=== PATIENT | female | born 1965 | race Caucasian/White ===

== ENCOUNTER → 2017-09-29 07:02 | Outpatient (CLI) | payer OTHER, SELFPAY ==
[2017-09-29 07:37] LABS: Hematocrit 42.3 % (37-47); Hemoglobin 14.5 g/dl (12.0-15.0); Mean Corp Hgb Conc 34.3 g/gl (32-36); Mean Corpuscular Hgb 31.9 pg (27.0-32.0); Mean Corpuscular Volume 93.2 fL (81-99); Mean Platelet Vol. 11.6 fl (6.2-12.0); Platelet Count 189 K/mm3 (150-450); RBC Distribution Width CV 12.5 % (11.6-14.6); RBC Distribution Width SD 42.4 fl (35.1-43.9); Red Blood Count 4.54 M/mm3 (4.2-5.4); White Blood Count 8.4 K/mm3 (4.4-11.0)
[2017-09-29 07:40] LABS: Scan Indicated on CBC? Y/N NO
[2017-09-29 08:14] LABS: ALB/GLOB Ratio 1.1 RATIO (0.9-2.4); AST(SGOT) 27 U/L (15-37); Alanine Aminotransfer ALT/SGPT 37 U/L (13-56); Albumin, Serum 3.8 g/dL (3.2-5.0); Alkaline Phosphatase 64 U/L (45-117); Anion Gap 6 (5-15); BUN 14 mg/dL (7-18); Calcium,Total 8.5 mg/dL (8.5-10.1); Chloride 109 mmol/L (98-107); Cholesterol 193 mg/dL (200); Creatinine, Serum 0.93 mg/dL (0.55-1.02); EST Glomerular Filtration Rate 67 mL/min (>60); Est Glom Filt Rate - Afr Amer 81 mL/min (>60); Globulin 3.5 g/dL (2.2-4.2); Glucose 106 mg/dL (74-106); High Density Lipoprotein 31 mg/dL; Potassium 3.8 mmol/L (3.5-5.1); Protein, Total 7.3 g/dL (6.4-8.2); Sodium Level 139 mmol/L (136-145); Thyroid Stim Hormone (TSH) 1.95 uIU/mL (0.358-3.74); Triglycerides 180 mg/dL; Very Low Density Lipoprotein 36 mg/dL (5-40)
== END ==
PROVIDERS: Family Provider Family Medicine; PCP Family Medicine
DX: E66.9 Obesity, unspecified (principal); R68.89 Other general symptoms and signs; F32.0 Major depressive disorder, single episode, mild
CPT/HCPCS: 36415; 80053; 80061; 84443; 85027

== ENCOUNTER → 2017-10-09 08:11 | Outpatient (CLI) | payer OTHER, SELFPAY ==
--- NOTE | 2017-10-09 08:17 | BI_ITS ---
MAMMOGRAPHY - BILATERAL SCREENING 3-D KEATON SYNTHESIS REASON FOR EXAM: Female, 52 years old. Bilateral Screening 3-D tomosynthesis PERTINENT HISTORY: No significant family history. TECHNIQUE: 2-D mammograms and 3-D Keaton synthesis of the breast (s) were performed. CAD was performed. COMPARISON: July 08, 2016, March 21, 2015 FINDINGS: The breast composition is almost entirely fat. Scattered benign calcifications are seen. No dense spiculated masses or suspicious microcalcifications are identified. No architectural distortion is identified. There is no skin thickening or retraction. There has been no significant change since the prior study. BI/SCREENING MAMM (CAD), BILAT IMPRESSION: No mammographic signs of malignancy. Routine yearly mammograms recommended. ASSESSMENT CATEGORY: BIRADS Category 2: Benign. A letter regarding these results will be sent to the patient by the facility within 30 days. FOLLOW UP RECOMMENDATION: Yearly follow up mammogram recommended. (A) Approximately 10% of breast cancers are not detected by mammography. A normal mammogram should not delay biopsy of a clinically suspicious abnormality. Electronically Signed: Clay Jaramillo MD at 17:35 EDT , Service support ,
== END ==
PROVIDERS: Family Provider Family Medicine; PCP Family Medicine; Visit Provider Family Medicine
DX: Z12.31 Encounter for screening mammogram for malignant neoplasm of breast (principal)
CPT/HCPCS: 77063; 77067

== ENCOUNTER 2018-04-22 18:25 | Emergency (ER) | payer OTHER, SELFPAY ==
[2018-04-22 18:26] VITALS: BP 149/95; PULSE 99; RESP 17; TEMP 36.4; O2SAT 97; BMI 40.9
--- NOTE | 2018-04-22 19:24 | ED.DCSUM_ITS ---
- ER Visit Summary Date of Service: 04/22/18 Chief Complaint: Hypertension History of Present Illness: The patient is a 53 F who states that earlier today at work her blood pressure was elevated 160/110. She had a migraine she took her migraine medication and it resolved. She cannot remember if she developed a sharp shooting pain in her right eye before or after the migraine. But it continues. It is intermittent but consistently intermittent. She has been having some nasal congestion. She denies any red eye. She denies any vision changes. There are no visual field cuts. Patient does not have any arm leg face or speech symptoms. His appointment with her doctor on Wednesday. She states that when she sees her regular doctor her blood pressure is fine when she sees her neurologist is usually elevated Physical Examination: Afebrile blood pressure 149/95 Gen: Well-nourished well-developed Head: Normocephalic atraumatic Eyes: Perrl EOMI patient's natural eyes provide an extremely good funduscopic exam for which I can see the optic disc artery vein and they appeared normal. No photophobia. There is no conjunctival injection. There is no rash. ENT: TMs clear no rhinorrhea moist mucous membranes Neck: Supple no lymphadenopathy no JVD nontender CVS: Regular rate rhythm no murmurs normal S1-S2 Respiratory: No distress clear to auscultation bilaterally chest nontender Abdomen: Soft nontender nondistended normal bowel sounds no masses Back: Nontender Extremity: Nontender no edema Skin: Normal color no rash Neuro: alert orientated ?3 CN II-XII intact normal strength sensation reflexes gait cerebellar Psych: Normal affect normal mood Emergency Department Course and Treatment: Patient's eye pressures are equal bilaterally. Please see T-sheet. I do not see evidence of acute angle-closure glaucoma. There is no visual changes. I do not see evidence of acute retinal artery or vein thrombosis. No evidence of intracranial pressure. Patient received a shot of Toradol and she will be discharged home. She has appointment on Wednesday. Patient does note that she has been under a lot of stress and has not been sleeping well. I advised her to try to get some sleep tonight as she has the weekend off to try to do non-stressful things. Impression: 1. Right eye pain This note was generated with Comeetation software. It may contain incorrect words, spelling, and punctuation that were not noted in review of the chart prior to signing ED Disposition - Plan for ED Patient: Disposition: Home or Assisted Living Chief Complaint: Hypertension Instructions: ED Headache Migraine Referrals: Julien Skinner DO [Primary Care Provider] - Keep Kathia appointment
[2018-04-22] MEDS: Ketorolac 60 MG/2 ML Vial IM (20:19)
[2018-04-22 20:22] VITALS: BP 133/88; PULSE 73; RESP 18; O2SAT 98
--- OUTSIDE RECORDS SUMMARY | 2018-07-27 07:46 | XMS RPT_ITS ---
:1965 Author Organization [facility] Care Team Providers Name Role Phone MONI EUGENE Attending Unavailable MONI EUGENE Referring Unavailable GERTRUDIS LEOS Attending Unavailable JULIEN SKINNER DO Primary Care Unavailable Julien Skinner Primary Care Unavailable Adi Resendez Attending Unavailable MONI EUGENE Attending Unavailable MONI EUGENE Referring Unavailable Julien Skinner Primary Care Unavailable Julien Skinner Attending Unavailable Julien Skinner Referring Unavailable Julien Skinner Primary Care Unavailable PROBLEMS PROBLEMS DATE TYPE CONDITION / CODE ATTENDING STATUS SOURCE 10/09/2017 Unknown Z12.31 - Dean Skinner Encounter for [facility] mammogram for Repository malignant neoplasm of breast / Z12.31(ICD-10) 09/29/2017 Unknown E66.9 - Obesity, MONI EUGENE Active Daniela unspecified / [facility] E66.9(ICD-10) Hospital Repository PROCEDURES PROCEDURES No Procedure Records FoundRESULTS RESULTS EMERGENCY DEPARTMENT Observed: 04/22/2018 Status: F Source: [place] SUMMARY 10:39 PM [facility] [place] [facility] Medical Records Department [address] [place] [address] Emergency Department Summary 04/22/181923 MR#: [id number] Acct: [id number] Name: LEOBARDO SUTTON Rep #: [id number] : 1965 53 From: Adi Resendez DO PCP: Julien Skinner DO Status: DEP ER - ER Visit Summary Date of Service: 04/22/18 Chief Complaint: Hypertension History of Present Illness: The patient is a 53 F who states that earlier today at work her blood pressure was elevated 160/110. She had a migraine she took her migraine medication and it resolved. She cannot remember if she developed a sharp shooting pain in her right eye before or after the migraine. But it continues. It is intermittent but consistently intermittent. She has been having some nasal congestion. She denies any red eye. She denies any vision changes. There are no visual field cuts. Patient does not have any arm leg face or speech symptoms. His appointment with her doctor on Wednesday. She states that when she sees her regular doctor her blood pressure is fine when she sees her neurologist is usually elevated Physical Examination: Afebrile blood pressure 149/95 Gen: Well-nourished well-developed Head: Normocephalic atraumatic Eyes: Perrl EOMI patient's natural eyes provide an extremely good funduscopic exam for which I can see the optic disc artery vein and they appeared normal. No photophobia. There is no conjunctival injection. There is no rash. ENT: TMs clear no rhinorrhea moist mucous membranes Neck: Supple no lymphadenopathy no JVD nontender CVS: Regular rate rhythm no murmurs normal S1-S2 Respiratory: No distress clear to auscultation bilaterally chest nontender Abdomen: Soft nontender nondistended normal bowel sounds no masses Back: Nontender Extremity: Nontender no edema Skin: Normal color no rash Neuro: alert orientated 3 CN II-XII intact normal strength sensation reflexes gait cerebellar Psych: Normal affect normal mood Emergency Department Course and Treatment: Patient's eye pressures are equal bilaterally. Please see T-sheet. I do not see evidence of acute angle- closure glaucoma. There is no visual changes. I do not see evidence of acute retinal artery or vein thrombosis. No evidence of intracranial pressure. Patient received a shot of Toradol and she will be discharged home. She has appointment on Wednesday. Patient does note that she has been under a lot of stress and has not been sleeping well. I advised her to try to get some sleep tonight as she has the weekend off to try to do non-stressful things. Impression: 1. Right eye pain This note was generated with [employer] dictation software. It may contain incorrect words, spelling, and punctuation that were not noted in review of the chart prior to signing ED Disposition - Plan for ED Patient: Disposition: Home or Assisted Living Chief Complaint: Hypertension Instructions: ED Headache Migraine Referrals: Julien Skinner DO [Primary Care Provider] - Keep Kathia appointment What to do if you have Problems For any increased pain, shortness of breath, bleeding, nausea or vomiting, chest pain, or any unexpected problems, contact your Primary Care Provider. Call [facility] ([phone]) or report to the closest Emergency Room. Call 911 if necessary. 04/22/18 2239 <Electronically signed by Adi Resendez DO> Date Adi Resendez DO Cosigner Signature (If Indicated): Date CC: Julien Skinner DO VL VENOUS UNILATERAL Observed: 03/15/2018 Status: F Source: [facility] EXT FOR DVT 3:18 PM FOUNDATION REPOSITORY ORIGINAL DUPLEX LOWER EXTREMITY VENOUS DOPPLER: RIGHT lower extremity Clinical Statement: RIGHT lower extremity pain Comparison: None FINDINGS: The RIGHT femoral and popliteal veins and the proximal visualized portions of the posterior tibial, peroneal, soleal and gastrocnemius veins show no direct or indirect evidence of thrombosis. There is n ormal phasic spontaneous flow in these veins which are also compressible. Spectral analysis shows normal flow augmentation in the superficial femoral and popliteal veins with physiologic maneuvers. The greater and lesser saphenous veins are also patent and compressible without evidence of superficial thrombophlebitis. IMPRESSION: No evidence of deep vein thrombosis in RIGHT lower extremity. I have personally reviewed the images of this examination and agree with the resident's findings and interpretation. Interpreted By: Dalia Tirado DO Preliminary Report By: Renetta Hernandez MD Electronically Signed By: Dalia Tirado DO Dictated Date: 03/15/2018 3:37:07 PM Prelim Date: 03/15/2018 3:38:24 PM Sign Date: 03/15/2018 4:59:34 PM SCREENING MAMM (CAD), Observed: 10/09/2017 Status: F Source: [place] BILAT 8:17 AM [facility] [place] [facility] Imaging Services [address] [place] [address] SCREENING MAMM (CAD), BILAT MR#: [id number] Acct: [id number] Name: LEOBARDO SUTTON Rep #: [id number] : 1965 F 52 From: Clay Jaramilol MD PCP: Julien Skinner DO Status: REG CLI Study: SCREENING MAMM (CAD), BILAT Date of Exam: 10/09/17 Exam# [id number] Ordering Dr: Julien Skinner DO MAMMOGRAPHY - BILATERAL SCREENING 3-D REGAN SYNTHESIS REASON FOR EXAM: Female, 52 years old. Bilateral Screening 3-D tomosynthesis PERTINENT HISTORY: No significant family history. TECHNIQUE: 2-D mammograms and 3-D Regan synthesis of the breast (s) were performed. CAD was performed. COMPARISON: July 08, 2016, March 21, 2015 FINDINGS: The breast composition is almost entirely fat. Scattered benign calcifications are seen. No dense spiculated masses or suspicious microcalcifications are identified. No architectural distortion is identified. There is no skin thickening or retraction. There has been no significant change since the prior study. BI/SCREENING MAMM (CAD), BILAT IMPRESSION: No mammographic signs of malignancy. Routine yearly mammograms recommended. ASSESSMENT CATEGORY: BIRADS Category 2: Benign. A letter regarding these results will be sent to the patient by the facility within 30 days. FOLLOW UP RECOMMENDATION: Yearly follow up mammogram recommended. (A) Approximately 10% of breast cancers are not detected by mammography. A normal mammogram should not delay biopsy of a clinically suspicious abnormality. 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 CBC-COMPLETE BLOOD CNT Collected: 09/29/2017 Status: F Source: [place] NO DIFF 7:15 AM [facility] [place] TYPE CODE TESTS RESULT OUT OF RANGE REFERENCE UNITS LAB L100.1000 4.4-11.0 K/mm3 Normal WBC 8.4 LAB L100.1200 4.2-5.4 M/mm3 Normal RBC 4.54 LAB L100.1300 12.0-15.0 g/dl Normal HGB 14.5 LAB L100.1400 37-47 % Normal HCT 42.3 LAB L100.1500 81-99 fL Normal MCV 93.2 LAB L100.1600 27.0-32.0 pg Normal MCH 31.9 LAB L100.1700 32-36 g/gl Normal MCHC 34.3 LAB L100.1810 11.6-14.6 % Normal RDW CV 12.5 LAB L100.1820 35.1-43.9 fl Normal RDW SD 42.4 LAB L100.1900 150-450 K/mm3 Normal PLT 189 LAB L100.2000 6.2-12.0 fl Normal MPV 11.6 Performed By: #### L100.0500 #### [facility] [address] [place], [address] COMPREHENSIVE METABOLIC Collected: 09/29/2017 Status: F Source: D[place] PROFIL 7:15 AM [facility] [place] TYPE CODE TESTS RESULT OUT OF RANGE REFERENCE UNITS LAB L501.0100 74-106 mg/dL Normal GLU 106 Result Comment: Fasting Glucose result from 100 to 125 mg/dL suggests IMPAIRED HOMEOSTASIS per A.D.A. criteria. Please note revised GLUCOSE reference range effective 2017. LAB L501.1000 7-18 mg/dL Normal BUN 14 LAB L501.1100 0.55-1.02 mg/dL Normal CREAT,SERUM 0.93 Result Comment: The validity of the calculated GFR AND GFRAA in patients over 70 years has not been determined. Clinical correlation is essential. LAB L501.1110 >60 mL/min Normal EST GFR 67 Result Comment: Non- GFR Calc LAB L501.1115 >60 mL/min Normal EST GFR - AA 81 Result Comment: GFR Calc LAB L501.1300 10-20 RATIO Normal BUN/CRE 15.0 LAB L501.1500 6.4-8.2 g/dL T Normal PROT 7.3 LAB L501.1800 3.2-5.0 g/dL Normal ALB 3.8 LAB L501.1950 2.2-4.2 g/dL Normal GLOB 3.5 LAB L501.2000 0.9-2.4 RATIO Normal A/G 1.1 LAB L501.2200 8.5-10.1 mg/dL CA Normal 8.5 LAB L501.4100 15-37 U/L Normal AST 27 LAB L501.4305 45-117 U/L Normal ALK P 64 LAB L501.4405 13-56 U/L Normal ALT 37 LAB L501.4600 0.20-1.00 mg/dL T Normal BILI 0.30 LAB L501.5300 136-145 mmol/L NA Normal 139 LAB L501.5600 3.5-5.1 mmol/L K Normal 3.8 LAB L501.5900 98-107 mmol/L High CL 109 LAB L501.6100 21.0-32.0 mmol/L Normal CO2 24.0 LAB L501.6200 5-15 Normal GAP 6 Performed By: #### L500.4050, L500.4100, L501.9520 #### [facility] [address] [place], [address] LIPID PROFILE Collected: 09/29/2017 Status: F Source: [place] 7:15 AM [facility] [place] TYPE CODE TESTS RESULT OUT OF RANGE REFERENCE UNITS LAB L501.4900 200 mg/dL Normal CHOL 193 Result Comment: <200 mg/dL Desirable 200-240 mg/dL Borderline >240 mg/dL High Risk LAB L501.5000 mg/dL Normal TRIG 180 Result Comment: The drugs N-Acetylcysteine and Metamizole may falsely depress this assay. Serum Triglycerides Reference Interval Normal <150 mg/dL Borderline high 150 - 199 mg/dL High 200 - 499 mg/dL Very High > or = 500 mg/dL LAB L501.6400 mg/dL Low HDL 31 Result Comment: The drugs N-Acetylcysteine and Metamizole may falsely depress this assay. Reference Range HDL <40 mg/dL Low HDL Cholesterol HDL >or= 60 mg/dL High HDL Cholesterol LAB L501.6500 0-130 mg/dL Normal LDL 126 LAB L501.6600 5-40 mg/dL Normal VLDL 36 Performed By: #### L500.4050, L500.4100, L501.9520 #### [facility] [address] [place], [address] THYROID STIM HORMONE Collected: 09/29/2017 Status: F Source: [place] (TSH) 7:15 AM [facility] [place] TYPE CODE TESTS RESULT OUT OF RANGE REFERENCE UNITS LAB L501.9520 0.358-3.74 uIU/mL Normal TSH 1.95 Performed By: #### L500.4050, L500.4100, L501.9520 #### [facility] [address] [facility] [place], [address] PROGRESS Observed: 09/27/2017 Status: COMPLETED Source: [place] 2:38 PM [facility] REPOSITORY HNO ID: [id number] Author: Moni Eugene Service: (none) Author Type: Physician Type: Progress Notes Filed: 09/27/2017 3:03 PM Note Text: Headache Center - Follow up Visit Accompanied by: Self Primary Problem List: ACTIVE PROBLEM LIST Migraine Without Aura and Without Status Migrainosus, Not Intractable Restless Legs Syndrome (Rls) Essential Tremor Obesity, Class III, BMI >= 40 (morbid obesity) E66.01 Obesity, Class II, Bmi 35-39.9 Chief Complaint: New symptoms Interval Headache Hx: She went for 3 months without a menses and did not have a headache In May she had a menses- headaches returned- only a couple of week A month ago she had irregular bleeding- now 5 weeks since she had any bleeding May- very depressed- koki she was . [place] suicidal- she is better since recognizing. She was put on Vibryd- she took one pill and she had the worst headache so she was afraid to take it. She took Prozac during post - has taken buspar Kids think she is depressed- she is crying all the time- sometimes no reason. She thinks it is hormonal Boyfriend's daughter has been in inpatient psychiatric institution for depression-lots of behavioral problems. This is a lot of stress. Headaches are doing ok as is tremor. Sometimes had morning headache- prior PSG + for restless legs only. + stiff neck- uses e-stim to get it to loosen up. Preventative: Verapamil and Topamax and magnesium Abortive: Treximet Issues and questions to be addressed: Medications reviewed ALLERGIES Allergen Reactions - Duricef [Cefadroxil] Rash - Penicillins Rash - Zomig [Zolmitriptan] Intolerance I have reviewed the [facility]ima Status Assessment responses and discussed these with the patient: yes Moni Eugene MD HEADACHE SCORES: Depression Screening 01/23/2015 06/08/2016 09/27/2017 PHQ-2 Score 1 1 1 PHQ-9 Score 3 6 3 MENDEL - 2/7 SCORES 09/27/2017 MENDEL-2 Total Score 2 HIT - 6 SCORES 09/27/2017 HIT - 6 Score 58 HEADACHE RELATED ED VISITS 09/27/2017 Since your last visit, how many times have you been admitted to the hospital or visited an Emergency Department or Urgent Care Facility for treatment of your headaches? 0 No flowsheet data found. Studies to Review: No New Health Issues: No New Social History: Yes, lives with boyfriend. Still works crazy hours New Family History: No REVIEW OF SYSTEMS: Review of system: unchanged from the previous visit (sleep patterns,energy, appetite, stress, exercising). Mood is down PHYSICAL EXAMINATION: VS: BP 139/66 Pulse 75 Ht 176.5 cm (5' 9.5) Wt 117.9 kg (260 lb) BMI 37.84 kg/m? General: Alert and oriented. Answered questions in an appropriate manner. Made eye contact without apparent pain behavior. HEENT: Head is normocephalic and features were symmetric. Cranial Nerves: II: Pupils: symmetric Ill,lV,Vl: nl eye movements VII: Face symmetric. Motor: Bulk: Normal for age and gender. No abnormal movements were appreciated. Fine postural tremor Gait: Unassisted, normal Normal stride length, base, and normal arm swing. Impression: Migraine without aura and without status migrainosus, not intractable (primary encounter diagnosis) Essential tremor Obesity, class ii, bmi 35-39.9 Cold intolerance Current mild episode of major depressive disorder without prior episode (hcc) Headaches are ok- more problems with depression. Menopause is helping headaches Situational stressors are high. Plan: All options for treatment discussed. Ok to try Viibryd again- if headache consider Pristiq instead Ok to taper off the Verapamil Continue Topamax, Magnesium and Treximet. Follow-up: 1 year Total time in minutes spent with patient: 30 with more than 50% of the time spent in patient education/counselling/coordinating care with the patient and /or family. Moni Eugene MD CNOV Observed: 09/27/2017 Status: COMPLETED Source: [place] 2:10 PM [facility] REPOSITORY Office Visit (MARI) LEOBARDO SUTTON ([id number]) 1965 F Date Time Provider Department 09/27/17 2:10 PM MONI EUGENE During your visit today, we recorded the following information about you: Pulse Blood pressure Weight Height 75/minute 139/66 117.9 kg 1.765 m Moni Eugene MD 09/27/2017 3:03 PM Signed Headache Center - Follow up Visit Accompanied by: Self Primary Problem List: ACTIVE PROBLEM LIST Migraine Without Aura and Without Status Migrainosus, Not Intractable Restless Legs Syndrome (Rls) Essential Tremor Obesity, Class III, BMI >= 40 (morbid obesity) E66.01 Obesity, Class II, Bmi 35-39.9 Chief Complaint: New symptoms Interval Headache Hx: She went for 3 months without a menses and did not have a headache In May she had a menses- headaches returned- only a couple of week A month ago she had irregular bleeding- now 5 weeks since she had any bleeding May- very depressed- koki she was . [place] suicidal- she is better since recognizing. She was put on Vibryd- she took one pill and she had the worst headache so she was afraid to take it. She took Prozac during post - has taken buspar Kids think she is depressed- she is crying all the time- sometimes no reason. She thinks it is hormonal Boyfriend's daughter has been in inpatient psychiatric institution for depression-lots of behavioral problems. This is a lot of stress. Headaches are doing ok as is tremor. Sometimes had morning headache- prior PSG + for restless legs only. + stiff neck- uses e-stim to get it to loosen up. Preventative: Verapamil and Topamax and magnesium Abortive: Treximet Issues and questions to be addressed: Medications reviewed ALLERGIES Allergen Reactions - Duricef [Cefadroxil] Rash - Penicillins Rash - Zomig [Zolmitriptan] Intolerance I have reviewed the Hima Status Assessment responses and discussed these with the patient: yes Moni Eugene MD HEADACHE SCORES: Depression Screening 01/23/2015 06/08/2016 09/27/2017 PHQ-2 Score 1 1 1 PHQ-9 Score 3 6 3 MENDEL - 2/7 SCORES 09/27/2017 MENDEL-2 Total Score 2 HIT - 6 SCORES 09/27/2017 HIT - 6 Score 58 HEADACHE RELATED ED VISITS 09/27/2017 Since your last visit, how many times have you been admitted to the hospital or visited an Emergency Department or Urgent Care Facility for treatment of your headaches? 0 No flowsheet data found. Studies to Review: No New Health Issues: No New Social History: Yes, lives with boyfriend. Still works crazy hours New Family History: No REVIEW OF SYSTEMS: Review of system: unchanged from the previous visit (sleep patterns,energy, appetite, stress, exercising). Mood is down PHYSICAL EXAMINATION: VS: BP 139/66 Pulse 75 Ht 176.5 cm (5' 9.5) Wt 117.9 kg (260 lb) BMI 37.84 kg/m? General: Alert and oriented. Answered questions in an appropriate manner. Made eye contact without apparent pain behavior. HEENT: Head is normocephalic and features were symmetric. Cranial Nerves: II: Pupils: symmetric Ill,lV,Vl: nl eye movements VII: Face symmetric. Motor: Bulk: Normal for age and gender. No abnormal movements were appreciated. Fine postural tremor Gait: Unassisted, normal Normal stride length, base, and normal arm swing. Impression: Migraine without aura and without status migrainosus, not intractable (primary encounter diagnosis) Essential tremor Obesity, class ii, bmi 35-39.9 Cold intolerance Current mild episode of major depressive disorder without prior episode (hcc) Headaches are ok- more problems with depression. Menopause is helping headaches Situational stressors are high. Plan: All options for treatment discussed. Ok to try Viibryd again- if headache consider Pristiq instead Ok to taper off the Verapamil Continue Topamax, Magnesium and Treximet. Follow-up: 1 year Total time in minutes spent with patient: 30 with more than 50% of the time spent in patient education/counselling/coordinating care with the patient and /or family. Moni Eugene MD Referring Provider: MONI EUGENE [[id number]] Allergies As of Date: 09/27/2017 Noted Allergy Reaction DURICEF (CEFADROXIL) 06/15/2011 2 - Rash PENICILLINS 06/15/2011 2 - Rash ZOMIG (ZOLMITRIPTAN) 06/15/2011 5 - Intolerance Date Reviewed: 09/27/2017 Reviewed by: Izabella Pfeiffer Ma - Fully Assessed Reason for Visit: Headache [52] Primary Visit Diagnosis:Migraine without aura and without status migrainosus, not intractable [G43.009] Other Visit Diagnoses:Essential tremor [G25.0] Obesity, Class II, BMI 35-39.9 [E66.9] Cold intolerance [R68.89] Current mild episode of major depressive disorder without prior episode (HCC) [F32.0] Order(s):TSH BLD [SQTSH] Order #: [id number] FUTURE CBC [SQCBC] Order #: [id number] FUTURE LIPID PANEL BASIC [SQLIPB] Order #: [id number] FUTURE COMP METABOLIC PANEL [SQCMP] Order #: [id number] FUTURE topiramate (TOPAMAX) 100 mg tabletTake 1 tablet by mouth daily at bedtime.Disp: 90 tabletRfl: 3 SUMAtriptan-Naproxen (TREXIMET) 85-500 mg per tabletTake 1 tablet by mouth as needed.Disp: 27 tabletRfl: 3 Prescriptions as of 09/27/2017 Sig: TOPIRAMATE 100 MG TABLET Take 1 tablet by mouth daily * SUMATRIPTAN 85 MG-NAPROXEN 50* Take 1 tablet by mouth as nee* ALBUTEROL SULFATE HFA 90 MCG/* Inhale 2 Puffs as instructed * OMEGA-3 FATTY ACIDS 500 MG CA* Take 500 mg by mouth once celeste* HYDROCODONE 5 MG-ACETAMINOPHE* Take 1 tablet by mouth every * COENZYME Q10 100 MG CAPSULE Take 1 capsule by mouth twice* MAGNESIUM OXIDE 500 MG TABLET Take 1 tablet by mouth once d* * FAMOTIDINE 40 MG TABLET Take 40 mg by mouth twice celeste* * CHOLECALCIFEROL (VITAMIN D3) * Take by mouth once daily. * MULTIVITAMIN TABLET Take 1 tablet by mouth once d* Medication notes this encounter VERAPAMIL ER (SR) 240 MG TABLET,EXTENDED RELEASE >> Moni Eugene MD 09/27/2017 3:02 PM feels she may not need Problem List As Of Date 09/27/2017 Noted Resolved Migraine without aura [G43.009] INVALID FOR*06/08/2016 Migraine without aura and without status migrai*INVALID FOR* Restless legs syndrome (RLS) [G25.81] INVALID FOR* Essential tremor [G25.0] INVALID FOR* Obesity, Class III, BMI >= 40 (morbid obesity) *INVALID FOR* Obesity, Class II, BMI 35-39.9 [E66.9] INVALID FOR* Prescriptions ordered this encounter Disp Refills Start End TOPIRAMATE 100 MG TABLET 90 t* 3 09/27/2017 Route: ORAL Sig: Take 1 tablet by mouth daily at bedtime. SUMATRIPTAN 85 MG-NAPROXEN 500 MG TA* 27 t* 3 09/27/2017 Route: ORAL Sig: Take 1 tablet by mouth as needed. Medications Discontinued During This Encounter gabapentin (NEURONTIN) 300 mg capsule 07/22/2016 09/27/2017 Class: Med Update Route: ORAL Sig: Take 2 capsules by mouth twice daily. Take one capsule in the am and 2 in the pm. Disc: Side Effects methylPREDNISolone (MEDROL, TAMMIE,) 4 * 1 Pa* 0 07/06/2016 09/27/2017 Sig: Take as directed Disc: Course of therapy completed Dexlansoprazole (DEXILANT) 30 mg ORA* 09/27/2017 Class: Med Update Route: ORAL Sig: Take by mouth once daily. Disc: Cost of medication verapamil SR (CALAN SR, ISOPTIN SR) * 90 t* 3 12/21/2016 09/27/2017 Route: ORAL Sig: Take 1 tablet by mouth daily at bedtime. Disc: Clinical Decision topiramate (TOPAMAX) 100 mg tablet 90 t* 3 12/21/2016 09/27/2017 Route: ORAL Sig: Take 1 tablet by mouth daily at bedtime. Disc: Reason for discontinue is not on file. SUMAtriptan-Naproxen (TREXIMET) 85-5* 27 t* 3 11/25/2016 09/27/2017 Route: ORAL Sig: Take 1 tablet by mouth as needed. Disc: Reason for discontinue is not on file. Disposition: Return in about 1 year (around 09/27/2018). Follow-up and Disposition History Recorded Encounter Status:Closed by MONI EUGENE MD on 09/27/17 ALLERGIES ALLERGIES DATE TYPE / NAME / CODE REACTION SEVERITY SOURCE CODE 04/22/2018 Drug cefadroxil Unknown Unknown [place] All[facility]/41 hydrate/[id number] [facility] [id number]( (RXNORM) Hospital OMED CT) Repository 04/22/2018 Drug Penicillins/[id number] Hives Unknown [place] Allergy/41 0476(RXNORM) [facility] [id number]([facility] OMED CT) Repository 04/22/2018 Drug zolmitriptan/F0060 Nausea Unknown [place] Allergy/41 94939(RXNORM) [facility] [id number]([facility] OMED CT) Repository 06/15/2011 DRUG CEFADROXIL RASH [facility] INGREDI/[address] [place] [id number]( Repository OMED CT) 06/15/2011 Drug PENICILLINS RASH [facility] Class/[address] [place] [address]([place] [place] [facility] Repository ED CT) 06/15/2011 DRUG ZOLMITRIPTAN INTOLERANCE [facility]/[address] [place] [address] [id number]( Repository O[address]) ENCOUNTERS ENCOUNTERS ADMIT/DISCHARGE ACCOUNT NUMBER ADMITTING ENCOUNTER LOCATION SOURCE CLASS 04/22/2018/04/22/20 [id number] Emergency [address] ding:ED Repository 03/15/2018/03/15/20 [id number] Ambulatory [address] ding:[facility] Repository 10/09/2017 [id number] Ambulatory [facility] ding:OPBI Repository 09/29/2017 [id number] Ambulatory [facility] ding:LAB Repository 09/27/2017/09/29/19 [id number] Ambulatory [address] Repository PAYERS PAYERS ENCOUNTER GUARANTOR PAYER SUBSCRIBER SOURCE 04/22/2018 LEOBARDO Ethel Primary Insurance:MED ADI [id number] MUTUAL TPAPolicy SRDOB: [facility] TACHO Number: [id number], [place] [id number] Repository [address]Xbo: ([phone]) Date:[id number] [phone] (HP) [address]41VZBDODOLZ, [place] [address]SN: CHECK WEBSITE 04/22/2018 Secondary NOT GIVENUNK Daniela Insurance:SELF PAY [facility] Number: Effective Repository Date:2018-04-22 03/15/2018 LEOBARDO Davenport Primary LORELEI YARNELLDOB: [place] [employer] YARNELLDOB: Insurance:MEDICAL [id number] [facility] [place] [id number] [facility] [address] [facility] Number: [place], [place] [id number] [place], [place] [address]Ggd: (330) Date:2018-03-15 [id number]: [id number] [id number] (HP)Tel: [phone] Name:CERTIFIED CODER Box (HP) (WP) [address]Clbuxufsn, [place] [phone] (WP) [id number]: 10/09/2017 LEOBARDO Ethel Primary Insurance:CATHY [id number] MUTUAL TPAPolicy SRDOB: [facility] Tacho Number: [id number], [place] [id number] Repository [address]Wju: (330) Date:[id number] [phone] (HP) [address]CIYJOZCZS, [place] [address]BA: CHECK WEBSITE 10/09/2017 Secondary NOT GIVENUNK Daniela Insurance:SELF PAY [facility] Number: Effective Repository Date:2017-09-20 09/29/2017 LEOBARDO Davenport Primary Insurance:CATHY ADI [id number] MUTUAL TPAPolicy SRDOB: [facility] Number: [id number], [place] [id number] Repository [address]Zks: ([phone]) Date:[id number] [phone] () [address]NSNVGOTEL, [place] [address]DT: CHECK WEBSITE 09/29/2017 Secondary NOT GIVENUNK Daniela Insurance:SELF PAY [facility] Number: Effective Repository Date:2017-09-29
== END 2018-04-22 20:45 | disposition home or self-care (01) ==
PROVIDERS: Emergency Provider Emergency Medicine; Family Provider Family Medicine; PCP Family Medicine
DX: H57.11 Ocular pain, right eye (principal); R09.81 Nasal congestion; G43.909 Migraine, unspecified, not intractable, without status migrainosus; K21.9 Gastro-esophageal reflux disease without esophagitis; Z79.899 Other long term (current) drug therapy; Z87.891 Personal history of nicotine dependence
CPT/HCPCS: 96372; 99283

== ENCOUNTER → 2018-10-01 | Outpatient (CLI) | payer OTHER, SELFPAY ==
[2018-10-01 10:37] LABS: AST(SGOT) 67 U/L (15-37); Alanine Aminotransfer ALT/SGPT 85 U/L (13-56); Albumin, Serum 3.7 g/dL (3.2-5.0); Alkaline Phosphatase 66 U/L (45-117); Anion Gap 6 (5-15); BUN 14 mg/dL (7-18); BUN/Creat Ratio 14.8 RATIO (10-20); Calcium,Total 8.7 mg/dL (8.5-10.1); Chloride 110 mmol/L (98-107); Creatinine, Serum 0.94 mg/dL (0.55-1.02); EST Glomerular Filtration Rate 66 mL/min (>60); Est Glom Filt Rate - Afr Amer 80 mL/min (>60); Globulin 3.7 g/dL (2.2-4.2); Glucose 135 mg/dL (74-106); Potassium 3.8 mmol/L (3.5-5.1); Protein, Total 7.4 g/dL (6.4-8.2); Sodium Level 142 mmol/L (136-145)
== END | disposition home or self-care (01) ==
LOC: LAB.FUTURE 07:56
PROVIDERS: Family Provider Family Medicine; PCP Family Medicine; Referring Provider Family Medicine; Visit Provider Family Medicine
DX: R73.9 Hyperglycemia, unspecified (principal)
CPT/HCPCS: 36415; 80053

== ENCOUNTER → 2018-12-03 | Outpatient (CLI) | payer OTHER, SELFPAY ==
--- NOTE | 2018-12-03 10:23 | BI_ITS ---
MAMMOGRAPHY - BILATERAL SCREENING REASON FOR EXAM: Female, 53 years old. Routine annual screening examination. PERTINENT HISTORY: Non-contributory. TECHNIQUE: Digital bilateral breast keaton (3D mammographic acquisition) in the CC and MLO projections. 2-D mediolateral oblique (MLO) and craniocaudad (CC) views of both breasts were obtained. CAD: Full Field Digital Mammography with Computer Added Detection was performed. COMPARISON: Comparison is made with prior study dated October 09, 2017 and July 08, 2016. FINDINGS: Breast Composition: The breasts are almost entirely fatty. There are no dominant masses or suspicious calcifications. No other significant abnormalities are identified. There has been no significant change since the prior study. BI/SCREEN MAMM (CAD) W/KEATON BILAT IMPRESSION: Stable bilateral screening mammogram. Yearly follow-up mammogram recommended. (A) ASSESSMENT CATEGORY: BIRADS Category 1: Negative. A letter regarding these results will be sent to the patient by the facility within 30 days. Approximately 10% of breast cancers are not detected by mammography. A normal mammogram should not delay biopsy of a clinically suspicious abnormality. [id number] Electronically Signed: Adonay Suresh, at 8:57 EDT , Service support ,
== END | disposition home or self-care (01) ==
PROVIDERS: Family Provider Family Medicine; PCP Family Medicine; Referring Provider Family Medicine; Visit Provider Family Medicine
DX: Z12.31 Encounter for screening mammogram for malignant neoplasm of breast (principal)
CPT/HCPCS: 77063; 77067

== ENCOUNTER 2019-11-23 04:00 | Emergency (ER) | payer OTHER, SELFPAY ==
[2019-11-23 04:01] VITALS: BP 175/94; PULSE 99; RESP 17; TEMP 36.7; O2SAT 95; BMI 39.5
--- NOTE | 2019-11-23 04:25 | ED.VIS.GEN ---
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 Yesterday, she had a repeat urinalysis as an outpatient at a different hospital, [facility], and was switched to Cipro. She states a culture was ordered. She is only had 1 dose of Cipro. She states she has had leg cramps off and on for a long time, and states tonight they were severe. She suspect she is dehydrated. She states she suspects this because she is really been urinating a lot. She is drinking, however. She does not feel lightheaded or near syncopal. She does not have any thoracic or abdominal symptoms, no back pain that is new with this. She is a diabetic. She denies any fevers or chills or other systemic symptoms. - Past Medical History (1) Migraines Status: Chronic (2) Type 2 diabetes mellitus Status: Chronic (3) HTN (hypertension) Status: Chronic (4) GERD (gastroesophageal reflux disease) Status: Chronic Past Medical History - Allergies and Home Meds Allergies/Adverse Reactions: Allergies cefadroxil hydrate [From Duricef] Allergy (Verified 11/23/19 04:06) Unknown Penicillins [PCN] Allergy (Verified 11/23/19 04:06) Hives zolmitriptan [From Zomig] Adverse Reaction (Verified 11/23/19 04:06) Nausea Primary Care Physician: Julien Skinner DO [COURTESY STAFF PHYSICIAN] - Smoking Status: Current every day smoker Review of Systems General: Denies: Chills, Fever, Sweats Eyes: Denies: Visual changes - bilaterally, Diplopia ENT: Denies: Rhinorrhea, Sore throat Cardiovascular: Denies: Chest pain, Palpitations Respiratory: Denies: Dyspnea, Cough, Dyspnea on exertion Gastrointestinal: Denies: Abdominal pain, Nausea, Vomiting, Diarrhea, Melena, Hematochezia Genitourinary: Reports: Frequency, - - ur urgency. Denies: Dysuria, Hematuria Musculoskeletal: Reports: Extremity Pain. Denies: Back pain, Swelling Skin: Denies: Rash, Wounds Neurological: Denies: Headache, Weakness, Numbness Physical Exam Vital Signs/Narrative: Vital Signs Temp Pulse Resp BP Pulse Ox 11/23/19 04:01 98.0 F 99 17 175/94 H 95 Inital Vital Signs reviewed: Yes General: Well nourished, Well developed, Obese, No Acute Distress Head: Normocephalic, Atraumatic Eyes: Perrl, EOMI ENT: Moist mucous membranes, No rhinorrhea Neck: Supple, - - FROM Respiratory: No distress Abdomen: Soft, Nontender, Nondistended, Normal bowel sounds Extremities: Nontender, No edema, - - FROM throughout Skin: Normal color, No rash, No Trauma Neurological: Alert, Oriented x3, Cranial nerves II-XII grossly intact, Normal Strength, Normal Sensation, Normal Gait Psychological: Normal affect, Normal Mood Diagnostic/Tx/Re-eval Laboratory Tests 11/23/19 Range/Units 04:20 Sodium 138 (136-145) mmol/L Potassium 3.8 (3.5-5.1) mmol/L Chloride 106 (98-107) mmol/L Carbon Dioxide 24.0 (21.0-32.0) mmol/L Anion Gap 8 (5-15) BUN 15 (7-18) mg/dL Creatinine 1.05 H (0.55-1.02) mg/dL Estim Creat Clear Calc 61.79 ml/min Est GFR (MDRD) Af Amer 70 (>60) mL/min Est GFR (MDRD) Non-Af 58 L (>60) mL/min BUN/Creatinine Ratio 14.3 (10-20) RATIO Glucose 144 H (74-106) mg/dL Calcium 8.8 (8.5-10.1) mg/dL - Medical Decision Making Nurses had placed an IV, so a liter of IV fluid was given empirically. She is not dehydrated according to my exam or her electrolyte panel, and her electrolytes are all within normal limits. She states after the fluids, she still has developed no further cramping. She is amenable to a single dose of Toradol prior to discharge. ED Disposition - Plan for ED Patient: Disposition: Home or Assisted Living Diagnosis: Bilateral leg cramps Instructions: ED SPASM Muscle Referrals: Julien Skinner DO [COURTESY STAFF PHYSICIAN] - As Needed
[2019-11-23] MEDS: 0.9% Normal Saline 1,000 ML 999 ML IV (04:28)
[2019-11-23 04:55] LABS: Anion Gap 8 (5-15); BUN 15 mg/dL (7-18); BUN/Creat Ratio 14.3 RATIO (10-20); Calcium,Total 8.8 mg/dL (8.5-10.1); Chloride 106 mmol/L (98-107); Creatinine, Serum 1.05 mg/dL (0.55-1.02); EST Glomerular Filtration Rate 58 mL/min (>60); Est Glom Filt Rate - Afr Amer 70 mL/min (>60); Estimated Creatinine Clearance 61.79 ml/min; Glucose 144 mg/dL (74-106); Potassium 3.8 mmol/L (3.5-5.1); Sodium Level 138 mmol/L (136-145)
[2019-11-23] MEDS: Ketorolac 15 MG/ML Vial IV (05:20)
[2019-11-23 05:24] VITALS: BP 165/88; PULSE 90; RESP 17; O2SAT 97
== END 2019-11-23 05:36 | disposition home or self-care (01) ==
PROVIDERS: Emergency Provider Emergency Medicine; PCP Student in an Organized Health Care Education/Training Program
DX: R25.2 Cramp and spasm (principal); N39.0 Urinary tract infection, site not specified; E66.9 Obesity, unspecified; I10 Essential (primary) hypertension; K21.9 Gastro-esophageal reflux disease without esophagitis; E11.9 Type 2 diabetes mellitus without complications; G43.909 Migraine, unspecified, not intractable, without status migrainosus; Z79.84 Long term (current) use of oral hypoglycemic drugs; Z79.899 Other long term (current) drug therapy; F17.200 Nicotine dependence, unspecified, uncomplicated
CPT/HCPCS: 80048; 96361; 96374; 99284; J7030; A4216

== ENCOUNTER 2019-11-24 12:19 | Observation (INO) | payer OTHER, SELFPAY ==
[2019-11-23 04:01] VITALS: BMI 39.5
[2019-11-24 12:20] VITALS: BP 154/109; PULSE 109; RESP 18; TEMP 36.9; O2SAT 97; BMI 38.0
[2019-11-24 12:21] VITALS: BP 155/109; PULSE 109; RESP 18; TEMP 37.1; O2SAT 97
[2019-11-24] MEDS: 0.9% Normal Saline 1,000 ML 1000 ML IV (12:50)
[2019-11-24 13:02] LABS: Absolute Lymphocyte Count 2.43 X10^3/uL (0.83-4.51); Absolute Neutrophil Count 4.1 X10^3/uL (2.0-7.7); Basophil# 0.03 X10^3/uL; Basophil% 0.4 % (0-1); Eosinophil# 0.16 X10^3/uL; Eosinophils% 2.2 % (0-5); Hematocrit 43.1 % (37-47); Hemoglobin 14.9 g/dL (12.0-15.0); Lymphocyte # 2.43 X10^3/ul (4.0); Lymphocyte % 33.1 % (19-41); Mean Corp Hgb Conc 34.6 g/dL (32-36); Mean Corpuscular Hgb 32.3 pg (27.0-32.0); Mean Corpuscular Volume 93.5 fL (81-99); Mean Platelet Vol. 11.5 fl (6.2-12.0); Monocyte% 8.2 % (0-10); NRBC Flagged by Analyzer 0 % (0-5); Neutrophil % 55.7 % (47-70); Platelet Count 213 K/mm3 (150-450); RBC Distribution Width CV 11.9 % (11.6-14.6); RBC Distribution Width SD 41.1 fl (35.1-43.9); Red Blood Count 4.61 M/mm3 (4.2-5.4); White Blood Count 7.4 K/mm3 (4.4-11.0)
[2019-11-24 13:16] LABS: Anion Gap 7 (5-15); BUN 10 mg/dL (7-18); BUN/Creat Ratio 9.7 RATIO (10-20); Calcium,Total 9.2 mg/dL (8.5-10.1); Chloride 104 mmol/L (98-107); Creatinine, Serum 1.03 mg/dL (0.55-1.02); EST Glomerular Filtration Rate 59 mL/min (>60); Est Glom Filt Rate - Afr Amer 72 mL/min (>60); Estimated Creatinine Clearance 62.99 ml/min; Glucose 148 mg/dL (74-106); Potassium 3.7 mmol/L (3.5-5.1); Sodium Level 137 mmol/L (136-145)
--- NOTE | 2019-11-24 13:21 | ED.RN ---
DR GENTILE PAGED FOR DR PEREZ
--- NOTE | 2019-11-24 13:25 | ED.VISSUMM ---
- ER Visit Summary Date of Service: 11/24/19 Chief Complaint: [UTI] History of Present Illness: The patient is a 54 F [ presents to the emergency department with complaint of urinary tract infection that she has had for 6 days. Patient's been on 2 different antibiotics and not get much relief of her symptoms. She had a urine culture that showed ESBL which is resistant to most p.o. antibiotics. She was advised that she needed IV antibiotics. Patient denies fever. She does continue to complain of frequency and some nausea. She is had no vomiting. She has had some lower back pain intermittently. Patient is a diabetic and has history of hypertension as well as migraines. Patient's had prior cholecystectomy and hysterectomy.] Physical Examination: [HEENT-PERRLA, EOMI. Cranial nerves II through XII grossly intact. TMs clear. Mucous membranes moist. No adenopathy. Cardiovascular-regular rate and rhythm without murmur or ectopy Lungs-clear to auscultation, chest wall stable without crepitus or subcu emphysema Abdomen-normoactive bowel sounds, soft, nontender, no rebound or rigidity, no peritoneal signs. Extremities-intact ?4, normal range of motion, normal pulses, atraumatic] Test Results: [CBC with differential obtained showed a white blood cell count 7.4, hemoglobin 15, hematocrit 43, placed 213. Chemistries unremarkable. Lactate was elevated 2.1. Blood cultures ordered.] Emergency Department Course and Treatment: [Patient was started on meropenem IV.] Treatment Plan: [Case discussed with urologist who will see patient in the emergency department for admission.] Disposition: [Admit] Impression: [Urinary tract infection-failed outpatient therapy] This note was generated with [employer] dictation software. It may contain incorrect words, spelling, and punctuation that were not noted in review of the chart prior to signing ED Disposition - Plan for ED Patient: Referrals: Galen Colin DO [Primary Care Provider] -
--- NOTE | 2019-11-24 13:29 | CT_ITS ---
STUDY: CT ABDOMEN AND PELVIS WITHOUT CONTRAST REASON FOR EXAM: Female, 54 years old. FLANK PAIN/CURRENTLY BEING TREATED FOR UTI RADIATION DOSAGE (If Supplied By Facility): CTDIvol = ( 21.03 ) mGy, DLP = ( 1229.35 ) mGycm TECHNIQUE: Transaxial images were obtained from the dome of the diaphragm to the symphysis pubis without oral contrast, and without intravenous contrast. Sagittal and coronal images were reconstructed. Individualized dose optimization techniques were used for this CT. COMPARISON: Comparison is made with prior study July 27, 2012. FINDINGS: The visualized lung bases are unremarkable. The visualized portions of the heart are within normal limits. There is decreased attenuation of the liver consistent with steatosis. There are surgical clips in the gallbladder fossa consistent with a prior cholecystectomy. Normal spleen. Normal pancreas. Normal bilateral adrenal glands. Normal right kidney. There is a 3.7 cm x 3.2 cm hypodense nodule in the posterior aspect of the upper pole of the left kidney suggestive of a cyst. This has increased in size as compared to prior study. Normal visualized stomach. Normal small intestine. Normal colon. The appendix is visualized and appears normal. There is scattered atherosclerotic calcification of the abdominal aorta, without a demonstrated aneurysm. Normal inferior vena cava. There is borderline retroperitoneal lymphadenopathy with enlarged nodes no greater than 10mm in the short axis diameter. Normal urinary bladder. Normal abdominal wall. Disc space narrowing and disc degeneration with spondylosis at the L5-S1 level. CT/Abdomen/Pelvis without Cont IMPRESSION: Cyst is seen in the upper pole of the left kidney. Diffuse fatty infiltration of the liver. The patient is status post cholecystectomy. Electronically Signed: Adonay Suresh, at 14:10 EDT , Service support ,
--- NOTE | 2019-11-24 13:35 | HP.PCM_ITS ---
History of Present Illness Date of Admission: 11/24/19 Chief Complaint: Resistant urinary tract infection nausea back pain vomiting The patient is a 54 year old female presents emergency room with nausea back pain vomiting recent resistant urinary tract infection we can proceed with a further work-up with a CAT scan and continue with IV antibiotics she was seen as an outpatient yesterday started on Cipro but Cipro would not be effective. She will be admitted for IV antibiotics. Past Medical History Past Medical History (Chronic Problems): Chronic Problems Migraines (Chronic) Type 2 diabetes mellitus (Chronic) HTN (hypertension) (Chronic) GERD (gastroesophageal reflux disease) (Chronic) Allergies cefadroxil hydrate [From Duricef] Allergy (Verified 11/24/19 12:22) Unknown Penicillins [PCN] Allergy (Verified 11/24/19 12:22) Hives zolmitriptan [From Zomig] Adverse Reaction (Verified 11/24/19 12:22) Nausea Home Medications: Ambulatory Orders Medication Instructions Recorded Cholecalciferol (Vitamin D3) 2,000 unit PO DAILY 05/16/13 [Vitamin D] Famotidine [Pepcid] 40 mg PO BID 05/16/13 Magnesium Oxide 500 mg PO DAILY 05/16/13 Multivitamins,Ther W-Minerals 1 tablet PO DAILY 05/16/13 [Multivitamin With Minerals (BKC)] Donna-3 Fatty Acids/Fish Oil 1 tab PO DAILY 05/16/13 [Donna 3 1,000 mg Softgel] Pantoprazole Sodium [Protonix] 40 mg PO DAILY 04/22/18 Topiramate [Topamax] 100 mg PO QHS 04/22/18 Lisinopril [Zestril] 2.5 mg PO DAILY 11/23/19 Metformin HCl [Metformin HCl ER] 500 mg PO BID 11/23/19 Sumatriptan Succ/Naproxen Sod 1 ea PO PRN PRN 11/23/19 [Sumatriptan-Naproxen 85-500 mg] Vilazodone Hydrochloride [Viibryd] 20 mg PO DAILY 11/23/19 Surgical History: no surgical history Psychiatric History: No pertinent psych hx UTILITY PERSON History: No pertinent UTILITY PERSON history Lives: Spouse/ Significant Other Smoking Status: Current every day smoker Tobacco Use: Non-smoker Alcohol: None Drugs: None Review of Systems Constitutional: Denies: Chills, Fever, Weight Change HEENT: Denies: Head Aches, Sinus Congestion, Sinus Drainage Cardiovascular: Denies: Chest Pain, Palpitations Respiratory: Denies: Cough, Shortness of breath at rest, Sputum production Gastrointestinal: Denies: Abdominal Pain, Nausea, Vomiting Genitourinary: Denies: Dysuria Musculoskeletal: Denies: Joint Pain, Joint Tenderness Skin: Denies: Rash, Wounds Neurological: Denies: Numbness, Tingling, Focal weakness Psychiatric: Denies: Anxiety, Depression, Homicidal Ideations, Suicidal Ideations Hematologic/ Lymphatic: Denies: Easy Bruising, Easy Bleeding VTE Information - Inpt Only VTE Present on Admission: No VTE Mechan Device Prophylaxis: SCD's - Physical Exam Vitals/I&O's: Vital Signs Temp Pulse Resp BP Pulse Ox 98.7 F 109 H 18 155/109 H 97 11/24/19 12:21 11/24/19 12:21 11/24/19 12:21 11/24/19 12:21 11/24/19 12:21 Oxygen Delivery Method Room Air Weight: 115.212 kg Body Mass Index (BMI) 38.0 General: Alert, Oriented x3, Cooperative HEENT: Atraumatic, PERRLA, EOMI, Normocephalic Neck: Supple, No JVD, Negative Carotid Bruits Lungs: Clear to auscultation, Normal air movement Cardiovascular: Regular rate, No murmurs Abdomen: Bowel Sounds Present, Soft, Non Tender Extremities: No edema, Capillary Refill Less than 3 Seconds Skin: No rashes, No breakdown Musculoskeletal: No Tenderness to Palpation of Joints or Extremities Neurological: Cranial nerves II-XII grossly intact Psych/Mental Status: Normal Affect, Appropriate Laboratory Results 11/24/19 12:45: WBC 7.4, RBC 4.61, Hgb 14.9, Hct 43.1, MCV 93.5, MCH 32.3 H, MCHC 34.6, RDW Std Deviation 41.1, RDW Coeff of Sandra 11.9, Plt Count 213, MPV 11.5, Immature Gran % (Auto) 0.400, Neut % (Auto) 55.7, Lymph % (Auto) 33.1, [place] % (Auto) 8.2, Eos % (Auto) 2.2, Baso % (Auto) 0.4, Absolute Neuts (auto) 4.1, Absolute Lymphs (auto) 2.43, Nucleated RBC % 0 11/24/19 12:45: Sodium 137, Potassium 3.7, Chloride 104, Carbon Dioxide 26.0, Anion Gap 7, BUN 10, Creatinine 1.03 H, Estim Creat Clear Calc 62.99, Est GFR (MDRD) Af Amer 72, Est GFR (MDRD) Non-Af 59 L, BUN/Creatinine Ratio 9.7 L, Glucose 148 H, Calcium 9.2 11/24/19 12:45: Lactic Acid 2.1 H* Current Medications Sodium Chloride () 1,000 mls @ 150 mls/hr IV .[id number] YAMILET Meropenem 1 gm/ Sodium (Chloride) 120 mls @ 33 mls/hr IV X1 ONE Stop: 11/24/19 16:09 Lisinopril (Zestril) 2.5 mg PO DAILY [facility] Metformin HCl (Glucophage Xr) 500 mg PO BID [facility] Multivitamins/Minerals (Multivitamin With Minerals (Bkc)) 1 tablet PO DAILY YAMILET Non-Formulary Medication (Famotidine [Pepcid]) 40 mg PO BID YAMILET Non-Formulary Medication (Magnesium Oxide) 500 mg PO DAILY YAMILET Non-Formulary Medication (Sumatriptan Succ/Naproxen Sod [Sumatriptan-Naproxen 85-500 Mg]) 1 ea PO PRN PRN PRN Reason: MIGRAINE SYMPTOMS Pantoprazole Sodium (Protonix) 40 mg PO DAILY YAMILET Topiramate (Topamax) 100 mg PO QHS YAMILET Vilazodone HCl (Viibryd) 20 mg PO DAILY [facility] Assessment/Plan 54-year-old female with nausea vomiting back pain resistant UTI infection will admit to the hospital for IV antibiotics and also do a CT scan evaluate for kidney stone.
[2019-11-24 13:36] LABS: Lactic Acid 2.1 mmol/L (0.4-1.9)
[2019-11-24 14:03] VITALS: BP 138/79; PULSE 84; RESP 16; TEMP 36.4; O2SAT 99
[2019-11-24 14:48] VITALS: BMI 38.0; BMI 38.1
[2019-11-24] MEDS: 0.9% Normal Saline 1,000 ML 75 ML IV (15:12)
[2019-11-24 15:24] VITALS: BP 127/86; PULSE 81; RESP 18; TEMP 36.9; O2SAT 99
--- NOTE | 2019-11-24 16:36 | CON.PCM_ITS ---
Problem List (1) UTI (urinary tract infection) Status: Acute Reason for Consult: uti Consulted by: Dr. Felder History of Present Illness: The patient is a 54 year old F with DM, developed urinary frequency and hematuria 11/17. Reports this is her 5th uti in past few months. 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 No fever, no abd pain, no n/v/d. Started on bactrim, changed to cipro, ucx sent 11/21 in [employer] system, showed ESBL. No improvement in sx, so came to ED. CT done, admitted on meropenem. No h/o kidney stones. Interested in going home. Full ROS performed and neg except as noted above. - Medical History Past Medical History (Chronic Problems): Chronic Problems Migraines (Chronic) Type 2 diabetes mellitus (Chronic) HTN (hypertension) (Chronic) GERD (gastroesophageal reflux disease) (Chronic) Allergies/Adverse Reactions: Allergies cefadroxil hydrate [From Duricef] Allergy (Verified 11/24/19 12:22) Unknown Penicillins [PCN] Allergy (Verified 11/24/19 12:22) Hives zolmitriptan [From Zomig] Adverse Reaction (Verified 11/24/19 12:22) Nausea Home Medications: Ambulatory Orders Medication Instructions Recorded Famotidine [Pepcid] 40 mg PO QHS 05/16/13 Multivitamins,Ther W-Minerals 1 tablet PO DAILY 05/16/13 [Multivitamin With Minerals (BKC)] Harrington-3 Fatty Acids/Fish Oil 1 cap PO DAILY 05/16/13 [Harrington 3 1,000 mg Softgel] Pantoprazole Sodium [Protonix] 40 mg PO DAILY 04/22/18 Topiramate [Topamax] 100 mg PO QHS 04/22/18 Lisinopril [Zestril] 2.5 mg PO DAILY 11/23/19 Metformin HCl [Metformin HCl ER] 500 mg PO BID 11/23/19 Sumatriptan Succ/Naproxen Sod 1 ea PO DAILY PRN PRN 11/23/19 [Sumatriptan-Naproxen 85-500 mg] Vilazodone Hydrochloride [Viibryd] 20 mg PO DAILY 11/23/19 Cholecalciferol (Vitamin D3) 2,000 unit PO DAILY 11/24/19 [Vitamin D3] Fosfomycin Tromethamine [Monurol] 3 gm PO UD #2 packet 11/24/19 Magnesium Oxide [Mag-Ox 400] 400 mg PO QHS 11/24/19 - Social History Tobacco Use: cigarettes Vital Signs Temp Pulse Resp BP Pulse Ox 98.4 F 81 18 127/86 H 99 11/24/19 15:24 11/24/19 15:24 11/24/19 15:24 11/24/19 15:24 11/24/19 15:24 Oxygen Delivery Method Room Air Weight: 115.212 kg Body Mass Index (BMI) 38.0 Laboratory Tests Past 24 Hrs 11/24/19 11/24/19 11/24/19 12:45 12:45 12:45 WBC 7.4 RBC 4.61 Hgb 14.9 Hct 43.1 MCV 93.5 MCH 32.3 H MCHC 34.6 RDW Std Deviation 41.1 RDW Coeff of Sandra 11.9 Plt Count 213 MPV 11.5 Immature Gran % (Auto) 0.400 Neut % (Auto) 55.7 Lymph % (Auto) 33.1 [place] % (Auto) 8.2 Eos % (Auto) 2.2 Baso % (Auto) 0.4 Absolute Neuts (auto) 4.1 Absolute Lymphs (auto) 2.43 Nucleated RBC % 0 Sodium 137 Potassium 3.7 Chloride 104 Carbon Dioxide 26.0 Anion Gap 7 BUN 10 Creatinine 1.03 H Estim Creat Clear Calc 62.99 Est GFR (MDRD) Af Amer 72 Est GFR (MDRD) Non-Af 59 L BUN/Creatinine Ratio 9.7 L Glucose 148 H Lactic Acid 2.1 H* Calcium 9.2 - Other Studies Radiology: [] reviewed Other Studies: [] Route of nutrition/ use of supplements: [] Nutritional Intake: [] IV Site: [] Marie Catheter: [] - Physical Exam General: Alert, Oriented x3, Cooperative, No apparent distress HEENT: Atraumatic, PERRLA, EOMI Neck: Supple, No Nodes Lungs: Clear to auscultation, Normal air movement Cardiovascular: Regular rate, Regular Rhythm, No murmurs Abdomen: Soft, Non Tender, Non-Distended, - - no flank pain Extremities: No edema Skin: No rashes IV Site: Peripheral, without redness Musculoskeletal: No Tenderness to Palpation of Joints or Extremities Neurological: Cranial nerves II-XII grossly intact - Assessment/Plan Antibiotics: [] Assessment/Plan: [] Recurrent uti, now with esbl ecoli uti - reviewed [facility] records. CT done here with no stone or abscess seen. Small cyst present. Feeling fine, interested in going home. Will do 3 dose course of fosfomycin. If sx do not improve in next few days, will arrange for outpt IV or IM ertapenem. I gave her my card. Agree with plan for cystoscopy and methenamine once she is past this acute infection. Will follow, thank you, d/w rehabilitation case coordinator. Ok for d/c home today from my perspective.
[2019-11-24 16:55] LABS: Reflex Lactate? Y
[2019-11-24 17:00] LABS: Bedside Glucose 193 mg/dL (70-110)
[2019-11-24] MEDS: FOSFOMYCIN TROMETHAMINE 3 GM PACKET PO (18:00)
--- NOTE | 2019-11-24 18:09 | NURSING ---
spoke with dr blake who is agreeable to pt d/c this pm after 1st dose of monurel (given) and pt will follow up in office with dr blake Rx dispensed 2 more doses, pt aware of dosing schedule-pt aware to drink plenty of fluids, return for care for worsening symptoms, pain, fever or other concerns
== END 2019-11-24 18:09 | disposition home or self-care (01) ==
LOC: ED 13:08 → MS3 11-27 12:02
PROVIDERS: Admitting Provider Urology; Emergency Provider Emergency Medicine; PCP Student in an Organized Health Care Education/Training Program; Visit Provider Urology
DX: N39.0 Urinary tract infection, site not specified (principal); E11.9 Type 2 diabetes mellitus without complications; I10 Essential (primary) hypertension; K21.9 Gastro-esophageal reflux disease without esophagitis; Z79.899 Other long term (current) drug therapy; Z79.84 Long term (current) use of oral hypoglycemic drugs; G43.909 Migraine, unspecified, not intractable, without status migrainosus; F17.210 Nicotine dependence, cigarettes, uncomplicated; B96.20 Unspecified Escherichia coli [E. coli] as the cause of diseases classified elsewhere; Z87.440 Personal history of urinary (tract) infections
CPT/HCPCS: 74176; 80048; 82962; 83605; 85025; 87040; 96361; 96365; 96366; 99218; 99284; J2185; J7030; G0378

== ENCOUNTER → 2020-07-18 16:31 | Outpatient (CLI) | payer OTHER, SELFPAY ==
[2020-07-18 16:28] VITALS: BMI 40.6
--- NOTE | 2020-07-18 16:34 | RAD_ITS ---
STUDY: X-RAY - RIGHT WRIST REASON FOR EXAM: Female, 55 years old. right wrist injury TECHNIQUE: 3 view(s) of the wrist were obtained. COMPARISON: 12/21/2015. FINDINGS: Normal visualized distal radius and ulna. Normal radiocarpal articulation. Normal distal radioulnar articulation. Normal carpal bones. Normal carpal articulations. Normal carpometacarpal articulation of the thumb. Normal second through fifth carpometacarpal articulations. Normal visualized metacarpal bones. The soft tissue structures are unremarkable. There is no demonstrated acute fracture. RAD/Wrist min 3 Views IMPRESSION: No definite acute or significant abnormality seen. Electronically Signed: Alonso Byers MD at 17:15 EST , Service support ,
== END ==
PROVIDERS: PCP Student in an Organized Health Care Education/Training Program; Referring Provider Physician Assistant; Visit Provider Physician Assistant
DX: M25.531 Pain in right wrist (principal)
CPT/HCPCS: 73110

== ENCOUNTER → 2020-08-20 16:00 | Outpatient (CLI) | payer OTHER, SELFPAY ==
[2020-07-18 16:28] VITALS: BMI 40.6
--- NOTE | 2020-08-20 16:05 | BI_ITS ---
MAMMOGRAPHY - BILATERAL SCREENING REASON FOR EXAM: Female, 55 years old. Routine annual screening examination. PERTINENT HISTORY: Non-contributory. TECHNIQUE: Digital bilateral breast keaton (3D mammographic acquisition) in the CC and MLO projections. 2-D mediolateral oblique (MLO) and craniocaudad (CC) views of both breasts were obtained. CAD: Full Field Digital Mammography with Computer Added Detection was performed. COMPARISON: Comparison is made with prior examination dated 12/03/2018 and 10/09/2017. FINDINGS: Breast Composition: The breasts are almost entirely fatty. There are no dominant masses or suspicious calcifications. No other significant abnormalities are identified. There has been no significant change since the prior study. BI/SCRN MAMM (CAD)W/KEATON BILAT IMPRESSION: Stable bilateral screening mammogram. Yearly follow-up mammogram recommended. (A) ASSESSMENT CATEGORY: BIRADS Category 1: Negative. A letter regarding these results will be sent to the patient by the facility within 30 days. Approximately 10% of breast cancers are not detected by mammography. A normal mammogram should not delay biopsy of a clinically suspicious abnormality. [id number] Electronically Signed: Adonay Suresh MD at 8:33 EDT , Service support ,
== END ==
PROVIDERS: PCP Student in an Organized Health Care Education/Training Program; Referring Provider Student in an Organized Health Care Education/Training Program; Visit Provider Student in an Organized Health Care Education/Training Program
DX: Z12.31 Encounter for screening mammogram for malignant neoplasm of breast (principal)
CPT/HCPCS: 77063; 77067

== ENCOUNTER 2020-09-30 13:00 | Outpatient (RCR) | payer OTHER, SELFPAY ==
[2020-07-18 16:28] VITALS: BMI 40.6
--- NOTE | 2020-08-01 12:07 | HP.OTEVAL_ITS ---
Patient's Visit Information LEOBARDO SUTTON is a 55 year old F, referred to Occupational Therapy by NILSA Muhammad, with a diagnosis of right wrist sprain. Date of Evaluation: 08/01/20 Occupational Therapist: Jade Aguirre, OTR/Cat, CHT - Subjective This 55 year old female was seen for OT eval with dx of right wrist sprain. Pt s bardales she had difficulty with a pt suffering a right wrist sprian. 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 pt states this is not the first time this has happened. pt is right handed- pt states she was placed in a soft thumb spica brace. pt staes pain is better but she continues to be limited with ADLs and IADls. Pt would also like to know when she can get out of her wrist brace. - Pain right wrist 6 Pain Intensity Range: 3, 8 - ROM Forearm: right/left WNL Wrist: right 55/35 left 70/60 ROM Comments: right RD 25 UD [address] 20 UD 30 - Strength Senior Clinical Research Scientist: right 60 pain with release of resisitance left 65# Lateral Pinch: right 14# left 16# Tripod Pinch: right 10# left 18# - Edema Wrist: right 18cm left 17 - Quick DASH-Disab of Arm,Shoulder& Hand Quick DASH Score: 66.6650 - Hand/Wrist Evaluation Total Score of Pain & Functional Sections: 66 - Goals Goal:: pt will demo a increase in right director of clinical applications strength by 10# and report no pain with release of director of clinical applications- to increase pts ind. with ADLs and IADls by d.c. Goal:: pt will demo a increase in right wrist ROM equal to left by d/c to increase pts ind. with ADLs and IADLs. Goal:: pt will report pain no greater than 1/10 with use of right hand with ADls and IADls by d/c - Rehabilitation General Assessment: pt demo with touch tenderness in 1st dorsal region along with pain after release of resisitance- pt is limited with ADLs and IADLs. Pt would benefit from skilled OT services 2-3x week for 4 weeks 10 visits to decrease pain and increase strength for pt to PLOF. Today thearpist ed. pt on ROM wist flex/ext to light stretch, followed with ice and heat 2-3 x a day- advised pt to cont with use of brace but to wean out when sitting for about 20- 30 min at a time. pt demo understanding and agree to POC. Rehabilitation Potential: Good - Anticipated Interventions A/AAROM/PROM, Strengthening, Modalities, Orthoses, Ergonomic Education - Visit Plan Frequency: 2-3x /Week Duration: 4 Weeks TEXT: Thank you for the opportunity to evaluate your patient. For Medicare and Medicare HMO plans, please review the plan of care and approve it. It will need to be FAXED BACK to us at [phone] for Medicare purposes. Please let me know if there are questions or concerns regarding this plan of care. Physician Signature: Date:
--- NOTE | 2020-08-14 10:43 | OTREVAL_ITS ---
NILSA Muhammad, It has been my pleasure to treat LEOBARDO SUTTON over the last 6 visits for right wrist sprain. Please see the progress note below for an update on the occupational therapy plan of care! Subjective: pt arrives states she has started to wean out of her brace when at home- states she attempted to sleep without it but her wrist did wake her up in the middle of the night and she put her brace back on-pt pain is throught 1st dorsal region and most painful with dawson care (wrist flex) positions. Objective/Function: right wrist 70/55. right chief projectionist strenght 55# this is down from initial eval but pt does not have pain. right lateral pinch 16# a increase from 14#. right tripod pinch 12#a increase from 10#. right wrist circ. for edema inital was 18cm pt at 17.6cm. pt has made gains with her ROM and a decrease in pain- but still limited with functional use of right UE pain with wrist flex- pt would benefit from skilled OT services to cont with strengthening- and work ergo. Plan Frequency: 2-3x /Week Duration: 4 Weeks Visits in this POC: 10 Plan: Cont POC. decrease pain. isometrics Goals - Goals Patient Goals: Decrease Pain Goal:: pt will demo a increase in right chief projectionist strength by 10# and report no pain with release of chief projectionist- to increase pts ind. with ADLs and IADls by d.c. Goal:: pt will demo a increase in right wrist ROM equal to left by d/c to increase pts ind. with ADLs and IADLs. Goal:: pt will report pain no greater than 1/10 with use of right hand with ADls and IADls by d/c Anticipated Interventions Anticipated Interventions: A/AAROM/PROM, Strengthening, Modalities, Orthoses, Ergonomic Education Please do not hesitate to contact me at [phone] by phone or if you have questions or concerns regarding this new plan of care! Sincerely, Jade Aguirre, OTR/L, CHT
== END 2020-09-30 19:00 | disposition home or self-care (01) ==
LOC: OT 13:00
PROVIDERS: PCP Student in an Organized Health Care Education/Training Program; Referring Provider Physician Assistant; Visit Provider Physician Assistant
DX: S63.501D Unspecified sprain of right wrist, subsequent encounter (principal)
CPT/HCPCS: 97035; 97110; 97140; 97166; 97530

== ENCOUNTER 2021-01-22 10:00 | Outpatient (RCR) | payer OTHER, SELFPAY ==
--- NOTE | 2021-01-07 13:59 | HP.OTEVAL ---
Patient's Visit Information LEOBARDO SUTTON is a 55 year old F, referred to Occupational Therapy by NILSA Muhammad, with a diagnosis of De Quervains syndrome R. Date of Evaluation: 01/03/21 Occupational Therapist: Jade Aguirre, OTR/Cat, CHT - Subjective This 55 year old female was seen for OT eval with dx of right wrist sprain. Pt state she had difficulty with a pt suffering a right wrist sprain. 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 pt states this is not the first time this has happened. pt is right handed. Pt reported that she has attempted to use it a little, but there is a lot of pain when she does certain movements and picks up certain things. pt did see Dr. Gabriel Gomes at [facility] and he did give her a cortisone shot- this helped for the first 2 weeks but has not been successful at this time. pt states she does have a wrist brace. pt would like to get back to her PLOF from this injury. - Pain R wrist 6 - ROM Wrist: R: 40*/45*, L: 60*/50* Opposition: 10, 10 ROM Comments: Pt indicated pain with R Thumb MP movement. - Strength [employer] Principal: R: 15#, l: 75# Lateral Pinch: R: 5#, L: 18# Tripod Pinch: R: 4#, L: 18# Strength Comments: pt indicated pain upon release with exercise scientist, lat pinch, and 3-jaw pinch tests. - Edema Wrist: R: 7 inches L: 6.5 inches Other: R CMC: 7.5 inches L: 7 inches. - Sensation Sensation Comments: denies - Quick DASH-Disab of Arm,Shoulder& Hand Quick DASH Score: 63.6350 - Goals Goal:: pt will demo a increase in right exercise scientist strength by 50# and report no pain with release of exercise scientist- to increase pts ind. with ADLs and IADls by d.c. pt will demonstrate an increase in R lateral and 3-jaw sarai pinches by 10# or greater to return to work tasks by d/c. Goal:: pt will demo a increase in right wrist ROM equal to left by d/c to increase pts ind. with ADLs and IADLs. Goal:: pt will report pain no greater than 1/10 with use of right hand with ADls and IADls by d/c - Rehabilitation General Assessment: pt demonstrated a decrease in R wrist ROM decrease in R strength, an increase in pain, and an increase in edema. Pt would benefit from skilled OT services 2-3 x a week for 4 weeks to decrease pain and edema and increase ROM and strength to return pt to her PLOF. pt agrees to POC. therapy session was directly supervised and doc. approved by Jade Aguirre OTR/L,CHT Rehabilitation Potential: Good - Anticipated Interventions A/AAROM/PROM, Strengthening, Edema Control, Triggerpoint Release, Joint Protection/Energy Conservation, Home Program - Visit Plan Frequency: 2-3x /Week Duration: 4 Weeks TEXT: Thank you for the opportunity to evaluate your patient. For Medicare and Medicare HMO plans, please review the plan of care and approve it. It will need to be FAXED BACK to us at [phone] for Medicare purposes. Please let me know if there are questions or concerns regarding this plan of care. Physician Signature: Date:
--- NOTE | 2021-01-22 10:30 | HP.OTDCSUM ---
It has been my pleasure to treat LEOBARDO SUTTON under orders from NILSA Muhammad, for the diagnosis of De Quervains syndrome R for a total of 9 visit(s). Please see the following information for a summary of their discharge status. % Improvement: 100 Objective/Function: right wrist 75/60. right test center manager strength 70# increase from 15#. right tripod pinch 10# increase from 4#. right lateral pinch 10# increase from 5#. pt has met OT goals. pt does distribute pill out of individual blister packs- this repetition may increase pain and cause weakness. therapy discussed alternative but no device is available pt will try to use both hands interchangeable as able. Patient Goals: Regain Strength, Decrease Pain, Return to Work, Decrease Swelling/Stiffness, Improve Fine Motor Skills, Use Hand/Wrist/Arm Normally Again, Increase ROM, Be More Independent in ADLS Goal:: pt will demo a increase in right test center manager strength by 50# and report no pain with release of test center manager- to increase pts ind. with ADLs and IADls by d.c. pt will demonstrate an increase in R lateral and 3-jaw sarai pinches by 10# or greater to return to work tasks by d/c. Goal:: pt will demo a increase in right wrist ROM equal to left by d/c to increase pts ind. with ADLs and IADLs. Goal:: pt will report pain no greater than 1/10 with use of right hand with ADls and IADls by d/c Plan: d/d Discharge Comments: pt was seen for 9 OT visits- she made great gains once therapy initiate UB PRE on gym eq. Pt has had no c/o pain and reports she has been IND. with ADLs and IADLs. Pt has met OT goals and is D/c at this time. If there are questions or concerns regarding this patient's occupational therapy, please fell free to call me at [phone]. Thank you for the referral of this patient. Sincerely, Jade Aguirre, OTR/L, CHT
== END 2021-01-22 19:00 | disposition home or self-care (01) ==
LOC: OT 10:00
PROVIDERS: PCP Student in an Organized Health Care Education/Training Program; Referring Provider Physician Assistant; Visit Provider Physician Assistant
DX: S63.501D Unspecified sprain of right wrist, subsequent encounter (principal)
CPT/HCPCS: 97035; 97110; 97165; 97530

== ENCOUNTER → 2022-02-25 | Outpatient (CLI) | payer OTHER, SELFPAY ==
[2022-02-25 18:02] LABS: Alanine Aminotransfer ALT/SGPT 65 U/L (13-56)
[2022-02-25 20:09] LABS: HIV - WCH Non-Reactive (Nonreactive); Hepatitis B Surface Antibody Non-Reactive; Hepatitis C Antibody Non-Reactive (Nonreactive)
== END | disposition home or self-care (01) ==
LOC: MTLAB 15:33
PROVIDERS: PCP Student in an Organized Health Care Education/Training Program; Referring Provider Physician Assistant; Visit Provider Physician Assistant
DX: S61.239A Puncture wound without foreign body of unspecified finger without damage to nail, initial encounter (principal); W46.0XXA Contact with hypodermic needle, initial encounter
CPT/HCPCS: 36415; 84460; 86703; 86706; 86803

== ENCOUNTER → 2022-08-22 | Outpatient (CLI) | payer OTHER, SELFPAY ==
--- NOTE | 2022-08-22 10:13 | RAD_ITS ---
EXAM: XR LEFT RIBS AND AP CHEST, 3 OR MORE VIEWS CLINICAL INDICATION: injury to left ribs TECHNIQUE: Frontal and oblique views of the left ribs and frontal view of the chest. This report was created using [employer] report [employer] technology. COMPARISON: None. FINDINGS: LUNGS AND PLEURAL SPACES: Unremarkable. No consolidation or edema. No pneumothorax. No effusion. HEART: Unremarkable. Cardiac silhouette not enlarged. MEDIASTINUM: Central airways and mediastinal contour are unremarkable. BONES/JOINTS: Unremarkable. No evidence of displaced rib fractures. RAD/Ribs Uni Min 3V w/PA Chest IMPRESSION: Negative chest and left ribs series. Electronically Signed: Chidi Foster MD at 15:15 EDT ,
== END | disposition home or self-care (01) ==
PROVIDERS: PCP Student in an Organized Health Care Education/Training Program; Referring Provider Physician Assistant Medical; Visit Provider Physician Assistant Medical
DX: S20.212A Contusion of left front wall of thorax, initial encounter (principal)
CPT/HCPCS: 71101

== ENCOUNTER → 2024-03-06 | Outpatient (CLI) | payer OTHER, SELFPAY ==
--- NOTE | 2024-03-06 16:09 | MRI_ITS ---
STUDY: MRI BRAIN WITH AND WITHOUT CONTRAST (ATTENTION INTERNAL AUDITORY CANALS - I.A.C.''s) REASON FOR EXAM: Female, 59 years old. Ataxia, left HEARING LOSS TECHNIQUE: Standardized multiplanar fat and water weighted pulse sequences were obtained. 22 mL of IV Clariscan was administered for the contrast portion of the examination. COMPARISON: MRI brain with and without contrast 09/04/2005. FINDINGS: Normal bilateral temporal bones. Normal bilateral internal auditory canals. There is no demonstrated intracanalicular or cisternal vestibular schwannoma ( acoustic neuroma ). There is no enhancement of the bilateral VIIth or VIIIth cranial nerves. Normal bilateral cochlea, vestibules and semicircular canals. Normal size of the ventricles and extra-axial spaces for the patient''s age. Diffuse subcortical white matter T2 FLAIR hyperintensity foci in the frontal lobes, right more than left are nonspecific. They are most likely chronic white matter ischemic changes. No mass effects and no midline shift. Normal bilateral basal ganglia. Normal thalami. Normal flow voids within the major intracranial circulation suggesting patency by spin echo criteria. Normal venous enhancement. There is no enhancing intra-axial or extra-axial abnormality. There is no extra-axial fluid accumulation. Normal sella turcica, pituitary gland, infundibular stalk, optic chiasm and hypothalamus. Normal tectal plate and pineal gland. Normal midbrain, anil and medulla. Normal cerebellum. Normal basal cisterns. No demonstrated orbital abnormality, within the constraints of a routine brain study. Normal visualized paranasal sinuses. Normal calvarium and skull base. Normal visualized soft tissue structures. Normal visualized upper cervical spine. MRI/Brain W/WO Contrast IMPRESSION: 1. Few small nonenhancing chronic subcortical white ischemic changes in the frontal lobes, right more than left otherwise negative unenhanced and enhanced MRI of the brain and bilateral internal auditory canals (I.A.C''s). 2. Mild increased chronic subcortical white matter ischemic changes in the frontal lobes when compared to 09/04/2005. Electronically Signed: Darron Mcmullen MD at 13:31 EDT ,
[2024-03-06 16:59] LABS: CREATININE FINGERSTICK < 1.0 mg/dL (0.55-1.02); EGFR FINGERSTICK > 60.0000 mL/min (>60)
--- OUTSIDE RECORDS SUMMARY | 2024-03-06 19:57 | XMS RPT_ITS | CCD ---
Author Organization [facility] Care Team Providers Care [employer] [place] Name Role Phone RADHA ACUNA DO Primary Care Physician [phone] Julien Skinner DO Primary Care Provider Gayle vailaJulien Peralta DO Primary Care Provider Gayle vailable Julien Skinner DO Primary Care Provider RADHA ACUNA DO Attending Unavailable RADHA ACUNA DO Primary Care Unavailable RADHA ACUNA DO Attending Unavailable RADHA ACUNA DO Primary Care Unavailable Halnilo POLANCO, DORadha Primary Care Provider HALNILO IV, JONO Primary Care Unavailable TROY FLOREZ Referring Unavailable HALKO IV, JONO Primary Care Unavailable HALKO IV, JONO Primary Care Unavailable JULIEN SKINNER Primary Care Unavailable HALKO IV, JONO Primary Care Unavailable TROY FLOREZ Attending Unavailable HALKO IV, JONO Primary Care Unavailable ROSETTE LEUNGIANNA Referring Unavailable HALKO IV, JONO Primary Care Unavailable HALKO IV, JONO Primary Care Unavailable HALKO IV, JONO Primary Care Unavailable LEUNG, JACKIE Referring Unavailable HALKO IV, JONO Primary Care Unavailable STIVEN, JACKIE Attending Unavailable KALPANA DORADHA Attending Unavailable KALPANA REYES, RADHA Primary Care Unavailable CHARLIE SMITH Attending Unavailable SELF, SELF Referring Unavailable Allergies Allergy Classification Reported Allergen(s) Allergy Type Date of Onset Reaction(s) Facility (20 sources) alosetron; Translations: [alosetron] Drug Allergy 08-22-2019 [facility] (20 sources) Cefadroxil; Translations: [cefadroxil] Drug Allergy 06-15-2011 [facility] (20 sources) metFORMIN; Translations: [metformin] Drug Allergy 10-28-2020 Diarrhea (finding), Intolerance, Other: See Comments [facility] (14 sources) Penicillin; Translations: [penicillin] Drug Allergy Hives [facility] (20 sources) ZOLMitriptan; Translations: [zolmitriptan] Drug Allergy 06-15-2011 Intolerance [facility] (20 sources) Lisinopril; Translations: [lisinopril] Drug Allergy 10-28-2020 Cough, Cough (finding) [facility] Work Phone: (4 sources) Penicillins; Translations: [PENICILLINS] Drug Allergy 06-15-2011 [facility] (17 sources) Penicillins Drug Allergy 06-15-2011 [facility] Medications Current Medications Medication Drug Class(es) Dates Sig (Normalized) Sig (Original) 3 ML semaglutide 1.34 MG/ML Pen Injector [Ozempic] (1 source) Start: 01-27-2024 End: 07-25-2024 inject 1 dose by subcutaneous injection every week Ozempic 4 mg/3 mL (1 mg dose) subcutaneous solution Dose : 1 mg =, Subcutaneous, qWeek, Ozempic, # 10 mL, 1 Refill(s), Pharmacy: [facility], 174, cm, 01/24/24 13:33:00 EDT, Height, kg, 01/24/24 13:33:00 EDT, Dosing Weight Start Date: 01/27/24 Stop Date: 07/25/24 Status: Ordered [id number] 200 actuat albuterol 0.09 mg/actuat metered dose inhaler (20 sources) beta2-Adrenergic Agonist Start: 01-20-2016 take 2 puff(s) by inhalation every four hours as needed albuterol HFA (PROAIR HFA) 90 mcg/actuation inhaler Indications: Sinobronchitis Inhale 2 Puffs as instructed every 4 hours as needed. 1 Inhaler 0 01/20/2016 Active Comment on above: Inhale 2 Puffs as in structed every 4 hours as needed. Ascorbic Acid (20 sources) Vitamin C Start: 01-01-2020 Vitamin C qDay, 0 Refill(s) Start Date: 01/01/20 Status: Ordered take 1 tablet by mouth once jabari y Ascorbic Acid (VITAMIN C) 1,000 mg tablet Take 1,000 mg by mouth once daily. Active bisoprolol fumarate 10 mg oral tablet (20 sources) beta-Adrenergic Abiodun Start: 10-18-2020 End: 07-22-2024 bisoprolol 10 mg oral tablet Dose : 10 mg = 1 tab(s), Oral, qDay, # 90 tab(s), 1 Refill(s), Pharmacy: [facility], HTN (hypertension), benign, 174, cm, 01/24/24 13:33:00 EDT, Height, kg, 01/24/24 13:33:00 EDT, Dosing Weight Start Date: 01/24/24 Stop Date: 07/22/24 Status: Ordered Comment on above: Take 10 mg by mouth once daily. cefdinir 300 mg oral capsule (1 source) Cephalosporin Antibacterial Start: 01-13-2024 End: 01-20-2024 take 1 capsule by mouth twice daily cefdinir (OMNICEF) 300 mg capsule Indications: Acute otitis media, left Take 1 capsule by mouth two times a day for 7 days. 14 capsule 01/13/2024 01/20/2024 Active cetirizine hydrochloride 10 mg oral tablet (8 sources) Histamine-1 Receptor Antagonist Start: 09-01-2023 cetirizine 10 mg oral tablet Dose : 10 mg = 1 tab(s), Oral, qDay, # 30 tab(s), 2 Refill(s), Pharmacy: [facility], 174.5, cm, 09/01/23 14:56:00 EDT, Height, kg, 09/01/23 14:56:00 EDT, Dosing Weight Start Date: 09/01/23 Status: Ordered take 1 capsule by mouth once celeste ly Cetirizine (ZYRTEC) 10 mg cap Take 1 capsule by mouth once daily. Active cholecalciferol 0.05 mg oral capsule (20 sources) Vitamin D take 1 capsule by mouth once daily Cholecalciferol, Vitamin D3, 50 mcg (2,000 unit) cap Take 1 capsule by mouth once daily. Active Comment on above: Take by mouth once d aily. cranberry fruit (CRANBERRY) 450 mg tab (20 sources) take 1 tablet by mouth once daily cranberry fruit (CRANBERRY) 450 mg tab Take 1 tablet by mouth once daily. Active take 1 tablet by mouth once jabari y cranberry fruit (CRANBERRY) 450 mg tab Take 1 tablet by mouth once daily. 0 Active cranberry fruit (CRANBERRY) 450 mg tab Take by mouth. 0 Active Comment on above: Take by mouth. Cranberry preparation (11 sources) Non-Standardized Food Allergenic Extract, Non-Standardized Plant Allergenic Extract Start: 08-14-2021 cranberry oral capsule See Instructions, 0 Refill(s) Start Date: 08/14/21 Status: Ordered famotidine 40 mg oral tablet (20 sources) Histamine-2 Receptor Antagonist Start: 09-01-2023 End: 07-22-2024 famotidine 40 mg oral tablet Dose : 40 mg = 1 tab(s), Oral, BID, # 180 tab(s), 1 Refill(s), Pharmacy: [facility], 174, cm, 01/24/24 13:33:00 EDT, Height, kg, 01/24/24 13:33:00 EDT, Dosing Weight Start Date: 01/24/24 Stop Date: 07/22/24 Status: Ordered Start: 01-15-2023 End: 07-14-2023 famotidine 40 mg oral tablet Dose : 40 mg = 1 tab(s), Oral, BID, # 180 tab(s), 1 Refill(s), Pharmacy: [facility], 175, cm, 01/15/23 10:28:00 EDT, Height, kg, 01/15/23 10:28:00 EDT, Dosing Weight Start Date: 01/15/23 Stop Date: 07/14/23 Status: Ordered Start: 07-10-2022 End: 01-06-2023 famotidine 40 mg oral tablet Dose : 40 mg = 1 tab(s), Oral, BID, # 180 tab(s), 1 Refill(s), Pharmacy: [facility], 175, cm, 07/10/22 10:20:00 EST, Height, kg, 07/10/22 10:20:00 EST, Dosing Weight Start Date: 07/10/22 Stop Date: 01/06/23 Status: Ordered Start: 01-01-2022 End: 06-30-2022 famotidine 40 mg oral tablet Dose : 40 mg = 1 tab(s), Oral, BID, # 180 tab(s), 1 Refill(s), Pharmacy: [facility], 175, cm, 10/28/21 10:05:00 EDT, Height, kg, 01/01/22 16:12:00 EDT, Dosing Weight Start Date: 01/01/22 Stop Date: 06/30/22 Status: Ordered Start: 07-02-2021 End: 12-29-2021 famotidine 40 mg oral tablet Dose : 40 mg = 1 tab(s), Oral, BID, # 180 tab(s), 1 Refill(s), Pharmacy: [facility], 175, cm, 02/18/21 15:47:00 EDT, Height, kg, 07/02/21 15:34:00 EST, Dosing Weight Start Date: 07/02/21 Stop Date: 12/29/21 Status: Ordered Start: 12-30-2020 End: 06-28-2021 famotidine 40 mg oral tablet Dose : 40 mg = 1 tab(s), Oral, BID, # 180 tab(s), 1 Refill(s), Pharmacy: [facility], 174, cm, 12/30/20 15:26:00 EDT, Height, kg, 12/30/20 15:26:00 EDT, Dosing Weight Start Date: 12/30/20 Stop Date: 06/28/21 Status: Ordered Comment on above: Take 40 mg by mouth twice daily. Flonase 50 mcg/inh nasal spray (3 sources) Start: 11-29-2018 take 1 dose nasal route once daily in the morning Flonase 50 mcg/inh nasal spray Dose = 1 spray(s), Nostril, each, qAM, 0 Refill(s) Start Date: 11/29/18 Status: Ordered FLUoxetine 10 mg oral capsule (20 sources) Serotonin Reuptake Inhibitor Start: 01-24-2024 PROzac 10 mg oral capsule Dose : 10 mg = 1 cap(s), Oral, qDay, # 90 cap(s), 1 Refill(s), Pharmacy: [facility], 174, cm, 01/24/24 13:33:00 EDT, Height, kg, 01/24/24 13:33:00 EDT, Dosing Weight Start Date: 01/24/24 Status: Ordered Start: 09-01-2023 PROzac 10 mg o ral capsule Dose : 10 mg = 1 cap(s), Oral, qDay, # 90 cap(s), 1 Refill(s), Pharmacy: [facility], 174.5, cm, 09/01/23 14:56:00 EDT, Height, kg, 09/01/23 14:56:00 EDT, Dosing Weight Start Date: 09/01/23 Status: Ordered Start: 10-16-2022 take 1 capsule by [facility] once daily FLUoxetine (PROZAC) 20 mg capsule Take 1 capsule by mouth once daily. 11/26/2022 Active Start: 05-18-2022 PROzac 20 mg o ral capsule Dose : 20 mg = 1 cap(s), Oral, qDay, # 90 cap(s), 1 Refill(s), Pharmacy: [facility], 175, cm, 05/18/22 8:53:00 EST, Height Start Date: 05/18/22 Status: Ordered Start: 09-25-2021 End: 11-26-2022 take 1 capsule by mouth once daily FLUoxetine (PROZAC) 10 mg capsule Take 10 mg by mouth once daily. 0 10/23/2021 11/26/2022 Discontinued Comment on above: Take 10 mg by mouth once daily. Take 1 capsule by [facility] once daily. fluticasone propionate 0.05 mg/actuat metered dose nasal spray (12 sources) Corticosteroid Start: take 50 ug nasal route once daily Flonase 50 mcg/inh nasal spray 50 mcg Dose = 1 spray(s), Nostril, each, qDay, # 1 EA, 2 Refill(s), Pharmacy: [facility], 174.5, cm, 09/01/23 14:56:00 EDT, Height, kg, 09/01/23 14:56:00 EDT, Dosing Weight Start Date: 09/01/23 Status: Ordered Start: 11-29-2018 take 1 dose nasal ro eric once daily in the morning Flonase 50 mcg/inh nasal spray Dose = 1 spray(s), Nostril, each, qAM, 0 Refill(s) Start Date: 11/29/18 Status: Ordered glimepiride 1 mg oral tablet (20 sources) Sulfonylurea Start: 01-19-2023 End: 10-24-2023 glimepiride 1 mg oral tablet Dose : 1 mg = 1 tab(s), Oral, qDay, # 90 tab(s), 1 Refill(s), Pharmacy: [facility], 175, cm, 04/27/23 8:30:00 EST, Height, kg, 04/27/23 8:30:00 EST, Dosing Weight Start Date: 04/27/23 Stop Date: 10/24/23 Status: Ordered Start: 01-29-2020 End: 11-26-2022 take 1 tablet by mouth once daily glimepiride (AMARYL) 1 mg tablet Take 1 mg by mouth once daily. 0 01/29/2020 11/26/2022 Discontinued Comment on above: Take 1 mg by mouth o nce daily. lovastatin 20 mg oral tablet (20 sources) HMG-CoA Reductase Inhibitor Start: 1 lovastatin 20 mg oral tablet Dose : 20 mg = 1 tab(s), Oral, qHS, # 90 tab(s), 1 Refill(s), Pharmacy: [facility], 174, cm, 01/24/24 13:33:00 EDT, Height, kg, 01/24/24 13:33:00 EDT, Dosing Weight Start Date: 01/24/24 Status: Ordered Comment on above: TAKE 1 TABLET BY VELMA TH EVERY DAY AT BEDTIME (stop rosuvastatin) Magnesium Aspartate (14 sources) Start: 9 take 1 mg by mouth once daily at bedtime magnesium aspartate mg =, Oral, qHS, 0 Refill(s) Start Date: 11/29/18 Status: Ordered magnesium oxide 500 mg oral tablet (20 sources) Start: 2 take 1 tablet by mouth once daily Magnesium Oxide 500 mg Tab Take 1 tablet by mouth once daily. 0 12/28/2011 Active Comment on above: Take 1 tablet by velma th once daily. MegaRed Ultra Krill Oil 1000 mg oral capsule (14 sources) Start: 9 MegaRed Ultra Krill Oil 1000 mg oral capsule Dose : 1,000 mg = 1 cap(s), Oral, BID, 0 Refill(s) Start Date: 11/29/18 Status: Ordered methocarbamol 750 mg oral tablet (17 sources) Muscle Relaxant Start: 1 Robaxin-750 oral tablet Dose : 1,500 mg = 2 tab(s), Oral, TID, 0 Refill(s) Start Date: 11/18/20 Status: Ordered Start: 10-28-2020 End: 11-26-2022 take 1 tablet by mouth three times daily as needed for pain methocarbamol (ROBAXIN-750) 750 mg tablet Indications: Migraine without aura and without status migrainosus, not intractable , Chronic bilateral low back pain, unspecified whether sciatica present , Cervicogenic headache Take 1 tablet by mouth as needed (for back pain and migraine). Up to 3 times a day. 30 tablet 2 10/28/2020 11/26/2022 Discontinued Comment on above: Take 1 tablet by velma th as needed (for back pain and migraine). Up to 3 times a day. Multivitamin preparation (4 sources) Start: 9 take 1 tablet by mouth once daily Multivitamin Dose = 1 tab(s), Oral, Daily, 0 Refill(s) Start Date: 11/29/18 Status: Ordered naproxen sodium 550 mg oral tablet (14 sources) Nonsteroidal Anti-inflammatory Drug Start: 3 take 1 tablet by mouth every twelve hours as needed Naproxen Sodium 550 mg tablet Take 1 tablet by mouth two times a day as needed (headache). FOR PAIN. TAKE WITH FOOD. 90 tablet 3 02/12/2023 Active Start: 11-18-2020 take 1 tablet by velma th twice daily naproxen 250 mg oral tablet See Instructions, tab(s) mg Oral BID, 0 Refill(s) Start Date: 11/18/20 Status: Ordered Start: 06-03-2020 End: 11-04-2021 take 1 tablet by mouth every twelve hours as needed Naproxen Sodium (ANAPROX DS) 550 mg tablet Take 1 tablet by mouth twice daily as needed (headache). 90 tablet 3 06/03/2020 11/04/2021 Discontinued Comment on above: Take 1 tablet by velma th twice daily as needed (headache). Take 1 tablet by velma th two times a day as needed (headache). FOR PAIN. TAKE WITH FOOD. naproxen sodium 500 mg / SUMAtriptan 85 mg oral tablet (20 sources) Nonsteroidal Anti-inflammatory Drug, Serotonin-1b and Serotonin-1d Receptor Agonist Start: End: take 1 tablet by mouth once as needed for headache Treximet 85 mg-500 mg oral tablet Dose = 1 tab(s), Oral, Once, PRN as needed for migraine headache, 0 Refill(s) Start Date: 04/01/21 Status: Ordered Comment on above: Take 1 tablet by velma th as needed for Migraine Headache (see administration instructions). nitrofurantoin, macrocrystals 25 mg / nitrofurantoin, monohydrate 75 mg oral capsule (2 sources) Nitrofuran Antibacterial Start: End: take 1 capsule by mouth twice daily nitrofurantoin monohydrate and macrocrystal (MACROBID) 100 mg capsule Indications: Hematuria, unspecified type Take 1 capsule by mouth twice daily for 7 days. 14 capsule 0 01/24/2023 01/31/2023 Active Start: 10-24-2022 End: 10-31-2022 take 1 capsule by mouth twice daily at mealtime nitrofurantoin monohydrate and macrocrystal (MACROBID) 100 mg capsule Indications: Urinary frequency Take 1 capsule by mouth twice daily with meals for 7 days. 14 capsule 0 10/24/2022 10/31/2022 Active Comment on above: Take 1 capsule by mo ut twice daily with meals for 7 days. Take 1 capsule by mo ut twice daily for 7 days. nystatin 100 unt/mg topical powder (5 sources) Polyene Antifungal Start: 09-01-2023 nystatin 100,000 units/g topical powder Apply 1 pasquale, Topical, BID, # 60 gram(s), 2 Refill(s), Pharmacy: [facility], Powder, 174.5, cm, 09/01/23 14:56:00 EDT, Height, 118.5, kg, 09/01/23 14:56:00 EDT, Dosing Weight Start Date: 09/01/23 Status: Ordered Start: 07-10-2022 nystatin 100,0 00 units/g topical powder Apply 1 pasquale, Topical, BID, # 60 gram(s), 2 Refill(s), Pharmacy: [facility], Powder, 175, cm, 07/10/22 10:20:00 EST, Height, 113.5 Start Date: 07/10/22 Status: Ordered [place]-3 Fatty Acids 500 mg cap (14 sources) take 1 capsule by [facility] once daily [place]-3 Fatty Acids 500 mg cap Take 500 mg by mouth once daily. Active take 1 capsule by mouth once celeste ly [place]-3 Fatty Acids 500 mg cap Take 500 mg by mouth once daily. 0 Active Comment on above: Take 500 mg by mouth once daily. OZEMPIC 0.25 mg or 0.5 mg (2 mg/3 mL) pen (3 sources) inject 0.5 mg by subcutaneous injection every week OZEMPIC 0.25 mg or 0.5 mg (2 mg/3 mL) pen INJECT 0.5 mg under the skin once weekly. rotate injection sites Active pantoprazole 40 mg delayed release oral tablet (20 sources) Proton Pump Inhibitor Start: 07-28-19 End: 07-23-19 pantoprazole 40 mg oral enteric coated tablet Dose : 40 mg = 1 tab(s), Oral, qDay, # 90 tab(s), 1 Refill(s), Pharmacy: [facility], 174, cm, 01/24/24 13:33:00 EDT, Height, kg, 01/24/24 13:33:00 EDT, Dosing Weight Start Date: 01/24/24 Stop Date: 07/22/24 Status: Ordered Comment on above: Take 40 mg by mouth once daily. predniSONE 5 mg oral tablet (1 source) Start: 01-08-20 predniSONE 5 mg oral tablet See Instructions, Taper dose, 10 pills today decrease by 1 over the next 9 days. Taper 10-1, # 55 tab(s), 0 Refill(s), Pharmacy: [facility], 175, cm, 01/07/23 13:23:00 EDT, Height, kg, 01/07/23 13:23:00 EDT, Dosing Weight Start Date: 01/07/23 Status: Ordered SUMAtriptan 100 mg oral tablet (14 sources) Serotonin-1b and Serotonin-1d Receptor Agonist Start: 02-13-20 take 1 tablet by mouth every two hours as needed for headache SUMAtriptan (IMITREX) 100 mg tablet Take 1 tablet (100 mg) by mouth as needed for migraine headache (see administration instructions). START AT ONSET OF HEADACHE. MAY REPEAT DOSE AFTER 2 HOURS. 27 tablet 3 02/12/2023 Active Start: 12-25-2020 End: 11-04-2021 SUMAtriptan (IMITREX) 100 mg tablet TAKE ONE (1) TABLET EVERY 2 HOURS WITH A MAXIMUM DOSE OF 200 MG PER DAY NEEDED FOR HEADACHE 27 tablet 3 12/25/2020 11/04/2021 Discontinued Start: 11-18-2020 take 1 tablet by velma th every twenty-four hours SUMAtriptan 100 mg oral tablet Dose : 100 mg = 1 tab(s), Oral, qDay, PRN as needed for migraine headache, may repeat dose after 2 hours up to a maximum of 200 mg in 24 hours, # 18 tab(s), 0 Refill(s) Start Date: 11/18/20 Status: Ordered Comment on above: TAKE ONE (1) TABLET EVERY 2 HOURS WITH A MAXIMUM DOSE OF 200 MG PER DAY NEEDED FOR HEADACHE Take 1 tablet (100 m g) by mouth as needed for migraine headache (see administration instructions). START AT ONSET OF HEADACHE. MAY REPEAT DOSE AFTER 2 HOURS. topiramate 25 mg oral tablet (20 sources) Start: 11-04-2021 End: 11-28-2023 topiramate 25 mg oral tablet Dose : 25 mg = 1 tab(s), qDay, 0 Refill(s) Start Date: 11/17/21 Status: Ordered Start: 11-29-2018 End: 11-28-2023 Topamax 100 mg oral tablet D ose : 100 mg = 1 tab(s), Oral, qDay, 0 Refill(s) Start Date: 11/29/18 Status: Ordered Comment on above: Take 1 tablet by velma th daily at bedtime. Take 1 tablet by velma th once daily. In addition to 100 mg tablet to equal 125 mg total per day Vitamin D3 (14 sources) Start: 11-29-2018 Vitamin D3 0 R efill(s) Start Date: 11/29/18 Status: Ordered Completed/Discontinued Medications Medication Drug Class(es) Dates Sig (Normalized) Sig (Original) 0.25 MG, 0.5 MG Dose 3 ML semaglutide 0.68 MG/ML Pen Injector [Ozempic] (1 source) Start: 09-30-2023 End: 03-28-2024 inject 0.5 mg by subcutaneous injection every week Ozempic 2 mg/3 mL (0.25 mg or 0.5 mg dose) subcutaneous solution Dose : 0.5 mg =, Subcutaneous, qWeek, rotate injection sites Start 0.25 mg weekly for 4 weeks, then increase to 0.5 mg weekly, # 3 EA, 1 Refill(s), Pharmacy: [facility], 174.5, cm, 09/01/23 14:56:00 EDT, Height, kg, 09/01/23 14:56:00 EDT, Dosing Weight Start Date: 09/30/23 Stop Date: 03/28/24 Status: Ordered albuterol MDI (90 mcg/inh) CFC free inhalation aerosol (12 sources) Start: 06-01-2023 End: 07-01-2023 take 2 puff(s) by inhalation every four hours albuterol MDI (90 mcg/inh) CFC free inhalation aerosol 2 puff(s), Inhalation, q4h, ok to fill generic equivalent rescue inhaler, # 1 EA, 0 Refill(s), Pharmacy: [facility], Wheezing on expiration, 174.5, cm, 06/01/23 10:29:00 EST, Height, kg, 06/01/23 10:29:00 EST, Dosing Weight Start Date: 06/01/23 Stop Date: 07/01/23 Status: Ordered Start: 06-06-2021 End: 09-04-2021 take 2 puff(s) by inhalation every four hours albuterol MDI (90 mcg/inh) CFC free inhalation aerosol 2 puff(s), Inhalation, q4h, ok to fill generic equivalent rescue inhaler, # 1 EA, 2 Refill(s), Pharmacy: [facility], 175, cm, 02/18/21 15:47:00 EDT, Height, kg, 05/13/21 15:45:00 EST, Dosing Weight Start Date: 06/06/21 Stop Date: 09/04/21 Status: Ordered ciprofloxacin 3 mg/ml ophthalmic solution (5 sources) Quinolone Antimicrobial Start: 08-04-2023 End: 12-22-2023 take 1-2 drop(s) into the eye(s) every two hours, then take 1-2 drop(s) into the eye(s) every four hours ciprofloxacin HCl (CILOXAN) 0.3 % ophthalmic solution Use 1-2 drops into the affected eye every 2 hours while awake for 2 days, then 1-2 drops every 4 hours while awake for the next 5 days. 10 mL 0 08/04/2023 12/22/2023 Discontinued (Course of therapy completed) Start: 07-11-2021 End: 07-16-2021 Cipro 500 mg oral tablet Dos e : 500 mg = 1 tab(s), Oral, q12h, X 5 day(s), # 10 tab(s), 0 Refill(s), 07/16/21 8:45:00 EST, Pharmacy: [facility], 175, cm, 02/18/21 15:47:00 EDT, Height, 125.1, kg, 07/02/21 15:34:00 EST, Dosing Weight Start Date: 07/11/21 Stop Date: 07/16/21 Status: Ordered fluconazole 150 mg oral tablet (6 sources) Azole Antifungal Start: 01-24-2024 End: 01-24-2024 Diflucan 150 mg oral tablet Dose : 150 mg = 1 tab(s), Oral, qDay, # 1 tab(s), 0 Refill(s), Pharmacy: [facility], 174, cm, 01/24/24 13:33:00 EDT, Height, 114.2, kg, 01/24/24 13:33:00 EDT, Dosing Weight Start Date: 01/24/24 Stop Date: 01/24/24 Status: Ordered Start: 07-15-2021 End: 07-15-2021 Diflucan 150 mg oral tablet Dose : 150 mg = 1 tab(s), Oral, qDay, # 1 tab(s), 0 Refill(s), Pharmacy: [facility], 174, cm, 07/15/21 16:06:00 EST, Height, 124.9, kg, 07/15/21 16:06:00 EST, Dosing Weight Start Date: 07/15/21 Stop Date: 07/15/21 Status: Ordered methenamine hippurate 1000 m g oral tablet (20 sources) Start: 01-24-2024 End: 07-22-2024 methenamine hippurate 1 g or al tablet Dose : 1 gram(s) = 1 tab(s), Oral, qHS, PRN urinary prophylaxis, # 90 tab(s), 1 Refill(s), Pharmacy: [facility], 174, cm, 01/24/24 13:33:00 EDT, Height, kg, 01/24/24 13:33:00 EDT, Dosing Weight Start Date: 01/24/24 Stop Date: 07/22/24 Status: Ordered Start: 02-12-2023 End: 10-24-2023 methenamine hippurate 1 g or al tablet Dose : 1 gram(s) = 1 tab(s), Oral, qHS, PRN urinary prophylaxis, # 90 tab(s), 1 Refill(s), Pharmacy: [facility], 175, cm, 04/27/23 8:30:00 EST, Height, kg, 04/27/23 8:30:00 EST, Dosing Weight Start Date: 04/27/23 Stop Date: 10/24/23 Status: Ordered Start: 08-11-2022 End: 02-07-2023 methenamine hippurate 1 g or al tablet Dose : 1 gram(s) = 1 tab(s), Oral, qHS, PRN urinary prophylaxis, # 90 tab(s), 1 Refill(s), Pharmacy: [facility], 175, cm, 07/10/22 10:20:00 EST, Height, kg, 07/10/22 10:20:00 EST, Dosing Weight Start Date: 08/11/22 Stop Date: 02/07/23 Status: Ordered Start: 07-11-2021 methenamine hi ppurate 1 g oral tablet Dose : 1 gram(s) = 1 tab(s), Oral, qHS, PRN urinary prophylaxis, # 30 tab(s), 0 Refill(s), Pharmacy: [facility], 175, cm, 02/18/21 15:47:00 EDT, Height, kg, 07/02/21 15:34:00 EST, Dosing Weight Start Date: 07/11/21 Status: Ordered Start: 01-29-2020 End: 06-28-2021 take 1 tablet by mouth once daily Methenamine Hippurate (HIPREX) 1 gram tablet TAKE 1 TABLET BY MOUTH EVERY DAY WITH VITAMIN C 1000 MG FOR UTI PREVENTION 01/29/2020 Active Comment on above: TAKE 1 TABLET BY VELMA TH EVERY DAY WITH VITAMIN C 1000 MG FOR UTI PREVENTION multivitamin ORAL tablet (4 sources) End: 2 take 1 tablet by mouth once daily multivitamin ORAL tablet Take 1 tablet by mouth once daily. 0 11/04/2021 Discontinued take 1 tablet by mouth once jabari y multivitamin ORAL tablet Take 1 tablet by mouth once daily. 0 Active Comment on above: Take 1 tablet by velma th once daily. [place]-3 Fatty Acids (FISH OIL) 500 mg cap (6 sources) take 1 capsule by mouth once daily [place]-3 Fatty Acids (FISH OIL) 500 mg cap Take 500 mg by mouth once daily. 0 Active Comment on above: Take 500 mg by mouth once daily. Problems Problem Classification Problem Date Documented Da te Episodic/Chronic Anxiety disorders (14 sources) Anxiety 12-04-2019 Chronic Cardiac dysrhythmias (14 sources) Palpitations 07-08-2020 Episodic Coagulation and hemorrhagic disorders (5 sources) Thrombocytopenic disorder; Translations: [Thrombocytopenia, unspecified] Onset: 4 12-08-2023 Chronic Diabetes mellitus with complications (4 sources) Peripheral vascular disorder due to diabetes mellitus 10-16-2022 Chronic Diabetes mellitus without complication (20 sources) Type 2 diabetes mellitus; Translations: [Diabetes mellitus] Onset: 4 12-04-2019 Chronic Esophageal disorders (14 sources) Gastroesophageal reflux disease 12-04-2019 Chronic Essential hypertension (16 sources) Benign hypertension; Translations: [Hypertensive disorder] 06-24-2020 Chronic Genitourinary symptoms and ill-defined conditions (16 sources) History of recurrent urinary tract infection; Translations: [Increased frequency of urination] 10-08-2020 Episodic Headache; including migraine (20 sources) Menstrual migraine; Translations: [Migraine] Onset: 2 Resolved: 7 06-02-2019 Chronic Headache; including migraine (1 source) Cervicogenic headache; Translations: [Cervicogenic headache] Episodic Malaise and fatigue (11 sources) Fatigue 08-14-2021 Episodic Mood disorders (14 sources) Depressive disorder; Translations: [Major depression in remission] 12-04-2019 Chronic Nausea and vomiting (14 sources) Nausea 01-01-2020 Episodic Nutritional deficiencies (14 sources) Vitamin D deficiency 12-04-2019 Chronic Nutritional deficiencies (14 sources) Vitamin B deficiency 11-28-2018 Episodic Open wounds of extremities (1 source) Laceration of left middle finger; Translations: [Laceration without foreign body of left middle finger without damage to nail, initial encounter] 12-06-2023 Episodic Osteoarthritis (14 sources) Degenerative joint disease involving multiple joints 07-08-2020 Chronic Other bone disease and musculoskeletal deformities (14 sources) Cervical somatic dysfunction 06-02-2019 Episodic Other bone disease and musculoskeletal deformities (14 sources) Somatic dysfunction of lower limb 06-02-2019 Episodic Other bone disease and musculoskeletal deformities (14 sources) Somatic dysfunction of lumbar region 06-02-2019 Episodic Other bone disease and musculoskeletal deformities (14 sources) Somatic dysfunction of pelvic region 02-18-2021 Episodic Other bone disease and musculoskeletal deformities (14 sources) Somatic dysfunction of rib 06-02-2019 Episodic Other bone disease and musculoskeletal deformities (14 sources) Somatic dysfunction of sacral region 06-02-2019 Episodic Other bone disease and musculoskeletal deformities (14 sources) Somatic dysfunction of thoracic region 06-02-2019 Episodic Other bone disease and musculoskeletal deformities (12 sources) Somatic dysfunction of upper limb 05-13-2021 Episodic Other connective tissue disease (14 sources) Cramp in lower leg 11-29-2018 Episodic Other connective tissue disease (14 sources) Cramp in lower limb 12-04-2019 Episodic Other connective tissue disease (14 sources) Spasm 02-02-2020 Episodic Other connective tissue disease (14 sources) Tenosynovitis of right radial styloid 10-08-2020 Episodic Other connective tissue disease (12 sources) Plantar fasciitis 07-02-2021 Episodic Other connective tissue disease (3 sources) Tendinitis of long head of biceps brachii of right shoulder 01-15-2023 Episodic Other ear and sense organ disorders (1 source) Bilateral earache; Translations: [Otalgia, bilateral] 01-10-2024 Episodic Other gastrointestinal disorders (14 sources) Diarrhea 01-01-2020 Episodic Other hereditary and degenerative nervous system conditions (20 sources) Restless legs; Translations: [Restless legs syndrome] Onset: 7 06-08-2016 Chronic Other hereditary and degenerative nervous system conditions (20 sources) Essential tremor; Translations: [Essential tremor] Onset: 7 06-08-2016 Chronic Other injuries and conditions due to external causes (1 source) Splinter in skin; Translations: [Other injury of unspecified body region, initial encounter] Episodic Other liver diseases (14 sources) Steatosis of liver 08-14-2019 Chronic Other nervous system disorders (14 sources) Tremor 06-02-2019 Episodic Other non-traumatic joint disorders (14 sources) Hip pain 06-02-2019 Episodic Other non-traumatic joint disorders (3 sources) Shoulder pain 01-07-2023 Episodic Other nutritional; endocrine; and metabolic disorders (20 sources) Body mass index 40+ - severely obese; Translations: [Morbid (severe) obesity due to excess calories] Onset: 7 10-08-2020 Chronic Other nutritional; endocrine; and metabolic disorders (14 sources) Morbid obesity 12-04-2019 Chronic Other nutritional; endocrine; and metabolic disorders (20 sources) Obese class II; Translations: [Obesity, unspecified] Onset: 8 09-27-2017 Chronic Other nutritional; endocrine; and metabolic disorders (5 sources) Body mass index 30+ - obesity 05-18-2022 Chronic Other screening for suspected conditions (not mental disorders or infectious disease) (13 sources) Liver function tests abnormal; Translations: [Protein level - finding] Onset: 4 08-16-2019 Episodic Other upper respiratory disease (14 sources) Seasonal allergy 08-16-2019 Chronic Other upper respiratory disease (14 sources) Lesion of nose 05-17-2020 Episodic Other upper respiratory infections (1 source) Upper respiratory infection; Translations: [Acute upper respiratory infection, unspecified] Episodic Otitis media and related conditions (2 sources) Acute left otitis media; Translations: [Otitis media, unspecified, left ear] 01-13-2024 Episodic Peripheral and visceral atherosclerosis (8 sources) Atherosclerosis of aorta; Translations: [Peripheral vascular disease] 10-16-2022 Chronic Prolapse of female genital organs (4 sources) Cystocele 09-07-2022 Chronic Residual codes; unclassified (14 sources) Edema of lower extremity 12-04-2019 Episodic Residual codes; unclassified (14 sources) Immunization due 11-18-2020 Episodic Residual codes; unclassified (14 sources) Insomnia 11-28-2018 Episodic Residual codes; unclassified (12 sources) Tobacco user 11-18-2020 Episodic Screening and history of mental health and substance abuse codes (2 sources) Ex-smoker 09-01-2023 Episodic Spondylosis; intervertebral disc disorders; other back problems (13 sources) Degeneration of lumbar intervertebral disc 04-01-2021 Chronic Spondylosis; intervertebral disc disorders; other back problems (20 sources) Backache; Translations: [Neck pain] 06-02-2019 Episodic Unclassified (14 sources) Cancer cervix screening status 10-08-2020 Unclassified (14 sources) Hip joint finding 05-17-2020 Unclassified (20 sources) Patient encounter status 11-29-2018 Unclassified (10 sources) Protein level - finding 09-25-2021 Unclassified (1 source) Accident caused by needle (finding) 05-18-2022 Urinary tract infections (14 sources) Recurrent urinary tract infection 12-04-2019 Episodic Results Test Name Value Interpretation Reference Range Facility [facility] 01-24-2024 EVERARDO Telephone (LICO) KAUR SUTTON ([id number]) 1965 F Date Time Provider Department 01/24/24 JACKIE LEUNG During your visit today, we recorded the following information about you: LeungJackie 01/24/2024 3:35 PM Signed Called patient to review recent labs / US. Pt neg for hemachromatosis gene mutation. Labs stable. Ferritin remains elevated at [address] Glaser. He is recommending hepatology consult. PSR: Referral placed for hepatology, elevated ferritin. Neg hemochromatosis gene mutation. OK to cancel OV with me on Wednesday. All questions answered at this time. Follow up as needed. Jackie Leung APRN.Harry Alejandro 01/24/2024 3:47 PM Signed Patient has been scheduled with Hepatology at [facility] [place] for 03/20/24, she confirmed this date, time and location Harry Layton Pss Allergies As of Date: 01/24/2024 Noted Allergy Reaction DURICEF (CEFADROXIL) 06/15/2011 2 - Rash LISINOPRIL 10/28/2020 3 - Cough LOTRONEX (ALOSETRON) 08/22/2019 2 - Rash METFORMIN 10/28/2020 5 - Intolerance 14 - Other: See Comments PENICILLINS 06/15/2011 2 - Rash ZOMIG (ZOLMITRIPTAN) 06/15/2011 5 - Intolerance Date Reviewed: 01/13/2024 Reviewed by: Rabia Sanders LPN - Fully Assessed Primary Visit Diagnosis:Elevated ferritin [R79.89] 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 rotate injection sites - Ascorbic Acid (VITAMIN C) 1,000 mg tablet Take 1,000 mg by mouth once daily. - Cetirizine (ZYRTEC) 10 mg cap Take 1 capsule by mouth once daily. - topiramate (TOPAMAX) 100 mg tablet Take 1 tablet by mouth daily at bedtime. - topiramate (TOPAMAX) 25 mg tablet Take 1 tablet by mouth once daily. In addition to 100 mg tablet to equal 125 mg total per day - Naproxen Sodium 550 mg tablet Take 1 tablet by mouth two times a day as needed (headache). FOR PAIN. TAKE WITH FOOD. - SUMAtriptan (IMITREX) 100 mg tablet Take 1 tablet (100 mg) by mouth as needed for migraine headache (see administration instructions). START AT ONSET OF HEADACHE. MAY REPEAT DOSE AFTER 2 HOURS. - FLUoxetine (PROZAC) 20 mg capsule Take 1 capsule by mouth once daily. - cranberry fruit (CRANBERRY) 450 mg tab Take 1 tablet by mouth once daily. - bisoprolol (ZEBETA) 10 mg tablet Take 10 mg by mouth once daily. - lovastatin (MEVACOR) 20 mg tablet TAKE 1 TABLET BY MOUTH EVERY DAY AT BEDTIME (stop rosuvastatin) - Methenamine Hippurate (HIPREX) 1 gram tablet TAKE 1 TABLET BY MOUTH EVERY DAY WITH VITAMIN C 1000 MG FOR UTI PREVENTION - pantoprazole DR (PROTONIX) 40 mg tablet Take 40 mg by mouth once daily. - albuterol HFA (PROAIR HFA) 90 mcg/actuation inhaler Inhale 2 Puffs as instructed every 4 hours as needed. - [place]-3 Fatty Acids 500 mg cap Take 500 mg by mouth once daily. - Magnesium Oxide 500 mg Tab Take 1 tablet by mouth once daily. - famotidine (PEPCID) 40 mg tablet Take 40 mg by mouth twice daily. - Cholecalciferol, Vitamin D3, 50 mcg (2,000 unit) cap Take 1 capsule by mouth once daily. Problem List As Of Date 01/24/2024 Noted Resolved Migraine without aura [G43.009] 12/28/2011 06/08/2016 Migraine without aura and without status migrai*06/08/2016 Restless legs syndrome (RLS) [G25.81] 06/08/2016 Essential tremor [G25.0] 06/08/2016 Obesity, Class III, BMI >= 40 (morbid obesity) *09/14/2016 Obesity, Class II, BMI 35-39.9 [E66.9] 09/27/2017 Encounter Status:Closed by HARRY ZENG on 01/24/24 Normal [facility] LABORATORYOrdered By: Yolanda Salinas on 01-24-2024 Albumin DL <= 20 mg/L (U) [Mass/Vol] 406 mcg/dL Invalid Interpretation Code AO ADM SS Albumin/Creatinine DL <= 20 mg/L (U) [Mass ratio] 5 mcg/mg Normal 0 - 30 mcg/mg AO ADM SS Creatinine (U) [Mass/Vol] 88.8 mg/dL Normal 28.0 - 117.0 mg/dL AO ADM SS MALBRon 01-24-2024 U Creatinine 88.8 mg/dL Normal 28.0-117.0 [facility] Comment on above: Performed By: #### M ALBR #### [address] [address] U Microalb 406 mcg/dL Normal [facility] Comment on above: Performed By: #### M ALBR #### [address] [address] U Ratio Alb/Cre 5 mcg/mg Normal 0-30 [facility] Comment on above: Performed By: #### M ALBR #### [address] [address] CBC W Auto Differential pane l (Bld)on 01-17-2024 Basophils (Bld) [#/Vol] 10*3/uL Normal <0.11 [facility] Comment on above: Order Comment: Speci men Type: BLOOD SPECIMENOrdering Facility: [facility] Address: [address] [place] [address] Performed By: #### 5 7021-8 ####[facility]ITALLEO [id number] [place] [address] [place] Basophils/100 WBC (Bld) 0.3 % Normal [facility] Comment on above: Order Comment: Speci men Type: BLOOD SPECIMENOrdering Facility: [facility] Address: [address] [place] [address] Performed By: #### 5 7021-8 ####[facility] [id number] [place] [address] [place] Differential cell count method Nom (Bld) Auto Normal [facility] Comment on above: Order Comment: Speci men Type: BLOOD SPECIMENOrdering Facility: [facility] Address: [address] [place] [address] Performed By: #### 5 7021-8 ####[facility] KARENABRODERICK [id number] [place] [address] [place] Eosinophils (Bld) [#/Vol] 0.07 10*3/uL Normal <0.46 [facility] Comment on above: Order Comment: Speci men Type: BLOOD SPECIMENOrdering Facility: [facility] Address: [address] [place] [address] Performed By: #### 5 7021-8 ####[facility]OSPITALWESTLEYA [id number] [place] [address] [place] Eosinophils/100 WBC (Bld) 1.1 % Normal [facility] Comment on above: Order Comment: Speci men Type: BLOOD SPECIMENOrdering Facility: [facility] Address: [address] [place] [address] Performed By: #### 5 7021-8 ####[facility]OSPITALNCLEO [id number] [place] [address] [place] Erythrocyte distribution width (RBC) [Ratio] 12.1 % Normal 11.5-15.0 [facility] Comment on above: Order Comment: Speci men Type: BLOOD SPECIMENOrdering Facility: [facility] Address: [address] [place] [address] Performed By: #### 5 7021-8 ####[facility]ITALNCLIA [id number] [place] [address] [place] Hematocrit (Bld) [Volume fraction] 39.3 % Normal 36.0-46.0 [facility] Comment on above: Order Comment: Speci men Type: BLOOD SPECIMENOrdering Facility: [facility] Address: [address] [place] [address] Performed By: #### 5 7021-8 ####[facility] CENTERWNCLIA [id number] [place] [address] [place] Hemoglobin (Bld) [Mass/Vol] 13.7 g/dL Normal 11.5-15.5 [facility] Comment on above: Order Comment: Speci men Type: BLOOD SPECIMENOrdering Facility: [facility] Address: [address] [place] [address] Performed By: #### 5 7021-8 ####[facility]ITALLIA [id number] [place] [address] [place] Immature granulocytes (Bld) [#/Vol] 10*3/uL Normal <0.10 [facility] Comment on above: Order Comment: Speci men Type: BLOOD SPECIMENOrdering Facility: [facility] Address: [address] [place] [address] Performed By: #### 5 7021-8 ####[facility] H[facility]PITALA [id number] [place] [address] [place] Immature granulocytes/100 WBC (Bld) 0.2 % Normal [facility] Comment on above: Order Comment: Speci men Type: BLOOD SPECIMENOrdering Facility: [facility] Address: [address] [place] [address] Performed By: #### 5 7021-8 ####[facility]ITALLIA [id number] [place] [address] [place] Lymphocytes (Bld) [#/Vol] 1.81 10*3/uL Normal 1.00-4.00 [facility] Comment on above: Order Comment: Speci men Type: BLOOD SPECIMENOrdering Facility: [facility] Address: [address] [place] [address] Performed By: #### 5 7021-8 ####[facility] HOSPITALNCLI [id number] [place] [address] [place] Lymphocytes/100 WBC (Bld) 29.3 % Normal [facility] Comment on above: Order Comment: Speci men Type: BLOOD SPECIMENOrdering Facility: [facility] Address: [address] [place] [address] Performed By: #### 5 7021-8 ####[facility]PITALNCTOOELE [facility] [id number] [place] [address] [place] MCH (RBC) [Entitic mass] 32.9 pg Normal 26.0-34.0 [facility] Comment on above: Order Comment: Speci men Type: BLOOD SPECIMENOrdering Facility: [facility] Address: [address] [place] [address] Performed By: #### 5 7021-8 ####[facility]PITALNCTOOELE VALLEY [facility] [id number] [place] [address] [place] MCHC (RBC) [Mass/Vol] 34.9 g/dL Normal 30.5-36.0 [facility] Comment on above: Order Comment: Speci men Type: BLOOD SPECIMENOrdering Facility: [facility] Address: [address] [place] [address] Performed By: #### 5 7021-8 ####[facility] HOSPITALNCLIA [id number] [place] [address] [place] MCV (RBC) [Entitic vol] 94.5 fL Normal 80.0-100.0 [facility] Comment on above: Order Comment: Speci men Type: BLOOD SPECIMENOrdering Facility: [facility] Address: [address] [place] [address] Performed By: #### 5 7021-8 ####[facility] HOSPITALNCLI [id number] [place] [address] [place] Monocytes (Bld) [#/Vol] 0.37 10*3/uL Normal <0.87 [facility] Comment on above: Order Comment: Speci men Type: BLOOD SPECIMENOrdering Facility: [facility] Address: [address] [place] [address] Performed By: #### 5 7021-8 ####[facility] KARENABRODERICK [id number] [place] [address] [place] Monocytes/100 WBC (Bld) 6.0 % Normal [facility] Comment on above: Order Comment: Speci men Type: BLOOD SPECIMENOrdering Facility: [facility] Address: [address] [place] [address] Performed By: #### 5 7021-8 ####[facility] HOSPITALNCLI [id number] [place] [address] [place] Neutrophils (Bld) [#/Vol] 3.89 10*3/uL Normal 1.45-7.50 [facility] Comment on above: Order Comment: Speci men Type: BLOOD SPECIMENOrdering Facility: [facility] Address: [address] [place] [address] Performed By: #### 5 7021-8 ####[facility] HOSPITALNCA [id number] [place] [address] [place] Neutrophils/100 WBC (Bld) 63.1 % Normal [facility] Comment on above: Order Comment: Speci men Type: BLOOD SPECIMENOrdering Facility: [facility] Address: [address] [place] [address] Performed By: #### 5 7021-8 ####[facility]OSPITALNCLIA [id number] [place] [address] [place] Nucleated RBC (Bld) [#/Vol] 10*3/uL Normal <0.01 [facility] Comment on above: Order Comment: Speci men Type: BLOOD SPECIMENOrdering Facility: [facility] Address: [address] [place] [address] Performed By: #### 5 7021-8 ####[facility] KARENARACHIDLIA [id number] [place] [address] [place] Nucleated RBC/100 WBC (Bld) [Ratio] 0.0 /100 WBC Normal [facility] Comment on above: Order Comment: Speci men Type: BLOOD SPECIMENOrdering Facility: [facility] Address: [address] [place] [address] Performed By: #### 5 7021-8 ####[facility] HOSPITALMARSHALL [id number] [place] [address] [place] Platelet mean volume (Bld) [Entitic vol] 12.1 fL Normal 9.0-12.7 [facility] Comment on above: Order Comment: Speci men Type: BLOOD SPECIMENOrdering Facility: [facility] Address: [address] [place] [address] Performed By: #### 5 7021-8 ####[facility] HOSPITALKIMMYA [id number] [place] [address] [place] Platelets (Bld) [#/Vol] 153 10*3/uL Normal 150-400 [facility] Comment on above: Order Comment: Speci men Type: BLOOD SPECIMENOrdering Facility: [facility] Address: [address] [place] [address] Performed By: #### 5 7021-8 ####[facility]OSPITALMADELEINEA [id number] [place] [address] [place] RBC (Bld) [#/Vol] 4.16 10*6/uL Normal 3.90-5.20 [facility] Comment on above: Order Comment: Speci men Type: BLOOD SPECIMENOrdering Facility: [facility] Address: [address] [place] [address] Performed By: #### 5 7021-8 ####[facility]PITALNCTOOELE [facility]LEY [facility] [id number] [place] [id number] [place] WBC (Bld) [#/Vol] 6.17 10*3/uL Normal 3.70-11.00 [facility] Comment on above: Order Comment: Speci men Type: BLOOD SPECIMENOrdering Facility: [facility] Address: [address] [place] [address] Performed By: #### 5 7021-8 ####[facility] CENTERWNCLIA [id number] [place] [address] [place] Comprehensive metabolic 2000 panelon 01-17-2024 Albumin [Mass/Vol] 4.3 g/dL Normal 3.9-4.9 [facility] Comment on above: Order Comment: Speci men Type: BLOOD SPECIMENOrdering Facility: [facility] Address: [address] [place] [address] Performed By: #### 2 4323-8 ####[facility] HOSPITALA [id number] [place] [address] [place]#### 2276-4 ####[facility] LABCLIA [id number] [place] [address] [place] ALP [Catalytic activity/Vol] 81 U/L Normal 34-123 [facility] Comment on above: Order Comment: Speci men Type: BLOOD SPECIMENOrdering Facility: [facility] Address: [address] [place] [address] Performed By: #### 2 4323-8 ####[facility] CENTERWNCLIA [id number] [place] [address] [place]#### 2276-4 ####[facility] LABCLIA [id number] [place] [address] [place] ALT [Catalytic activity/Vol] 43 U/L High 7-38 [facility] Comment on above: Order Comment: Speci men Type: BLOOD SPECIMENOrdering Facility: [facility] Address: [address] [place] [address] Performed By: #### 2 4323-8 ####[facility] MILLWNCLIA [id number] [place] [address] [place]#### 2276-4 ####[facility] LABCLIA [id number] [place] [address] [place] Anion gap [Moles/Vol] 10 mmol/L Normal 8-15 [facility] Comment on above: Order Comment: Speci men Type: BLOOD SPECIMENOrdering Facility: [facility] Address: [address] [place] [address] Performed By: #### 2 4323-8 ####[facility]OSPITALLIA [id number] [place] [address] [place]#### 2276-4 ####[facility] LABCLIA [id number] [place] [address] [place] AST [Catalytic activity/Vol] 59 U/L High 13-35 [facility] Comment on above: Order Comment: Speci men Type: BLOOD SPECIMENOrdering Facility: [facility] Address: [address] [place] [address] Performed By: #### 2 4323-8 ####[facility] CENTERWNCLIA [id number] [place] [address] [place]#### 2276-4 ####[facility] LABCLIA [id number] [place] [address] [place] Bilirubin [Mass/Vol] 0.5 mg/dL Normal 0.2-1.3 [facility] Comment on above: Order Comment: Speci men Type: BLOOD SPECIMENOrdering Facility: [facility] Address: [address] [place] [address] Performed By: #### 2 4323-8 ####[facility]OST[facility] MILLTOWNCLIA [id number] [place] [address] [place]#### 2276-4 ####[facility] LABCLIA [id number] [place] [address] [place] Calcium [Mass/Vol] 9.4 mg/dL Normal 8.5-10.2 [facility] Comment on above: Order Comment: Speci men Type: BLOOD SPECIMENOrdering Facility: [facility] Address: [address] [place] [address] Performed By: #### 2 4323-8 ####[facility] MILLTOWNCLIA [id number] [place] [address] [place]#### 2276-4 ####[facility] LABCLIA [id number] [place] [address] [place] Chloride [Moles/Vol] 106 mmol/L Normal 98-107 [facility] Comment on above: Order Comment: Speci men Type: BLOOD SPECIMENOrdering Facility: [facility] Address: [address] [place] [address] Performed By: #### 2 4323-8 ####[facility] MILLTOWNCLIA [id number] [place] [address] [place]#### 2276-4 ####[facility] LABCLIA [id number] [place] [address] [place] CO2 [Moles/Vol] 22 mmol/L Normal 22-30 [facility] Comment on above: Order Comment: Speci men Type: BLOOD SPECIMENOrdering Facility: [facility] Address: [address] [place] [address] Performed By: #### 2 4323-8 ####[facility] MILLTOWNCLIA [id number] [place] [address] [place]#### 2276-4 ####[facility] LABCLIA [id number] [place] [address] [place] Creatinine [Mass/Vol] 0.85 mg/dL Normal 0.58-0.96 [facility] Comment on above: Order Comment: Speci men Type: BLOOD SPECIMENOrdering Facility: [facility] Address: [address] [place] [address] Performed By: #### 2 4323-8 ####[facility] [id number] [address]#### 2276-4 ####[facility] LABCLIA [id number] [address] [facility] Creatinine and Glomerular filtration rate.predicted panel (S/P/Bld) 80 mL/min/1.73m??? Normal >=60 [facility] Comment on above: Order Comment: Speci men Type: BLOOD SPECIMENOrdering Facility: [facility] Address: [address] [place] [address] Result Comment: Sara mated Glomerular Filtration Rate (eGFR) is calculated using the 2020 CKD-EPI creatinine equation. This equation utilizes serum creatinine, sex, and age as parameters. The creatinine assay has traceable calibration to isotope dilution-mass spectrometry. Refer to KDIGO guidelines for clinical interpretation. In patients with unstable renal function, e.g. those with acute kidney injury, the eGFR may not accurately reflect actual GFR. Performed By: #### 2 4323-8 ####[facility] [id number] [place] [address] [place]#### 2276-4 ####[facility] LABCLIA [id number] [place] [address] [place] Glucose [Mass/Vol] 157 mg/dL High 74-99 [facility] Comment on above: Order Comment: Joselo elmore Type: BLOOD SPECIMENOrdering Facility: [facility] Address: [address] [place] [address] Result Comment: The [place] [employer] (ADA) provides guidance for cutoff values for fasting glucose and random glucose. The ADA defines fasting as no caloric intake for at least 8 hours. Fasting plasma glucose results between 100 to 125 mg/dL indicate increased risk for diabetes (prediabetes). Fasting plasma glucose results greater than or equal to 126 mg/dL meet the criteria for diagnosis of diabetes. In the absence of unequivocal hyperglycemia, results should be confirmed by repeat testing. In a patient with classic symptoms of hyperglycemia or hyperglycemic crisis, random plasma glucose results greater than or equal to 200 mg/dL meet the criteria for diagnosis of diabetes. Reference: Standards of Medical Care in Diabetes 2016, [place] [employer]. Diabetes Care. 2016.39(Suppl 1). Performed By: #### 2 4323-8 ####[facility] [id number] [place] [address] [place]#### 2276-4 ####[facility] LABCLIA [id number] [place] [address] [place] Potassium [Moles/Vol] 4.2 mmol/L Normal 3.7-5.1 [facility] Comment on above: Order Comment: Joselo elmore Type: BLOOD SPECIMENOrdering Facility: [facility] Address: [address] [place] [address] Performed By: #### 2 4323-8 ####[facility] [id number] [place] [address] [place]#### 2276-4 ####[facility] LABCLIA [id number] [place] [address] [place] Protein [Mass/Vol] 7.5 g/dL Normal 6.3-8.0 [facility] Comment on above: Order Comment: Joselo elmore Type: BLOOD SPECIMENOrdering Facility: [facility] Address: [address] [place] [address] Performed By: #### 2 4323-8 ####[facility] [id number] [place] [address] [place]#### 2276-4 ####[facility] LABCLIA [id number] [place] [address] [place] Sodium [Moles/Vol] 138 mmol/L Normal 136-144 [facility] Comment on above: Order Comment: Speci men Type: BLOOD SPECIMENOrdering Facility: [facility] Address: [address] [place] [address] Performed By: #### 2 4323-8 ####[facility] [id number] [place] [address] [place]#### 2276-4 ####[facility] LABCLIA [id number] [place] [address] [place] Urea nitrogen [Mass/Vol] 13 mg/dL Normal 7-21 [facility] Comment on above: Order Comment: Speci men Type: BLOOD SPECIMENOrdering Facility: [facility] Address: [address] [place] [address] Performed By: #### 2 4323-8 ####[facility] [id number] [place] [address] [place]#### 2276-4 ####[facility] LABCLIA [id number] [place] [address] [place]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 topiramate (TOPAMAX) 100 mg tablet Take 1 tablet by mouth daily at bedtime. - topiramate (TOPAMAX) 25 mg tablet Take 1 tablet by mouth once daily. In addition to 100 mg tablet to equal 125 mg total per day - cranberry fruit (CRANBERRY) 450 mg tab Take by mouth. - bisoprolol (ZEBETA) 10 mg tablet Take 10 mg by mouth once daily. - lovastatin (MEVACOR) 20 mg tablet TAKE 1 TABLET BY MOUTH EVERY DAY AT BEDTIME (stop rosuvastatin) - Methenamine Hippurate (HIPREX) 1 gram tablet TAKE 1 TABLET BY MOUTH EVERY DAY WITH VITAMIN C 1000 MG FOR UTI PREVENTION - pantoprazole DR (PROTONIX) 40 mg tablet Take 40 mg by mouth once daily. - albuterol HFA (PROAIR HFA) 90 mcg/actuation inhaler Inhale 2 Puffs as instructed every 4 hours as needed. - [place]-3 Fatty Acids 500 mg cap Take 500 mg by mouth once daily. - Magnesium Oxide 500 mg Tab Take 1 tablet by mouth once daily. - famotidine (PEPCID) 40 mg tablet Take 40 mg by mouth twice daily. - Cholecalciferol, Vitamin D3, 50 mcg (2,000 unit) cap Take by mouth once daily. Problem List As Of Date 08/04/2023 Noted Resolved Migraine without aura [G43.009] 12/28/2011 06/08/2016 Migraine without aura and without status migrai*06/08/2016 Restless legs syndrome (RLS) [G25.81] 06/08/2016 Essential tremor [G25.0] 06/08/2016 Obesity, Class III, BMI >= 40 (morbid obesity) *09/14/2016 Obesity, Class II, BMI 35-39.9 [E66.9] 09/27/2017 Prescriptions ordered this encounter Disp Refills Start End CIPROFLO (more content not included)... Normal [facility] MAMMOGRAM SCREENING BILAT ERAL W/TOMOon 03-08-2023 [place] MAMMOGRAM SCREENING BILATERAL W/REGAN ORIGINAL FROM: [facility] [address] [place] [id number] PROCEDURE FOR: KAUR SUTTON [address] [place] [address] Home: PID#: [id number] Exam#: [id number] : 1965 Age: 58 TO: RADHA ACUNA DO [address] [place], [place] [address] Fax: NO FAX EXAMINATION: SCREENING DIGITAL BILATERAL MAMMOGRAM WITH TOMOSYNTHESIS, 03/06/2023 9:08 am TECHNIQUE: Screening mammography of the bilateral breasts was performed with tomosynthesis. 2D standard and 3D tomosynthesis combination imaging performed through both breasts in the MLO and CC projection. Computer aided detection was utilized in the interpretation of this exam. COMPARISON: 11/14/2021, 08/20/2020 HISTORY: Breast cancer screening. FINDINGS: BREAST DENSITY: Scattered fibroglandular tissue There are no significant masses or calcifications. IMPRESSION: No mammographic evidence of malignancy. Continued screening with annual mammograms is recommended. [facility] risk calculations, generated with the history provided, report this patient's 10 year risk and lifetime risk for developing breast cancer at 5.1% and 13.6%, respectively. Based on this assessment tool, if the patient's calculated lifetime risk is below 20%, then the patient is considered at average risk for developing breast cancer. If the patient's calculated lifetime risk is at or above 20%, then the patient is considered high risk for developing breast cancer and may be a candidate for supplemental breast MRI screening in addition to annual mammographic screening per the [place] [employer]. 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 CLARITY UA (POCT) Cloudy [facility] COLOR UA (POCT) Red [facility] GLUCOSE UA (POCT) Negative Negative mg/dL [facility] Hemoglobin Ql (U) Large Abnormal Negative [facility] KETONE UA (POCT) Trace Negative mg/dL [facility] LEUKOCYTES UA (POCT) Large Abnormal Negative [facility] NITRITE UA (POCT) Positive Abnormal Negative [facility] PH UA (POCT) 6.5 4.5 - 8.0 [facility] Protein Ql (U) >=300 Abnormal Negative mg/dL [facility] SPECIFIC GRAVITY UA (POCT) 1.025 1.005 - 1.030 [facility] UROBILINOGEN UA (POCT) 1.0 E.U./dL Jennifer l E.U./dL [facility] UA DIP, URINE (POC)on 2022 BILIRUBIN UA (POCT) Negative Negative [facility] CLARITY UA (POCT) Cloudy [facility] COLOR UA (POCT) Dark yellow [facility] GLUCOSE UA (POCT) Negative Negative mg/dL [facility] HEMOGLOBIN/BLOOD UA (POCT) Large Abnormal Negative [facility] KETONE UA (POCT) Negative Negative mg/dL [facility] LEUKOCYTES UA (POCT) Moderate Abnormal Negative [facility] NITRITE UA (POCT) Negative Negative [facility] PH UA (POCT) 7.0 4.5 - 8.0 [facility] Protein Ql (U) 30 mg/dL Abnormal Negative mg/dL [facility] SPECIFIC GRAVITY UA (POCT) 1.020 1.005 - 1.030 [facility] UROBILINOGEN UA (POCT) 0.2 E.U./dL Jennifer l E.U./dL [facility] LABORATORYOrdered By: SYSTEM SYSTEM on 10-17-2022 25-hydroxyvitamin D3 [Mass/Vol] 72.1 ng/mL Invalid Interpretation Code AO ADM SS Albumin BCP dye [Mass/Vol] 4.1 G/dL Invalid Interpretation Code 3.5 - 5.0 G/dL AO ADM SS Albumin/Globulin [Mass ratio] 1.4 {ratio} Invalid Interpretation Code 1.1 - 2.5 ratio AO ADM SS ALP [Catalytic activity/Vol] 73 U/L Invalid Interpretation Code 40 - 135 U/L AO ADM SS ALT With P-5'-P [Catalytic activity/Vol] 44 U/L Invalid Interpretation Code 14 - 59 U/L AO ADM SS AST With P-5'-P [Catalytic activity/Vol] 38 U/L Invalid Interpretation Code 10 - 40 U/L AO ADM SS Bilirubin [Mass/Vol] 0.7 mg/dL Invalid Interpretation Code 0.2 - 1.0 mg/dL AO ADM SS Calcium [Mass/Vol] 9.1 mg/dL Invalid Interpretation Code 8.4 - 10.2 mg/dL AO ADM SS Chloride [Moles/Vol] 105 mmol/L Invalid Interpretation Code 98 - 107 mmol/L AO ADM SS CO2 [Moles/Vol] 28 mmol/L Invalid Interpretation Code 22 - 29 mmol/L AO ADM SS Creatinine [Mass/Vol] 0.89 mg/dL Invalid Interpretation Code 0.55 - 1.02 mg/dL AO ADM SS Electrolyte Balance 8.0 mEq/L Invalid Interpretation Code 4.0 - 15.0 mEq/L AO ADM SS Ferritin [Mass/Vol] 515.0 ng/mL Invalid Interpretation Code 8.0 - 252.0 ng/mL AO ADM SS Free T4 [Mass/Vol] 0.95 ng/dL Invalid Interpretation Code 0.76 - 1.46 ng/dL AO ADM SS GFR/1.73 sq M.predicted among blacks MDRD (S/P/Bld) [Vol rate/Area] 79 ml/min/1.73sqm Invalid Interpretation Code AO Chemistry S GFR/1.73 sq M.predicted among non-blacks MDRD (S/P/Bld) [Vol rate/Area] 65 ml/min/1.73sqm Invalid Interpretation Code AO Chemistry S Globulin 3.0 G/dL Invalid Interpretation Code AO ADM SS Glucose [Mass/Vol] 134 mg/dL Invalid Interpretation Code 70 - 105 mg/dL AO ADM SS Potassium [Moles/Vol] 4.3 mmol/L Invalid Interpretation Code 3.5 - 5.1 mmol/L AO ADM SS Protein [Mass/Vol] 7.1 G/dL Invalid Interpretation Code 6.4 - 8.2 G/dL AO ADM SS Sodium [Moles/Vol] 141 mmol/L Invalid Interpretation Code 136 - 145 mmol/L AO ADM SS TSH Qn 2.35 m[IU]/L Invalid Interpretation Code 0.36 - 3.74 mcIU/mL AO ADM SS Urea nitrogen [Mass/Vol] 13 mg/dL Invalid Interpretation Code 7 - 18 mg/dL AO ADM SS Urea nitrogen/Creatinine [Mass ratio] 15 ratio Invalid Interpretation Code 7 - 27 ratio AO ADM SS LABORATORYOrdered By: Fernanda Guerrero on 10-17-2022 Basophil, Absolute 0.0 103/mcL Invalid Interpretation Code 0.0 - 0.2 10^3/mcL AO Workflow SS Basophils/100 WBC (Bld) 0.4 % Invalid Interpretation Code 0.0 - 2.5 % AO Workflow SS Cholesterol [Mass/Vol] 175 mg/dL Invalid Interpretation Code 0 - 200 mg/dL AO ADM SS Cholesterol in HDL [Mass/Vol] 36 mg/dL Invalid Interpretation Code 40 - 60 mg/dL AO ADM SS Cholesterol in LDL [Mass/Vol] 107 mg/dL Invalid Interpretation Code 0 - 130 mg/dL AO ADM SS Eosinophil, Absolute 0.2 103/mcL Invalid Interpretation Code 0.0 - 0.4 10^3/mcL AO Workflow SS Eosinophils/100 WBC (Bld) 2.2 % Invalid Interpretation Code 0.0 - 7.0 % AO Workflow SS Erythrocyte distribution width (RBC) [Ratio] 12.4 % Invalid Interpretation Code 11.5 - 14.5 % AO Workflow SS Hematocrit (Bld) [Volume fraction] 42.5 % Invalid Interpretation Code 37.0 - 47.0 % AO Workflow SS Hemoglobin (Bld) [Mass/Vol] 14.6 G/dL Invalid Interpretation Code 12.0 - 16.0 G/dL AO Workflow SS Lymphocyte, Absolute 2.4 103/mcL Invalid Interpretation Code 0.8 - 3.9 10^3/mcL AO Workflow SS Lymphocytes/100 WBC (Bld) 30.6 % Invalid Interpretation Code 10.0 - 50.0 % AO Workflow SS MCH (RBC) [Entitic mass] 32.8 pg Invalid Interpretation Code 27.0 - 31.2 pg AO Workflow SS MCHC 34.4 G/dL Invalid Interpretation Code 33.0 - 37.0 G/dL AO Workflow SS MCV (RBC) [Entitic vol] 95.3 fL Invalid Interpretation Code 80.0 - 94.0 fL AO Workflow SS Monocyte, Absolute 0.5 103/mcL Invalid Interpretation Code 0.2 - 1.0 10^3/mcL AO Workflow SS Monocytes/100 WBC (Bld) 5.9 % Invalid Interpretation Code 1.7 - 13.0 % AO Workflow SS Neutrophil, Absolute 4.7 103/mcL Invalid Interpretation Code 2.9 - 6.2 10^3/mcL AO Workflow SS Neutrophils/100 WBC (Bld) 60.9 % Invalid Interpretation Code 37.0 - 80.0 % AO Workflow SS Platelet mean volume (Bld) [Entitic vol] 10.5 fL Invalid Interpretation Code 7.4 - 10.4 fL AO Workflow SS Platelets (Bld) [#/Vol] 148 103/mcL Invalid Interpretation Code 130 - 400 10^3/mcL AO Workflow SS RBC (Bld) [#/Vol] 4.46 106/mcL Invalid Interpretation Code 4.20 - 5.40 10^6/mcL AO Workflow SS Triglyceride [Mass/Vol] 159 mg/dL Invalid Interpretation Code 0 - 150 mg/dL AO ADM SS WBC (Bld) [#/Vol] 7.7 103/mcL Invalid Interpretation Code 4.6 - 10.8 10^3/mcL AO Workflow SS LABORATORYOrdered By: Fernanda Guerrero on 08-26-2022 HIV 1 p24 Ab Ql (S) Non-Reactive (08/26/22 11:59 AM) Invalid Interpretation Code Non-Reactive AO Rapid Testing SS HIV 1 p24 Ab Ql (S) Non-Reactive Invalid Interpretation Code AO Rapid Testing SS HIV 1+2 Ab IA Ql Non-Reactive Invalid Interpretation Code AO Rapid Testing SS HIV 1+2 Ab IA.rapid Ql (Unsp spec) Non-Reactive (08/26/22 11:59 AM) Invalid Interpretation Code Non-Reactive AO Rapid Testing SS LABORATORYOrdered By: Peggy Jameson on 08-26-2022 HAV IgM IA Ql Non-Reactive (08/26/22 11:58 AM) Invalid Interpretation Code Non-Reactive ADM SS HAV IgM IA Ql No serological evidence of a current Hepatitis A infection. Invalid Interpretation Code Chemistry S HBV core IgM IA Ql Non-Reactive (08/26/22 11:58 AM) Invalid Interpretation Code Non-Reactive ADM SS HBV core IgM IA Ql Samples with a value < 0.80 Index are considered nonreactive (negative) for IgM antibodies to hepatitis B core antigen. Invalid Interpretation Code Chemistry S HBV surface Ag IA Ql Non-Reactive (08/26/22 11:58 AM) Invalid Interpretation Code Non-Reactive AH ADM SS HCV Ab IA Ql Non-Reactive (08/26/22 11:58 AM) Invalid Interpretation Code Non-Reactive ADM SS HCV Ab IA Ql Nonreactive: Samples with a value < 0.80 are considered nonreactive (negative) for antibodies to HCV.A negative test result does not exclude the possibility of exposure to or infection with HCV. HCV antibodies may be undetectable in some stages of the infection and in some clinical conditions. Invalid Interpretation Code Chemistry S LABORATORYOrdered By: Kym Banks on 01-30-2022 Albumin BCP dye [Mass/Vol] 3.9 G/dL Invalid Interpretation Code 3.5 - 5.0 G/dL AO ADM SS Albumin/Globulin [Mass ratio] 1.3 {ratio} Invalid Interpretation Code 1.1 - 2.5 ratio AO ADM SS ALP [Catalytic activity/Vol] 81 U/L Invalid Interpretation Code 40 - 135 U/L AO ADM SS ALT With P-5'-P [Catalytic activity/Vol] 61 U/L Invalid Interpretation Code 14 - 59 U/L AO ADM SS AST With P-5'-P [Catalytic activity/Vol] 49 U/L Invalid Interpretation Code 10 - 40 U/L AO ADM SS Bilirubin [Mass/Vol] 0.6 mg/dL Invalid Interpretation Code 0.2 - 1.0 mg/dL AO ADM SS Calcium [Mass/Vol] 8.8 mg/dL Invalid Interpretation Code 8.4 - 10.2 mg/dL AO ADM SS Chloride [Moles/Vol] 104 mmol/L Invalid Interpretation Code 98 - 107 mmol/L AO ADM SS Cholesterol [Mass/Vol] 165 mg/dL Invalid Interpretation Code 0 - 200 mg/dL AO ADM SS Cholesterol in HDL [Mass/Vol] 33 mg/dL Invalid Interpretation Code 40 - 60 mg/dL AO ADM SS Cholesterol in LDL [Mass/Vol] 102 mg/dL Invalid Interpretation Code 0 - 130 mg/dL AO ADM SS CO2 [Moles/Vol] 28 mmol/L Invalid Interpretation Code 22 - 29 mmol/L AO ADM SS Creatinine [Mass/Vol] 0.94 mg/dL Invalid Interpretation Code 0.55 - 1.02 mg/dL AO ADM SS Electrolyte Balance 8.0 mEq/L Invalid Interpretation Code 4.0 - 15.0 mEq/L AO ADM SS Ferritin [Mass/Vol] 546.0 ng/mL Invalid Interpretation Code 8.0 - 252.0 ng/mL AO ADM SS Globulin 3.1 G/dL Invalid Interpretation Code AO ADM SS Glucose [Mass/Vol] 131 mg/dL Invalid Interpretation Code 70 - 105 mg/dL AO ADM SS HbA1c (Bld) [Mass fraction] 6.1 % Invalid Interpretation Code 4.3 - 6.4 % AO ADM SS Potassium [Moles/Vol] 4.3 mmol/L Invalid Interpretation Code 3.5 - 5.1 mmol/L AO ADM SS Protein [Mass/Vol] 7.0 G/dL Invalid Interpretation Code 6.4 - 8.2 G/dL AO ADM SS Sodium [Moles/Vol] 140 mmol/L Invalid Interpretation Code 136 - 145 mmol/L AO ADM SS Triglyceride [Mass/Vol] 150 mg/dL Invalid Interpretation Code 0 - 150 mg/dL AO ADM SS Urea nitrogen [Mass/Vol] 14 mg/dL Invalid Interpretation Code 7 - 18 mg/dL AO ADM SS Urea nitrogen/Creatinine [Mass ratio] 15 ratio Invalid Interpretation Code 7 - 27 ratio AO ADM SS LABORATORYOrdered By: Karen Coronado on 01-30-2022 Basophil, Absolute 0.0 103/mcL Invalid Interpretation Code 0.0 - 0.2 10^3/mcL AO Workflow SS Basophils/100 WBC (Bld) 0.3 % Invalid Interpretation Code 0.0 - 2.5 % AO Workflow SS Eosinophil, Absolute 0.2 103/mcL Invalid Interpretation Code 0.0 - 0.4 10^3/mcL AO Workflow SS Eosinophils/100 WBC (Bld) 2.2 % Invalid Interpretation Code 0.0 - 7.0 % AO Workflow SS Erythrocyte distribution width (RBC) [Ratio] 12.5 % Invalid Interpretation Code 11.5 - 14.5 % AO Workflow SS Hematocrit (Bld) [Volume fraction] 42.1 % Invalid Interpretation Code 37.0 - 47.0 % AO Workflow SS Hemoglobin (Bld) [Mass/Vol] 14.6 G/dL Invalid Interpretation Code 12.0 - 16.0 G/dL AO Workflow SS Lymphocyte, Absolute 2.5 103/mcL Invalid Interpretation Code 0.8 - 3.9 10^3/mcL AO Workflow SS Lymphocytes/100 WBC (Bld) 35.0 % Invalid Interpretation Code 10.0 - 50.0 % AO Workflow SS MCH (RBC) [Entitic mass] 32.9 pg Invalid Interpretation Code 27.0 - 31.2 pg AO Workflow SS MCHC 34.7 G/dL Invalid Interpretation Code 33.0 - 37.0 G/dL AO Workflow SS MCV (RBC) [Entitic vol] 95.0 fL Invalid Interpretation Code 80.0 - 94.0 fL AO Workflow SS Monocyte, Absolute 0.5 103/mcL Invalid Interpretation Code 0.2 - 1.0 10^3/mcL AO Workflow SS Monocytes/100 WBC (Bld) 6.4 % Invalid Interpretation Code 1.7 - 13.0 % AO Workflow SS Neutrophil, Absolute 4.0 103/mcL Invalid Interpretation Code 2.9 - 6.2 10^3/mcL AO Workflow SS Neutrophils/100 WBC (Bld) 56.1 % Invalid Interpretation Code 37.0 - 80.0 % AO Workflow SS Platelet mean volume (Bld) [Entitic vol] 11.3 fL Invalid Interpretation Code 7.4 - 10.4 fL AO Workflow SS Platelets (Bld) [#/Vol] 143 103/mcL Invalid Interpretation Code 130 - 400 10^3/mcL AO Workflow SS RBC (Bld) [#/Vol] 4.43 106/mcL Invalid Interpretation Code 4.20 - 5.40 10^6/mcL AO Workflow SS WBC (Bld) [#/Vol] 7.1 103/mcL Invalid Interpretation Code 4.6 - 10.8 10^3/mcL AO Workflow SS LABORATORYOrdered By: SYSTEM SYSTEM on 01-30-2022 GFR 75 ml/min/1.73sqm Invalid Interpretation Code AO Chemistry S GFR Non- 62 ml/min/1.73sqm Invalid Interpretation Code AO Chemistry S LABORATORYOrdered By: Karen Coronado on 10-18-2021 Albumin BCP dye [Mass/Vol] 4.3 G/dL Invalid Interpretation Code 3.5 - 5.0 G/dL AO ADM SS Albumin/Globulin [Mass ratio] 1.4 {ratio} Invalid Interpretation Code 1.1 - 2.5 ratio AO ADM SS ALP [Catalytic activity/Vol] 83 U/L Invalid Interpretation Code 40 - 135 U/L AO ADM SS ALT With P-5'-P [Catalytic activity/Vol] 75 U/L Invalid Interpretation Code 14 - 59 U/L AO ADM SS AST With P-5'-P [Catalytic activity/Vol] 62 U/L Invalid Interpretation Code 10 - 40 U/L AO ADM SS Bilirubin [Mass/Vol] 0.7 mg/dL Invalid Interpretation Code 0.2 - 1.0 mg/dL AO ADM SS Calcium [Mass/Vol] 9.6 mg/dL Invalid Interpretation Code 8.4 - 10.2 mg/dL AO ADM SS Chloride [Moles/Vol] 103 mmol/L Invalid Interpretation Code 98 - 107 mmol/L AO ADM SS CO2 [Moles/Vol] 28 mmol/L Invalid Interpretation Code 22 - 29 mmol/L AO ADM SS Creatinine [Mass/Vol] 0.96 mg/dL Invalid Interpretation Code 0.55 - 1.02 mg/dL AO ADM SS Electrolyte Balance 8.0 mEq/L Invalid Interpretation Code 4.0 - 15.0 mEq/L AO ADM SS Ferritin [Mass/Vol] 605.0 ng/mL Invalid Interpretation Code 8.0 - 252.0 ng/mL AO ADM SS Globulin 3.0 G/dL Invalid Interpretation Code AO ADM SS Glucose [Mass/Vol] 142 mg/dL Invalid Interpretation Code 70 - 105 mg/dL AO ADM SS Potassium [Moles/Vol] 4.5 mmol/L Invalid Interpretation Code 3.5 - 5.1 mmol/L AO ADM SS Protein [Mass/Vol] 7.3 G/dL Invalid Interpretation Code 6.4 - 8.2 G/dL AO ADM SS Sodium [Moles/Vol] 139 mmol/L Invalid Interpretation Code 136 - 145 mmol/L AO ADM SS Urea nitrogen [Mass/Vol] 10 mg/dL Invalid Interpretation Code 7 - 18 mg/dL AO ADM SS Urea nitrogen/Creatinine [Mass ratio] 10 ratio Invalid Interpretation Code 7 - 27 ratio AO ADM SS LABORATORYOrdered By: SYSTEM SYSTEM on 10-18-2021 GFR 73 ml/min/1.73sqm Invalid Interpretation Code AO Chemistry S GFR Non- 60 ml/min/1.73sqm Invalid Interpretation Code AO Chemistry S LABORATORYOrdered By: Karen Coronado on 08-16-2021 Albumin BCP dye [Mass/Vol] 4.2 G/dL Invalid Interpretation Code 3.5 - 5.0 G/dL AO ADM SS Albumin/Globulin [Mass ratio] 1.3 {ratio} Invalid Interpretation Code 1.1 - 2.5 ratio AO ADM SS ALP [Catalytic activity/Vol] 69 U/L Invalid Interpretation Code 40 - 135 U/L AO ADM SS ALT With P-5'-P [Catalytic activity/Vol] 84 U/L Invalid Interpretation Code 14 - 59 U/L AO ADM SS Appearance (U) Clear (08/16/21 8:37 AM) Invalid Interpretation Code Clear AO Auto Urine SS AST With P-5'-P [Catalytic activity/Vol] 73 U/L Invalid Interpretation Code 10 - 40 U/L AO ADM SS Basophil, Absolute 0.00 103/mcL Invalid Interpretation Code 0.00 - 0.19 10^3/mcL AO Auto Heme SS Basophils/100 WBC (Bld) 0.5 % Invalid Interpretation Code 0.0 - 2.5 % AO Auto Heme SS Bilirubin [Mass/Vol] 0.7 mg/dL Invalid Interpretation Code 0.2 - 1.0 mg/dL AO ADM SS Bilirubin Ql (U) Negative (08/16/21 8:37 AM) Invalid Interpretation Code Negative AO Auto Urine SS Calcium [Mass/Vol] 9.3 mg/dL Invalid Interpretation Code 8.4 - 10.2 mg/dL AO ADM SS Chloride [Moles/Vol] 103 mmol/L Invalid Interpretation Code 98 - 107 mmol/L AO ADM SS Cholesterol [Mass/Vol] 173 mg/dL Invalid Interpretation Code 0 - 200 mg/dL AO ADM SS Cholesterol in HDL [Mass/Vol] 35 mg/dL Invalid Interpretation Code 40 - 60 mg/dL AO ADM SS Cholesterol in LDL [Mass/Vol] 103 mg/dL Invalid Interpretation Code 0 - 130 mg/dL AO ADM SS CO2 [Moles/Vol] 27 mmol/L Invalid Interpretation Code 22 - 29 mmol/L AO ADM SS Color (U) Yellow (08/16/21 8:37 AM) Invalid Interpretation Code AO Auto Urine SS Creatinine [Mass/Vol] 0.81 mg/dL Invalid Interpretation Code 0.55 - 1.02 mg/dL AO ADM SS Electrolyte Balance 11.0 mEq/L Invalid Interpretation Code 4.0 - 15.0 mEq/L AO ADM SS Eosinophil, Absolute 0.10 103/mcL Invalid Interpretation Code 0.00 - 0.40 10^3/mcL AO Auto Heme SS Eosinophils/100 WBC (Bld) 2.2 % Invalid Interpretation Code 0.0 - 7.0 % AO Auto Heme SS Erythrocyte distribution width (RBC) [Ratio] 12.2 % Invalid Interpretation Code 11.5 - 14.5 % AO Auto Heme SS Globulin 3.2 G/dL Invalid Interpretation Code AO ADM SS Glucose [Mass/Vol] 131 mg/dL Invalid Interpretation Code 70 - 105 mg/dL AO ADM SS Glucose Test strip (U) [Mass/Vol] Negative Invalid Interpretation Code Negativemg/d L AO Auto Urine SS Hematocrit (Bld) [Volume fraction] 42.9 % Invalid Interpretation Code 37.0 - 47.0 % AO Auto Heme SS Hemoglobin (Bld) [Mass/Vol] 14.8 G/dL Invalid Interpretation Code 12.0 - 16.0 G/dL AO Auto Heme SS Hemoglobin Auto test strip (U) [Mass/Vol] Negative (08/16/21 8:37 AM) Invalid Interpretation Code Negative AO Auto Urine SS Ketones Ql (U) Negative Invalid Interpretation Code Negativemg/d L AO Auto Urine SS Lymphocyte, Absolute 2.10 103/mcL Invalid Interpretation Code 0.77 - 3.85 10^3/mcL AO Auto Heme SS Lymphocytes/100 WBC (Bld) 33.4 % Invalid Interpretation Code 10.0 - 50.0 % AO Auto Heme SS MCH (RBC) [Entitic mass] 32.5 pg Invalid Interpretation Code 27.0 - 31.2 pg AO Auto Heme SS MCHC (RBC) [Mass/Vol] 34.5 G/dL Invalid Interpretation Code 33.0 - 37.0 G/dL AO Auto Heme SS MCV (RBC) [Entitic vol] 94.3 fL Invalid Interpretation Code 80.0 - 94.0 fL AO Auto Heme SS Monocyte, Absolute 0.40 103/mcL Invalid Interpretation Code 0.15 - 1.00 10^3/mcL AO Auto Heme SS Monocytes/100 WBC (Bld) 7.1 % Invalid Interpretation Code 1.7 - 13.0 % AO Auto Heme SS Neutrophil, Absolute 3.60 103/mcL Invalid Interpretation Code 2.85 - 6.16 10^3/mcL AO Auto Heme SS Neutrophils/100 WBC (Bld) 56.8 % Invalid Interpretation Code 37.0 - 80.0 % AO Auto Heme SS Platelet mean volume (Bld) [Entitic vol] 10.5 fL Invalid Interpretation Code 7.4 - 10.4 fL AO Auto Heme SS Platelets (Bld) [#/Vol] 156 103/mcL Invalid Interpretation Code 130 - 400 10^3/mcL AO Auto Heme SS Potassium [Moles/Vol] 4.3 mmol/L Invalid Interpretation Code 3.5 - 5.1 mmol/L AO ADM SS Protein [Mass/Vol] 7.4 G/dL Invalid Interpretation Code 6.4 - 8.2 G/dL AO ADM SS RBC (Bld) [#/Vol] 4.54 106/mcL Invalid Interpretation Code 4.20 - 5.40 10^6/mcL AO Auto Heme SS Sodium [Moles/Vol] 141 mmol/L Invalid Interpretation Code 136 - 145 mmol/L AO ADM SS Triglyceride [Mass/Vol] 176 mg/dL Invalid Interpretation Code 0 - 150 mg/dL AO ADM SS TSH Qn 2.14 m[IU]/L Invalid Interpretation Code 0.36 - 3.74 mcIU/mL AO ADM SS UA Leuk Est Negative (08/16/21 8:37 AM) Invalid Interpretation Code Negative AO Auto Urine SS UA Nitrite Negative (08/16/21 8:37 AM) Invalid Interpretation Code Negative AO Auto Urine SS UA pH 7.0 (08/16/21 8:37 AM) Invalid Interpretation Code 5.0 - 8.0 AO Auto Urine SS UA Protein Negative Invalid Interpretation Code Negativemg/d L AO Auto Urine SS UA Spec Grav 1.020 (08/16/21 8:37 AM) Invalid Interpretation Code 1.015-1.025 AO Auto Urine SS UA Specimen Type Clean Catch (08/16/21 8:37 AM) Invalid Interpretation Code AO Auto Urine SS UA Urobilinogen 0.2 E.U./dL Invalid Interpretation Code 0.2-1.0E.U./ dL AO Auto Urine SS Urea nitrogen [Mass/Vol] 10 mg/dL Invalid Interpretation Code 7 - 18 mg/dL AO ADM SS Urea nitrogen/Creatinine [Mass ratio] 12 ratio Invalid Interpretation Code 7 - 27 ratio AO ADM SS Vit. D 25-Hydroxy 69.4 ng/mL Invalid Interpretation Code AO ADM SS WBC (Bld) [#/Vol] 6.40 103/mcL Invalid Interpretation Code 4.60 - 10.80 10^3/mcL AO Auto Heme SS LABORATORYOrdered By: Donald Dan[facility] [employer] SYSTEM on 08-16-2021 GFR 89 ml/min/1.73sqm Invalid Interpretation Code AO Chemistry S GFR Non- 73 ml/min/1.73sqm Invalid Interpretation Code AO Chemistry S LABORATORYOrdered By: Katlyn Carlos on 07-07-2021 Albumin DL <= 20 mg/L (U) [Mass/Vol] 56189 mcg/dL Invalid Interpretation Code AO ADM SS Albumin/Creatinine DL <= 20 mg/L (U) [Mass ratio] 78 mcg/mg Invalid Interpretation Code 0 - 30 mcg/mg AO ADM SS Creatinine (U) [Mass/Vol] 174.0 mg/dL Invalid Interpretation Code 28.0 - 117.0 mg/dL AO ADM SS LABORATORYOrdered By: Fernanda Guerrero on 02-28-2022 Appearance (U) Slightly Cloudy *ABN* (07/07/21 9:13 AM) Invalid Interpretation Code Clear AO Auto Urine SS Bacteria LM.HPF (Urine sed) [#/Area] 4 /[HPF] Invalid Interpretation Code AO Auto Urine SS Bilirubin Ql (U) Negative (07/07/21 9:13 AM) Invalid Interpretation Code Negative AO Auto Urine SS Color (U) Yellow (07/07/21 9:13 AM) Invalid Interpretation Code AO Auto Urine SS Glucose Test strip (U) [Mass/Vol] Negative Invalid Interpretation Code Negativemg/d L AO Auto Urine SS Hemoglobin Auto test strip (U) [Mass/Vol] Moderate *ABN* (07/07/21 9:13 AM) Invalid Interpretation Code Negative AO Auto Urine SS Ketones Ql (U) Negative Invalid Interpretation Code Negativemg/d L AO Auto Urine SS UA Leuk Est Small *ABN* (07/07/21 9:13 AM) Invalid Interpretation Code Negative AO Auto Urine SS UA Nitrite Positive *ABN* (07/07/21 9:13 AM) Invalid Interpretation Code Negative AO Auto Urine SS UA pH 6.0 (07/07/21 9:13 AM) Invalid Interpretation Code 5.0 - 8.0 AO Auto Urine SS UA Protein 30 mg/dL Invalid Interpretation Code Negativemg/d L AO Auto Urine SS UA RBC LOADED /HPF Invalid Interpretation Code None Seen/HPF AO Auto Urine SS UA Spec Grav 1.025 (07/07/21 9:13 AM) Invalid Interpretation Code 1.015-1.025 AO Auto Urine SS UA Specimen Type Clean Catch (07/07/21 9:13 AM) Invalid Interpretation Code AO Auto Urine SS UA Squam Epithelial 10-15 /HPF Invalid Interpretation Code None Seen/HPF AO Auto Urine SS UA Urobilinogen 0.2 E.U./dL Invalid Interpretation Code 0.2-1.0E.U./ dL AO Auto Urine SS WBC LM.HPF (Urine sed) [#/Area] LOADED /HPF Invalid Interpretation Code None Seen/HPF AO Auto Urine SS No Panel Informationon 07-07 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 Infection control has been notified. 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 No tcdB gene DNA detected. Negative test results may occur from improper collection, handling or storage of specimen, technical error, or number of organisms below the analytical sensitivity of the test. [facility] Comment on above: As with all in vitro diagnostic tests, positive and negative predictive values are highly dependent on prevalence. [facility] [employer] [facility] [employer] C. difficile PCR Assay performance may vary depending on the prevalence and population tested. COVID PCR, SCREENING CONGREG ATEon 11-02-2019 CORONAVIRUS 2019,PCR NOT DETECTED Normal Not Detected [facility] Comment on above: Result Comment: This assay is designed to detect the N, ORF1ab and/or S genes of SARS-CoV-2 via nucleic acid amplification. A Negative (NOT DETECTED) result does not preclude 2019-nCoV infection since the adequacy of sample collection and/or low viral burden may result in presence of viral nucleic acids below the clinical sensitivity of this test method. Negative (NOT DETECTED) result should not be used as the sole basis for treatment or other patient management decisions. Rather negative results should be combined with clinical observations, patient history, and epidemiological information to make patient management decisions. Fact sheet for providers: https://www.fda.gov/media/249083/download Fact sheet for patients: https://www.fda.gov/media/015440/download This test has received FDA Emergency Use Authorization (EUA) and has been verified by [facility] ([facility]). This test is only authorized for the duration of time that circumstances exist to justify the authorization of the emergency use of in vitro diagnostic tests for the detection of SARS-CoV-2 virus and/or diagnosis of COVID-19 infection under section 564(b)(1) of the Act, 21 U.S.C. 360bbb-3(b)(1), unless the authorization is terminated or revoked sooner. [facility] ([facility]) is certified under CLIA-88 as qualified to perform high complexity testing. This tests analytical performance characteristics have been determined by [facility]. Testing is performed at [facility] is located at [address] [place] [address] (CLIA License #[id number], CAP #[id number]). Performed By: #### C VCLA #### [facility] [address] [place] [address] COVID PCR, SCREENING CONGREG ATEon 11-01-2019 Lab Specimen Source Nasal, Nasopharyngeal Normal [facility] Comment on above: Performed By: #### C VCLA #### [facility] [address] [place] [address] Vital Signs Date Time Vital Sign Value Performing Clinician Dagoi lity 01-13-2024 19:16-0400 Body mass index (BMI) [Ratio] 38.2 kg/m2 Talya Cuevas [employer] Work Phone: [facility] 01-13-2024 19:16-0400 Body temperature 98.6 [degF] Tlaya Cuevas [employer] Work Phone: [facility] 01-13-2024 19:16-0400 Body weight 115 kg Talya Cuevas [employer] Work Phone: [facility] 01-13-2024 19:16-0400 Diastolic blood pressure 79 mm[Hg] Talya Cuevas [employer] Work Phone: [facility] 01-13-2024 19:16-0400 Heart rate 64 /min Talya Cuevas [employer] Work Phone: [facility] 01-13-2024 19:16-0400 Respiratory rate 20 /min Talya Cuevas [employer] Work Phone: [facility] 01-13-2024 19:16-0400 SaO2% (BldA) [Mass fraction] 98 % Talya Cuevas [employer] Work Phone: [facility] 01-13-2024 19:16-0400 Systolic blood pressure 114 mm[Hg] Talya Cuevas [employer] Work Phone: [facility] 01-10-2024 12:00-0400 Body mass index (BMI) [Ratio] 37.84 kg/m2 [facility] [employer] Work Phone: [facility] 01-10-2024 12:00-0400 Body temperature 96.91 [degF] [facility] [employer] Work Phone: [facility] 01-10-2024 12:00-0400 Body weight 113.9 kg [facility] [employer] Work Phone: [facility] 01-10-2024 12:00-0400 Diastolic blood pressure 82 mm[Hg] [facility] [employer] Work Phone: [facility] 01-10-2024 12:00-0400 Heart rate 70 /min [facility] [employer] Work Phone: [facility] 01-10-2024 12:00-0400 Respiratory rate 16 /min [facility] [employer] Work Phone: [facility] 01-10-2024 12:00-0400 SaO2% (BldA) [Mass fraction] 96 % [facility] [employer] Work Phone: [facility] 01-10-2024 12:00-0400 Systolic blood pressure 130 mm[Hg] [facility] [employer] Work Phone: [facility] 12-22-2023 13:38-0400 Body mass index (BMI) [Ratio] 38.58 kg/m2 Jackie Leung Work Phone: [facility] 12-22-2023 13:38-0400 Body temperature 97.7 [degF] Jackie Leung Work Phone: [facility] 12-22-2023 13:38-0400 Body weight 116.12 kg Jackie Leung Work Phone: [facility] 12-22-2023 13:38-0400 Diastolic blood pressure 80 mm[Hg] Jackie Leung Work Phone: [facility] 12-22-2023 13:38-0400 Heart rate 65 /min Jackie Leung Work Phone: [facility] 12-22-2023 13:38-0400 SaO2% (BldA) [Mass fraction] 97 % Jackie Leung Work Phone: [facility] 12-22-2023 13:38-0400 Systolic blood pressure 117 mm[Hg] Jackie Leung Work Phone: [facility] 12-08-2023 08:56-0400 Body height 173.5 cm Troy Florez MD Work Phone: [facility] 12-08-2023 08:56-0400 Body mass index (BMI) [Ratio] 38.42 kg/m2 Troy Florez MD Work Phone: [facility] 12-08-2023 08:56-0400 Body temperature 97.2 [degF] Troy Florez MD Work Phone: [facility] 12-08-2023 08:56-0400 Body weight 115.67 kg Troy Florez MD Work Phone: [facility] 12-08-2023 08:56-0400 Diastolic blood pressure 97 mm[Hg] Troy Florez MD Work Phone: [facility] 12-08-2023 08:56-0400 Heart rate 60 /min Troy Florez MD Work Phone: [facility] 12-08-2023 08:56-0400 SaO2% (BldA) [Mass fraction] 97 % Troy Florez MD Work Phone: [facility] 12-08-2023 08:56-0400 Systolic blood pressure 155 mm[Hg] Troy Florez MD Work Phone: [facility] 12-06-2023 09:02-0400 Body mass index (BMI) [Ratio] 37.82 kg/m2 Govind Adame APRN.CNP Work Phone: [facility] 12-06-2023 09:02-0400 Body temperature 97.81 [degF] Govind Pendlebury [employer] Work Phone: [facility] 12-06-2023 09:02-0400 Body weight 114.5 kg Govind Pendlejalen [employer] Work Phone: [facility] 12-06-2023 09:02-0400 Diastolic blood pressure 100 mm[Hg] Govind Pendlebury [employer] Work Phone: [facility] 12-06-2023 09:02-0400 Heart rate 78 /min Govind Pendlebury [employer] Work Phone: [facility] 12-06-2023 09:02-0400 Respiratory rate 20 /min Govind Pendlebury [employer] Work Phone: [facility] 12-06-2023 09:02-0400 SaO2% (BldA) [Mass fraction] 98 % Govind Emlejalen [employer] Work Phone: [facility] 12-06-2023 09:02-0400 Systolic blood pressure 144 mm[Hg] Govind Pendlebury [employer] Work Phone: [facility] 01-24-2023 11:32-0400 Body temperature 98.49 [degF] Allyssa Praisler-Wood [employer] Work Phone: [facility] 01-24-2023 11:32-0400 Body weight 112.4 kg Allyssa Praisler-Wood [employer] Work Phone: [facility] 01-24-2023 11:32-0400 Diastolic blood pressure 74 mm[Hg] Allyssa Praisler-Wood [employer] Work Phone: [facility] 01-24-2023 11:32-0400 Heart rate 60 /min Allyssa Praisler-Wood [employer] Work Phone: [facility] 01-24-2023 11:32-0400 Respiratory rate 21 /min Allyssa Praisler-Wood [employer] Work Phone: [facility] 01-24-2023 11:32-0400 SaO2% (BldA) [Mass fraction] 98 % Allyssa Rico-Wood [employer] Work Phone: [facility] 01-24-2023 11:32-0400 Systolic blood pressure 120 mm[Hg] Allyssa Rico-Wood [employer] Work Phone: [facility] 10-24-2022 11:06-0400 Body temperature 97.3 [degF] Oma Sosahof [employer] Work Phone: [facility] 10-24-2022 11:06-0400 Body weight 110.95 kg Oma Sosahof [employer] Work Phone: [facility] 10-24-2022 11:06-0400 Diastolic blood pressure 72 mm[Hg] Oma Sosahof [employer] Work Phone: [facility] 10-24-2022 11:06-0400 Heart rate 56 /min Oma Sosahof [employer] Work Phone: [facility] 10-24-2022 11:06-0400 Respiratory rate 18 /min Oma Sosahof [employer] Work Phone: [facility] 10-24-2022 11:06-0400 SaO2% (BldA) [Mass fraction] 97 % Oma Sosahof [employer] Work Phone: [facility] 10-24-2022 11:06-0400 Systolic blood pressure 122 mm[Hg] Oma Tannhof [employer] Work Phone: [facility] 10-04-2022 11:19-0400 Body temperature 98.49 [degF] Govind Adame [employer] Work Phone: [facility] 10-04-2022 11:19-0400 Body weight 108.32 kg Govind Adame [employer] Work Phone: [facility] 10-04-2022 11:19-0400 Diastolic blood pressure 72 mm[Hg] Govind Pendlebury [employer] Work Phone: [facility] 10-04-2022 11:19-0400 Heart rate 56 /min [facility] [employer] Work Phone: [facility] 10-04-2022 11:19-0400 Respiratory rate 16 /min [facility] [employer] Work Phone: [facility] 10-04-2022 11:19-0400 SaO2% (BldA) [Mass fraction] 97 % [facility] [employer] Work Phone: [facility] 10-04-2022 11:19-0400 Systolic blood pressure 128 mm[Hg] [facility] [employer] Work Phone: [facility] 08-31-2021 10:02-0400 Body temperature 97.5 [degF] Elo Athy PA-C Work Phone: [facility] 08-31-2021 10:02-0400 Body weight 125.65 kg Elo Athy PA-C Work Phone: [facility] 08-31-2021 10:02-0400 Diastolic blood pressure 78 mm[Hg] Elo Athy PA-C Work Phone: [facility] 08-31-2021 10:02-0400 Heart rate 58 /min Elo Athy PA-C Work Phone: [facility] 08-31-2021 10:02-0400 Respiratory rate 18 /min Elo Athy PA-C Work Phone: [facility] 08-31-2021 10:02-0400 SaO2% (BldA) [Mass fraction] 98 % Elo Athy PA-C Work Phone: [facility] 08-31-2021 10:02-0400 Systolic blood pressure 122 mm[Hg] Elo Athy PA-C Work Phone: [facility] Encounters Encounter Date Encounter Type Care Provider Facility Start: 03-02-2024 ambulatory CHARLIE Parnell LUIS Facility: [facility] Start: 01-24-2024 End: 01-28-2024 ambulatory RADHA ACUNA DO Facility:[facility] Start: 01-24-2024 End: 01-28-2024 Outreach Lab RADHA ACUNA DO [facility] Start: 01-24-2024 End: 01-24-2024 Telephone encounter Jackie Leung Work Phone: Hematology/Oncology Start: 01-17-2024 End: 01-17-2024 ambulatory JACKIE LEUNG Facility:[facility] Start: 01-13-2024 End: 01-13-2024 ambulatory JONO ALESSANDROKO IV Facility:[facility] Start: 01-13-2024 End: 01-13-2024 Patient encounter procedure Talya Cuevas APRN.[employer] D[employer] Work Phone: [facility] Comment on above: Acute otitis media, left (Primary Dx) Start: 01-10-2024 End: 01-10-2024 Office outpatient visit 15 minutes Govind Adame APRN.[employer] Work Phone: [facility] Comment on above: Otalgia, bilateral ( Primary Dx) Start: 01-10-2024 End: 01-10-2024 ambulatory JONO HALKO IV Facility:[facility] Start: 12-29-2023 End: 12-29-2023 ambulatory JONO HALKO IV Facility:[facility] Start: 12-29-2023 End: 12-29-2023 Subsequent hospital visit by [place] [facility] [place] [facility] Work Phone: Radiology Comment on above: Elevated ferritin [R 79.89] Start: 12-22-2023 End: 12-22-2023 ambulatory Jackie Leung Work Phone: Hematology/Oncology Comment on above: Elevated ferritin (P rimary Dx); Thrombocytopenia (HCC) Start: 12-22-2023 End: 12-22-2023 Patient encounter procedure Jackie Leung Work Phone: Hematology/Oncology Start: 12-08-2023 End: 12-08-2023 ambulatory Troy Florez MD Work Phone: Hematology/Oncology Comment on above: Thrombocytopenia (HC C) (Primary Dx); Elevated ferritin Start: 12-08-2023 End: 12-08-2023 Patient encounter procedure Troy Florez MD Work Phone: Hematology/Oncology Start: 12-06-2023 End: 12-06-2023 ambulatory JONO KALPANA IV Facility:[facility] Start: 12-06-2023 End: 12-06-2023 Office outpatient visit 15 minutes Govind Adame APRN.DATABASE DBA Work Phone: [facility] Comment on above: Laceration of left m iddle finger without foreign body without damage to nail, initial encounter (Primary Dx) Start: 11-28-2023 Refill Sunitha Valladares Work Phone: Neurology Comment on above: Refill Request Start: 10-23-2023 End: 10-23-2023 ambulatory RADHA ACUNA DO Facility:B Start: 10-23-2023 End: 10-23-2023 Patient encounter procedure RADHA ACUNA DO [facility] Start: 08-07-2023 End: 08-07-2023 ambulatory JONO HALKO IV Facility:[facility] Start: 08-04-2023 End: 08-04-2023 ambulatory JULIEN SKINNER Facility:[facility] Start: 03-06-2023 End: 03-06-2023 ambulatory RADHA ACUNA DO Facility:[facility] Start: 03-06-2023 End: 03-06-2023 Patient encounter procedure RADHA ACUNA DO [facility] Start: 02-11-2023 ambulatory Sunitha Valladares Work Phone: Neurology Comment on above: Migraine medicine Start: 01-24-2023 End: 01-24-2023 Patient encounter procedure Allyssa Asencio APRN.DATABASE DBA Work Phone: [facility] Comment on above: Hematuria, unspecifi ed type (Primary Dx) Start: 01-03-2023 ambulatory Sunitha Valladares Work Phone: Neurology Comment on above: Prior authorization Start: 11-26-2022 End: 11-26-2022 ambulatory Sunitha Redmond MD Work Phone: Neurology Comment on above: Migraine without aur a and without status migrainosus, not intractable (Primary Dx); Essential tremor Start: 11-26-2022 End: 11-26-2022 Telemedicine consultation with patient Sunitha Redmond MD Work Phone: [facility] Start: 11-12-2022 Refill Mirna Farooq on PASTE MIXER.DATABASE DBA Work Phone: Neurology Comment on above: Refill Request Start: 10-24-2022 End: 10-24-2022 Patient encounter procedure Oma Sanchez PASTE MIXER.DATABASE DBA Work Phone: [facility] Comment on above: Urinary frequency (P rimary Dx) Start: 10-17-2022 End: 10-17-2022 Patient encounter procedure RADHA ACUNA DO [facility] Start: 10-04-2022 End: 10-04-2022 Office outpatient visit 15 minutes Govind Adame PASTE MIXER.DATABASE DBA Work Phone: [facility] Comment on above: URI with cough and c ongestion (Primary Dx) Start: 08-26-2022 End: 08-26-2022 Patient encounter procedure RADHA ACUNA DO [facility] Start: 05-06-2022 Telephone encounter Mirna latham PASTE MIXER.DATABASE DBA Work Phone: Neurology Comment on above: Insurance Authorizat ion (SUMAtriptan-Naproxen (TREXIMET) Start: 01-30-2022 End: 01-30-2022 Patient encounter procedure RADHA ACUNA DO [facility] Start: 11-14-2021 End: 11-14-2021 Patient encounter procedure RADHA ACUNA DO [facility] Start: 11-04-2021 End: 11-04-2021 ambulatory Mirna Jack APRN.DATABASE DBA Work Phone: Neurology Comment on above: Essential tremor (Pr imary Dx); Migraine without aura and without status migrainosus, not intractable Start: 11-04-2021 End: 11-04-2021 Telemedicine consultation with patient Mirna Jack APRN.DATABASE DBA Work Phone: [facility] Start: 10-23-2021 End: 10-23-[address] TRENT HARGROVE MD [facility] Start: 10-21-2021 End: 10-21-[address] TRENT HARGROVE MD [facility] Start: 10-18-2021 End: 10-18-[address] TRENT HARGROVE MD [facility] Start: 09-20-2021 Refill Comfort agarwal PASTE MIXER.DATABASE DBA Work Phone: Neurology Comment on above: Refill Request Start: 08-31-2021 End: 08-31-2021 Patient encounter procedure Elo Velarde PA-C Work Phone: [facility] Comment on above: Splinter (Primary Dx ) Start: 08-16-2021 End: 08-16-2021 Patient encounter procedure RADHA ACUNA DO [facility] Start: 07-07-2021 End: 07-11-2021 Outreach Lab RADHA FRANCOISNILO DO [facility] Start: 04-10-2021 End: 04-14-2021 Outreach Lab ZUNILDA ANGEL MD [facility] Start: 02-18-2021 End: 02-18-2021 Patient encounter procedure RADHA ALESSANDRONILO DO [facility] Procedures Date Procedure Procedure Detail Performing Clinician Start: 12-29-2023 Us abdominal real ti me w/image limited Jackie Leung Work Phone: Start: 01-24-2023 Urnls dip stick/tabl et rgnt auto w/o microscopy Allyssa Asencio PASTE MIXER.DATABASE DBA Work Phone: Start: 10-24-2022 Urnls dip stick/tabl et rgnt auto w/o microscopy Radha Ocasio PASTE MIXER.DATABASE DBA Work Phone: Start: 11-02-2021 Adult depression scr eening assessment Mirna Jack PASTE MIXER.DATABASE DBA Work Phone: Start: 10-27-2020 Adult depression scr eening assessment Elo Velarde PA-C Work Phone: Start: 10-08-2013 Vocal cord structure (body structure) RADHA ACUNA DO Start: 03-10-2013 Mammography Elo Velarde PA-C Work Phone: Start: 01-11-2013 Ovarian structure (b ganga structure) RADHA ACUNA DO Comment on above: right Ankle region structu re (body structure) RADHA ACUNA DO Comment on above: right x 2 Cholecystectomy RADHA Montague DO Deviated nasal septu m (disorder) RADHA ACUNA DO Dilation and curetta ge of uterus RADHA ACUNA DO Endometrial ablation RADHA ACUNA DO Hysteroscopy RADHA Valladares O Knee region structur e (body structure) RADHA ACUNA DO Comment on above: right Repair of musculoten dinous cuff of shoulder RADHA ACUNA DO Comment on above: right Plan of Treatment Date Care Activity Detail Author Start: 11-18-2030 Urine microalbumin profile DTaP,Tdap,Td Vaccine (2 - Td or Tdap) [facility] Start: 01-16-2027 Diabetes Screening Diabetes Screening [facility] Start: 11-26-2026 Screening for malignant neoplasm of colon [facility] Start: 03-20-2024 End: 03-20-2024 Patient encounter procedure 03/20/2024 10:30 AM EST Office Visit Gastroenterology [facility] [address] [place] [id number] Carlee Armendariz PA-C [address] [place], [place] [id number] Elevated ferritin [R79.89] [facility] Comment on above: Elevated ferritin [R79.89] Start: 03-08-2024 End: 03-08-2024 ambulatory 03/08/2024 8:00 AM EDT [facility] [address] [address] [facility] [address] [place] [address] Mirna Jack APRN.DATABASE DBA [address] [place] [address] Headaches Neurology Comment on above: Headaches Start: 01-26-2024 End: 01-26-2024 ambulatory 01/26/2024 8:30 AM EDT Visit (SP) Office Hematology/Oncology [address] [place], [place] [id number] Jackie Leung [address] [place], [place] [phone] 2 WK OV/LABS 12/12* Hematology/Oncology Comment on above: 2 WK OV/LABS 12/12* Start: 01-09-2024 Covid-19 Vaccine () Covid-19 Vaccine () [facility] Start: 01-09-2024 Influenza vaccination Influenza Vaccine (#1) [facility] Start: 12-29-2023 End: 12-29-2023 Patient encounter procedure 12/29/2023 8:30 AM EDT Appointment Radiology [address] [place] [place] [id number] Elevated ferritin [R79.89] Radiology Comment on above: Elevated ferritin [R79.89] Start: 12-22-2023 End: 03-22-2024 CBC W Auto Differential panel - Blood COMPLETE BLOOD COUNT AND DIFFERENTIAL Lab STAT Elevated ferritin Thrombocytopenia (HCC) Expected: 12/22/2023, Expires: 03/22/2024 [facility] Comment on above: Expected: 12/22/2023, Expires: Start: 12-22-2023 End: 03-22-2024 Comprehensive metabolic 2000 panel - Serum or Plasma COMPREHENSIVE METABOLIC PANEL Lab Routine Elevated ferritin Thrombocytopenia (HCC) Expected: 12/22/2023, Expires: 03/22/2024 [facility] Comment on above: Expected: 12/22/2023, Expires: Start: 12-22-2023 End: 03-22-2024 Ferritin [Mass/volume] in Serum or Plasma FERRITIN Lab Routine Elevated ferritin Thrombocytopenia (HCC) Expected: 12/22/2023, Expires: 03/22/2024 [facility] Comment on above: Expected: 12/22/2023, Expires: Start: 12-22-2023 End: 12-22-2023 ambulatory 12/22/2023 1:30 PM EDT Visit (SP) Office Hematology/Oncology [address], [place] [phone] Jackie Leung [address] [place] [phone] 2 WK OV/LABS 12/07* Hematology/Oncology Comment on above: 2 WK OV/LABS 12/07* Start: 12-08-2023 End: 03-08-2024 Erythrocyte sedimentation rate [facility] Comment on above: Expected: 12/08/2023, Expires: Start: 12-08-2023 End: 03-08-2024 Ferritin [Mass/volume] in Serum or Plasma [facility] Work Phone: Comment on above: Expected: 12/08/2023, Expires: Start: 12-08-2023 End: 03-08-2024 Iron and Iron binding capacity panel - Serum or Plasma [facility] Comment on above: Expected: 12/08/2023, Expires: Start: 12-08-2023 Screening for malignant neoplasm of colon [facility] Start: 12-08-2023 End: 12-08-2023 ambulatory 12/08/2023 9:00 AM EDT Visit (SP) Office Hematology/Oncology [address] [place] [address] [place] [address] [place] [address] DX Thrombocytopenia low plate;ets bleeding gums. First Available REF Hematology/Oncology Comment on above: DX Thrombocytopenia low plate;ets bleedi ng gums. First Available REF Start: 05-10-2023 Behavioral Health Screening Behavioral Health Screening [facility] Start: 04-08-2023 DIABETES SCREEN DIABETES SCREEN [facility] Start: 04-08-2023 Diabetes Screening Diabetes Screening [facility] Start: 01-08-2023 Covid-19 Vaccine ( season) Covid-19 Vaccine () [facility] Start: 01-08-2023 Influenza vaccination [facility] Start: 11-02-2022 Adult depression screening assessment DEPRESSION SCREENING [facility] Start: 05-10-2022 DEPRESSION ASSESSMENT DEPRESSION ASSESSMENT [facility] Start: 01-08-2022 Influenza vaccination INFLUENZA (#1) [facility] Start: 10-27-2021 Adult depression screening assessment DEPRESSION SCREENING [facility] Start: 06-23-2021 COVID-19 VACCINE (4 - Booster for Pfizer series) COVID-19 VACCINE (4 - Booster for Pfizer series) [facility] Start: 04-17-2021 COVID-19 VACCINE (4 - Booster for Pfizer series) COVID-19 VACCINE (4 - Booster for Pfizer series) [facility] Start: 08-01-2018 PAP TESTING PAP TESTING [facility] Start: 08-01-2016 Screening for malignant neoplasm of cervix Cervical Cancer Screening [facility] Start: 2015 SHINGRIX VACCINE (1 of 2) SHINGRIX VACCINE (1 of 2) [facility] Start: 03-10-2014 Mammography [facility] Start: 03-10-2014 Screening for malignant neoplasm of breast Mammogram Screening [facility] Start: 2010 COLOGUARD (FIT-DNA) COLOGUARD (FIT-DNA) [facility] Start: 2010 Colonoscopy COLONOSCOPY [facility] Start: 2010 COLORECTAL CANCER SCREENING COLORECTAL CANCER SCREENING [facility] Start: [address] COLONOGRAPHY [facility] Start: 2010 FECAL OCCULT BLOOD FECAL OCCULT BLOOD [facility] Start: 2010 Lipid 1996 panel - Serum or Plasma Lipid Screening [facility] Start: 2010 Lipid panel Lipid Screening [facility] Start: 2010 LIPID SCREEN LIPID SCREEN [facility] Start: 2010 Screening for malignant neoplasm of colon [facility] Start: 2010 SIGMOIDOSCOPY SIGMOIDOSCOPY [facility] Start: 1995 HPV TESTING HPV TESTING [facility] Start: 02-10-1984 Urine microalbumin profile [facility] Start: 1983 Anxiety Screening Anxiety Screening [facility] Start: 1983 Depression Screening Depression Screening [facility] Start: 1983 HEPATITIS C SCREENING HEPATITIS C SCREENING [facility] Start: 1983 Hepatitis C screening Hepatitis C Screening [facility] Start: 1983 HIV SCREENING HIV SCREENING [facility] Start: 1983 HIV screening HIV Screening [facility] Start: 1965 HEPATITIS B (1 of 3 - 3-dose series) HEPATITIS B (1 of 3 - 3-dose series) [facility] Start: 1965 Hepatitis B Vaccine (1 of 3 - 3-dose series) Hepatitis B Vaccine (1 of 3 - 3-dose series) [facility] Bacteria identified in Urine by Culture URINE CULTURE Microbiology Routine Urinary frequency Ordered: 10/24/2022 [facility] Work Phone: Comment on above: Ordered: 10/24/2022 Bacteria identified in Urine by Culture URINE CULTURE Microbiology Routine Hematuria, unspecified type Ordered: 01/24/2023 [facility] Work Phone: Comment on above: Ordered: 01/24/2023 End: 01-20-2025 US Abdomen RUQ US ABD RIGHT UPPER QUADRANT Radiology Routine Elevated ferritin 1 Occurrences starting 12/22/2023 until 01/20/2025 [facility] Work Phone: Comment on above: 1 Occurrences starting 12/22/2023 until 01/20/2025 [facility] Immunizations Immunization Date Immunization Notes Care Provider Fa [facility] 04-27-2023 influenza, injectabl e, quadrivalent, contains preservative; Translations: [Fluarix PF Quadrivalent ] RADHA ACUNA DO [facility] Comment on above: Early/Late Reason: E disha/Late Reason: Other: 04-27-2023 influenza virus vacc ine, unspecified formulation Sunitha Redmond MD Work Phone: [facility] 08-25-2022 hepatitis B vaccine, adult dosage; Translations: [Engerix-B] RADHA ACUNA DO [facility] 08-25-2022 measles, mumps and rubella virus vaccine; Translations: [M-M-R II] RADHA ACUNA DO [facility] 04-28-2022 hepatitis B vaccine, adult dosage; Translations: [Engerix-B] RADHA ACUNA DO [facility] 02-26-2022 hepatitis B vaccine, adult dosage; Translations: [Engerix-B] RADHA ACUNA DO [facility] 02-20-2022 COVID-19, mRNA, LNP- S, bivalent booster, PF, 30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 Date:05/13/2021 03:30:00 PM Scheduled Provider:RADHA ACUNA DO Location:[facility] Appointment Type:PC Office Procedure OMT Appointment Date:07/02/2021 03:30:00 PM Scheduled Provider:RADHA ACUNA DO Location:[facility] Appointment Type:PC OV Future Scheduled Tests Radiology* XR Spine Lumbar W/Obliques 4 Views 02/18/21 [facility] Evaluation + Plan note Future Appointments Appointment Date:07/15/2021 04:00:00 PM Scheduled Provider:RADHA ACUNA DO Location:[facility] Appointment Type:PC Office Procedure OMT Appointment Date:01/01/2022 04:00:00 PM Scheduled Provider:RADHA ACUNA DO Location:[facility] Appointment Type:PC OV Future Scheduled Tests Laboratory* Urinalysis 07/11/21 * Thyroid Stimulating Hormone 07/02/21 * Urine Culture 07/11/21 * Complete Blood Count 07/02/21 * Lipid Profile 07/02/21 * Complete Metabolic Panel 07/02/21 Radiology* XR Spine Lumbar W/Obliques 4 Views 02/18/21 [facility] Evaluation + Plan note Future Appointments Appointment Date:09/25/2021 04:00:00 PM Scheduled Provider:RADHA ACUNA DO Location:[facility] Appointment Type:PC Office Procedure OMT Appointment Date:01/01/2022 04:00:00 PM Scheduled Provider:RADHA ACUNA DO Location:[facility] Appointment Type:PC OV Diagnostic Tests Pending * Vitamin B12 Level 08/16/21 * Folate Level 08/16/21 * Ferritin 08/16/21 * Urine Culture 08/16/21 Future Scheduled Tests Radiology* XR Spine Lumbar W/Obliques 4 Views 02/18/21 [facility] Evaluation + Plan note Future Appointments Appointment Date:10/28/2021 10:00:00 AM Scheduled Provider:RADHA ACUNA DO Location:[facility] Appointment Type:PC Office Procedure OMT Appointment Date:01/01/2022 04:00:00 PM Scheduled Provider:ARDHA ACUNA DO Location:[facility] Appointment Type:PC OV Future Scheduled Tests Radiology* XR Spine Lumbar W/Obliques 4 Views 02/18/21 [facility] evaluation + Plan note Future Appointments Appointment Date:11/17/2021 03:30:00 PM Scheduled Provider:RADHA ACUNA DO Location:[facility] Appointment Type:PC Office Procedure OMT Appointment Date:01/01/2022 04:00:00 PM Scheduled Provider:RADHA ACUNA DO Location:[facility] Appointment Type:PC OV Future Scheduled Tests Radiology* XR Spine Lumbar W/Obliques 4 Views 02/18/21 [facility] Evaluation + Plan note Future Appointments Appointment Date:02/11/2022 02:00:00 PM Scheduled Provider:RADHA ACUNA DO Location:[facility] Appointment Type:PC OV Future Scheduled Tests Radiology* XR Spine Lumbar W/Obliques 4 Views 02/18/21 [facility] Evaluation + Plan note Future Appointments Appointment Date:10/16/2022 11:00:00 AM Scheduled Provider:RADHA ACUNA DO Location:[facility] Appointment Type:PC OV Future Scheduled Tests Laboratory* HIV 1/2 Ab 07/10/22 * HIV 1/2 Ab 05/18/22 [facility] Evaluation + Plan note Future Appointments Appointment Date:01/15/2023 10:30:00 AM Scheduled Provider:RADHA ACUNA DO Location:[facility] Appointment Type:PC Wellness Annual Future Scheduled Tests Laboratory* HIV 1/2 Ab 07/10/22 * HIV 1/2 Ab 05/18/22 [facility] Evaluation + Plan note Future Appointments Appointment Date:04/27/2023 08:30:00 AM Scheduled Provider:RADHA ACUNA DO Location:[facility] Appointment Type:PC OV Future Scheduled Tests Laboratory* HIV 1/2 Ab 07/10/22 * HIV 1/2 Ab 05/18/22 [facility] Evaluation + Plan note Future Appointments Appointment Date:10/29/2023 02:00:00 PM Scheduled Provider:RADHA ACUNA DO Location:[facility] Appointment Type:PC OV Appointment Date:01/24/2024 01:30:00 PM Scheduled Provider:RADHA ACUNA DO Location:[facility] Appointment Type:PC Wellness Annual Future Scheduled Tests Laboratory* Albumin/Creatinine Ratio, Random Urine 09/01/23 [facility] Evaluation + Plan note Future Appointments Appointment Date:04/26/2024 03:00:00 PM Scheduled Provider:RADHA ACUNA DO Location:[facility] Appointment Type:PC OV Future Scheduled Tests Laboratory* Thyroid Stimulating Hormone 04/24/24 * A1C Hemoglobin 04/24/24 * Complete Blood Count 04/24/24 * Lipid Profile 04/24/24 * Albumin/Creatinine Ratio, Random Urine 09/01/23 * Vitamin D Level 04/24/24 * Complete Metabolic Panel 04/24/24 Radiology* MA Mammo Screening Bilateral w/ Regan 03/06/24 * BD Bone Density DEXA Axial Skeleton 03/06/24 [facility] evaluation note* Diagnosis Splinter- Primary Other, multiple, and unspecified sites, superficial foreign body (splinter), without major open wound and without mention of infection documented in this encounter [facility] note* Diagnosis Migraine without aura and without status migrainosus, not intractable Migraine without aura, without mention of intractable migraine without mention of status migrainosus Cervicogenic headache Headache [facility] Diagnosis Essential tremor- Primary Essential and other specified forms of tremor Migraine without aura and without status migrainosus, not intractable Migraine without aura, without mention of intractable migraine without mention of status migrainosus [facility] Diagnosis URI with cough and congestion- Primary [facility] Diagnosis Urinary frequency- Primary [facility] Diagnosis Migraine without aura and without status migrainosus, not intractable- Primary Migraine without aura, without mention of intractable migraine without mention of status migrainosus Essential tremor Essential and other specified forms of tremor [facility] Diagnosis Hematuria, unspecified type- Primary [facility] Diagnosis Laceration of left middle finger without foreign body without damage to nail, initial encounter- Primary [facility]* Diagnosis Thrombocytopenia (HCC)- Primary Thrombocytopenia, unspecified Elevated ferritin Other abnormal blood chemistry [facility] Diagnosis Elevated ferritin- Primary Other abnormal blood chemistry Thrombocytopenia (HCC) Thrombocytopenia, unspecified [facility]* Diagnosis Elevated ferritin Other abnormal blood chemistry [facility]* Diagnosis Otalgia, bilateral- Primary [facility] Diagnosis Acute otitis media, left- Primary Unspecified otitis media [facility] Diagnosis Elevated ferritin- Primary Other abnormal blood chemistry Thrombocytopenia (HCC) Thrombocytopenia, unspecified [facility] Narrative No data available for this section [facility] Hospital Discharge instructions No data available for this section [facility] Note* Hailey Franklin: PERFORM Event Display: Lab - General Scan Authored Date: [id number] [facility] Progress note No data available for this section [facility] Reason for referral (narrative)* Diagnostic Procedure Only (Routine) - Authorized Specialty Diagnoses / Procedures Referred By Contac t Referred To Contact US IMAGING Diagnoses Elevated ferritin Procedures US ABD RIGHT UPPER QUADRANT US ABDOMINAL REAL TIME W/IMAGE LIMITED Jackie Leung [address] [place] [address] [place] [address] Referral ID Status Reason Start Date Expiration Date Visits Requested Visits Authorized [id number] Authorized Auto-Generat ed Referral 12/22/2023 01/20/2025 1 1 [facility] for referral (narrative)* Diagnostic Procedure Only (Routine) - Closed Specialty Diagnoses / Procedures Referred By Contac t Referred To Contact US IMAGING Diagnoses Elevated ferritin Procedures US ABD RIGHT UPPER QUADRANT US ABDOMINAL REAL TIME W/IMAGE LIMITED Jackie Leung [address] [place] [address] [place] [address] Referral ID Status Reason Start Date Expiration Date V isits Requested Visits Authorized [id number] Closed Auto-Generate d Referral 12/22/2023 01/20/2025 1 1 [facility] for visit Narrative* Diagnostic Procedure Only (Routine) - Closed Specialty Diagnoses / Procedures Referred By Contac t Referred To Contact US IMAGING Diagnoses Elevated ferritin Procedures US ABD RIGHT UPPER QUADRANT US ABDOMINAL REAL TIME W/IMAGE LIMITED Jackie Leung [address] [place] [address] [place] [address] Referral ID Status Reason Start Date Expiration Date V isits Requested Visits Authorized [id number] Closed Auto-Generate d Referral 12/22/2023 01/20/2025 1 1 [facility] Summary Purpose Family History No Family History Records Found No data available for this section No data available for this section No Family History Records FoundNo Family History Records Found No data available for this section No Family History Records FoundNo Family History Records Found Advance Directives No Advanced Directives Records FoundNo Advanced Directives Records FoundNo Advanced Directives Records FoundNo Advanced Directives Records FoundNo Advanced Directives Records Found Reason for Referral Specialty Diagnoses / Procedures Referred By Contac t Referred To Contact Diagnoses Elevated ferritin Thrombocytopenia (HCC) Procedures CONSULT TO HEPATOLOGY OFFICE/OUTPATIENT NEW HIGH MDM 60 MINUTES Jackie Leung [address] [place] [address] Referral ID Status Reason Start Date Expiration Date Visits Requested Visits Authorized [id number] Authorized PCP Requested Referral 01/24/2024 01/23/2025 1 1 Specialty Diagnoses / Procedures Referred By Contac t Referred To Contact Diagnoses Migraine without aura and without status migrainosus, not intractable Essential tremor Procedures PROVIDER ORDERED FOLLOW UP OFFICE/OUTPATIENT NEW HIGH MDM 60-74 MINUTES Mirna Jack APRN.CNP [address] [place] [address] Referral ID Status Reason Start Date Expiration Date Visits Requested Visits Authorized [id number] Pending Review PCP Requested Referral 08/06/2022 11/04/2022 1 1 Additional Source Comments INFORMATION SOURCE (unrecogn ized section and content) DATE CREATED AUTHOR 11/28/2019 [facility] DATE CREATED AUTHOR AUTHOR'S ORGANIZ ATION 10/24/2023 [facility] ([facility]) DATE CREATED AUTHOR AUTHOR'S ORGANIZ ATION 01/26/2024 [facility] DATE CREATED AUTHOR AUTHOR'S ORGANIZ ATION 01/31/2024 [facility] DATE CREATED AUTHOR AUTHOR'S ORGANIZ ATION 03/04/2024 [facility] Care Team (unrecognized sect ion and content) [employer] Relationship Specialty Start Date End Date Julien Skinner, DO PCP - General Genetics 12/15/10 [employer] Relationship Specialty Start Date End Date Julien Skinner, DO PCP - General Genetics 12/15/10 [employer] Relationship Specialty Start Date End Date Julien Skinner, DO PCP - General Genetics 12/15/10 [employer] Relationship Specialty Start Date End Date Julien Skinner, DO PCP - General Genetics 12/15/10 [employer] Relationship Specialty Start Date End Date Julien Skinner, DO PCP - General Genetics 12/15/10 [employer] Relationship Specialty Start Date End Date Brody Julien Blaine, DO PCP - General Genetics 12/15/10 [employer] Relationship Specialty Start Date End Date Julien Skinner, DO PCP - General Genetics 12/15/10 [employer] Relationship Specialty Start Date End Date Julien Skinner DO PCP - General Genetics 12/15/10 [employer] Relationship Specialty Start Date End Date Julien Skinner DO PCP - General Genetics 12/15/10 [employer] Relationship Specialty Start Date End Date Julien Skinner DO PCP - General Genetics 12/15/10 [employer] Relationship Specialty Start Date End Date Radha Acuna IV, DO [address] [place] [address] PCP - General Family Medicine 08/07/23 [employer] Relationship Specialty Start Date End Date Radha Acuna IV, DO [address] [place] [id number] PCP - General Family Medicine 08/07/23 [employer] Relationship Specialty Start Date End Date Radha Acuna IV, DO [address] [place] [address] PCP - General Family Medicine 08/07/23 [employer] Relationship Specialty Start Date End Date Radha Acuna IV, DO [address] [place] [id number] PCP - General Family Medicine 08/07/23 [employer] Relationship Specialty Start Date End Date Radha Acuna IV, DO [address] [place] [id number] PCP - General Family Medicine 08/07/23 [employer] Relationship Specialty Start Date End Date Radha Acuna IV, DO [address] [place] [address] PCP - General Family Medicine 08/07/23 [employer] Relationship Specialty Start Date End Date Radha Acuna IV, DO [address] [place] [address] PCP - General Family Medicine 08/07/23 Source Comments (unrecognize d section and content) In the event this informatio n is protected by the Federal Confidentiality of Alcohol and Drug Abuse Patient Records regulations: The Federal rules restrict any use of the information to criminally investigate or prosecute any alcohol or drug abuse patient.[facility] the event this information is protected by the Federal Confidentiality of Alcohol and Drug Abuse Patient Records regulations: The Federal rules restrict any use of the information to criminally investigate or prosecute any alcohol or drug abuse patient.[facility] Hospital[facility] the event this information is protected by the Federal Confidentiality of Alcohol and Drug Abuse Patient Records regulations: The Federal rules restrict any use of the information to criminally investigate or prosecute any alcohol or drug abuse patient.[facility] the event this information is protected by the Federal Confidentiality of Alcohol and Drug Abuse Patient Records regulations: The Federal rules restrict any use of the information to criminally investigate or prosecute any alcohol or drug abuse patient.[facility] Hospital[facility] the event this information is protected by the Federal Confidentiality of Alcohol and Drug Abuse Patient Records regulations: The Federal rules restrict any use of the information to criminally investigate or prosecute any alcohol or drug abuse patient.[facility] Hospital[facility] the event this information is protected by the Federal Confidentiality of Alcohol and Drug Abuse Patient Records regulations: The Federal rules restrict any use of the information to criminally investigate or prosecute any alcohol or drug abuse patient.[facility] Hospital[facility] the event this information is protected by the Federal Confidentiality of Alcohol and Drug Abuse Patient Records regulations: The Federal rules restrict any use of the information to criminally investigate or prosecute any alcohol or drug abuse patient.[facility] Hospital[facility] the event this information is protected by the Federal Confidentiality of Alcohol and Drug Abuse Patient Records regulations: The Federal rules restrict any use of the information to criminally investigate or prosecute any alcohol or drug abuse patient.[facility] Hospital[facility] the event this information is protected by the Federal Confidentiality of Alcohol and Drug Abuse Patient Records regulations: The Federal rules restrict any use of the information to criminally investigate or prosecute any alcohol or drug abuse patient.[facility] Hospital[facility] the event this information is protected by the Federal Confidentiality of Alcohol and Drug Abuse Patient Records regulations: The Federal rules restrict any use of the information to criminally investigate or prosecute any alcohol or drug abuse patient.[facility] Hospital[facility] the event this information is protected by the Federal Confidentiality of Alcohol and Drug Abuse Patient Records regulations: The Federal rules restrict any use of the information to criminally investigate or prosecute any alcohol or drug abuse patient.[facility] Hospital[facility] the event this information is protected by the Federal Confidentiality of Alcohol and Drug Abuse Patient Records regulations: The Federal rules restrict any use of the information to criminally investigate or prosecute any alcohol or drug abuse patient.[facility] Hospital[facility] the event this information is protected by the Federal Confidentiality of Alcohol and Drug Abuse Patient Records regulations: The Federal rules restrict any use of the information to criminally investigate or prosecute any alcohol or drug abuse patient.[facility] Hospital[facility] the event this information is protected by the Federal Confidentiality of Alcohol and Drug Abuse Patient Records regulations: The Federal rules restrict any use of the information to criminally investigate or prosecute any alcohol or drug abuse patient.[facility] Hospital[facility] the event this information is protected by the Federal Confidentiality of Alcohol and Drug Abuse Patient Records regulations: The Federal rules restrict any use of the information to criminally investigate or prosecute any alcohol or drug abuse patient.[facility] Hospital[facility] the event this information is protected by the Federal Confidentiality of Alcohol and Drug Abuse Patient Records regulations: The Federal rules restrict any use of the information to criminally investigate or prosecute any alcohol or drug abuse patient.[facility] HospitalIn the event this information is protected by the Federal Confidentiality of Alcohol and Drug Abuse Patient Records regulations: The Federal rules restrict any use of the information to criminally investigate or prosecute any alcohol or drug abuse patient.[facility] HospitalIn the event this information is protected by the Federal Confidentiality of Alcohol and Drug Abuse Patient Records regulations: The Federal rules restrict any use of the information to criminally investigate or prosecute any alcohol or drug abuse patient.[facility] HospitalIn the event this information is protected by the Federal Confidentiality of Alcohol and Drug Abuse Patient Records regulations: The Federal rules restrict any use of the information to criminally investigate or prosecute any alcohol or drug abuse patient.[facility] HospitalIn the event this information is protected by the Federal Confidentiality of Alcohol and Drug Abuse Patient Records regulations: The Federal rules restrict any use of the information to criminally investigate or prosecute any alcohol or drug abuse patient.[facility] Reason for Visit (unrecogniz ed section and content) Reason Comments splinter under fingernail happened last night Reason Onset Date Comments Refill Request 09/20/2021 Reason Comments Follow Up Reason Comments Insurance Authorization SUMAtriptan-Napr oxen (TREXIMET Reason Comments Cough Cough, drainage, rig ht ear pressure and sinus x 4 days Reason Comments Urinary Frequency Frequency x 1 day Reason Onset Date Comments Refill Request 11/12/2022 Reason Comments Migraine Reason Comments Hematuria Possible uti, blood in urine started this morning Reason Onset Date Comments Refill Request 11/28/2023 Reason Comments Laceration Left hand middle fin gloria laceration Reason Comments New Patient Reason Comments Established Patient Reason Comments Ear Pain finished zpak x this am for left ear infection, still painful and right ear starting pain Reason Comments Ear Pain Pain and blockage in left ear muffled hearing, dizziness, x 1.5 weeks Care Team (unrecognized sect ion and content) Care Team Personnel Name: RADHA ACUNA DO Position: P4 Physician - Primary Care Med Service: Active Provider Member Role: Primary Care Physician Address: Address: [address] [place] [id number]- [place] Care Team Related Persons Name: SHAYNE LOYA Care Team Personnel Name: RADHA ACUNA Position: P4 Physician - Primary Care Med Service: Active Provider Member Role: Primary Care Physician Address: Address: [address] [place] [address]- [place] Care Team Related Persons Name: SHAYNE LOYA FOR RECORDS PERTAINING TO PATIENTS WHO ARE OR HAVE BEEN ENROLLED IN A CHEMICAL DEPENDENCY/SUBSTANCEABUSE PROGRAM, SOME INFORMATION MAY BE OMITTED. This clinical summary was aggregated from multiple sources. Caution should be exercised in using it in the provision of clinical care. This summary normalizes information from multiple sources, and as a consequence, information in this document may materially change the coding, format and clinical context of patient data. In addition, data may be omitted in some cases. CLINICAL DECISIONS SHOULD BE BASED ON THE PRIMARY CLINICAL RECORDS. [facility] [employer] provides no warranty or guarantee of the accuracy or completeness of information in this document.
== END | disposition home or self-care (01) ==
LOC: MRI 16:00
PROVIDERS: PCP Student in an Organized Health Care Education/Training Program; Referring Provider Otolaryngology Otolaryngology/Facial Plastic Surgery; Visit Provider Otolaryngology Otolaryngology/Facial Plastic Surgery
DX: R27.0 Ataxia, unspecified (principal)
CPT/HCPCS: 70553; A9575

== ENCOUNTER 2024-06-04 08:54 | Emergency (ER) | payer OTHER, SELFPAY ==
[2024-06-04 08:55] VITALS: BP 139/95; PULSE 89; RESP 16; TEMP 36.7; O2SAT 97; BMI 35.1
[2024-06-04 08:58] VITALS: BP 139/95; PULSE 85; RESP 16; TEMP 36.7; O2SAT 96
[2024-06-04] MEDS: Ondansetron 4 MG/2 ML Vial IV (09:49)
[2024-06-04] MEDS: 0.9% Normal Saline (1000mL) 1,000 ML 1000 ML IV (09:49)
[2024-06-04 10:11] LABS: Anion Gap 6 (5-15); BUN 15 mg/dL (7-18); BUN/Creat Ratio 13.2 RATIO (10-20); Calcium,Total 9.6 mg/dL (8.5-10.1); Chloride 107 mmol/L (98-107); Creatinine, Serum 1.14 mg/dL (0.55-1.02); EST Glomerular Filtration Rate 52 mL/min (>60); Est Glom Filt Rate - Afr Amer 63 mL/min (>60); Estimated Creatinine Clearance 69.54 ml/min; Glucose 155 mg/dL (74-106); Potassium 3.3 mmol/L (3.5-5.1); Sodium Level 137 mmol/L (136-145)
--- NOTE | 2024-06-04 10:28 | ED.RN ---
Patient prompted for urine sample and walked to the bathroom. Patient states she missed the hat.
[2024-06-04 10:54] VITALS: BP 108/75
[2024-06-04 11:10] VITALS: BP 103/69; BP 108/75; BP 113/71; PULSE 70; PULSE 75; PULSE 93
[2024-06-04 11:25] LABS: Color, Urine Yellow (Yellow); Glucose, Dipstick Normal (Normal); Ketone-Dipstick Negative (Negative); Leukocyte Esterase-Dipstick Negative /ul (Negative); Nitrite-Dipstick Negative (Negative); Occult Blood-Urine Negative /ul (Negative); Protein-Dipstick Negative (Negative); Urine Bilirubin Dipstick Negative (Negative); Urine Clarity Clear (Clear); Urine Urobilinogen Normal (Normal)
--- NOTE | 2024-06-04 11:53 | EDS_ITS ---
HPI History of Present Illness Chief Complaint: Nausea/Vomiting Detail of Chief Complaint: Nausea and vomiting that started Wednesday and complaining of cramping pain. Informant: patient Onset/Context/Timing Onset: Days (Onset Wednesday with nausea vomiting and diarrhea) Context: Sudden Onset Timing: Continuous (Nausea is continuous) and Intermittent Quality: Cramping generalized abdominal pain and generalized bodyaches Location: Generalized Current Severity: Mild Maximum Severity: Moderate Worsened by: Increase symptoms with eating or drinking anything Relieved by: Nothing Associated Symptoms Associated Symptoms: Endorses thirst and dry mouth and reports lightheadedness with standing Narrative Narrative: Patient is a 59-year-old woman. She has history of type 2 diabetes, hypertension, GERD, depression and migraine headaches who presents with nausea vomiting predominantly. She has had diarrhea. She has not noted hematemesis or coffee-ground emesis. She has not noted blood or mucus in her stool. 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 Patient denies fever or chills. Patient denies night sweats. Patient denies headache, visual, ocular auditory symptoms. Patient denies cardiac or respiratory symptoms. Prior similar symptoms: Yes Recent Illness/[facility] Medical History Hypodermic needlestick injury of finger of left hand De Quervain's tenosynovitis, right Home Medications ?Medication ?Instructions ?Recorded ?Last Taken ?Type famotidine 40 mg tablet 40 mg PO QHS gerd 05/16/13 11/23/19 History multivitamin,oh-evlm-cwcjpmgr 27 1 tab PO DAILY supplement 05/16/13 11/24/19 History mg-0.4 mg tablet omega-3 fatty acids-fish oil 300 1 cap PO DAILY supplement 05/16/13 11/24/19 History mg-1,000 mg capsule pantoprazole 40 mg tablet,delayed 40 mg PO DAILY gerd 04/22/18 11/24/19 History release topiramate 100 mg tablet 100 mg PO QHS taveras 04/22/18 11/23/19 History lisinopril 2.5 mg tablet 2.5 mg PO DAILY bp 11/23/19 11/24/19 History metformin 500 mg tablet,extended 500 mg PO BID dm 11/23/19 11/24/19 History release 24 hr sumatriptan 85 mg-naproxen 500 mg 1 ea PO DAILY PRN PRN Migraine 11/23/19 11/24/19 History tablet Symptoms vilazodone 20 mg tablet 20 mg PO DAILY depression 11/23/19 11/24/19 History cholecalciferol (vitamin D3) 50 2,000 unit PO DAILY supplement 11/24/19 11/24/19 History mcg (2,000 unit) capsule magnesium oxide 400 mg (241.3 mg 400 mg PO QHS supplement 11/24/19 11/23/19 History magnesium) tablet azithromycin 250 mg tablet See Rx Instructions PO .COMPLEX #6 05/25/22 Unknown Rx tabs diazepam 5 mg tablet (Valium) 5 mg PO QHS 05/25/22 Unknown History fluoxetine 20 mg capsule 20 mg PO DAILY 05/25/22 Unknown History ondansetron 4 mg disintegrating 4 mg PO Q8H PRN PRN Nausea #5 tabs 06/04/24 Unknown Rx tablet Allergy/AdvReac Type Severity Reaction Status Date / Time cefadroxil hydrate (From Allergy Unknown Verified 06/04/24 08:58 Duricef) Penicillins (PCN) Allergy Hives Verified 06/04/24 08:58 zolmitriptan (From Zomig) AdvReac Nausea Verified 06/04/24 08:58 Social History Smoking Status: Current every day smoker tobacco type: cigarettes ROS ROS ED Constitutional Constitutional ED: Reports subjective; Denies chills, fever(s), sweats or weight loss Eyes Eyes: Denies blurry vision or change in vision ENT ENT ED: Denies ear pain or rhinorrhea Cardiovascular Cardiovascular: Reports other Details: Orthostatic lightheadedness ; Denies chest pain, orthopnea, palpitations, paroxysmal nocturnal dyspnea or racing heartbeat Respiratory/Chest Respiratory/Chest: Denies cough, dyspnea, dyspnea on exertion, orthopnea or paroxysmal nocturnal dyspnea Gastrointestinal Gastrointestinal: Reports abdominal pain, diarrhea, nausea and vomiting; Denies constipation or melena Genitourinary Genitourinary ED: Reports other Details: Endorses decreased urine output. Has not noted change in the urine. ; Denies dysuria, hematuria or urinary frequency Musculoskeletal Musculoskeletal: Reports arthralgias and myalgias Integumentary Denies rash Neurologic Neurologic: Reports weakness; Denies headache(s) or paresthesias Hematologic/Lymphatic Hematologic/Lymphatic: Reports systems reviewed and no addt'l complaints, except as documented EXAM Physical Exam Const Vital Signs: 06/04/24 08:55 06/04/24 08:58 06/04/24 10:54 Temperature 98.1 F 98.1 F Temperature Source Temporal Temporal Pulse Rate 89 85 Pulse Rate [Lying] Pulse Rate [Sitting (for 1 minute prior to obtaining)] Pulse Rate [Standing (for 1 minute prior to obtaining)] Respiratory Rate 16 16 Blood Pressure 139/95 H 139/95 H 108/75 Blood Pressure [Lying] Blood Pressure [Sitting (for 1 minute prior to obtaining)] Blood Pressure [Standing (for 1 minute prior to obtaining)] Blood Pressure Mean 109 109 86 Blood Pressure Mean [Lying] Blood Pressure Mean [Sitting (for 1 minute prior to obtaining)] Blood Pressure Mean [Standing (for 1 minute prior to obtaining)] Pulse Ox 97 96 Oxygen Delivery Method Room Air Room Air 06/04/24 11:10 Temperature Temperature Source Pulse Rate Pulse Rate [Lying] 75 Pulse Rate [Sitting (for 1 minute prior to obtaining)] 70 Pulse Rate [Standing (for 1 minute prior to obtaining)] 93 Respiratory Rate Blood Pressure Blood Pressure [Lying] 103/69 Blood Pressure [Sitting (for 1 minute prior to obtaining)] 113/71 Blood Pressure [Standing (for 1 minute prior to obtaining)] 108/75 Blood Pressure Mean Blood Pressure Mean [Lying] 80 Blood Pressure Mean [Sitting (for 1 minute prior to obtaining)] 85 Blood Pressure Mean [Standing (for 1 minute prior to obtaining)] 86 Pulse Ox Oxygen Delivery Method Vital signs noted. Orthostatic vital signs negative. Positive well nourished and well developed Constitutional Narrative: BMI 35.1. General Appearance ED: well developed, NAD and other Patient appears ill but not toxic. ; Negative for cyanotic, diaphoretic or pallor HEENT Reports dry mucous membranes HEENT Narrative: HEENT is otherwise negative. Mouth ED: Yes dry mucous membranes Mouth: dry mucous membranes Eyes PERRL and EOMs intact bilaterally General Eye ED: Negative for pale conjunctiva or scleral icterus Neck no lymphadenopathy and no JVD Resp normal respiratory effort and clear to auscultation bilaterally Cardio regular rate, regular rhythm, S1 normal heart sound, S2 normal heart sound and no murmurs GI normal to inspection, nondistended, normoactive bowel sounds, non-tender, non- distended and no masses; Negative for hepatosplenomegaly Back/Spine no CVA tenderness Extremity normal to inspection General Extremety ED: Negative for edema or tenderness General Extremity: Negative for edema Neuro oriented x3 and CN's II-XII intact bilaterally Neuro Narrative: She moves all extremities. Sensorium / Orientation: alert Skin no rashes or lesions noted and no wounds General Skin Exam: elasticity normal; Negative for jaundice or pallor MDM MDM MDM Narrative Medical decision making narrative: Suspect patient has viral illness. In light of the fact that she is diabetic on blood pressure medicine we will obtain BMP to assess renal function, electrolytes and specifically potassium as well as glucose CO2 anion gap. UA was obtained to assess for ketones and specific gravity. Patient was medicated with IV Zofran. She received p.o. potassium since potassium was 3.3. She has urinated since receiving a liter of normal saline. She states she feels better. Plan is to discharge to home with prescription for Zofran and Bentyl. In my opinion oral potassium is not warranted at this point. Lab Data Attestation: I reviewed the patient's lab results. Lab results narrative: Potassium is 3.3. CO2 anion gap are normal. Blood sugar is elevated 155. Creatinine is slightly elevated from baseline 10 9-1.14 with a GFR dropped from 58-52. Labs: Laboratory Results - last 24 hr 06/04/24 06/04/24 09:52 11:14 Sodium 137 Potassium 3.3 L Chloride 107 Carbon Dioxide 24.0 Anion Gap 6 BUN 15 Creatinine 1.14 H Estim Creat Clear Calc 69.54 Est GFR (MDRD) Af Amer 63 Est GFR (MDRD) Non-Af 52 L BUN/Creatinine Ratio 13.2 Glucose 155 H Calcium 9.6 Urine Color Yellow Urine Clarity Clear Urine pH 6.0 Ur Specific Ethel 1.010 Urine Protein Negative Urine Glucose (UA) Normal Urine Ketones Negative Urine Occult Blood Negative Urine Nitrite Negative Urine Bilirubin Negative Urine Urobilinogen Normal Ur Leukocyte Esterase Negative Treatment and Re-Evaluation :: Patient was reassessed at 1150. Since she is improved will discharge to home. Discharge Plan Triage Chief Complaint: Nausea/Vomiting ED Provider: VazquezNate Dx/Rx/DC Orders Clinical Impression: Nausea & vomiting, Type 2 diabetes mellitus, GERD (gastroesophageal reflux disease), Acute dehydration, Renal insufficiency, mild, Acute hypokalemia Instructions: ED Vomiting (Adult) Prescriptions: New ondansetron 4 mg tablet,disintegrating 4 mg PO Q8H PRN PRN (Reason: Nausea) Qty: 5 0RF No Action diazepam [Valium] 5 mg tablet 5 mg PO QHS fluoxetine 20 mg capsule 20 mg PO DAILY azithromycin 250 mg tablet See Rx Instructions PO .COMPLEX Qty: 6 0RF Rx Instructions: take 500 mg today (day 1), then 250 mg for 4 days (days 2-5) PO famotidine 40 MG tablet 40 mg PO QHS multivitamin,tv-dggq-lvccmyws 1 TABLET tablet 1 tab PO DAILY omega-3 fatty acids-fish oil 1 EACH capsule 1 cap PO DAILY pantoprazole 40 MG tablet 40 mg PO DAILY topiramate 100 MG tablet 100 mg PO QHS metformin 500 MG tablet extended release 24 hr 500 mg PO BID lisinopril 2.5 MG tablet 2.5 mg PO DAILY sumatriptan-naproxen 1 EACH tablet 1 ea PO DAILY PRN PRN (Reason: Migraine Symptoms) vilazodone 20 mg tablet 20 mg PO DAILY magnesium oxide 400 MG tablet 400 mg PO QHS cholecalciferol (vitamin D3) 2,000 UNIT capsule 2,000 unit PO DAILY Primary Care Provider: Galen Colin Referrals: Galen Colin DO [Primary Care Provider] - 3-5 Days if not improving Print Language: Namibian Disposition Disposition: Home, Self Care
[2024-06-04] MEDS: Dicyclomine 10 MG Capsule 20 MG PO (12:02)
[2024-06-04] MEDS: Potassium Chloride Oral Soln 20 MEQ/15 ML UDC 40 MEQ PO (12:40)
[2024-06-04 12:44] VITALS: BP 129/84; PULSE 76; RESP 15; TEMP 36.4; O2SAT 99
== END 2024-06-04 12:45 | disposition home or self-care (01) ==
PROVIDERS: Emergency Provider Emergency Medicine; PCP Student in an Organized Health Care Education/Training Program; Visit Provider Emergency Medicine
DX: R11.2 Nausea with vomiting, unspecified (principal); E11.9 Type 2 diabetes mellitus without complications; I10 Essential (primary) hypertension; N28.9 Disorder of kidney and ureter, unspecified; K21.9 Gastro-esophageal reflux disease without esophagitis; R10.84 Generalized abdominal pain; R19.7 Diarrhea, unspecified; E86.0 Dehydration; E87.6 Hypokalemia; F17.210 Nicotine dependence, cigarettes, uncomplicated
CPT/HCPCS: 80048; 81002; 96361; 96374; 99284; A4216; J2405

== ENCOUNTER 2024-07-17 14:47 | Emergency (ER) | payer OTHER, SELFPAY ==
[2024-07-17 14:51] VITALS: BP 101/73; PULSE 86; RESP 18; TEMP 37.4; O2SAT 96; BMI 36.0
[2024-07-17 16:14] LABS: Mucous, Urine 0 SEEN /hpf (<or=2+)
--- NOTE | 2024-07-17 16:27 | EDS_ITS ---
HPI History of Present Illness Chief Complaint: Complaint Narrative Narrative: Presents increasing fatigue over the last few days. States been sleeping all day. Over a week ago started having urine urgency low back pain. Denies fever or chills. Denies vomiting diarrhea. Decreased p.o. intake with decreased appetite. Decreased urine output. States that some loose stools. She does have history of nonalcoholic cirrhosis is not on lactulose or rifaximin. Denies cough. Denies chest or abdominal pain. 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 [facility] Medical History Hx of migraines History of frequent urinary tract infections Hypodermic needlestick injury of finger of left hand De Quervain's tenosynovitis, right Home Medications ?Medication ?Instructions ?Recorded ?Last Taken ?Type famotidine 40 mg tablet 40 mg PO QHS gerd 05/16/13 0 11/23/19 History multivitamin,[id number] 27 1 tab PO DAILY supple ment 05/16/13 11/24/19 History mg-0.4 mg tablet omega-3 fatty acids-fish oil 300 1 cap PO DAILY supple ment 05/16/13 11/24/19 History mg-1,000 mg capsule pantoprazole 40 mg tablet,delayed 40 mg PO DAILY gerd 04/22/18 11/24/19 History release topiramate 100 mg tablet 100 mg PO QHS taveras 04/22/18 History lisinopril 2.5 mg tablet 2.5 mg PO DAILY bp 11/23/19 11/24/19 History metformin 500 mg tablet,extended 500 mg PO BID dm 11/0711/24/19 History release 24 hr sumatriptan 85 mg-naproxen 500 mg 1 ea PO DAILY PRN VT N Migraine 11/23/19 11/24/19 History tablet Symptoms vilazodone 20 mg tablet 20 mg PO DAILY depression 11/24/19 History cholecalciferol (vitamin D3) 50 2,000 unit PO DAILY cook pplement 11/24/19 11/24/19 History mcg (2,000 unit) capsule magnesium oxide 400 mg (241.3 mg 400 mg PO QHS supplem ent 11/24/19 11/23/19 History magnesium) tablet azithromycin 250 mg tablet See Rx Instructions PO .COM PLEX #6 05/25/22 Unknown Rx tabs diazepam 5 mg tablet (Valium) 5 mg PO QHS 05/25/22 Unk nown History fluoxetine 20 mg capsule 20 mg PO DAILY 05/25/22 Unkn own History ondansetron 4 mg disintegrating 4 mg PO Q8H PRN PRN Na usea #5 tabs 06/04/24 Unknown Rx tablet levofloxacin 750 mg tablet 750 mg PO DAILY #6 tabs 03/03 Unknown Rx Allergy/AdvReac Type Severity Reaction Status Date / Time cefadroxil hydrate (From Allergy Unknown Verified 07/17/24 14:50 Duricef) Penicillins (PCN) Allergy Hives Verified 07/17/24 14:50 zolmitriptan (From Zomig) AdvReac Nausea Verified 07/17/24 14:50 Social History Smoking Status: Current every day smoker tobacco type: cigarettes ROS ROS ED Constitutional Constitutional ED: Reports other Details: Fatigue ; Denies chills, fever(s) or sweats ENT ENT ED: Denies sore throat Cardiovascular Cardiovascular: Denies chest pain, leg edema, palpitations or racing heartbeat Respiratory/Chest Respiratory/Chest: Denies cough, dyspnea or dyspnea on exertion Gastrointestinal Gastrointestinal: Denies abdominal pain, diarrhea, nausea or vomiting Genitourinary Genitourinary ED: Reports other Details: Urine urgency and decreased urine output ; Denies dysuria, hematuria or urinary frequency Musculoskeletal Musculoskeletal: Denies back pain, extremity pain or neck pain Integumentary Denies rash or wounds Neurologic Neurologic: Reports headache(s); Denies paresthesias or weakness EXAM Physical Exam Const Vital Signs: 07/17/24 14:51 07/17/24 16:02 07/17/24 17:00 Temperature 99.3 F H Temperature Source Oral Pulse Rate 86 80 Respiratory Rate 18 19 H Respiratory Effort Normal Respiratory Pattern Normal Blood Pressure 101/73 106/67 Blood Pressure Mean 82 80 Pulse Ox 96 97 Oxygen Delivery Method Room Air Room Air 07/17/24 18:45 Temperature 98.9 F Temperature Source Pulse Rate 85 Respiratory Rate 19 H Respiratory Effort Respiratory Pattern Blood Pressure 115/74 Blood Pressure Mean 87 Pulse Ox 97 Oxygen Delivery Method Positive well nourished and well developed General Appearance ED: well developed and NAD HEENT Reports dry mucous membranes normocephalic and atraumatic Mouth ED: Yes dry mucous membranes Mouth: dry mucous membranes Eyes General Eye ED: Yes normal appearance of both eyes Neck full ROM Neck Narrative: No meningismus Chest Wall Chest: Negative for tenderness Resp normal respiratory effort and normal air movement Effort and Inspection: symmetric chest movement; Negative for respiratory distress Cardio regular rate, regular rhythm and no murmurs Peripheral Pulses: pulses 2+ throughout GI normal to inspection, nondistended, normoactive bowel sounds and non-tender GI Narrative: Negative Jones's or McBurney's tenderness Palpation: Negative for guarding or rebound tenderness present Extremity normal to inspection General Extremety ED: Negative for edema or tenderness General Extremity: Negative for edema Neuro oriented x3, CN's II-XII intact bilaterally and no sensory deficits noted Sensorium / Orientation: awake and alert Skin no rashes or lesions noted and no wounds MDM MDM MDM Narrative Medical decision making narrative: Interventions / MDM: Differential diagnosis: Urinary tract infection, fatigue, clinical dehydration Diagnosis considered but do not suspect: No clinical hepatic encephalopathy. No clinical meningitis. Acute kidney injury however labs are normal. My EKG interpretation: N/A Imaging independently reviewed and interpreted by myself: N/A External documents reviewed: N/A Test considered but not ordered:N/A ED course: Patient urine urgency decreased urine output decreased p.o. intake. She has dry mucosal membranes. Is alert oriented x 3. With dry mucosal membranes IV of established for fluids. Will check labs to rule out kidney injury with her decreased urine output. Will check UA. Will check viral swabs. 1705: White count 7.2. Urine positive nitrites leukocytes. Differential is pending. Urine culture added. Allergy penicillin and cephalosporin noted. She will be given IV Levaquin. Awaiting CMP results and viral swab results. 1720: Electrolytes and liver enzymes normal. Discussed results with the patient. Antibiotics are currently running. Awaiting for viral swab results. 1810: RSV, COVID, influenza negative. Discussed results with the patient. Encourage continue oral fluids at home. Should be continued on antibiotics. Patient reports has home prescription of Zofran and Phenergan to use as needed. Outpatient follow-up. All questions were answered. Re-evaluation: stable Disposition discussed with patient/family/significant other: Patient and significant other Case discussed with consulting clinician: N/A This note was generated with Fresh ! dictation software. It may contain incorrect words, spelling, and punctuation that were not noted in checking the note before signing. Lab Data Attestation: I reviewed the patient's lab results. Labs: Laboratory Results - last 24 hr 07/17/24 07/17/24 16:01 16:34 WBC 7.2 RBC 4.48 Hgb 14.4 Hct 42.0 MCV 93.8 MCH 32.1 H MCHC 34.3 RDW Std Deviation 41.1 RDW Coeff of Sandra 11.9 Plt Count 116 L MPV 12.8 H Immature Gran % (Auto) 0.300 Neut % (Auto) 81.4 H Lymph % (Auto) 12.0 L [place] % (Auto) 6.2 Eos % (Auto) 0.0 Baso % (Auto) 0.1 Absolute Neuts (auto) 5.9 Absolute Lymphs (auto) 0.87 Nucleated RBC % 0 Sodium 134 Potassium 3.8 Chloride 101 Carbon Dioxide 19.4 L Anion Gap 14 BUN 17 Creatinine 1.17 Estim Creat Clear Calc 66.51 Est GFR (MDRD) Non-Af 54 L BUN/Creatinine Ratio 14.4 Glucose 164 H Calcium 9.1 Total Bilirubin 1.00 AST 30 ALT 23 Alkaline Phosphatase 72 Total Protein 7.7 Albumin 3.9 Globulin 3.8 Albumin/Globulin Ratio 1.0 Urine Color Yellow Urine Clarity Cloudy Urine pH 6.0 Ur Specific [place] 1.010 Urine Protein 100 H Urine Glucose (UA) Normal Urine Ketones Negative Urine Occult Blood 25 H Urine Nitrite Positive H Urine Bilirubin 1 H Urine Urobilinogen 1 H Ur Leukocyte Esterase 500 H Urine RBC 5-10 SEEN Urine WBC >100 SEEN Ur Squamous Epith Cells 0-5 SEEN Urine Bacteria 2+ Urine Mucus 0 SEEN Urine Test Negative Discharge Plan Triage Chief Complaint: Complaint Other Complaint: General Illness ED Provider: Ricky Sheridan Dx/Rx/DC Orders Clinical Impression: UTI (urinary tract infection), Dehydration Instructions: Urinary Tract Infections in Women, ED Dehydration (Adult) Prescriptions: New levofloxacin 750 mg tablet 750 mg PO DAILY Qty: 6 0RF No Action diazepam [Valium] 5 mg tablet 5 mg PO QHS fluoxetine 20 mg capsule 20 mg PO DAILY azithromycin 250 mg tablet See Rx Instructions PO .COMPLEX Qty: 6 0RF Rx Instructions: take 500 mg today (day 1), then 250 mg for 4 days (days 2-5) PO famotidine 40 MG tablet 40 mg PO QHS multivitamin,[id number] 1 TABLET tablet 1 tab PO DAILY omega-3 fatty acids-fish oil 1 EACH capsule 1 cap PO DAILY pantoprazole 40 MG tablet 40 mg PO DAILY topiramate 100 MG tablet 100 mg PO QHS metformin 500 MG tablet extended release 24 hr 500 mg PO BID lisinopril 2.5 MG tablet 2.5 mg PO DAILY sumatriptan-naproxen 1 EACH tablet 1 ea PO DAILY PRN PRN (Reason: Migraine Symptoms) vilazodone 20 mg tablet 20 mg PO DAILY magnesium oxide 400 MG tablet 400 mg PO QHS cholecalciferol (vitamin D3) 2,000 UNIT capsule 2,000 unit PO DAILY ondansetron 4 mg tablet,disintegrating 4 mg PO Q8H PRN PRN (Reason: Nausea) Qty: 5 0RF Stand Alone Forms: ED Work / School Excuse Primary Care Provider: Galen Colin Referrals: Galen Colin DO [Primary Care Provider] - Activity Restrictions/Additional Instructions: Urine with infection. White count normal 7.2. Creatinine normal at 1.17. Urine culture sent. Status post Levaquin IV. Finish her Levaquin next dose tomorrow. Continue oral fluids for hydration. Use your home Zofran or Phenergan as needed. Print Language: Azeri Disposition Disposition: Home, Self Care Discharge Date/Time: 07/17/24 19:04
[2024-07-17] MEDS: 0.9% Normal Saline (1000mL) 1,000 ML 1000 ML IV (16:40)
[2024-07-17 16:46] LABS: Absolute Lymphocyte Count 0.87 X10^3/uL (0.83-4.51); Absolute Neutrophil Count 5.9 X10^3/uL (2.0-7.7); Basophil# 0.01 X10^3/uL; Basophil% 0.1 % (0-1); Hemoglobin 14.4 g/dL (12.0-15.0); Lymphocyte # 0.87 X10^3/ul (0.83-4.51); Mean Corp Hgb Conc 34.3 g/dL (32-36); Mean Corpuscular Hgb 32.1 pg (27.0-32.0); Mean Corpuscular Volume 93.8 fL (81-99); Mean Platelet Vol. 12.8 fl (6.2-12.0); Monocyte# 0.45 X10^3/uL; Monocyte% 6.2 % (0-10); NRBC Flagged by Analyzer 0 % (0-5); Neutrophil # 5.87 X10^3/uL (2.7-7.7); Neutrophil % 81.4 % (47-70); Platelet Count 116 K/mm3 (150-450); RBC Distribution Width CV 11.9 % (11.6-14.6); RBC Distribution Width SD 41.1 fl (35.1-43.9); Red Blood Count 4.48 M/mm3 (4.2-5.4); White Blood Count 7.2 K/mm3 (4.4-11.0)
[2024-07-17 16:59] LABS: Color, Urine Yellow (Yellow); Glucose, Dipstick Normal (Normal); Ketone-Dipstick Negative (Negative); Leukocyte Esterase-Dipstick 500 /ul (Negative); Nitrite-Dipstick Positive (Negative); Occult Blood-Urine 25 /ul (Negative); Protein-Dipstick 100 mg/dl (Negative); Urine Bilirubin Dipstick 1 mg/dL (Negative); Urine Clarity Cloudy (Clear); Urine Urobilinogen 1 mg/dl (Normal)
[2024-07-17 17:00] VITALS: BP 106/67; PULSE 80; RESP 19; O2SAT 97
[2024-07-17 17:14] LABS: AST(SGOT) 30 U/L (<=31); Alanine Aminotransfer ALT/SGPT 23 U/L (<=34); Albumin, Serum 3.9 g/dL (3.5-5.0); Alkaline Phosphatase 72 U/L (35-104); Anion Gap 14 (5-15); BUN 17 mg/dL (4-19); BUN/Creat Ratio 14.4 RATIO (10-20); Calcium,Total 9.1 mg/dL (7.6-11.0); Carbon Dioxide 19.4 mmol/L (21.0-32.0); Chloride 101 mmol/L (98-108); Creatinine, Serum 1.17 mg/dL (0.70-1.20); EST Glomerular Filtration Rate 54 (>60); Estimated Creatinine Clearance 66.51 ml/min (50-250); Globulin 3.8 g/dL (2.2-4.2); Glucose 164 mg/dL (70-99); Potassium 3.8 mmol/L (3.3-5.1); Protein, Total 7.7 g/dL (5.9-8.4); Sodium Level 134 mmol/L (133-145)
[2024-07-17] MEDS: levoFLOXacin IV 750 MG/150 ML BAG 100 MG IV (17:23)
[2024-07-17 18:45] VITALS: BP 115/74; PULSE 85; RESP 19; TEMP 37.2; O2SAT 97
[2024-07-17 18:55] LABS: Bacteria 2+ /hpf (None Seen); Red Blood Cells-Urine 5-10 SEEN /hpf (0-5); Squamous Epithelial Cells - UA 0-5 SEEN /hpf (5-10); White Blood Cells >100 SEEN /hpf (0-5)
[2024-07-17 18:56] LABS: Internal QC Validated? YES +Cl - CLEAR BKGD; Pregnancy, Urine Negative Negative
== END 2024-07-17 19:04 | disposition home or self-care (01) ==
PROVIDERS: Emergency Provider Emergency Medicine; PCP Student in an Organized Health Care Education/Training Program; Visit Provider Emergency Medicine
DX: R53.83 Other fatigue (principal); N39.0 Urinary tract infection, site not specified; E86.0 Dehydration; F17.210 Nicotine dependence, cigarettes, uncomplicated
CPT/HCPCS: 80053; 81001; 81025; 85025; 87077; 87086; 87088; 87186; 87631; 96361; 96365; 96366; 99284; A4216

== ENCOUNTER → 2025-04-26 | Outpatient (CLI) | payer OTHER, SELFPAY ==
--- NOTE | 2025-04-26 06:07 | ECHOD_ITS ---
Reason For Study Reason For Study: CAD/ASHD Procedure This was a 2D Doppler, Color Flow transthoracic echocardiogram. The patient is in sinus rhythm. Left Ventricle Normal LV size. Left ventricular systolic function is normal. The left ventricular ejection fraction is 65 %. No regional wall motion abnormalities noted. Right Ventricle Normal RV size. Normal systolic function. Atria Normal left atrium. Normal right atrium. Mitral Valve Normal mitral valve. Trivial eccentric mitral valve insufficiency. Tricuspid Valve Normal tricuspid valve. Mild (1+) tricuspid valve insufficiency. Pulmonary artery systolic pressure is 24 mmHg. Aortic Valve Trisinus/trileaflet aortic valve. Pulmonic Valve Normal pulmonic valve. Great Vessels Normal aortic root. The pulmonary artery is normal size. Inferior vena cava collapse with respiration. Pericardium/Pleural No pericardial effusion. MMode/2D Measurements & Calculations LVIDd: 5.1 cm IVSd: 0.73 cm Ao root diam: 3.2 cm LVIDs: 3.2 cm LVPWd: 0.80 cm RVDd: 2.8 cm FS: 37.5 % LAV(MOD-bp): 29.2 ml LVAd ap4: 30.8 cm2 LVAd ap2: 25.7 cm2 LAV(MOD-bp) Indexed: 14.3 ml/m2 LVLd ap4: 7.1 cm LVLd ap2: 6.7 cm LAV(MOD-sp2): 32.1 ml EDV(MOD-sp4): 109.5 ml EDV(MOD-sp2): 82.5 ml LAV(MOD-sp4): 26.7 ml EDV(sp4-el): 113.3 ml EDV(sp2-el): 84.4 ml LVAs ap4: 17.8 cm2 LVAs ap2: 14.4 cm2 LVLs ap4: 5.9 cm LVLs ap2: 5.4 cm ESV(MOD-sp4): 44.8 ml ESV(MOD-sp2): 32.1 ml ESV(sp4-el): 45.7 ml ESV(sp2-el): 32.2 ml EF(MOD-sp4): 59.1 % EF(MOD-sp2): 61.1 % EF(sp4-el): 59.7 % SV(MOD-sp4): 64.7 ml SV(MOD-sp2): 50.4 ml EDV(MOD-bp): 98.0 ml SI(MOD-sp4): 31.7 ml/m2 SI(MOD-sp2): 24.7 ml/m2 ESV(MOD-bp): 39.0 ml EF(MOD-bp): 60.2 % SV(sp4-el): 67.7 ml LA dimension(2D): 3.1 cm LA A4 area: 11.6 cm2 RA A4 area: 10.8 cm2 Time Measurements MV dec time: 0.19 sec Doppler Measurements & Calculations MV E max axel: 84.0 cm/sec Lat Peak E' Axel: 10.5 cm/sec Med Peak E' Axel: 9.7 cm/sec MV A max axel: 59.0 cm/sec E/E' lat: 8.0 E/E' med: 8.6 MV E/A: 1.4 MV V2 max: 97.5 cm/sec MV P1/2t max axel: 97.5 cm/sec Ao V2 max: 120.8 cm/sec MV max P.8 mmHg MV P1/2t: 69.4 msec Ao max P.8 mmHg MV V2 mean: 50.8 cm/sec Ao V2 mean: 85.4 cm/sec MV mean P.3 mmHg MV dec slope: 411.7 cm/sec2 Ao mean P.3 mmHg MV V2 VTI: 31.3 cm MVA(P1/2t): 3.2 cm2 Ao V2 VTI: 30.6 cm AV (velocity ratio): 0.89 LV V1 max: 114.0 cm/sec PA V2 max: 79.3 cm/sec TR max axel: 227.7 cm/sec LV V1 max P.2 mmHg TR max P.7 mmHg LV V1 mean P.6 mmHg LV V1 mean: 74.6 cm/sec LV V1 VTI: 27.3 cm ECHO/Echo Complete Interpretation Summary Normal LV size. Left ventricular systolic function is normal. The left ventricular ejection fraction is 65 %. Structurally normal valves. Ordering Physician: Hank Benton Referring Physician: Hank Benton Performed By: Mohini Flores, SUJIT, RVT
--- OUTSIDE RECORDS SUMMARY | 2025-04-26 06:09 | XMS RPT_ITS | CCD ---
Author Organization [facility] Care Team Providers Care Communications Administrator Name Role Phone RADHA ACUNA DO Primary Care Physician Julien Skinner DO Primary Care Provider Gayle Dr. Radha Matthews Primary Care Provider [phone] Dr. Radha Acuna Referring Provider [phone] NILSA Cohen Attending Provider [phone] Julien Skinner DO Primary Care Provider Gayle vailaDr. Radha Hilton Primary Care Provider [phone] Dr. Radha Acuna Referring Provider [phone] NILSA Duckworth Attending Provider NILSA Chan Attending Provider Julien Skinner DO Primary Care Provider RADHA ACUNA DO Attending Unavailable RADHA ACUNA DO Primary Care Unavailable RADHA ACUNA DO Attending Unavailable RADHA ACUNA DO Primary Care Unavailable Kalpana POLANCO DO, Michael A Primary Care Provider [phone] CHARLIE SMITH Attending Unavailable SELF, SELF Referring Unavailable Caleb Garrison Referring Unavailable Radha Acuna Primary Care Unavailable Caleb Garrison Attending Unavailable Radha Acuna Primary Care Unavailable Nate Shukla Attending Unavailable Radha Acuna Primary Care Unavailable Ricky Sheridan Attending Unavailable Dr. Radha Acuna DO Primary Care Provider [phone] Dr. Nate Shukla MD Attending Provider Dr. Nate Shukla MD Emergency Provider [phone] Ricky Sheridan DO Emergency Provider PROVIDER, UNKNOWN Admitting Unavailable PROVIDER, UNKNOWN Attending Unavailable PROVIDER, UNKNOWN Referring Unavailable HALKO IV, JONO Primary Care Unavailable SAMM GELLER Attending Unavailable KALKA, CARLEE Referring Unavailable HALKO IV, JONO Primary Care Unavailable HALKO DO, RADHA Attending Unavailable HALKO DO, RADHA Primary Care Unavailable HALKO DO, RADHA Attending Unavailable HALKO DO, RADHA Primary Care Unavailable KALKA CARLEE ASH Attending Unavailable HALKO DO, RADHA Primary Care Unavailable HALKO DO, RADHA Primary Care Unavailable HALKO DO, RADHA Attending Unavailable HALKO DO, RADHA Primary Care Unavailable HALKO DO, RADHA Attending Unavailable HALKO DO, RADHA Primary Care Unavailable HALKO DO, RADHA Attending Unavailable HALKO DO, RADHA Primary Care Unavailable FLOYD ALVAREZ Attending Unavailable HALKO DO, RADHA Primary Care Unavailable HALKO DO, RADHA Attending Unavailable HALKO DO, RADHA Primary Care Unavailable HALKO DO, RADHA Attending Unavailable KALKA, CARLEE Referring Unavailable HALKO IV, JONO Primary Care Unavailable NAJDOVSKI, TEODORA Attending Unavailable FROIMSON, MIRNA Referring Unavailable HALKO IV, JONO Primary Care Unavailable NAJDOVSKI, TEODORA Attending Unavailable FROIMSON, MIRNA Referring Unavailable HALKO IV, JONO Primary Care Unavailable HALKO IV, JONO Primary Care Unavailable KALKA, CARLEE Referring Unavailable HALKO IV, JONO Primary Care Unavailable HALKO IV, JONO Primary Care Unavailable KALKA, CARLEE Referring Unavailable HALKO IV, JONO Primary Care Unavailable NAJDOVSKI, TEODORA Attending Unavailable FROIMSON, MIRNA Referring Unavailable HALKO IV, JONO Primary Care Unavailable KALKA, CARLEE Attending Unavailable HALKO IV, JONO Primary Care Unavailable KALKA, CARLEE Referring Unavailable HALKO IV, JONO Primary Care Unavailable NAJDOVSKI, TEODORA Attending Unavailable FROIMSON, MIRNA Referring Unavailable HALKO IV, JONO Primary Care Unavailable Allergies Allergy Classification Reported Allergen(s) Allergy Type Date of Onset Reaction(s) Facility (20 sources) alosetron; Translations: [alosetron] Drug Allergy 0 [facility] (20 sources) Cefadroxil; Translations: [cefadroxil] Drug Allergy 2 Rash [facility] (20 sources) metFORMIN; Translations: [metformin] Drug Allergy 1 Diarrhea (finding), Intolerance, Other: See Comments [facility] (20 sources) Penicillin; Translations: [penicillin] [facility]ergy [facility] (20 sources) ZOLMitriptan; Translations: [zolmitriptan] Drug Allergy 2 Intolerance [facility] (20 sources) Lisinopril; Translations: [lisinopril] Drug Allergy 1 Cough, Cough (finding) [facility] Work Phone: (7 sources) Penicillins; Translations: [PENICILLINS] Drug Allergy 2 [facility] (20 sources) Penicillins Drug Allergy 2 [facility] (4 sources) Cefadroxil; Translations: [cefadroxil hydrate] Drug Allergy 1 Unknown [facility] (3 sources) Penicillins Allergy to substance 1 [facility] (1 source) Penicillins Drug allergy (disorder) 5 [facility] Repository (1 source) ZOLMitriptan Drug Allergy 5 [facility] (11 sources) Penicillins Drug Allergy 2 [facility] Medications Current Medications Medication Drug Class(es) Dates Sig (Normalized) Sig (Original) 3 ML semaglutide 1.34 MG/ML Pen Injector [Ozempic] (9 sources) Start: 12-25-2024 End: 06-23-2025 inject 1 dose by subcutaneous injection every week Ozempic 4 mg/3 mL (1 mg dose) subcutaneous solution Dose : 1 mg =, Subcutaneous, qWeek, Ozempic, # 10 mL, 1 Refill(s), Pharmacy: [facility], 174, cm, 12/25/24 15:17:00 EDT, Height, kg, 12/25/24 15:17:00 EDT, Dosing Weight Start Date: 12/25/24 Stop Date: 06/23/25 Status: Ordered Medication Dispense Status: Completed Quantity: 10.0 Unit: mL Total Allowed Fills: 2 Fills Dispensed: 0 Start: 09-25-2024 End: 03-24-2025 inject 1 dose by subcutaneous injection every week Ozempic 4 mg/3 mL (1 mg dose) subcutaneous solution Dose : 1 mg =, Subcutaneous, qWeek, Ozempic, # 10 mL, 1 Refill(s), Pharmacy: [facility], 174.2, cm, 07/31/24 13:23:00 EDT, Height, kg, 07/31/24 13:23:00 EDT, Dosing Weight Start Date: 09/25/24 Stop Date: 03/24/25 Status: Ordered Quantity: 10.0 Unit: mL Repeat number: 2 Start: 07-20-2024 End: 01-16-2025 inject 1 dose by subcutaneous injection every week Ozempic 4 mg/3 mL (1 mg dose) subcutaneous solution Dose : 1 mg =, Subcutaneous, qWeek, Ozempic, # 10 mL, 1 Refill(s), Pharmacy: [facility], 174.2, cm, 07/20/24 15:08:00 EDT, Height, kg, 07/20/24 15:08:00 EDT, Dosing Weight Start Date: 07/20/24 Stop Date: 01/16/25 Status: Ordered Quantity: 10.0 Unit: mL Repeat number: 2 Start: 01-27-2024 End: 07-25-2024 inject 1 dose by subcutaneous injection every week Ozempic 4 mg/3 mL (1 mg dose) subcutaneous solution Dose : 1 mg =, Subcutaneous, qWeek, Ozempic, # 10 mL, 1 Refill(s), Pharmacy: [facility], 174, cm, 01/24/24 13:33:00 EDT, Height, kg, 01/24/24 13:33:00 EDT, Dosing Weight Start Date: 01/27/24 Stop Date: 07/25/24 Status: Ordered Quantity: 10.0 Unit: mL Repeat number: 2 Start: 01-27-2024 End: 07-25-2024 inject 1 dose by subcutaneous injection every week Ozempic 4 mg/3 mL (1 mg dose) subcutaneous solution Dose : 1 mg =, Subcutaneous, qWeek, Ozempic, # 10 mL, 1 Refill(s), Pharmacy: [facility], 174, cm, 01/24/24 13:33:00 EDT, Height, kg, 01/24/24 13:33:00 EDT, Dosing Weight Start Date: 01/27/24 Stop Date: 07/25/24 Status: Ordered [id number] 200 actuat albuterol 0.09 mg/actuat metered dose inhaler (20 sources) beta2-Adrenergic Agonist Start: 04-22-2024 take 2 puff(s) by inhalation every six hours as needed for wheezing albuterol HFA (PROVENTIL HFA, VENTOLIN HFA) 90 mcg/actuation inhaler Inhale 2 Puffs as instructed every 6 hours as needed for wheezing/shortness of breath. 8 g 04/22/2024 Active Start: 01-20-2016 take 2 puff(s) by in halation every four hours as needed albuterol HFA (PROAIR HFA) 90 mcg/actuation inhaler Indications: Sinobronchitis Inhale 2 Puffs as instructed every 4 hours as needed. 1 Inhaler 0 01/20/2016 Active Comment on above: Inhale 2 Puffs as in structed every 4 hours as needed. Ascorbic Acid (20 sources) Vitamin C Start: 01-01-2020 Vitamin C qDay, 0 Refill(s) Start Date: 01/01/20 Status: Ordered Medication Dispense Status: Completed Total Allowed Fills: 1 Fills Dispensed: 0 Start: 01-01-2020 Vitamin C qDay , 0 Refill(s) Start Date: 01/01/20 Status: Ordered Repeat number: 1 Start: 01-01-2020 Vitamin C qDay , 0 Refill(s) Start Date: 01/01/20 Status: Ordered take 1 tablet by velma th once daily Ascorbic Acid (VITAMIN C) 1,000 mg tablet Take 1,000 mg by mouth once daily. Active azithromycin 250 mg oral tablet (2 sources) Macrolide Antimicrobial Start: 05-25-2022 take 2-5 tablets by mouth once daily Azithromycin 250 mg tablet Active 0 PO .COMPLEX May 25, 2022 1:00am take 500 mg today (day 1), then 250 mg for 4 days (days 2-5) PO bisoprolol fumarate 10 mg oral tablet (20 sources) beta-Adrenergic Abiodun Start: 10-18-2020 End: 06-23-2025 bisoprolol 10 mg oral tablet Dose : 10 mg = 1 tab(s), Oral, qDay, # 90 tab(s), 1 Refill(s), Pharmacy: [facility], HTN (hypertension), benign, 174, cm, 12/25/24 15:17:00 EDT, Height, kg, 12/25/24 15:17:00 EDT, Dosing Weight Start Date: 12/25/24 Stop Date: 06/23/25 Status: Ordered Medication Dispense Status: Completed Quantity: 90.0 Unit: tab(s) Total Allowed Fills: 2 Fills Dispensed: 0 Indications: Essential (primary) hypertension; Comment on above: Take 10 mg by mouth once daily. cefdinir 300 mg oral capsule (1 source) Cephalosporin Antibacterial Start: 01-13-2024 End: 01-20-2024 take 1 capsule by mouth twice daily cefdinir (OMNICEF) 300 mg capsule Indications: Acute otitis media, left Take 1 capsule by mouth two times a day for 7 days. 14 capsule 01/13/2024 01/20/2024 Active cetirizine hydrochloride 10 mg oral tablet (20 sources) Histamine-1 Receptor Antagonist Start: 12-25-2024 cetirizine 10 mg oral tablet Dose : 10 mg = 1 tab(s), Oral, BID, # 180 tab(s), 1 Refill(s), Pharmacy: [facility], 174, cm, 12/25/24 15:17:00 EDT, Height, kg, 12/25/24 15:17:00 EDT, Dosing Weight Start Date: 12/25/24 Status: Ordered Medication Dispense Status: Completed Quantity: 180.0 Unit: tab(s) Total Allowed Fills: 2 Fills Dispensed: 0 Start: 07-20-2024 cetirizine 10 mg oral tablet Dose : 10 mg = 1 tab(s), Oral, BID, # 180 tab(s), 1 Refill(s), Pharmacy: [facility], 174.2, cm, 07/20/24 15:08:00 EDT, Height, kg, 07/20/24 15:08:00 EDT, Dosing Weight Start Date: 07/20/24 Status: Ordered Quantity: 180.0 Unit: tab(s) Repeat number: 2 Start: 09-01-2023 cetirizine 10 mg oral tablet Dose : 10 mg = 1 tab(s), Oral, qDay, # 30 tab(s), 2 Refill(s), Pharmacy: [facility], 174.5, cm, 09/01/23 14:56:00 EDT, Height, kg, 09/01/23 14:56:00 EDT, Dosing Weight Start Date: 09/01/23 Status: Ordered Quantity: 30.0 Unit: tab(s) Repeat number: 3 Cetirizine (ZYRT EC) 10 mg cap Take 1 capsule by mouth as needed (Seasonal). Active cholecalciferol 0.05 mg oral capsule (20 sources) Vitamin D Start: 11-24-2019 take 2000 [IU] by mouth once daily Cholecalciferol (Vitamin D3) Active 2000 UNIT PO DAILY November 24, 2019 12:00am Comment on above: Take by mouth once d aily. clotrimazole 10 mg/ml topical cream (6 sources) Azole Antifungal Start: 07-20-2024 apply 1 dose topically twice daily clotrimazole 1% topical cream Apply 1 pasquale, Topical, BID, # 60 gram(s), 0 Refill(s), Pharmacy: [facility], Cream, 174.2, cm, 07/20/24 15:08:00 EDT, Height, 105.2, kg, 07/20/24 15:08:00 EDT, Dosing Weight Start Date: 07/20/24 Status: Ordered Medication Dispense Status: Completed Quantity: 60.0 Unit: g Total Allowed Fills: 1 Fills Dispensed: 0 cranberry fruit (CRANBERRY) 450 mg tab (20 [...] on above: Take by mouth. Cranberry preparation (19 sources) Non-Standardized Food Allergenic Extract, Non-Standardized Plant Allergenic Extract Start: 08-14-2021 cranberry oral capsule See Instructions, 0 Refill(s) Start Date: 08/14/21 Status: Ordered Medication Dispense Status: Completed Total Allowed Fills: 1 Fills Dispensed: 0 Start: 08-14-2021 cranberry oral capsule See Instructions, 0 Refill(s) Start Date: 08/14/21 Status: Ordered Repeat number: 1 Start: 08-14-2021 cranberry oral capsule See Instructions, 0 Refill(s) Start Date: 08/14/21 Status: Ordered diazePAM 5 mg oral tablet (2 sources) Benzodiazepine Start: 05-25-2022 take 1 tablet by mouth at bedtime Diazepam (Valium) 5 mg tablet Active 5 mg PO AT BEDTIME May 25, 2022 1:00am doxycycline hyclate 100 mg oral tablet (3 sources) Tetracycline-class Drug Start: 04-22-2024 End: 04-29-2024 take 1 tablet by mouth twice daily doxycycline hyclate 100 mg oral tablet Take 1 tablet by mouth two times a day for 7 days. Start Date: 04/26/24 Status: Ordered Repeat number: 1 etodolac 300 mg oral capsule (3 sources) Nonsteroidal Anti-inflammatory Drug Start: 12-25-2024 etodolac 300 mg oral capsule Dose : 300 mg = 1 cap(s), Oral, BID, # 60 cap(s), 0 Refill(s), Pharmacy: [facility], 174, cm, 12/25/24 15:17:00 EDT, Height, kg, 12/25/24 15:17:00 EDT, Dosing Weight Start Date: 12/25/24 Status: Ordered Medication Dispense Status: Completed Quantity: 60.0 Unit: cap(s) Total Allowed Fills: 1 Fills Dispensed: 0 famotidine 40 mg oral tablet (20 sources) Histamine-2 Receptor Antagonist Start: 09-01-2023 End: 06-23-2025 famotidine 40 mg oral tablet Dose : 40 mg = 1 tab(s), Oral, BID, # 180 tab(s), 1 Refill(s), Pharmacy: [facility], 174, cm, 12/25/24 15:17:00 EDT, Height, kg, 12/25/24 15:17:00 EDT, Dosing Weight Start Date: 12/25/24 Stop Date: 06/23/25 Status: Ordered Medication Dispense Status: Completed Quantity: 180.0 Unit: tab(s) Total Allowed Fills: 2 Fills Dispensed: 0 Start: 01-15-2023 End: 07-14-2023 famotidine 40 mg oral tablet Dose : 40 mg = 1 tab(s), Oral, BID, # 180 tab(s), 1 Refill(s), Pharmacy: [facility], 175, cm, 01/15/23 10:28:00 EDT, Height, kg, 01/15/23 10:28:00 EDT, Dosing Weight Start Date: 01/15/23 Stop Date: 07/14/23 Status: Ordered Start: 07-10-2022 End: 01-06-2023 famotidine 40 mg oral tablet Dose : 40 mg = 1 tab(s), Oral, BID, # 180 tab(s), 1 Refill(s), Pharmacy: [facility], 175, cm, 07/10/22 10:20:00 EST, Height, kg, 07/10/22 10:20:00 EST, Dosing Weight Start Date: 07/10/22 Stop Date: 01/06/23 Status: Ordered Start: 01-01-2022 End: 06-30-2022 famotidine 40 mg oral tablet Dose : 40 mg = 1 tab(s), Oral, BID, # 180 tab(s), 1 Refill(s), Pharmacy: [facility], 175, cm, 10/28/21 10:05:00 EDT, Height, kg, 01/01/22 16:12:00 EDT, Dosing Weight Start Date: 01/01/22 Stop Date: 06/30/22 Status: Ordered Start: 05-16-2013 End: 12-29-2021 famotidine 40 mg oral tablet Dose : 40 mg = 1 tab(s), Oral, BID, # 180 tab(s), 1 Refill(s), Pharmacy: [facility], 175, cm, 02/18/21 15:47:00 EDT, Height, kg, 07/02/21 15:34:00 EST, Dosing Weight Start Date: 07/02/21 Stop Date: 12/29/21 Status: Ordered Comment on above: Take 40 [...] qDay, # 90 cap(s), 1 Refill(s), Pharmacy: [facility], 174, cm, 01/24/24 13:33:00 EDT, Height, kg, 01/24/24 13:33:00 EDT, Dosing Weight Start Date: 01/24/24 Status: Ordered Quantity: 90.0 Unit: cap(s) Repeat number: 2 Start: 09-01-2023 PROzac 10 mg o ral capsule Dose : 10 mg = 1 cap(s), Oral, qDay, # 90 cap(s), 1 Refill(s), Pharmacy: [facility], 174.5, cm, 09/01/23 14:56:00 EDT, Height, kg, 09/01/23 14:56:00 EDT, Dosing Weight Start Date: 09/01/23 Status: Ordered Start: 05-18-2022 take 1 capsule by mo uth once daily FLUoxetine (PROZAC) 20 mg capsule Take 1 capsule by mouth once daily. 11/26/2022 Active Start: 09-25-2021 End: 11-26-2022 take 1 capsule by mouth once daily FLUoxetine (PROZAC) 10 mg capsule Take 10 mg by mouth once daily. 0 10/23/2021 11/26/2022 Discontinued Comment on above: Take 10 mg by mouth once daily. Take 1 capsule by mo uth once daily. fluticasone propionate 0.05 mg/actuat metered dose nasal spray (20 sources) Corticosteroid Start: take 50 ug nasal route once daily Flonase 50 mcg/inh nasal spray 50 mcg Dose = 1 spray(s), Nostril, each, qDay, # 1 EA, 2 Refill(s), Pharmacy: [facility], 174.2, cm, 07/20/24 15:08:00 EDT, Height, kg, 07/20/24 15:08:00 EDT, Dosing Weight Start Date: 07/20/24 Status: Ordered Medication Dispense Status: Completed Quantity: 1.0 Unit: EA Total Allowed Fills: 3 Fills Dispensed: 0 Start: 09-01-2023 take 50 ug nasal rou te once daily Flonase 50 mcg/inh nasal spray 50 mcg Dose = 1 spray(s), Nostril, each, qDay, # 1 EA, 2 Refill(s), Pharmacy: [facility], 174.5, cm, 09/01/23 14:56:00 EDT, Height, kg, 09/01/23 14:56:00 EDT, Dosing Weight Start Date: 09/01/23 Status: Ordered Quantity: 1.0 Unit: EA Repeat number: 3 Start: 11-29-2018 take 1 dose nasal ro [...] qDay, # 90 tab(s), 1 Refill(s), Pharmacy: [facility], 175, cm, 04/27/23 8:30:00 EST, Height, kg, 04/27/23 8:30:00 EST, Dosing Weight Start Date: 04/27/23 Stop Date: 10/24/23 Status: Ordered Start: 01-29-2020 End: 11-26-2022 take 1 tablet by mouth once daily glimepiride (AMARYL) 1 mg tablet Take 1 mg by mouth once daily. 0 01/29/2020 11/26/2022 Discontinued Comment on above: Take 1 mg by mouth o nce daily. Inhalational Spacing Device (1 source) Start: 04-22-20 End: 04-22-20 Inhalational Spacing Device 1 Device one time only for 1 dose. 1 Each 04/22/2024 04/22/2024 Active ketorolac tromethamine 10 mg oral tablet (3 sources) Nonsteroidal Anti-inflammatory Drug, Cyclooxygenase Inhibitor Start: 03-08-20 End: 03-13-20 take 1 tablet by mouth three times daily keTORolac (TORADOL) 10 mg tablet Indications: Intractable chronic migraine without aura and without status migrainosus Take 1 tablet by mouth three times a day for 5 days. 15 tablet 03/08/2024 03/13/2024 Active levoFLOXacin 750 mg oral tablet (1 source) Quinolone Antimicrobial Start: 07-18-19 take 1 tablet by mouth once daily Levofloxacin 750 mg tablet Active 750 mg PO DAILY July 17, 2024 12:00am lisinopril 2.5 mg oral tablet (3 sources) Angiotensin Converting Enzyme Inhibitor Start: 11-23-19 take 1 tablet by mouth once daily Lisinopril 2.5 MG tablet Active 2.5 mg PO DAILY November 23, 2019 12:00am lovastatin 40 mg oral tablet (20 sources) HMG-CoA Reductase Inhibitor Start: 01-18-20 End: 07-17-19 lovastatin 40 mg oral tablet Dose : 40 mg = 1 tab(s), Oral, qHS, new dose, # 90 tab(s), 1 Refill(s), Pharmacy: [facility], 173, cm, 01/17/25 9:32:00 EDT, Height, kg, 01/17/25 9:32:00 EDT, Dosing Weight Start Date: 01/17/25 Stop Date: 07/16/25 Status: Ordered Medication Dispense Status: Completed Quantity: 90.0 Unit: tab(s) Total Allowed Fills: 2 Fills Dispensed: 0 Start: 09-28-2020 lovastatin (ME VACOR) 20 mg tablet 40 mg. 09/28/2020 Active Start: 05-22-2021 lovastatin 20 mg oral tablet Dose : 20 mg = 1 tab(s), Oral, qHS, # 90 tab(s), 1 Refill(s), Pharmacy: [facility], 174, cm, 12/25/24 15:17:00 EDT, Height, kg, 12/25/24 15:17:00 EDT, Dosing Weight Start Date: 12/25/24 Status: Ordered Medication Dispense Status: Completed Quantity: 90.0 Unit: tab(s) Total Allowed Fills: 2 Fills Dispensed: 0 Comment on above: TAKE 1 TABLET BY VELMA TH EVERY DAY AT BEDTIME (stop rosuvastatin) Magnesium Aspartate (20 sources) Start: 9 take 1 mg by mouth once daily at bedtime magnesium aspartate mg =, Oral, qHS, 0 Refill(s) Start Date: 11/29/18 Status: Ordered Medication Dispense Status: Completed Total Allowed Fills: 1 Fills Dispensed: 0 Start: 11-29-2018 take 1 mg by mouth o nce daily at bedtime magnesium aspartate mg =, Oral, qHS, 0 Refill(s) Start Date: 11/29/18 Status: Ordered Repeat number: 1 Start: 11-29-2018 take 1 mg by mouth o nce daily at bedtime magnesium aspartate mg =, Oral, qHS, 0 Refill(s) Start Date: 11/29/18 Status: Ordered magnesium oxide 400 mg oral tablet (20 sources) Start: 11-24-2019 take 1 tablet by mouth at bedtime Magnesium Oxide 400 MG tablet Active 400 mg PO AT BEDTIME November 24, 2019 12:00am Start: 12-28-2011 take 1 tablet by velma th once daily Magnesium Oxide 500 mg Tab Take 1 tablet by mouth once daily. 0 12/28/2011 Active Comment on above: Take 1 tablet by velma th once daily. MegaRed Ultra Krill Oil 1000 mg oral capsule (20 sources) Start: 11-29-2018 MegaRed Ultra Krill Oil 1000 mg oral capsule Dose : 1,000 mg = 1 cap(s), Oral, BID, 0 Refill(s) Start Date: 11/29/18 Status: Ordered Medication Dispense Status: Completed Total Allowed Fills: 1 Fills Dispensed: 0 Start: 11-29-2018 MegaRed Ultra Krill Oil 1000 mg oral capsule Dose : 1,000 mg = 1 cap(s), Oral, BID, 0 Refill(s) Start Date: 11/29/18 Status: Ordered Repeat number: 1 Start: 11-29-2018 Adalgisa Ultra Krill Oil 1000 mg oral capsule Dose : 1,000 mg = 1 cap(s), Oral, BID, 0 Refill(s) Start Date: 11/29/18 Status: Ordered 24 hr metFORMIN hydrochloride 500 mg extended release oral tablet (3 sources) Biguanide Start: 11-23-2019 take 1 tablet by mouth twice daily Metformin 500 MG tablet extended release 24 hr Active 500 mg PO TWICE A DAY November 23, 2019 12:00am methenamine hippurate 1000 mg oral tablet (20 sources) Start: 03-15-2025 End: 09-15-2025 methenamine hippurate 1 g oral tablet Dose : 1 gram(s) = 1 tab(s), Oral, qHS, PRN urinary prophylaxis, pause while on antibitoic, # 90 tab(s), 1 Refill(s), Pharmacy: [facility], 173, cm, 01/17/25 9:32:00 EDT, Height, kg, 01/17/25 9:32:00 EDT, Dosing Weight Start Date: 03/19/25 Stop Date: 09/15/25 Status: Ordered Medication Dispense Status: Completed Quantity: 90.0 Unit: tab(s) Total Allowed Fills: 2 Fills Dispensed: 0 Start: 01-24-2024 End: 01-16-2025 methenamine hippurate 1 g or al tablet Dose : 1 gram(s) = 1 tab(s), Oral, qHS, PRN urinary prophylaxis, pause while on antibitoic, # 90 tab(s), 1 Refill(s), Pharmacy: [facility], 174.2, cm, 07/20/24 15:08:00 EDT, Height, kg, 07/20/24 15:08:00 EDT, Dosing Weight Start Date: 07/20/24 Stop Date: 01/16/25 Status: Ordered Medication Dispense Status: Completed Quantity: 90.0 Unit: tab(s) Total Allowed Fills: 2 Fills Dispensed: 0 Start: 02-12-2023 End: 10-24-2023 methenamine hippurate 1 g or al tablet Dose : 1 gram(s) = 1 tab(s), Oral, qHS, PRN urinary prophylaxis, # 90 tab(s), 1 Refill(s), Pharmacy: [facility], 175, cm, 04/27/23 8:30:00 EST, Height, kg, 04/27/23 8:30:00 EST, Dosing Weight Start Date: 04/27/23 Stop Date: 10/24/23 Status: Ordered Start: 08-11-2022 End: 02-07-2023 methenamine hippurate 1 g or al tablet Dose : 1 gram(s) = 1 tab(s), Oral, qHS, PRN urinary prophylaxis, # 90 tab(s), 1 Refill(s), Pharmacy: [facility], 175, cm, 07/10/22 10:20:00 EST, Height, kg, 07/10/22 10:20:00 EST, Dosing Weight Start Date: 08/11/22 Stop Date: 02/07/23 Status: Ordered Start: 07-11-2021 methenamine hi ppurate 1 g oral tablet Dose : 1 gram(s) = 1 tab(s), Oral, qHS, PRN urinary prophylaxis, # 30 tab(s), 0 Refill(s), Pharmacy: [facility], 175, cm, 02/18/21 15:47:00 EDT, Height, [...] VITAMIN C 1000 MG FOR UTI PREVENTION methocarbamol 750 mg oral tablet (17 sources) Muscle Relaxant Start: 11-18-2020 Robaxin-750 oral tablet Dose : 1,500 mg [...] 0 Refill(s) Start Date: 11/29/18 Status: Ordered Multivitamin,Tx-Iron- Minerals (2 sources) Start: 4 take 1 tablet by mouth once daily Multivitamin,Tx-Iron -Minerals Active 1 TABLET PO DAILY May 16, 2013 1:00am Multivitamin,Tx-Iron- Minerals 1 TABLET tablet (1 source) Start: 4 take 1 tablet by mouth once daily Multivitamin,Tx-Iron -Minerals 1 TABLET tablet Active 1 {tbl} PO DAILY May 16, 2013 1:00am naproxen sodium 550 mg oral tablet (20 sources) Nonsteroidal Anti-inflammatory Drug Start: 3 End: 4 take 1 tablet by mouth twice daily as needed for pain Naproxen Sodium 550 mg tablet Indications: Intractable chronic migraine without aura and without status migrainosus Take 1 tablet by mouth two times a day as needed (headache). FOR PAIN. TAKE WITH FOOD. 90 tablet 3 03/08/2024 Active Start: 11-18-2020 take 1 tablet by [...] Drug, Serotonin-1b and Serotonin-1d Receptor Agonist Start: 1 End: 3 take 1 tablet by mouth once as needed for headache Treximet 85 mg-500 mg oral tablet Dose = 1 tab(s), Oral, Once, PRN as needed for migraine headache, 0 Refill(s) Start Date: 04/01/21 Status: Ordered Medication Dispense Status: Completed Total Allowed Fills: 1 Fills Dispensed: 0 Start: 11-23-2019 Sumatriptan-Na proxen 1 EACH tablet Active 1 NMA PO DAILY NEEDED as needed for Migraine Symptoms November 23, 2019 12:00am Start: 11-23-2019 Sumatriptan-Na proxen Active 1 EACH PO DAILY NEEDED November 23, 2019 12:00am Comment on above: Take 1 tablet by velma th as needed for Migraine Headache (see administration instructions). 24 hr nicotine 0.292 mg/hr transdermal system (6 sources) Cholinergic Nicotinic Agonist Start: 01-31-2025 nicotine 7 mg/24 hr transdermal film, extended release 7 = mg Apply 1 patch(es), Transdermal, qDay, # 21 patch(es), 0 Refill(s), Pharmacy: [facility], 173, cm, 01/17/25 9:32:00 EDT, Height, 96.2, kg, 01/17/25 9:32:00 EDT, Dosing Weight Start Date: 01/31/25 Status: Ordered Medication Dispense Status: Completed Quantity: 21.0 Unit: patch(es) Total Allowed Fills: 1 Fills Dispensed: 0 Start: 01-17-2025 nicotine 14 mg /24 hr transdermal film, extended release 14 = mg Apply 1 patch(es), Transdermal, qDay, # 21 patch(es), 0 Refill(s), Pharmacy: [facility], 173, cm, 01/17/25 9:32:00 EDT, Height, 96.2, kg, 01/17/25 9:32:00 EDT, Dosing Weight Start Date: 01/17/25 Status: Ordered Medication Dispense Status: Completed Quantity: 21.0 Unit: patch(es) Total Allowed Fills: 1 Fills Dispensed: 0 Start: 01-17-2025 nicotine 21 mg /24 hr transdermal film, extended release 21 = mg Apply 1 patch(es), Transdermal, qDay, # 21 patch(es), 0 Refill(s), Pharmacy: [facility], 173, cm, 01/17/25 9:32:00 EDT, Height, 96.2, kg, 01/17/25 9:32:00 EDT, Dosing Weight Start Date: 01/17/25 Status: Ordered Medication Dispense Status: Completed Quantity: 21.0 Unit: patch(es) Total Allowed Fills: 1 Fills Dispensed: 0 nitrofurantoin, macrocrystals 25 mg / nitrofurantoin, monohydrate 75 mg oral capsule (4 sources) Nitrofuran Antibacterial Start: 06-18-2024 End: 06-23-2024 take 1 capsule by mouth twice daily nitrofurantoin monohydrate and macrocrystal (MACROBID) 100 mg capsule Take 1 capsule by mouth two times a day for 5 days. 10 capsule 06/18/2024 06/23/2024 Active Start: 01-24-2023 End: 01-31-2023 take 1 capsule by mouth twice daily [...] on above: Take 1 capsule by mo uth twice daily with meals for 7 days. Take 1 capsule by mo uth twice daily for 7 days. nystatin 100 unt/mg topical powder (13 sources) Polyene Antifungal Start: 09-01-2023 apply 1 dose topically twice daily nystatin 100,000 units/g topical powder Apply 1 pasquale, Topical, BID, # 60 gram(s), 2 Refill(s), Pharmacy: [facility], Powder, 174.5, cm, 09/01/23 14:56:00 EDT, Height, 118.5, kg, 09/01/23 14:56:00 EDT, Dosing Weight Start Date: 09/01/23 Status: Ordered Medication Dispense Status: Completed Quantity: 60.0 Unit: g Total Allowed Fills: 3 Fills Dispensed: 0 Start: 07-10-2022 nystatin 100,0 00 units/g topical powder Apply 1 pasquale, Topical, BID, # 60 gram(s), 2 Refill(s), Pharmacy: [facility], Powder, 175, cm, 07/10/22 10:20:00 EST, Height, 113.5 Start Date: 07/10/22 Status: Ordered [place]-3 Fatty Acids 500 mg cap (20 sources) take 1 capsule by [facility] once daily [place]-3 Fatty Acids 500 mg cap Take 500 mg by mouth once daily. Active take 1 capsule by mouth once celeste ly [place]-3 Fatty Acids 500 mg cap Take 500 mg by mouth once daily. 0 Active Comment on above: Take 500 mg by mouth once daily. [place]-3 Fatty Acids-Fish Oil (2 sources) Start: 2013 take 1 capsule by mouth once daily [place]-3 Fatty Acids-Fish Oil Active 1 CAP PO DAILY May 16, 2013 1:00am [place]-3 Fatty Acids-Fish Oil 1 EACH capsule (1 source) Start: 2013 [place]-3 Fatty Acids-Fish Oil 1 EACH capsule Active 1 NMA PO DAILY May 16, 2013 1:00am ondansetron 4 mg disintegrating oral tablet (1 source) Serotonin-3 Receptor Antagonist Start: 2024 take 1 tablet by mouth every eight hours as needed for nausea Ondansetron 4 mg tablet,disintegratin g Active 4 mg PO EVERY 8 HOURS NEEDED as needed for Nausea June 04, 2024 1:00am OZEMPIC 0.25 mg or 0.5 mg (2 mg/3 mL) pen (20 sources) inject 0.5 mg by subcutaneous injection every week OZEMPIC 0.25 mg or 0.5 mg (2 mg/3 mL) pen INJECT 0.5 mg under the skin once weekly. rotate injection sites Active pantoprazole 40 mg delayed release oral tablet (20 sources) Proton Pump Inhibitor Start: 2017 End: 2025 pantoprazole 40 mg oral enteric coated tablet Dose : 40 mg = 1 tab(s), Oral, qDay, # 90 tab(s), 1 Refill(s), Pharmacy: [facility], 174, cm, 12/25/24 15:17:00 EDT, Height, kg, 12/25/24 15:17:00 EDT, Dosing Weight Start Date: 12/25/24 Stop Date: 06/23/25 Status: Ordered Medication Dispense Status: Completed Quantity: 90.0 Unit: tab(s) Total Allowed Fills: 2 Fills Dispensed: 0 Comment on above: Take 40 mg by mouth once daily. predniSONE 5 mg oral tablet (1 source) Start: 2022 predniSONE 5 mg oral tablet See Instructions, Taper dose, 10 pills today decrease by 1 over the next 9 days. Taper 10-1, # 55 tab(s), 0 Refill(s), Pharmacy: [facility], 175, cm, 01/07/23 13:23:00 EDT, Height, kg, 01/07/23 13:23:00 EDT, Dosing Weight Start Date: 01/07/23 Status: Ordered promethazine hydrochloride 25 mg oral tablet (7 sources) Phenothiazine Start: 2024 promethazine 25 mg oral tablet Dose : 25 mg = 1 tab(s), Oral, q6h, PRN for nausea/vomiting, # 20 tab(s), 0 Refill(s), Pharmacy: [facility], 174, cm, 04/26/24 14:44:00 EST, Height, kg, 04/26/24 14:44:00 EST, Dosing Weight Start Date: 06/05/24 Status: Ordered Medication Dispense Status: Completed Quantity: 20.0 Unit: tab(s) Total Allowed Fills: 1 Fills Dispensed: 0 rofecoxib (12 sources) take 1 tablet by mouth once daily ROFECOXIB ORAL Take 1 tablet by mouth once daily. VIOXX Active SUMAtriptan 100 mg oral tablet (20 sources) Serotonin-1b and Serotonin-1d Receptor Agonist Start: 2022 End: 2024 take 1 tablet by mouth every two hours as needed for headache SUMAtriptan (IMITREX) 100 mg tablet Indications: Intractable chronic migraine without aura and without status migrainosus Take 1 tablet by mouth as needed for migraine headache (see administration instructions). START AT ONSET OF HEADACHE. MAY REPEAT DOSE AFTER 2 HOURS. 27 tablet 3 01/01/2025 Active Start: 12-25-2020 End: 11-04-2021 SUMAtriptan (IMITREX) [...] oral tablet (20 sources) Start: 11-04-2021 End: 11-15-2024 topiramate 25 mg oral tablet Dose : 25 mg = 1 tab(s), qDay, 0 Refill(s) Start Date: 11/17/21 Status: Ordered Medication Dispense Status: Completed Total Allowed Fills: 1 Fills Dispensed: 0 Start: 04-22-2018 End: 11-15-2024 Topamax 100 mg oral tablet D ose : 100 mg = 1 tab(s), Oral, qDay, 0 Refill(s) Start Date: 11/29/18 Status: Ordered Medication Dispense Status: Completed Total Allowed Fills: 1 Fills Dispensed: 0 Comment on above: Take 1 tablet by velma th daily at bedtime. Take 1 tablet by velma th once daily. In addition to 100 mg tablet to equal 125 mg total per day vilazodone hydrochloride 40 mg oral tablet (20 sources) Start: 08-08-2024 Viibryd 40 mg oral tablet Dose : 40 mg = 1 tab(s), Oral, qDay, increased dose, # 90 tab(s), 1 Refill(s), Pharmacy: [facility], 174.2, cm, 07/31/24 13:23:00 EDT, Height, kg, 07/31/24 13:23:00 EDT, Dosing Weight Start Date: 08/08/24 Status: Ordered Quantity: 90.0 Unit: tab(s) Repeat number: 2 Start: 06-10-2024 take 1 tablet by velma once daily vilazodone (VIIBRYD) 10 mg tablet Take 10 mg by mouth once daily. 06/10/2024 Active Start: 11-23-2019 take 1 tablet by velma once daily Vilazodone 20 mg tablet Active 20 mg PO DAILY November 23, 2019 12:00am Vitamin D3 (20 sources) Start: 11-29-2018 Vitamin D3 0 R efill(s) Start Date: 11/29/18 Status: Ordered Medication Dispense Status: Completed Total Allowed Fills: 1 Fills Dispensed: 0 Start: 11-29-2018 Vitamin D3 0 R efill(s) Start Date: 11/29/18 Status: Ordered Repeat number: 1 Start: 11-29-2018 Vitamin D3 0 R efill(s) [...] weekly, # 3 EA, 1 Refill(s), Pharmacy: [facility], 174.5, cm, 09/01/23 14:56:00 EDT, Height, kg, 09/01/23 14:56:00 EDT, Dosing Weight Start Date: 09/30/23 Stop Date: 03/28/24 Status: Ordered albuterol MDI (90 mcg/inh) CFC free inhalation aerosol (20 sources) Start: 06-01-2023 End: 07-01-2023 take 2 puff(s) by inhalation every four hours albuterol MDI (90 mcg/inh) CFC free inhalation aerosol 2 puff(s), Inhalation, q4h, ok to fill generic equivalent rescue inhaler, # 1 EA, 0 Refill(s), Pharmacy: [facility], Wheezing on expiration, 174.5, cm, 06/01/23 10:29:00 EST, Height, kg, 06/01/23 10:29:00 EST, Dosing Weight Start Date: 06/01/23 Stop Date: 07/01/23 Status: Ordered Medication Dispense Status: Completed Quantity: 1.0 Unit: EA Total Allowed Fills: 1 Fills Dispensed: 0 Indications: Wheezing; Start: 06-01-2023 End: 07-01-2023 take 2 puff(s) by inhalation every four hours albuterol MDI (90 mcg/inh) CFC free inhalation aerosol 2 puff(s), Inhalation, q4h, ok to fill generic equivalent rescue inhaler, # 1 EA, 0 Refill(s), Pharmacy: [facility], Wheezing on expiration, 174.5, cm, 06/01/23 10:29:00 EST, Height, kg, 06/01/23 10:29:00 EST, Dosing Weight Start Date: 06/01/23 Stop Date: 07/01/23 Status: Ordered Quantity: 1.0 Unit: EA Repeat number: 1 Indications: Wheezing; Start: 06-01-2023 End: 07-01-2023 take 2 puff(s) by inhalation every four hours albuterol MDI (90 mcg/inh) CFC free inhalation aerosol 2 puff(s), Inhalation, q4h, ok to fill generic equivalent rescue inhaler, # 1 EA, 0 Refill(s), Pharmacy: [facility], Wheezing on expiration, 174.5, cm, 06/01/23 10:29:00 EST, Height, kg, 06/01/23 10:29:00 EST, Dosing Weight Start Date: 06/01/23 Stop Date: 07/01/23 Status: Ordered Quantity: 1.0 Unit: EA Repeat number: 1 Indication: Wheezing Start: 06-01-2023 End: 07-01-2023 take 2 puff(s) by inhalation every four hours albuterol MDI (90 mcg/inh) CFC free inhalation aerosol 2 puff(s), Inhalation, q4h, ok to fill generic equivalent rescue inhaler, # 1 EA, 0 Refill(s), Pharmacy: [facility], Wheezing on expiration, 174.5, cm, 06/01/23 10:29:00 EST, Height, kg, 06/01/23 10:29:00 EST, Dosing Weight Start Date: 06/01/23 Stop Date: 07/01/23 Status: Ordered Start: 06-06-2021 End: 09-04-2021 take 2 puff(s) by inhalation every four hours albuterol MDI (90 mcg/inh) CFC free inhalation aerosol 2 puff(s), Inhalation, q4h, ok to fill generic equivalent rescue inhaler, # 1 EA, 2 Refill(s), Pharmacy: [facility], 175, cm, 02/18/21 15:47:00 EDT, Height, kg, 05/13/21 15:45:00 EST, Dosing Weight Start Date: 06/06/21 Stop Date: 09/04/21 Status: Ordered onabotulinumtoxina 200 unt injection (6 sources) Acetylcholine Release Inhibitor Start: 10-24-2024 End: 10-24-2024 onabotulinum toxin type A 200 Units injection (BOTOX) Start: 10-24-2024 End: 10-24-2024 inject 1 dose by intramuscular injection once 200 Units, INTRAMUSCULAR, ONCE, 1 dose, On Wed10/24/24 at 1600, This record documents the total dose provided to patient. See progress note for specific locations and amounts administered. Start: 07-04-2024 End: 07-04-2024 onabotulinum toxin type A 20 0 Units injection (BOTOX) Start: 07-04-2024 End: 07-04-2024 inject 1 dose by intramuscular injection once 200 Units, INTRAMUSCULAR, ONCE, 1 dose, On Wed07/04/24 at 1530, This record documents the total dose provided to patient. See progress note for specific locations and amounts administered. Start: 04-11-2024 End: 04-11-2024 onabotulinum toxin type A 20 0 Units injection (BOTOX) Start: 04-11-2024 End: 04-11-2024 inject 1 dose by intramuscular injection once 200 Units, INTRAMUSCULAR, ONCE, 1 dose, On Wed04/11/24 at 1330, This record documents the total dose provided to patient. See progress note for specific locations and amounts administered. calcium chloride 0.0014 meq/ml / potassium chloride 0.004 meq/ml / sodium chloride 0.103 meq/ml / sodium lactate 0.028 meq/ml injectable solution (1 source) Start: 01-22-2025 End: 01-22-2025 take 30 mL intravenously every hour 30 mL/hr, INTRAVENOUS, CONTINUOUS, Starting on Wed01/22/25 at 0800, Until Wed01/22/25 at 0837, Preprocedure cholestyramine resin 4000 mg powder for oral suspension (7 sources) Bile Acid Sequestrant Start: 06-05-2024 End: 06-12-2024 take 4 doses by mouth four times daily as needed for diarrhea cholestyramine 4 g/8.780 g oral powder for reconstitution Dose : 4 gram(s) =, Oral, QID, PRN Diarrhea, # 30 packet(s), 0 Refill(s), Pharmacy: [facility], 174, cm, 04/26/24 14:44:00 EST, Height, kg, 04/26/24 14:44:00 EST, Dosing Weight Start Date: 06/05/24 Stop Date: 06/12/24 Status: Ordered Medication Dispense Status: Completed Quantity: 30.0 Unit: packet(s) Total Allowed Fills: 1 Fills Dispensed: 0 ciprofloxacin 3 mg/ml ophthalmic solution (5 sources) [...] tab(s), 0 Refill(s), 07/16/21 8:45:00 EST, Pharmacy: [facility], 175, cm, 02/18/21 15:47:00 EDT, Height, 125.1, kg, 07/02/21 15:34:00 EST, Dosing Weight Start Date: 07/11/21 Stop Date: 07/16/21 Status: Ordered fluconazole 150 mg oral tablet (10 sources) Azole Antifungal Start: 07-20-2024 End: 07-20-2024 Diflucan 150 mg oral tablet Dose : 150 mg = 1 tab(s), Oral, qDay, # 1 tab(s), 0 Refill(s), Pharmacy: [facility], 174.2, cm, 07/20/24 15:08:00 EDT, Height, 105.2, kg, 07/20/24 15:08:00 EDT, Dosing Weight Start Date: 07/20/24 Stop Date: 07/20/24 Status: Ordered Quantity: 1.0 Unit: tab(s) Repeat number: 1 Start: 01-24-2024 End: 01-24-2024 Diflucan 150 mg oral tablet Dose : 150 mg = 1 tab(s), Oral, qDay, # 1 tab(s), 0 Refill(s), Pharmacy: [facility], 174, cm, 01/24/24 13:33:00 EDT, Height, 114.2, kg, 01/24/24 13:33:00 EDT, Dosing Weight Start Date: 01/24/24 Stop Date: 01/24/24 Status: Ordered Quantity: 1.0 Unit: tab(s) Repeat number: 1 Start: 07-15-2021 End: 07-15-2021 Diflucan 150 mg oral tablet Dose : 150 mg = 1 tab(s), Oral, qDay, # 1 tab(s), 0 Refill(s), Pharmacy: [facility], 174, cm, 07/15/21 16:06:00 EST, Height, 124.9, kg, 07/15/21 16:06:00 EST, Dosing Weight Start Date: 07/15/21 Stop Date: 07/15/21 Status: Ordered fosfomycin 3000 mg powder for oral solution (3 sources) Start: 11-24-2019 End: 05-25-2022 Fosfomycin Tromethamine 3 GM packet Discontinued 3 g PO DIRECTED November 24, 2019 12:00am May 25, 2022 1:39pm Mix dose with water. Take on 11/26 and 11/29. multivitamin ORAL tablet (4 sources) End: 11-04-2021 take 1 tablet by mouth once daily multivitamin ORAL tablet Take 1 tablet by mouth once daily. 0 11/04/2021 Discontinued take 1 tablet by mouth once jabari y multivitamin ORAL tablet Take 1 tablet by mouth once daily. 0 Active Comment on above: Take 1 tablet by velma th once daily. [place]-3 Fatty Acids (FISH OIL) 500 mg cap (6 sources) take 1 capsule by mouth once daily [place]-3 Fatty Acids (FISH OIL) 500 mg cap Take 500 mg by mouth once daily. 0 Active Comment on above: Take 500 mg by mouth once daily. Problems Active Problems Problem Classification Problem Date Documented Da te Episodic/Chronic Acute bronchitis (3 sources) Acute bronchitis; Translations: [Acute bronchitis, unspecified] 05-25-2022 Episodic Anxiety disorders (20 sources) Anxiety 12-04-2019 Chronic Cardiac dysrhythmias (20 sources) Palpitations 07-08-2020 Episodic Coagulation and hemorrhagic disorders (16 sources) Thrombocytopenic disorder; Translations: [Thrombocytopenia, unspecified] Onset: 5 12-08-2023 Chronic Diabetes mellitus with complications (12 sources) Peripheral vascular disorder due to diabetes mellitus 10-16-2022 Chronic Diabetes mellitus without complication (20 sources) Type 2 diabetes mellitus; Translations: [Type 2 diabetes mellitus without complications] Onset: 5 12-04-2019 Chronic Esophageal disorders (20 sources) Gastroesophageal reflux disease; Translations: [Gastro-esophageal reflux disease without esophagitis] Onset: 5 12-04-2019 Chronic Essential hypertension (20 sources) Benign hypertension; Translations: [Hypertensive disorder] Onset: 5 06-24-2020 Chronic Fluid and electrolyte disorders (3 sources) Dehydration; Translations: [Dehydration] 06-12-2024 Episodic Genitourinary symptoms and ill-defined conditions (20 sources) History of recurrent urinary tract infection; Translations: [Increased frequency of urination] 10-08-2020 Episodic Headache; including migraine (20 sources) Menstrual migraine; Translations: [Migraine] Onset: 2 Resolved: 7 06-02-2019 Chronic Headache; including migraine (1 source) Cervicogenic headache; Translations: [Cervicogenic headache] Episodic Hepatitis (9 sources) Cirrhosis - non-alcoholic; 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 (FUENTES)] Onset: 5 09-18-2024 Chronic Hypertension with complications and secondary hypertension (2 sources) Hypertensive heart disease without congestive heart failure 01-17-2025 Chronic Immunizations and screening for infectious disease (3 sources) Contact with and (suspected) exposure to other viral communicable diseases; Translations: [Contact with or suspected exposure to other viral communicable disease] 05-25-2022 Episodic Malaise and fatigue (20 sources) Fatigue; Translations: [Other fatigue] Onset: 5 08-14-2021 Episodic Mood disorders (20 sources) Depressive disorder; Translations: [Major depression in remission] 12-04-2019 Chronic Nausea and vomiting (20 sources) Nausea; Translations: [Nausea with vomiting, unspecified] Onset: 5 01-01-2020 Episodic Nutritional deficiencies (20 sources) Vitamin D deficiency 12-04-2019 Chronic Nutritional deficiencies (20 sources) Vitamin B deficiency 11-28-2018 Episodic Open wounds of extremities (5 sources) Needle stick injury of finger; Translations: [Puncture wound without foreign body of unspecified finger without damage to nail, initial encounter] Episodic Osteoarthritis (20 sources) Degenerative joint disease involving multiple joints 07-08-2020 Chronic Other aftercare (1 source) Long-term current use of drug therapy; Translations: [Other continuous churn buttermaker (current) drug therapy] 03-08-2024 Episodic Other bone disease and musculoskeletal deformities (20 sources) Cervical somatic dysfunction 06-02-2019 Episodic Other bone disease and musculoskeletal deformities (20 sources) Somatic dysfunction of lower limb 06-02-2019 Episodic Other bone disease and musculoskeletal deformities (20 sources) Somatic dysfunction of lumbar region 06-02-2019 Episodic Other bone disease and musculoskeletal deformities (20 sources) Somatic dysfunction of pelvic region 02-18-2021 Episodic Other bone disease and musculoskeletal deformities (20 sources) Somatic dysfunction of rib 06-02-2019 Episodic Other bone disease and musculoskeletal deformities (20 sources) Somatic dysfunction of sacral region 06-02-2019 Episodic Other bone disease and musculoskeletal deformities (20 sources) Somatic dysfunction of thoracic region 06-02-2019 Episodic Other bone disease and musculoskeletal deformities (20 sources) Somatic dysfunction of upper limb 05-13-2021 Episodic Other connective tissue disease (20 sources) Cramp in lower leg 11-29-2018 Episodic Other connective tissue disease (20 sources) Cramp in lower limb 12-04-2019 Episodic Other connective tissue disease (20 sources) Spasm 02-02-2020 Episodic Other connective tissue disease (20 sources) Tenosynovitis of right radial styloid; Translations: [Radial styloid tenosynovitis [de Quervain]] 10-08-2020 Episodic Other connective tissue disease (20 sources) Plantar fasciitis 07-02-2021 Episodic Other connective tissue disease (3 sources) Bilateral cramp of muscle of lower limbs; Translations: [Cramp and spasm] 11-24-2019 Episodic Other connective tissue disease (11 sources) Tendinitis of long head of biceps brachii of right shoulder 01-15-2023 Episodic Other diseases of kidney and ureters (1 source) Renal insufficiency; Translations: [Disorder of kidney and ureter, unspecified] 06-12-2024 Episodic Other ear and sense organ disorders (1 source) Bilateral earache; Translations: [Otalgia, bilateral] 01-10-2024 Episodic Other gastrointestinal disorders (20 sources) Diarrhea; Translations: [Diarrhea, unspecified] 01-01-2020 Episodic Other hereditary and degenerative nervous [...] region, initial encounter] Episodic Other liver diseases (20 sources) Steatosis of liver; Translations: [Fatty (change of) liver, not elsewhere classified] 08-14-2019 Chronic Other liver diseases (4 sources) Fatty (change of) liver, not elsewhere classified; Translations: [Fatty (change of) liver, not elsewhere classified] Onset: 4 Chronic Other liver diseases (8 sources) Cirrhosis of liver; Translations: [Other cirrhosis of liver] 05-26-2024 Chronic Other liver diseases (3 sources) Unspecified cirrhosis of liver; Translations: [Liver cirrhosis secondary to FUENTES (HCC)] Onset: 5 Chronic Other liver diseases (1 source) Other cirrhosis of liver; Translations: [Other cirrhosis of liver (HCC)] Onset: 5 Chronic Other nervous system disorders (20 sources) Tremor 06-02-2019 Episodic Other non-traumatic joint disorders (20 sources) Hip pain 06-02-2019 Episodic Other non-traumatic joint disorders (11 sources) Shoulder pain 01-07-2023 Episodic Other nutritional; endocrine; and metabolic disorders (20 sources) Body mass index 40+ - severely obese; Translations: [Morbid (severe) obesity due to excess calories] Onset: 7 10-08-2020 Chronic Other nutritional; endocrine; and metabolic disorders (16 sources) Morbid obesity 12-04-2019 Chronic Other nutritional; endocrine; and metabolic disorders (20 sources) Obese class II; Translations: [Obesity, unspecified] Onset: 8 09-27-2017 Chronic Other nutritional; endocrine; and metabolic disorders (6 sources) Body mass index 30+ - obesity 05-18-2022 Chronic Other upper respiratory disease (20 sources) Seasonal allergy 08-16-2019 Chronic Other upper respiratory disease (20 sources) Lesion of nose 05-17-2020 Episodic Other upper respiratory infections (1 source) Chronic sinusitis; Translations: [Chronic sinusitis, unspecified] 04-22-2024 Chronic Other upper respiratory infections (1 source) Upper respiratory infection; Translations: [Acute upper respiratory infection, unspecified] Episodic Otitis media and related conditions (10 sources) Acute left otitis media; Translations: [Otitis media, unspecified, left ear] 01-13-2024 Episodic Peripheral and visceral atherosclerosis (20 sources) Atherosclerosis of aorta; Translations: [Peripheral vascular disease] Onset: 5 10-16-2022 Chronic Prolapse of female genital organs (12 sources) Cystocele 09-07-2022 Chronic Residual codes; unclassified (20 sources) Edema of lower extremity 12-04-2019 Episodic Residual codes; unclassified (20 sources) Immunization due 11-18-2020 Episodic Residual codes; unclassified (20 sources) Insomnia 11-28-2018 Episodic Residual codes; unclassified (15 sources) Tobacco user; Translations: [Tobacco use] Onset: 5 11-18-2020 Episodic Residual codes; unclassified (1 source) Tobacco use; Translations: [Tobacco user] Onset: 5 Episodic Screening and history of mental health and substance abuse codes (10 sources) Ex-smoker 09-01-2023 Episodic Spondylosis; intervertebral disc disorders; other back problems (20 sources) Degeneration of lumbar intervertebral disc 04-01-2021 Chronic Spondylosis; intervertebral disc disorders; other back problems (20 sources) Backache; Translations: [Neck pain] 06-02-2019 Episodic Sprains and strains (6 sources) Strain of muscle and/or tendon of lower leg; Translations: [Strain of unspecified muscle and tendon at ankle and foot level, right foot, initial encounter] 06-11-2020 Episodic Superficial injury; contusion (3 sources) Contusion of rib; Translations: [Contusion of left front wall of thorax, initial encounter] 08-22-2022 Episodic Unclassified (20 sources) Cancer cervix screening status 10-08-2020 Unclassified (20 sources) Hip joint finding 05-17-2020 Unclassified (20 sources) Patient encounter status 11-29-2018 Unclassified (18 sources) Protein level - finding 09-25-2021 Unclassified (1 source) Accident caused by needle (finding) 05-18-2022 Urinary tract infections (20 sources) Recurrent urinary tract infection; Translations: [Urinary tract infectious disease] 12-04-2019 Episodic Past or Other Problems Problem Classification Problem Date Documented Da te Episodic/Chronic Other nervous system disorders (1 source) Ataxia, unspecified; Translations: [Ataxia, unspecified] Onset: 03-28-2024 Episodic Other screening for suspected conditions (not mental disorders or infectious disease) (15 sources) Liver function tests abnormal; Translations: [Protein level - finding] Onset: 05-15-2024 08-16-2019 Episodic Results Test Name Value Interpretation Reference Range Facility [facility] KAUR STUTON ([id number]) 1965 F Date Time Provider Department 03/20/25 JANNY GRANT During your visit today, we recorded the following information about you: Jeanette Hernandes 03/20/2025 3:58 PM Signed Labs are in epic Carlee Armendariz PA-C 03/21/2025 7:52 AM Signed Reviewed. All labs WNL. Will plan to d/w pt during scheduled appt 03/26. Carlee Armendariz PA-C Allergies As of Date: 03/20/2025 Noted Allergy Reaction DURICEF (CEFADROXIL) 06/15/2011 2 - Rash LISINOPRIL 10/28/2020 3 - Cough LOTRONEX (ALOSETRON) 08/22/2019 2 - Rash METFORMIN 10/28/2020 5 - Intolerance 14 - Other: See Comments PENICILLINS 06/15/2011 2 - Rash ZOMIG (ZOLMITRIPTAN) 06/15/2011 5 - Intolerance Date Reviewed: 01/30/2025 Reviewed by: Teodora Garcia APRN.CUPOLA PATCHER HELPER - Fully Assessed Reason for Visit: Results [95] Prescriptions as of 03/21/2025 - topiramate (TOPAMAX) 100 mg tablet Take 1 tablet by mouth daily at bedtime. - topiramate (TOPAMAX) 25 mg tablet Take 1 tablet by mouth once daily. In addition to 100 mg tablet to equal 125 mg total per day - atorvastatin (LIPITOR) 40 mg tablet Take 40 mg by mouth once daily. - SUMAtriptan (IMITREX) 100 mg tablet Take 1 tablet by mouth as needed for migraine headache (see administration instructions). START AT ONSET OF HEADACHE. MAY REPEAT DOSE AFTER 2 HOURS. - ROFECOXIB ORAL Take 1 tablet by mouth once daily. VIOXX - vilazodone (VIIBRYD) 10 mg tablet Take 10 mg by mouth once daily. - albuterol HFA (PROVENTIL HFA, VENTOLIN HFA) 90 mcg/actuation inhaler Inhale 2 Puffs as instructed every 6 hours as needed for wheezing/shortness of breath. - Naproxen Sodium 550 mg tablet Take 1 tablet by mouth two times a day as needed (headache). FOR PAIN. TAKE WITH FOOD. - OZEMPIC 0.25 mg or 0.5 mg (2 mg/3 mL) pen INJECT 0.5 mg under the skin once weekly. rotate injection sites - Ascorbic Acid (VITAMIN C) 1,000 mg tablet Take 1,000 mg by mouth once daily. - Cetirizine (ZYRTEC) 10 mg cap Take 1 capsule by mouth as needed (Seasonal). - FLUoxetine (PROZAC) 20 mg capsule Take 1 capsule by mouth once daily. - cranberry fruit (CRANBERRY) 450 mg tab Take 1 tablet by mouth once daily. - bisoprolol (ZEBETA) 10 mg tablet Take 10 mg by mouth once daily. - lovastatin (MEVACOR) 20 mg tablet 40 mg. - Methenamine Hippurate (HIPREX) 1 gram tablet TAKE 1 TABLET BY MOUTH EVERY DAY WITH VITAMIN C 1000 MG FOR UTI PREVENTION - pantoprazole DR (PROTONIX) 40 mg tablet Take 40 mg by mouth once daily. - albuterol HFA (PROAIR HFA) 90 mcg/actuation inhaler Inhale 2 Puffs as instructed every 4 hours as needed. - [place]-3 Fatty Acids 500 mg cap Take 500 mg by mouth once daily. - Magnesium Oxide 500 mg Tab Take 1 tablet by mouth once daily. - famotidine (PEPCID) 40 mg tablet Take 40 mg by mouth twice daily. - Cholecalciferol, Vitamin D3, 50 mcg (2,000 unit) cap Take 1 capsule by mouth once daily. Problem List As Of Date 03/20/2025 Noted Resolved Migraine without aura [G43.009] 12/28/2011 06/08/2016 Migraine without aura and without status migrai*06/08/2016 Restless legs syndrome (RLS) [G25.81] 06/08/2016 Essential tremor [G25.0] 06/08/2016 Obesity, Class III, BMI >= 40 (morbid obesity) *09/14/2016 Obesity, Class II, BMI 35-39.9 [E66.812] 09/27/2017 Pre-op examination [Z01.818] 01/22/2025 Diabetes mellitus (HCC) [E11.9] GERD (gastroesophageal reflux disease) [K21.9] Atherosclerosis of aorta [I70.0] 01/22/2025 Hypertension [I10] 01/22/2025 Thrombocytopenia [D69.6] 01/22/2025 Tobacco user [Z72.0] 01/22/2025 Liver cirrhosis secondary to FUENTES (HCC) [K75.81*01/22/2025 Encounter Status:Closed by CARLEE ARMENDARIZ on 03/21/25 Normal [facility] .Auto Diffon 03-19-2025 Basophil, Absolute 0.0 10 3/mcL Normal 0.0-0.3 [facility] Comment on above: Performed By: #### L IPID, ANEU, TSH, GFR, CBC, ADIFF, CMP #### [address] [address] Basophils/100 WBC (Bld) 0.4 % Normal 0.0-2.5 [facility] Comment on above: Performed By: #### L IPID, ANEU, TSH, GFR, CBC, ADIFF, CMP #### [id number] [place], [place] [address] Eosinophil, Absolute 0.1 10 3/mcL Normal 0.0-0.7 [facility] Comment on above: Performed By: #### L IPID, ANEU, TSH, GFR, CBC, ADIFF, CMP #### [id number] [place], [place] [address] Eosinophils/100 WBC (Bld) 1.2 % Normal 0.0-6.[address] [facility] Comment on above: Performed By: #### L IPID, ANEU, TSH, GFR, CBC, ADIFF, CMP #### [address] [address] Lymphocyte, Absolute 2.1 10 3/mcL Normal 0.9-4.3 [facility] Comment on above: Performed By: #### L IPID, ANEU, TSH, GFR, CBC, ADIFF, CMP #### [address] [address] Lymphocytes/100 WBC (Bld) 31.7 % Normal 20.0-40.[address] [facility] Comment on above: Performed By: #### L IPID, ANEU, TSH, GFR, CBC, ADIFF, CMP #### [address] [address] Monocyte, Absolute 0.4 10 3/mcL Normal 0.1-1.4 [facility] Comment on above: Performed By: #### L IPID, ANEU, TSH, GFR, CBC, ADIFF, CMP #### [address] [address] Monocytes/100 WBC (Bld) 6.6 % Normal 2.0-13.0 [facility] Comment on above: Performed By: #### L IPID, ANEU, TSH, GFR, CBC, ADIFF, CMP #### [address] [address] Neutrophils/100 WBC (Bld) 60.1 % Normal 50.0-75.[address] [facility] Comment on above: Performed By: #### L IPID, ANEU, TSH, GFR, CBC, ADIFF, CMP #### [address] [address] .GFRon 03-19-2025 Estimated Glomerular Filtration Rate 62 ml/min/1.73sqm Normal [facility] Comment on above: Result Comment: Stages of Chronic Kidney Disease (CKD) Stage Description eGFR(ml/min/1.73 sq.m.) CKD 1 Normal kidney function or >=90 normal kindney function with possible kidney damage (ex. Proteinuria) CKD 2 Kidney damage with mild loss 60-89 of kidney function CKD 3a Mild to moderate loss of kidney 45-59 function CKD 3b Moderate to severe loss of 30-44 of kindey function CKD 4 Severe loss of kidney function 15-29 CKD 5 Kidney failure <15 Note: (go live 2024) the eGFR calculation was updated to the 2020 CKD-EPI creatinine equation without a race factor to calculate the eGFR results. Performed By: #### L IPID, ANEU, TSH, GFR, CBC, ADIFF, CMP #### [address] [address] .NEUABSon 03-19-2025 Neutrophil, Absolute 3.9 10 3/mcL Normal 2.3-8.1 [facility] Comment on above: Performed By: #### L IPID, ANEU, TSH, GFR, CBC, ADIFF, CMP #### [place] [id number] A1Con 03-19-2025 Glucose [Mass/Vol] 111 mg/dL Normal [facility] Comment on above: Result Comment: Sara mated Average Glucose calculated by equation ((28.7xA1C)-46.7) Estimated average glucose (eAG) is a calculated value from Hemoglobin A1C and is traffic representative of the average blood glucose level in the last 2-3 month period. Normal range: less than 114 mg/dL Performed By: #### L IPID, ANEU, TSH, GFR, CBC, ADIFF, CMP #### [address] [address] HbA1c (Bld) [Mass fraction] 5.5 % Normal 4.3-6.[address] [facility] Comment on above: Performed By: #### L IPID, ANEU, TSH, GFR, CBC, ADIFF, CMP #### [address] [address] B12on 03-19-2025 Cobalamin (Vitamin B12) [Mass/Vol] 284 pg/mL Normal 211-[address] [facility] Comment on above: Performed By: #### L IPID, ANEU, TSH, GFR, CBC, ADIFF, CMP #### [address] [address] BMPon 03-19-2025 BUN/Creatinine Ratio 12 ratio Normal 7-27 [facility] Comment on above: Performed By: #### L IPID, ANEU, TSH, GFR, CBC, ADIFF, CMP #### [address] [address] Calcium [Mass/Vol] 9.6 mg/dL Normal 8.4-10.2 [facility] Comment on above: Performed By: #### L IPID, ANEU, TSH, GFR, CBC, ADIFF, CMP #### [place] [address] Chloride [Moles/Vol] 107 mmol/L Normal 98-107 [facility] Comment on above: Performed By: #### L IPID, ANEU, TSH, GFR, CBC, ADIFF, CMP #### [address] [address] CO2 [Moles/Vol] 27 mmol/L Normal 23-[address] [facility] Comment on above: Performed By: #### L IPID, ANEU, TSH, GFR, CBC, ADIFF, CMP #### [address] [address] Creatinine [Mass/Vol] 1.04 mg/dL High 0.51-0.[address] [facility] Comment on above: Performed By: #### L IPID, ANEU, TSH, GFR, CBC, ADIFF, CMP #### [address] [address] Electrolyte Balance 8.0 mEq/L Normal 4.0-15.0 [facility] Comment on above: Performed By: #### L IPID, ANEU, TSH, GFR, CBC, ADIFF, CMP #### [place] [address] Glucose [Mass/Vol] 96 mg/dL Normal 80-115 [facility] Comment on above: Performed By: #### L IPID, ANEU, TSH, GFR, CBC, ADIFF, CMP #### [address] [address] Potassium [Moles/Vol] 4.2 mmol/L Normal 3.5-5.[address] [facility] Comment on above: Performed By: #### L IPID, ANEU, TSH, GFR, CBC, ADIFF, CMP #### [address] [address] Sodium [Moles/Vol] 142 mmol/L Normal 136-145 [facility] Comment on above: Performed By: #### L IPID, ANEU, TSH, GFR, CBC, ADIFF, CMP #### [address] [address] Urea nitrogen [Mass/Vol] 12 mg/dL Normal 7-[address] [facility] Comment on above: Performed By: #### L IPID, ANEU, TSH, GFR, CBC, ADIFF, CMP #### [address] [address] CBCon 03-19-2025 Erythrocyte distribution width (RBC) [Ratio] 12.8 % Normal 11.5-15.[address] [facility] Comment on above: Performed By: #### L IPID, ANEU, TSH, GFR, CBC, ADIFF, CMP #### [address] [address] Hematocrit (Bld) [Volume fraction] 41.1 % Normal 34.0-46.[address] [facility] Comment on above: Performed By: #### L IPID, ANEU, TSH, GFR, CBC, ADIFF, CMP #### [address] [address] Hgb 14.1 G/dL Normal 12.0-16.[address] [facility] Comment on above: Performed By: #### L IPID, ANEU, TSH, GFR, CBC, ADIFF, CMP #### [address] [address] MCH (RBC) [Entitic mass] 33.3 pg High 27.0-33.[address] [facility] Comment on above: Performed By: #### L IPID, ANEU, TSH, GFR, CBC, ADIFF, CMP #### [address] [address] MCHC 34.3 G/dL Normal 32.0-36.[address] [facility] Comment on above: Performed By: #### L IPID, ANEU, TSH, GFR, CBC, ADIFF, CMP #### [address] [address] MCV (RBC) [Entitic vol] 96.9 fL Normal 80.0-99.0 [facility] Comment on above: Performed By: #### L IPID, ANEU, TSH, GFR, CBC, ADIFF, CMP #### [address] [address] Platelet 132 10 3/mcL Low 150-[address] [facility] Comment on above: Performed By: #### L IPID, ANEU, TSH, GFR, CBC, ADIFF, CMP #### [address] [address] Platelet mean volume (Bld) [Entitic vol] 10.7 fL High 6.6-10.[address] [facility] Comment on above: Performed By: #### L IPID, ANEU, TSH, GFR, CBC, ADIFF, CMP #### [address] [address] RBC 4.25 10 6/mcL Normal 4.10-5.[address] [facility] Comment on above: Performed By: #### L IPID, ANEU, TSH, GFR, CBC, ADIFF, CMP #### [address] [address] WBC 6.6 10 3/mcL Normal 4.5-10.[address] [facility] Comment on above: Performed By: #### L IPID, ANEU, TSH, GFR, CBC, ADIFF, CMP #### [address] [address] Cathy 03-19-2025 CHRISN Telephone (GSTNOR) HERMANKAUR ([id number]) 1965 F Date Time Provider Department 03/19/25 JANNY GRANT During your visit today, we recorded the following information about you: Kimberley Diaz 03/19/2025 9:45 AM Signed Faxed all of labs that Janny Grant ordered for the patient to have done to [facility] in [place] at fax number [phone] and received fax confirmation on 03/19/2025 at 9:32 am per [employer]. Allergies As of Date: 03/19/2025 Noted Allergy Reaction DURICEF (CEFADROXIL) 06/15/2011 2 - Rash LISINOPRIL 10/28/2020 3 - Cough LOTRONEX (ALOSETRON) 08/22/2019 2 - Rash METFORMIN 10/28/2020 5 - Intolerance 14 - Other: See Comments PENICILLINS 06/15/2011 2 - Rash ZOMIG (ZOLMITRIPTAN) 06/15/2011 5 - Intolerance Date Reviewed: 01/30/2025 Reviewed by: Teodora Garcia APRN.CUPOLA PATCHER HELPER - Fully Assessed Reason for Visit: Patient Update [1234] Prescriptions as of 03/19/2025 - topiramate (TOPAMAX) 100 mg tablet Take 1 tablet by mouth daily at bedtime. - topiramate (TOPAMAX) 25 mg tablet Take 1 tablet by mouth once daily. In addition to 100 mg tablet to equal 125 mg total per day - atorvastatin (LIPITOR) 40 mg tablet Take 40 mg by mouth once daily. - SUMAtriptan (IMITREX) 100 mg tablet Take 1 tablet by mouth as needed for migraine headache (see administration instructions). START AT ONSET OF HEADACHE. MAY REPEAT DOSE AFTER 2 HOURS. - ROFECOXIB ORAL Take 1 tablet by mouth once daily. VIOXX - vilazodone (VIIBRYD) 10 mg tablet Take 10 mg by mouth once daily. - albuterol HFA (PROVENTIL HFA, VENTOLIN HFA) 90 mcg/actuation inhaler Inhale 2 Puffs as instructed every 6 hours as needed for wheezing/shortness of breath. - Naproxen Sodium 550 mg tablet Take 1 tablet by mouth two times a day as needed (headache). FOR PAIN. TAKE WITH FOOD. - OZEMPIC 0.25 mg or 0.5 mg (2 mg/3 mL) pen INJECT 0.5 mg under the skin once weekly. rotate injection sites - Ascorbic Acid (VITAMIN C) 1,000 mg tablet Take 1,000 mg by mouth once daily. - Cetirizine (ZYRTEC) 10 mg cap Take 1 capsule by mouth as needed (Seasonal). - FLUoxetine (PROZAC) 20 mg capsule Take 1 capsule by mouth once daily. - cranberry fruit (CRANBERRY) 450 mg tab Take 1 tablet by mouth once daily. - bisoprolol (ZEBETA) 10 mg tablet Take 10 mg by mouth once daily. - lovastatin (MEVACOR) 20 mg tablet 40 mg. - Methenamine Hippurate (HIPREX) 1 gram tablet TAKE 1 TABLET BY MOUTH EVERY DAY WITH VITAMIN C 1000 MG FOR UTI PREVENTION - pantoprazole DR (PROTONIX) 40 mg tablet Take 40 mg by mouth once daily. - albuterol HFA (PROAIR HFA) 90 mcg/actuation inhaler Inhale 2 Puffs as instructed every 4 hours as needed. - [place]-3 Fatty Acids 500 mg cap Take 500 mg by mouth once daily. - Magnesium Oxide 500 mg Tab Take 1 tablet by mouth once daily. - famotidine (PEPCID) 40 mg tablet Take 40 mg by mouth twice daily. - Cholecalciferol, Vitamin D3, 50 mcg (2,000 unit) cap Take 1 capsule by mouth once daily. Problem List As Of Date 03/19/2025 Noted Resolved Migraine without aura [G43.009] 12/28/2011 06/08/2016 Migraine without aura and without status migrai*06/08/2016 Restless legs syndrome (RLS) [G25.81] 06/08/2016 Essential tremor [G25.0] 06/08/2016 Obesity, Class III, BMI >= 40 (morbid obesity) *09/14/2016 Obesity, Class II, BMI 35-39.9 [E66.812] 09/27/2017 Pre-op examination [Z01.818] 01/22/2025 Diabetes mellitus (HCC) [E11.9] GERD (gastroesophageal reflux disease) [K21.9] Atherosclerosis of aorta [I70.0] 01/22/2025 Hypertension [I10] 01/22/2025 Thrombocytopenia [D69.6] 01/22/2025 Tobacco user [Z72.0] 01/22/2025 Liver cirrhosis secondary to FUENTES (HCC) [K75.81*01/22/2025 Encounter Status:Closed by KIMBERLEY DIAZ on 03/19/25 Normal [facility] Abraham 03-19-2025 Ferritin [Mass/Vol] 399.0 ng/mL High 8.0-252.0 [facility] Comment on above: Performed By: #### L IPID, ANEU, TSH, GFR, CBC, ADIFF, CMP #### [address] [address] HFPon 03-19-2025 Bili Indirect 0.7 mg/dL Normal [facility] Comment on above: Performed By: #### L IPID, ANEU, TSH, GFR, CBC, ADIFF, CMP #### [address] [address] Albumin Level 3.9 G/dL Normal 3.4-4.[address] [facility] Comment on above: Performed By: #### L IPID, ANEU, TSH, GFR, CBC, ADIFF, CMP #### [address] [address] Albumin/Globulin [Mass ratio] 1.1 {ratio} Normal 1.1-2.[address] [facility] Comment on above: Performed By: #### L IPID, ANEU, TSH, GFR, CBC, ADIFF, CMP #### [address] [address] ALP [Catalytic activity/Vol] 73 U/L Normal 40-[address] [facility] Comment on above: Performed By: #### L IPID, ANEU, TSH, GFR, CBC, ADIFF, CMP #### [place] [address] ALT [Catalytic activity/Vol] 23 U/L Normal 14-[address] [facility] Comment on above: Performed By: #### L IPID, ANEU, TSH, GFR, CBC, ADIFF, CMP #### [address] [place] [address] AST [Catalytic activity/Vol] 38 U/L Normal 10-[address] [facility] Comment on above: Performed By: #### L IPID, ANEU, TSH, GFR, CBC, ADIFF, CMP #### [address] [address] Bili Direct 0.2 mg/dL Normal 0.0-0.[address] [facility] Comment on above: Result Comment: Use of this assay is not recommended for patients undergoing treatment with eltrombopag due to the potential for falsely elevated results. Performed By: #### L IPID, ANEU, TSH, GFR, CBC, ADIFF, CMP #### [address] [address] Bili Total 0.9 mg/dL Normal 0.2-1.[address] [facility] Comment on above: Result Comment: Use of this assay is not recommended for patients undergoing treatment with eltrombopag due to the potential for falsely elevated results. Performed By: #### L IPID, ANEU, TSH, GFR, CBC, ADIFF, CMP #### [place] [address] Globulin 3.7 G/dL Normal 2.7-4.[address] [facility] Comment on above: Performed By: #### L IPID, ANEU, TSH, GFR, CBC, ADIFF, CMP #### [place] [address] Total Protein 7.6 G/dL Normal 6.4-8.[address] [facility] Comment on above: Performed By: #### L IPID, ANEU, TSH, GFR, CBC, ADIFF, CMP #### [place] [address] LABORATORYOrdered By: Fernanda Guerrero on 03-19-2025 Albumin DL <= 20 mg/L (U) [Mass/Vol] 2.2 mg/L Invalid Interpretation Code AO ADM SS Albumin/Creatinine DL <= 20 mg/L (U) [Mass ratio] 5 mg/G Normal 0 - 30 mg/G AO Chemistry S Creatinine (U) [Mass/Vol] 41.6 mg/dL Invalid Interpretation Code AO ADM SS Cholesterol [Mass/Vol] 132 mg/dL Normal 0 - 200 mg/dL AO ADM SS Comment on above: Interpretive Data: C holesterol Reference Interval: Less than 200 Desirable 200-239 Borderline high risk 240 and above High risk Cholesterol in HDL [Mass/Vol] 35 mg/dL Low 40 - 60 mg/dL AO ADM SS Cholesterol in LDL [Mass/Vol] 78 mg/dL Normal 0 - 130 mg/dL AO ADM SS Triglyceride [Mass/Vol] 94 mg/dL Normal 0 - 150 mg/d L AO ADM SS Comment on above: Interpretive Data: T riglyceride Reference Interval: Less than 150 Normal 150-199 Borderline high risk 200-499 High risk 500 or higher Very high risk LABORATORYOrdered By: SYSTEM SYSTEM on 03-19-2025 25-hydroxyvitamin D3 [Mass/Vol] 82.4 ng/mL Invalid Interpretation Code AO ADM SS Comment on above: Interpretive Data: I nterpretive Values Based on Total 25(OH) Vitamin D: Deficient <20 ng/mL Insufficient 20 - <30 ng/mL Sufficient 30-100 ng/mL Cobalamin (Vitamin B12) [Mass/Vol] 284 pg/mL Normal 211 - 911 pg/mL AH ADM SS Ferritin [Mass/Vol] 399.0 ng/mL High 8.0 - 25 2.0 ng/mL AO ADM SS Glucose [Mass/Vol] 111 mg/dL Invalid Interpretation Code AO Chemistry S Comment on above: Interpretive Data: E stimated average glucose (eAG) is a calculated value from Hemoglobin A1C and is traffic representative of the average blood glucose level in the last 2-3 month period. Normal range: less than 114 mg/dL HbA1c (Bld) [Mass fraction] 5.5 % Normal 4.3 - 6.4 % AO ADM SS TSH Qn 1.66 m[IU]/L Normal 0.36 - 3.74 mcIU/mL AO ADM SS Albumin BCP dye [Mass/Vol] 3.9 G/dL Normal 3.4 - 4.8 G/dL AO ADM SS Albumin/Globulin [Mass ratio] 1.1 {ratio} Normal 1.1 - 2.5 ratio AO ADM SS ALP [Catalytic activity/Vol] 73 U/L Normal 40 - 135 U/L AO ADM SS ALT With P-5'-P [Catalytic activity/Vol] 23 U/L Normal 14 - 59 U/L AO ADM SS AST With P-5'-P [Catalytic activity/Vol] 38 U/L Normal 10 - 40 U/L AO ADM SS Basophils (Bld) [#/Vol] 0.0 103/mcL Normal 0.0 - 0.3 10^3/mcL AO Workflow SS Basophils/100 WBC (Bld) 0.4 % Normal 0.0 - 2.5 % AO Workflow SS Bilirubin [Mass/Vol] 0.9 mg/dL Normal 0.2 - 1 .0 mg/dL AO ADM SS Comment on above: Interpretive Data: U se of this assay is not recommended for patients undergoing treatment with eltrombopag due to the potential for falsely elevated results. Bilirubin.direct [Mass/Vol] 0.7 mg/dL Invalid Interpretation Code AO Chemistry S Bilirubin.direct [Mass/Vol] 0.2 mg/dL Normal 0.0 - 0.2 mg/dL AO ADM SS Comment on above: Interpretive Data: U se of this assay is not recommended for patients undergoing treatment with eltrombopag due to the potential for falsely elevated results. Calcium [Mass/Vol] 9.6 mg/dL Normal 8.4 - 10. 2 mg/dL AO ADM SS Chloride [Moles/Vol] 107 mmol/L Normal 98 - 10 7 mmol/L AO ADM SS CO2 [Moles/Vol] 27 mmol/L Normal 23 - 31 mmol/L AO ADM SS Creatinine [Mass/Vol] 1.04 mg/dL High 0.51 - 0.95 mg/dL AO ADM SS Electrolyte Balance 8.0 mEq/L Normal 4.0 - 15 .0 mEq/L AO ADM SS Eosinophil, Absolute 0.1 103/mcL Normal 0.0 - 0 .7 10^3/mcL AO Workflow SS Eosinophils/100 WBC (Bld) 1.2 % Normal 0.0 - 6.0 % AO Workflow SS Erythrocyte distribution width (RBC) [Ratio] 12.8 % Normal 11.5 - 15.5 % AO Workflow SS Globulin 3.7 G/dL Normal 2.7 - 4.4 G/dL AO ADM SS GLOMERULAR FILTRATION RATE/1.73 SQ M.PREDICTED:ARVRAT:PT:S ER/PLAS/BLD:QN:CREATINI NE-BASED FORMULA (CKD-EPI 2020) 62 ml/min/1.73sqm Invalid Interpretation Code AO Chemistry S Comment on above: Interpretive Data: Stages of Chronic Kidney Disease (CKD) Stage Description eGFR(ml/min/1.73 sq.m.) CKD 1 Normal kidney function or >=90 normal kindney function with possible kidney damage (ex. Proteinuria) CKD 2 Kidney damage with mild loss 60-89 of kidney function CKD 3a Mild to moderate loss of kidney 45-59 function CKD 3b Moderate to severe loss of 30-44 of kindey function CKD 4 Severe loss of kidney function 15-29 CKD 5 Kidney failure <15 Note: (go live 2024) the eGFR calculation was updated to the 2020 CKD-EPI creatinine equation without a race factor to calculate the eGFR results. Glucose [Mass/Vol] 96 mg/dL Normal 80 - 115 mg/dL AO ADM SS Hematocrit (Bld) [Volume fraction] 41.1 % Normal 34.0 - 46.0 % AO Workflow SS Hemoglobin (Bld) [Mass/Vol] 14.1 G/dL Normal 12.0 - 16.0 G/dL AO Workflow SS INR Coag (PPP) [Relative time] 1.2 {INR} Invalid Interpretation Code AO HemoHub SS Comment on above: Interpretive Data: [employer] (CHEST, 1991, [id number]) recommended therapeutic range for oral anticoagulant therapy is: LOW RISK: Prophylaxis of venous thrombosis INR: 2.0-3.0 Treatment of pulmonary embolism 2.0-3.0 Prevention of systemic embolism 2.0-3.0 HIGH RISK: Mechanical prosthetic valves 2.5-3.5 Lymphocytes (Bld) [#/Vol] 2.1 103/mcL Normal 0.9 - 4.3 10^3/mcL AO Workflow SS Lymphocytes/100 WBC (Bld) 31.7 % Normal 20.0 - 40.0 % AO Workflow SS MCH (RBC) [Entitic mass] 33.3 pg High 27.0 - 33.0 pg AO Workflow SS MCHC 34.3 G/dL Normal 32.0 - 36.0 G/dL AO Workflow SS MCV (RBC) [Entitic vol] 96.9 fL Normal 80.0 - 99.0 fL AO Workflow SS Monocytes (Bld) [#/Vol] 0.4 103/mcL Normal 0.1 - 1.4 10^3/mcL AO Workflow SS Monocytes/100 WBC (Bld) 6.6 % Normal 2.0 - 13.0 % AO Workflow SS Neutrophils (Bld) [#/Vol] 3.9 103/mcL Normal 2.3 - 8.1 10^3/mcL AO Workflow SS Neutrophils/100 WBC (Bld) 60.1 % Normal 50.0 - 75.0 % AO Workflow SS Platelet mean volume (Bld) [Entitic vol] 10.7 fL High 6.6 - 10.5 fL AO Workflow SS Platelets (Bld) [#/Vol] 132 103/mcL Low 150 - 450 10^3/mcL AO Workflow SS Potassium [Moles/Vol] 4.2 mmol/L Normal 3.5 - 5.1 mmol/L AO ADM SS Protein [Mass/Vol] 7.6 G/dL Normal 6.4 - 8.2 G/dL AO ADM SS PT Coag (PPP) [Time] 13.8 s Normal 9.0 - 1 4.4 seconds AO HemoHub SS RBC (Bld) [#/Vol] 4.25 106/mcL Normal 4.10 - 5.3 0 10^6/mcL AO Workflow SS Sodium [Moles/Vol] 142 mmol/L Normal 136 - 145 mmol/L AO ADM SS Urea nitrogen [Mass/Vol] 12 mg/dL Normal 7 - 18 mg/dL AO ADM SS Urea nitrogen/Creatinine [Mass ratio] 12 ratio Normal 7 - 27 ratio AO ADM SS WBC (Bld) [#/Vol] 6.6 103/mcL Normal 4.5 - 10.8 10^3/mcL AO Workflow SS LIPIDon 03-19-2025 Cholesterol [Mass/Vol] 132 mg/dL Normal 0-200 [facility] Comment on above: Result Comment: Chol esterol Reference Interval: Less than 200 Desirable 200-239 Borderline high risk 240 and above High risk Performed By: #### L IPID, ANEU, TSH, GFR, CBC, ADIFF, CMP #### [address] [address] Cholesterol in HDL [Mass/Vol] 35 mg/dL Low 40-[address] [facility] Comment on above: Performed By: #### L IPID, ANEU, TSH, GFR, CBC, ADIFF, CMP #### [address] [address] Cholesterol in LDL [Mass/Vol] 78 mg/dL Normal 0-[address] [facility] Comment on above: Performed By: #### L IPID, ANEU, TSH, GFR, CBC, ADIFF, CMP #### [address] [address] Triglyceride [Mass/Vol] 94 mg/dL Normal 0-150 [facility] Comment on above: Result Comment: Trig lyceride Reference Interval: Less than 150 Normal 150-199 Borderline high risk 200-499 High risk 500 or higher Very high risk Performed By: #### L IPID, ANEU, TSH, GFR, CBC, ADIFF, CMP #### [address] [address] MALBRon 03-19-2025 U Creatinine 41.6 mg/dL Normal [facility] [facility] Comment on above: Performed By: #### M ALBR #### [address] [address] U Microalb 2.2 mg/L Normal [facility] Comment on above: Performed By: #### M ALBR #### [address] [address] U Ratio Alb/Cre 5 mg/G Normal 0-[address] [facility] Comment on above: Performed By: #### M ALBR #### [address] [address] PROon 03-19-2025 PT Coag (PPP) [Time] 13.8 s Normal 9.0-14.4 [facility] Comment on above: Performed By: #### L IPID, ANEU, TSH, GFR, CBC, ADIFF, CMP #### [id number] [place], [place] [address] PT International Ratio 1.2 Normal [facility] Comment on above: Result Comment: The [employer] (CHEST, 1992, 102:312S-25S) recommended therapeutic range for oral anticoagulant therapy is: LOW RISK: Prophylaxis of venous thrombosis INR: 2.0-3.0 Treatment of pulmonary embolism 2.0-3.0 Prevention of systemic embolism 2.0-3.0 HIGH RISK: Mechanical prosthetic valves 2.5-3.5 Performed By: #### L IPID, ANEU, TSH, GFR, CBC, ADIFF, CMP #### [address] [address] TSHon 03-19-2025 TSH Qn 1.66 m[IU]/L Normal 0.36-3.[address] [facility] Comment on above: Performed By: #### L IPID, ANEU, TSH, GFR, CBC, ADIFF, CMP #### [address] [address] VIDHon 03-19-2025 Vit. D 25-Hydroxy 82.4 ng/mL Normal [facility] Comment on above: Result Comment: Inte rpretive Values Based on Total 25(OH) Vitamin D: Deficient <20 ng/mL Insufficient 20 - <30 ng/mL Sufficient 30-100 ng/mL Performed By: #### L IPID, ANEU, TSH, GFR, CBC, ADIFF, CMP #### [address] [address] CNOVon 01-30-2025 CNOV Office Visit (NRHAME ) KAUR SUTTON ([id number]) 1965 F Date Time Provider Department 01/30/25 3:00 PM TEODORA GARCIA During your visit today, we recorded the following information about you: Pulse Blood pressure Weight Height 68/minute 114/80 95.3 kg 1.727 m Teodora Garcia APRN.CNP 01/30/2025 3:26 PM Signed [facility] Follow-up Visit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 difficulty. The patient tolerated the procedure well. Moderate Sedation: Exam was performed under monitored anesthesia care (MAC) Findings: The Z-line was regular and was found 40 cm from the incisors. The examined esophagus was normal. A few 1 mm papules (nodules) which appear like lymphoid aggregates with no stigmata of recent bleeding were found at the pylorus. Biopsies were taken with a cold forceps for histology. The examined duodenum was normal. Estimated Blood Loss: Estimated blood loss was minimal. Impression: - Z-line regular, 40 cm from the incisors. - Normal esophagus. - A few papules (nodules) found in the stomach. Biopsied. - Normal examined duodenum. Recommendation: - Patient has a contact number available for emergencies. The signs and symptoms of potential delayed complications were discussed with the patient. Return to normal activities tomorrow. Written discharge instructions were provided to the patient. - Resume previous diet. - Continue present medications. - Await pathology results. Procedure Code(s): --- Professional --- 01795, Esophagogastroduodeno scopy, flexible, transoral; with biopsy, single or multiple --- Technical --- 11149, Esophagogastroduodeno scopy, flexible, transoral; with biopsy, single or multiple Diagnosis Code(s): --- Professional --- K31.89, Other diseases of stomach and duodenum K74.60, Unspecified cirrhosis of liver --- Technical --- K31.89, Other diseases of stomach and duodenum K74.60, Unspecified cirrhosis of liver CPT copyright 2020 [employer]. All rights reserved. The codes documented in this report are preliminary and upon lining brusher review may be revised to meet current compliance requirements. Attending Participation: I was present and participated during the entire procedure from insertion to removal of the endoscope. Scope In: 7:59:40 AM Scope Out: 8:01:39 AM MD Samm Abbasi MD 01/22/2025 8:11:48 AM This report has been signed electronically by Samm Geller MD Number of Addenda: 0 Note Initiated On: 01/22/2025 7:45 AM Normal [facility] CT THORAX SCREENING W/O CONT Shanell 01-15-2025 CT THORAX SCREENING W/O CONTRAST ORIGINAL EXAMINATION: LOW DOSE SCREENING CT OF THE CHEST WITHOUT CONTRAST01/15/2025 7:30 am TECHNIQUE: Low dose lung cancer screening CT of the chest was performed without the administration of intravenous contrast. Multiplanar reformatted images are provided for review. Automated exposure control, iterative reconstruction, and/or weight based adjustment of the mA/kV was utilized to reduce the radiation dose to as low as reasonably achievable. COMPARISON: None. HISTORY: ORDERING SYSTEM PROVIDED HISTORY: Reason for Exam: Lung cancer screening, >= 20 pk-yr, current smoker 5ft 8in 211lb white female. current smoker. 23 pack years. no current complaints. no family hx FINDINGS: The heart is normal in size. Severe atherosclerosis seen of the coronary arteries and aorta. The great vessels appear normal in caliber. No lymphadenopathy is visible on this unenhanced exam. No suspicious findings seen in the visualized portion of the abdomen. 3.7 mm left superior pole of the kidney mass that is 5 Hounsfield units most compatible with simple renal cyst. The spleen is top-normal in size. The abdomen is not evaluated in detail. No pulmonary consolidation is identified. Punctate superior segment left lower lobe nodule seen on image 31 of series 302. A 3-4 mm right lower lobe nodule seen image 72. Other micro nodules are predominantly subpleural. A 3 mm right middle lobe nodule seen image 68. No pneumothorax or pleural effusion.No suspicious lung nodule seen. No evidence of endobronchial lesion. No aggressive osseous lesions visible. Degenerative changes seen in the spine. IMPRESSION: Small lung nodules. For patients with appropriate lung cancer risk, annual CT screening is recommended. Atherosclerosis of the coronary arteries. Left superior pole renal cyst. Information below is for Lung nodule tracking purposes: Nodule: S3 Other Findings: P-CAC Change: Na Recall : 1yr scr Recall Type: LDCT LungRads: 2s I have personally reviewed the images of this examination and agree with the resident's findings and interpretation. Interpreted by: Floyd Alvarez MD Preliminary Report By: Chet Faust Electronically signed By Floyd Alvarez MD Dictated Date: 01/15/2025 1:41:51 PM Prelim Date: 01/15/2025 2:43:38 PM Sign Date: 01/15/2025 2:43:38 PM Ordering Provider: RADHA Edwards [facility] US ABD RIGHT UPPER QUADRANTo n 12-25-2024 US ABD RIGHT UPPER QUADRANT * * *Final Report* * * DATE OF EXAM: Dec 25 2024 11:44AM WRU 1032 - US ABD RIGHT UPPER QUADRANT / PROCEDURE REASON: multiple diagnoses * * * * Physician Interpretation * * * * EXAMINATION: RIGHT UPPER QUADRANT ULTRASOUND CLINICAL HISTORY: Cirrhosis TECHNIQUE: Sonography of the right upper quadrant was performed. Images were obtained and stored in a permanent archive. MQ: URUQ_2 COMPARISON: 06/26/2024. RESULT: Pancreas: Normal sonographic appearance. Portions obscured: tail Liver: Echotexture: Coarse and heterogeneous Echogenicity: Diffuse increased echogenicity and increased attenuation of sound Surface contour: Smooth Lesions: None. Biliary: No intrahepatic biliary duct dilation. CBD: 0.5 cm at the hilum. Gallbladder: Prior cholecystectomy Right and left Kidney: No hydronephrosis. Left renal cyst of L4 0.2 cm Ascites: None. Spleen is 11.9 cm in length IMPRESSION: Coarse and heterogeneous appearance of the liver is unchanged Otherwise normal sonographic appearance of the right upper quadrant. Normal sonographic appearance of the spleen Device Engineer: EFRAIN Transcribe Date/Time: Dec 27 2024 1:25P Dictated by : HELEN GILLILAND MD This examination was interpreted and the report reviewed and electronically signed by: HELEN GILLILAND MD on Dec 27 2024 1:27PM EST [id number] Normal [facility] US ABD SPLEEN -NBon 12-26-19 US ABD SPLEEN -NB * * *Final Report* * * DATE OF EXAM: Dec 25 2024 11:44AM WRU 1232 - US ABD SPLEEN -NB / PROCEDURE REASON: multiple diagnoses * * * * Physician Interpretation * * * * EXAMINATION: RIGHT UPPER QUADRANT ULTRASOUND CLINICAL HISTORY: Cirrhosis TECHNIQUE: Sonography of the right upper quadrant was performed. Images were obtained and stored in a permanent archive. MQ: URUQ_2 COMPARISON: 06/26/2024. RESULT: Pancreas: Normal sonographic appearance. Portions obscured: tail Liver: Echotexture: Coarse and heterogeneous Echogenicity: Diffuse increased echogenicity and increased attenuation of sound Surface contour: Smooth Lesions: None. Biliary: No intrahepatic biliary duct dilation. CBD: 0.5 cm at the hilum. Gallbladder: Prior cholecystectomy Right and left Kidney: No hydronephrosis. Left renal cyst of L4 0.2 cm Ascites: None. Spleen is 11.9 cm in length IMPRESSION: Coarse and heterogeneous appearance of the liver is unchanged Otherwise normal sonographic appearance of the right upper quadrant. Normal sonographic appearance of the spleen Device Engineer: EFRAIN Transcribe Date/Time: Dec 27 2024 1:25P Dictated by : HELEN GILLILAND MD This examination was interpreted and the report reviewed and electronically signed by: HELEN GILLILAND MD on Dec 27 2024 1:27PM EST [id number] N Normal [facility] CNOVon 10-24-2024 CNOV Office Visit (NRAJITHE ) KAUR SUTTON ([id number]) 1965 F Date Time Provider Department 10/24/24 4:00 PM TEODORA GARCIA During your visit today, we recorded the following information about you: Pulse Blood pressure Weight Height 65/minute 114/79 105.7 kg 1.727 m Teodora Garcia APRN.CNP 10/24/2024 3:26 PM Signed AFTER VISIT CARE BOTOX INJECTION While these procedures can be extremely helpful as part of your headache treatment plan, they can irritate the muscles and tissues in your head, neck and shoulders. Proper follow-up care is important to avoid muscle spasms and temporary pain increase within the following 3-5 days after your clinic visit. Here are some tips to help decrease side-effects that may occur and maximize the effectiveness of your pain relief? -HYDRATION Hydration is important to help nourish your muscles and tissues. Drink 60-80 oz of non caffeinated fluid at least for 3 days after your visit. -REST Rest will help avoid further irritation of muscle and tissues. Remember that you need to give your body time to adjust. NO strenuous activity for at least the first 24 hours after your visit. Gentle stretching, yoga, meditation or even swimming is OK and encouraged. -ICE/HEAT Since these procedures irritate muscles, there can be some swelling. Alternating ice and heat every 3-5 times per day may help decrease this, while also optimizing pain relief Use cool gel packs for ice for 10 min. Use a warm moist towel covered with a dry towel on neck and shoulders. Alternate stretching each side of the neck. -STRETCHING Slow, gentle stretching of the neck and shoulders once every hour is helpful to avoid muscle spasms. -TREAT MUSCLE SPASMS If you are already prescribed a muscle relaxer such as baclofen, tizanidine or flexeril, use as directed. If you do not have one, talk to your provider to find out if this would be safe for you to use. Do not rub or massage the area for 48-72 hours. -OTHER No hair dyes or permanents for 24 hours. If you are paying out of pocket for Botox go online to Botox Savings Program and see if you qualify for reimbursement. Return in 3 months for your next Botox Injection Teodora Garcia APRN.CHRIS 10/24/2024 3:44 PM Signed Headache Center Follow-up Visit Impression: Chronic migraine without aura, intractable, without status migrainosus (primary encounter diagnosis) Follow-Up Onabotulinum Toxin A (BotoxTM) for Migraine Indication: Chronic Intractable Migraine Treatment #: 3 Referral Expiration: 05/09/2025 Prior to the initiation of the FIRST treatment with Onabotulinum Toxin A, the patient reported the following average headache frequency over the past 3 MONTHS: Number of moderate-severe migraine days/month: 30 (daily) Number of mild migraine days/month: 0 Number of headache free days/month: 0 (0 headache-free hours) Migraine severity: 09/16 After treatment with Onabotulinum Toxin A: Number of moderate-severe migraine days/month: 0 Number of mild migraine days/month: 15 Number of headache free days/month: 15 (360 headache-free hours) Patient reduction in overall migraine days: Yes Patient reduction in moderate-severe migraine days: Yes Patient reduction of headache hours by 100 hours or more: Yes (reduction of 360 hours) Individual has obtained clinical benefit deemed significant by individual or prescriber (Y/N): Yes Patient's quality of life and ability to perform ADLs has improved (Y/N): Yes Side effects: none The patient has been assessed for disorders which could contribute to breathing or swallowing difficulty, and there is no contraindication with PREEMPT Botox. There is no documented allergic reaction/hypersensiti vity to any botulinum toxin and there is no active infection at proposed injection site. HEADACHE SCORES: 03/02/2024 04/04/2024 06/27/2024 Headache Questions ER visits since last office visit: 0 0 0 Hospital stays since last office visit 0 0 0 Limited ADLs in the last month: 0 0 0 Days missed from work or school in the last month: 0 0 0 Days headache pain free in the last month: 5 2 25 Days per month with ALL of the following symptoms - decreased productivity, light sensitivity and nausea: 10 3 0 Initial improvement of headache after botox injection at last visit: Not applicable, I did not have a botox injection at my last visit Not applicable, I did not have a botox injection at my last visit Much improved PRN medication usage in the last month: 25 30 4 Patient impression of improvement since last visit: Minimally worse Much worse Much improved 03/02/2024 04/04/2024 06/27/2024 HIT-6 HIT-6 57 (Substantial impact) 54 (Moderate impact) 50 (Moderate impact) 03/02/2024 04/04/2024 06/27/2024 MENDEL - 2/7 SCORES MENDEL-2 Score 2 0 2 03/02/2024 04/04/2024 06/27/2024 Migraine Specifi (more content not included)... Normal [facility] LABORATORYOrdered By: Jeanna Jones on 10-14-2024 Appearance (U) Clear (10/14/24 11:02 AM) Normal Clear AO Auto Urine SS Bilirubin Ql (U) Negative (10/14/24 11:02 AM) Normal Negative AO Auto Urine SS Color (U) Yellow (10/14/24 11:02 AM) Normal AO Auto Urine SS Glucose Test strip (U) [Mass/Vol] Negative Normal Negative AO Auto Urine SS Hemoglobin Auto test strip (U) [Mass/Vol] Negative (10/14/24 11:02 AM) Normal Negative AO Auto Urine SS Ketones Ql (U) Negative Normal Negative AO Auto Urine SS UA Leuk Est Trace (10/14/24 11:02 AM) Normal Negative AO Auto Urine SS UA Nitrite Negative (10/14/24 11:02 AM) Normal Negative AO Auto Urine SS UA pH 6.0 (10/14/24 11:02 AM) Normal 5.0 - 8.0 AO Auto Urine SS UA Protein 30 mg/dL Normal Negative AO Auto Urine SS UA Spec Grav 1.025 (10/14/24 11:02 AM) Normal 1.015-1.025 AO Auto Urine SS UA Specimen Type Clean Catch (10/14/24 11:02 AM) Normal AO Auto Urine SS UA Urobilinogen 0.2 E.U./dL Normal 0.2-1.0 AO Auto Urine SS No Panel Informationon 10-14 Culture Urine Specimen received in lab. [facility] Work Phone: UAon 10-14-2024 Color (U) Yellow Normal [facility] Comment on above: Order Comment: rikki wing, recurrent UTI history Performed By: #### U A #### [address] [address] Glucose (U) [Mass/Vol] Negative Normal Negative [facility] Comment on above: Order Comment: rikki wing, recurrent UTI history Performed By: #### U A #### [address] [address] Ketones Ql (U) Negative Normal Negative [facility] Comment on above: Order Comment: rikki wing, recurrent UTI history Performed By: #### U A #### [address] [address] UA Appear Clear Normal Clear [facility] Comment on above: Order Comment: rikki wing, recurrent UTI history Performed By: #### U A #### [address] [address] UA Blood Negative Normal Negative [facility] Comment on above: Order Comment: rikki wing, recurrent UTI history Performed By: #### U A #### [place] [address] UA Leuk Est Trace Normal Negative [facility] Comment on above: Order Comment: rikki wing, recurrent UTI history Performed By: #### U A #### [place] [address] UA Nitrite Negative Normal Negative [facility] Comment on above: Order Comment: rikki wing, recurrent UTI history Performed By: #### U A #### [place] [address] UA pH 6.0 Normal 5.0 - 8.[address] [facility] Comment on above: Order Comment: rikki wing, recurrent UTI history Performed By: #### U A #### [place] [address] UA Protein 30 mg/dL Normal Negative [facility] Comment on above: Order Comment: rikki wing, recurrent UTI history Performed By: #### U A #### [place] [address] UA Spec Grav 1.025 Normal 1.015-1.[address] [facility] Comment on above: Order Comment: rikki wing, recurrent UTI history Performed By: #### U A #### [place] [address] UA Specimen Type Clean Catch Normal [facility] Comment on above: Order Comment: rikki wing, recurrent UTI history Performed By: #### U A #### [place] [address] UA Urobilinogen 0.2 E.U./dL Normal 0.2-1.[address] [facility] Comment on above: Order Comment: rikki wing, recurrent UTI history Performed By: #### U A #### [place] [address] [place], [place] [address] Urobilinogen (U) [Mass/Vol] Negative Normal Negative [facility] Comment on above: Order Comment: rikki wing, recurrent UTI history Performed By: #### U A #### [place] [address] [place], [place] [address] A1AT SerPl-mCncon 09-23-2024 Alpha 1 antitrypsin [Mass/Vol] 162 mg/dL Normal 90-200 [facility] Comment on above: Order Comment: Speci men Type: BLOOD SPECIMENOrdering Facility: [facility] Address: [address] [place] [address] Performed By: #### 2 4323-8, 2064-4, 1825-9, 2276-4 ####[facility] LABCLIA [id number] [place] [address] [place] AFP SerPl-mCncon 09-23-2024 AFP [Mass/Vol] 7.28 ng/mL Normal <9.00 [facility] Comment on above: Order Comment: Speci catarina Type: BLOOD SPECIMENOrdering Facility: [facility] Address: [address] [place] [address] Result Comment: The Alpha-Fetoprotein test was performed using the Dony Unicel DxI immunoenzymatic assay. Results obtained with different assay methods or kits cannot be used interchangeably. Performed By: #### 1 834-1 ####[facility] LABCLIA [id number] [place] [address] [place] FAUZIA BY IFA WITH REFLEXon Nuclear Ab Ql (S) Negative Normal Negative [facility] Comment on above: Order Comment: Speci men Type: BLOOD SPECIMENOrdering Facility: [facility] Address: [address] [place] [address] Result Comment: Anti -nuclear antibody test is used as an aid in diagnosis of systemic autoimmune diseases. Where positive and clinically warranted, follow-up using disease-specific testing is recommended. Low positive titers are not uncommon with advanced age, certain chronic infections, and malignancies among others. Test methodology: Indirect fluorescence immunoassay (IFA) using HEp-2 cells. Performed By: #### A NAIFR ####[facility] LABCLIA [id number] [address] [address] [place] Ceruloplasmin SerPl-mCncon 0 09-23-2024 Ceruloplasmin [Mass/Vol] 22 mg/dL Normal 16-45 [facility] Comment on above: Order Comment: Speci men Type: BLOOD SPECIMENOrdering Facility: [facility] Address: [address] [place] [address] Performed By: #### 2 4328, 2063-08, 1825-01, 2275-08 ####[facility] LABIA [id number] [place] [id number] [place] Comprehensive metabolic 2000 panelon 09-23-2024 Albumin [Mass/Vol] 4.4 g/dL Normal 3.9-4.9 [facility] Comment on above: Order Comment: Speci men Type: BLOOD SPECIMENOrdering Facility: [facility] Address: [address] [place] [address] Performed By: #### 2 432-8, 2063-08, 1825-01, 2275-08 ####[facility] LABIA [id number] [address], [facility] [place] ALP [Catalytic activity/Vol] 79 U/L Normal 34-123 [facility] Comment on above: Order Comment: Speci men Type: BLOOD SPECIMENOrdering Facility: [facility] Address: [address] [place] [address] Performed By: #### 2 432-8, 2063-08, 1825-01, 2275-08 ####[facility] LABCLIA [id number] [address] [place] [address] [place] ALT [Catalytic activity/Vol] 33 U/L Normal 7-38 [facility] Comment on above: Order Comment: Speci men Type: BLOOD SPECIMENOrdering Facility: [facility] Address: [address] [place], [place] [address] Performed By: #### 2 4323-8, 2063-08, 1825-01, 2275-08 ####[facility] LABCLIA [id number] [place] [address] [place] Anion gap [Moles/Vol] 13 mmol/L Normal 8-15 [facility] Comment on above: Order Comment: Speci men Type: BLOOD SPECIMENOrdering Facility: [facility] Address: [address] [place] [address] Performed By: #### 2 4323-8, 2063-08, 1825-01, 2275-08 ####[facility] LABCLIA [id number] [place] [address] [place] AST [Catalytic activity/Vol] 45 U/L High 13-35 [facility] Comment on above: Order Comment: Speci men Type: BLOOD SPECIMENOrdering Facility: [facility] Address: [address] [place] [address] Performed By: #### 2 4323-8, 2063-08, 1825-01, 2275-08 ####[facility] LABCLIA [id number] [place] [address] [place] Bilirubin [Mass/Vol] 0.6 mg/dL Normal 0.2-1.3 [facility] Comment on above: Order Comment: Speci men Type: BLOOD SPECIMENOrdering Facility: [facility] Address: [address] [place], [place] [address] Performed By: #### 2 4323-8, 2063-08, 1825-01, 2275-08 ####[facility] LABCLIA [id number] [place] [address] [place] Calcium [Mass/Vol] 9.7 mg/dL Normal 8.5-10.2 [facility] Comment on above: Order Comment: Speci men Type: BLOOD SPECIMENOrdering Facility: [facility] Address: [address] [place], [place] [address] Performed By: #### 2 4323-8, 2063-08, 1825-01, 2275-08 ####[facility] LABCLIA [id number] [place] [address] [place] Chloride [Moles/Vol] 106 mmol/L Normal 98-107 [facility] Comment on above: Order Comment: Speci men Type: BLOOD SPECIMENOrdering Facility: [facility] Address: [address] [place] [address] Performed By: #### 2 4323-8, 2063-08, 1825-01, 2275-08 ####[facility] [facility] [id number] [place] [address] [place] CO2 [Moles/Vol] 23 mmol/L Normal 22-30 [facility] Comment on above: Order Comment: Speci men Type: BLOOD SPECIMENOrdering Facility: [facility] Address: [address] [place] [address] Performed By: #### 2 4323-8, 2063-08, 1825-01, 2275-08 ####[facility] LABIA [id number] [place] [id number] [place] Creatinine [Mass/Vol] 0.97 mg/dL High 0.58-0.96 [facility] Comment on above: Order Comment: Speci men Type: BLOOD SPECIMENOrdering Facility: [facility] Address: [address] [place] [address] Performed By: #### 2 4323-8, 2063-08, 1825-01, 2275-08 ####[facility] LABCLIA [id number] [address] [address] [place] Creatinine and Glomerular filtration rate.predicted panel (S/P/Bld) 67 mL/min/1.73m??? Normal >=60 [facility] Comment on above: Order Comment: Joselo elmore Type: BLOOD SPECIMENOrdering Facility: [facility] Address: [address] [place] [address] Result Comment: Sara mated Glomerular Filtration Rate [...] reflect actual GFR. Performed By: #### 2 432-8, 2063-08, 1825-01, 2275-08 ####[facility] LABCLIA [id number] [address] [address] [place] Glucose [Mass/Vol] 144 mg/dL High 74-99 [facility] Comment on above: Order Comment: Joselo elmore Type: BLOOD SPECIMENOrdering Facility: [facility] Address: [address] [place] [address] Result Comment: The [place] Diabetes Association (ADA) provides guidance for cutoff [...] Standards of Medical Care in Diabetes 2016, [place] [employer]. Diabetes Care. 2016.39(Suppl 1). Performed By: #### 2 4323-8, 2063-08, 1825-01, 2275-08 ####[facility] LABCLIA [id number] [address] [address] [place] Potassium [Moles/Vol] 3.9 mmol/L Normal 3.7-5.1 [facility] Comment on above: Order Comment: Speci men Type: BLOOD SPECIMENOrdering Facility: [facility] Address: [address] [place] [address] Performed By: #### 2 4323-8, 2063-08, 1825-01, 2275-08 ####[facility] LABCLIA [id number] [facility] [address] [place] [address] [place] Protein [Mass/Vol] 7.7 g/dL Normal 6.3-8.0 [facility] Comment on above: Order Comment: Speci men Type: BLOOD SPECIMENOrdering Facility: [facility] Address: [address] [place] [address] Performed By: #### 2 432-8, 2063-08, 1825-01, 2275-08 ####[facility] LABCLIA [id number] [address], [facility]95 [place] Sodium [Moles/Vol] 142 mmol/L Normal 136-144 [facility] Comment on above: Order Comment: Speci men Type: BLOOD SPECIMENOrdering Facility: [facility] Address: [address] [place] [address] Performed By: #### 2 4323-8, 2063-08, 1825-01, 2275-08 ####[facility] LABCLIA [id number] [address], [facility]95 [place] Urea nitrogen [Mass/Vol] 10 mg/dL Normal 7-21 [facility] Comment on above: Order Comment: Speci men Type: BLOOD SPECIMENOrdering Facility: [facility] Address: [address] [place] [address] Performed By: #### 2 4323-8, 2063-08, 1825-01, 2275-08 ####[facility] LABCLIA [id number] [facility] [address] [place] [address] [place] Ferritin SerPl-mCncon 2024 Ferritin [Mass/Vol] 533.0 ng/mL High 14.7-205.1 [facility] Comment on above: Order Comment: Speci men Type: BLOOD SPECIMENOrdering Facility: [facility] Address: [address] [place] [address] Performed By: #### 2 4323-8, 2064-4, 1825-9, 2276-4 ####[facility] [id number] [place] [address] [place] Mitochondria Ab IF Ql (S)on 09-23-2024 Mitochondria M2 Ab IA Qn (S) 2.7 Units Normal <=20.0 [facility] Comment on above: Order Comment: Speci men Type: BLOOD SPECIMENOrdering Facility: [facility] Address: [address] [place] [address] Performed By: #### 1 7284-1, 43037-2 ####[facility] [id number] [address] Mitochondria M2 Ab Ql (S) Negative Normal Negative [facility] Comment on above: Order Comment: Speci men Type: BLOOD SPECIMENOrdering Facility: [facility] Address: [address] [place] [address] Result Comment: Anti -mitochondrial antibody test is used as an aid in diagnosis of primary biliary cholangitis. Clinical correlation is required. Performed By: #### 1 7284-1, 49267-3 ####[facility] [id number] [place] [address] [place] PT panel Coag (PPP)on 2024 INR Coag (PPP) [Relative time] 1.0 {INR} Normal 0.9-1.3 [facility] Comment on above: Order Comment: Speci men Type: BLOOD SPECIMENOrdering Facility: [facility] Address: [address] [place] [address] Result Comment: Marlene min K Antagonist (VKA) Therapeutic Range: INR 2 to 3 (Target INR of 2.5) Note: For patients treated with VKA drugs, such as warfarin, the [place] [employer] 2012 Guideline recommends [...] to 3.5 (target INR of 3). Sandie GH, et al. Chest 2012, 141:7S-47S Gabriella RA, et al. [facility] 2017, 70: 252-289 Performed By: #### 3 4528-0 ####[facility] LABCLIA [id number] [place] [address] [place] PT Coag (PPP) [Time] 11.1 s Normal 9.7-13.0 [facility] Comment on above: Order Comment: Joselo elmore Type: BLOOD SPECIMENOrdering Facility: [facility] Address: [address] [place] [address] Performed By: #### 3 4528-0 ####[facility] LABIA [id number] [place] [address] [place] Smooth muscle Ab Ql (S)on ACTIN SMOOTH MUSCLE IGG QUALITATIVE Negative Normal Negative [facility] Comment on above: Order Comment: Joselo elmore Type: BLOOD SPECIMENOrdering Facility: [facility] Address: [address] [place] [address] Performed By: #### 1 7284-1, 76162-1 ####[facility] LABCLIA [id number] [place] [id number] [place] ACTIN SMOOTH MUSCLE IGG QUANTITATIVE 13 Units Normal <20 [facility] Comment on above: Order Comment: Speci men Type: BLOOD SPECIMENOrdering Facility: [facility] Address: [address] [place] [address] [place] [address] Performed By: #### 1 7284-1, 75134-1 ####[facility] LABRADHA [id number] [place] [address] [place] [address] UROGRAMon 09-20-2024 CT UROGRAM ORIGINAL EXAMINATION: CT UROGRAM 09/18/2024 3:30 pm TECHNIQUE: CT of the abdomen and pelvis was performed before and after the administration of intravenous contrast as per CT urogram protocol. Multiplanar reformatted images as well as MIP urogram images are provided for review. Dose modulation, iterative reconstruction, and/or weight based adjustment of the mA/kV was utilized to reduce the radiation dose to as low as reasonably achievable. COMPARISON: None HISTORY: ORDERING SYSTEM PROVIDED HISTORY: Reason for Exam: Prior renal lesion on CT 2019, now has hematuria FINDINGS: Lower Chest: No acute findings. Kidneys and Urinary Tract: No nephrolithiasis, ureteral, or bladder calculus. There is no hydronephrosis. Left superior pole simple appearing 4.1 cm renal cyst. No suspicious solid enhancing lesion is identified. Delete ureters and bladder demonstrate no suspicious filling defects. The bladder is partially opacified. Organs: Probable hepatic steatosis. Subtle nodularity of the hepatic capsule best appreciated within the right hepatic lobe. Spleen appears mildly prominent in size without focal lesion. The adrenal glands and pancreas are unremarkable. The gallbladder is surgically absent. GI/Bowel: No obstruction. Normal appendix. The colon demonstrates no acute findings. Pelvis: No adnexal mass. Peritoneum/Retroperit oneum: Vascular calcifications. No aneurysm. No free intraperitoneal fluid or air. No enlarged lymph nodes. Bones/Soft Tissues: Degenerative changes. Degenerative anterolisthesis L4 on L5 and retrolisthesis of L5 on S1 no acute osseous abnormality. Mild diastasis of ventral abdominal wall. IMPRESSION: No nephrolithiasis or suspicious renal/urothelial lesion. Subtle nodularity of the hepatic capsule suggesting underlying hepatocellular disease. Correlate with LFTs. I have personally reviewed the images of this examination and agree with the resident's findings and interpretations. Interpreted by: Radha Garcia MD Preliminary Report By: Mirela Irene Electronically signed By Radha Garcia MD Dictated Date: 09/20/2024 8:44:21 AM Prelim Date: 09/20/2024 9:25:32 AM Sign Date: 09/20/2024 9:25:32 AM Ordering Provider: RADHA ACUNA [facility] .GFRon 09-18-2024 Estimated Glomerular Filtration Rate 66 ml/min/1.73sqm [facility] Comment on above: Result Comment: Stages of Chronic Kidney Disease (CKD) Stage Description eGFR(ml/min/1.73 sq.m.) CKD 1 Normal kidney function or >=90 normal kindney function with possible kidney damage (ex. Proteinuria) CKD 2 Kidney damage with mild loss 60-89 of kidney function CKD 3a Mild to moderate loss of kidney 45-59 function CKD 3b Moderate to severe loss of 30-44 of kindey function CKD 4 Severe loss of kidney function 15-29 CKD 5 Kidney failure <15 Note: (go live 2024) the eGFR calculation was updated to the 2020 CKD-EPI creatinine equation without a race factor to calculate the eGFR results. Performed By: #### L IPID, ANEU, TSH, GFR, CBC, ADIFF, CMP #### [place] [address] [place], [place] [address] CNOVon 09-18-2024 CNOV Office Visit ([facility]ST[facility] ) KAUR SUTTON ([id number]) 1965 F Date Time Provider Department 09/18/24 9:15 AM CARLEE ARMENDARIZ During your visit today, we recorded the following information about you: Pulse Blood pressure Weight Height 69/minute 118/72 103.9 kg 1.753 m Carlee Armendariz PA-C 09/18/2024 9:40 AM Signed CHIEF COMPLAINT: Patient presents with: Procedure Follow Up: Fibroscan 04/26/24, US 06/26/24, Liver biopsy 05/22/24 HPI Kaur Sutton is a 59 year old female PMHx pos for DM here today for f/u fatty liver, elevated ferritin, GERD. Surg hx positive for hysterectomy, cholecystectomy. On Protonix 40 mg daily, Pepcid 40 mg twice daily for GERD with relief. Liver bx 05/2024 confirmed FUENTES cirrhosis. Patient has been on Ozempic for weight management and has successfully lost 20 pounds since the last visit. She reports that she is tolerating the medication well and denies any side effects. She also denies alcohol consumption, stating that she does not drink at all, not even socially. Patient reports that her bowel movements are influenced by her diet; consuming sugar leads to diarrhea, while a clean, wholesome diet does not cause any issues. She denies any abdominal pain. She is currently taking pantoprazole and Pepcid for reflux, which she reports are working well. She denies any trouble with swallowing. Patient has a history of a benign polyp on her vocal cords, which was removed surgically approximately 12 years ago. She reports that the procedure was very painful and that she did not follow up as recommended due to the discomfort. She denies any current issues with hoarseness or voice changes, although she notes that her voice occasionally goes crazy when she tries to sing. Patient has started the hepatitis A vaccination series and has received the first dose. She is awaiting the second dose. She has informed her primary care physician about her liver biopsy results and her follow-up with the gastroenterology clinic. Patient has a family history of esophageal cancer, with a brother who from the disease. Past Diagnostic Results: - Liver Biopsy: Confirmed FUENTES cirrhosis. - Hepatitis Serology: Immune to hepatitis B; no antibodies for hepatitis A. - Abdominal Ultrasound (June): Stable findings. Cologuard 11/2023 negative HFE 2021 normal Liver bx 05/2024 Component FINAL DIAGNOSIS A. Liver, biopsy: - Cirrhosis with moderate macrovesicular steatosis (see comment). VCTE 04/2024 These test results show: 1). Liver Stiffness Score of 36 kPa is consistent with: Liver Fibrosis Stage F4 cirrhosis 2). Liver Fat Estimation: Patient had median Controlled Attenuation Parameter of 329 decibels/m (dB/m) the CAP Score is consistent with Liver Steatosis Stage S 3- severe steatosis/advanced fatty infiltration over 67% of liver RUQ US 06/2024 IMPRESSION: Coarse and heterogeneous appearance of the liver. Fatty infiltration. No focal lesions seen Left renal cyst Otherwise normal sonographic appearance of the right upper quadrant. Normal sonographic appearance of the spleen Visualization is suboptimal due to overlying bowel gas and patient build OV 03/2024 Kaur Sutton is a 59 year old female with PMHx pos for DM who presents for Elevated Ferritin. Surg hx positive for hysterectomy, cholecystectomy. On Protonix 40 mg daily for GERD. Reports h/o EGD over [address] Garza at [facility] that showed HH. Takes NSAIDs PRN for headaches, sometimes needs to use regularly due to persistent migraines. Recently got approved for migraines. Has lost 30 lbs in the past year, on Ozempic. Denies EtOH, family hx of liver disease, abd pain, N/V, changes in bowel habits, iron supplementation. Current Outpatient Medications Medication Sig ROFECOXIB ORAL Take 1 tablet by mouth once daily. VIOXX vilazodone (VIIBRYD) 10 mg tablet Take 10 mg by mouth once daily. albuterol HFA (PROVENTIL HFA, VENTOLIN HFA) 90 mcg/actuation inhaler Inhale 2 Puffs as instructed every 6 hours as needed for wheezing/shortness of breath. Naproxen Sodium 550 mg tablet Take 1 tablet by mouth two times a day as needed (headache). FOR PAIN. TAKE WITH FOOD. SUMAtriptan (IMITREX) 100 mg tablet Take 1 tablet (100 mg) by mouth as needed for migraine headache (see administration instructions). START AT ONSET OF HEADACHE. MAY REPEAT DOSE AFTER 2 HOURS. OZEMPIC 0.25 mg or 0.5 mg (2 mg/3 mL) pen INJECT 0.5 mg under the skin once weekly. rotate injection sites Ascorbic Acid (VITAMIN C) 1,000 mg tablet Take 1,000 mg by mouth once daily. Cetirizine (ZYRTEC) 10 mg cap Take 1 capsule by mouth as needed (Seasonal). topiramate (TOPAMAX) 100 mg tablet Take 1 tablet by mouth daily at bedtime. topiramate (TOPAMAX) 25 mg tablet Take 1 tablet by mouth once daily. In addition to 100 mg tablet to equal 125 mg total per day (more content not included)... Normal [facility] 09-18-2024 Creatinine [Mass/Vol] 0.99 mg/dL High 0.51-0.95 [facility] Comment on above: Performed By: #### L IPID, ANEU, TSH, GFR, CBC, ADIFF, CMP #### [address] [place], [place] [address] LABORATORYOrdered By: SYSTEM SYSTEM on 09-18-2024 Creatinine [Mass/Vol] 0.99 mg/dL High 0.51 - 0.95 mg/dL AO ADM SS Estimated Glomerular Filtration Rate 66 ml/min/1.73sqm Invalid Interpretation Code AO Chemistry S Comment on above: Interpretive Data: Stages of Chronic Kidney Disease (CKD) Stage Description eGFR(ml/min/1.73 sq.m.) CKD 1 Normal kidney function or >=90 normal kindney function with possible kidney damage (ex. Proteinuria) CKD 2 Kidney damage with mild loss 60-89 of kidney function CKD 3a Mild to moderate loss of kidney 45-59 function CKD 3b Moderate to severe loss of 30-44 of kindey function CKD 4 Severe loss of kidney function 15-29 CKD 5 Kidney failure <15 Note: (go live 2024) the eGFR calculation was updated to the 2020 CKD-EPI creatinine equation without a race factor to calculate the eGFR results. Cathy 08-02-2024 [place] Telephone ([facility]AR[place]) KAUR SUTTON ([id number]) 1965 F Date Time Provider Department 08/02/24 CARLEE ARMENDARIZ During your visit today, we recorded the following information about you: Jeanette Hernandes 08/02/2024 2:56 PM Signed Labs are scanned into epic Allergies As of Date: 08/02/2024 Noted Allergy Reaction DURICEF (CEFADROXIL) 06/15/2011 2 - Rash LISINOPRIL 10/28/2020 3 - Cough LOTRONEX (ALOSETRON) 08/22/2019 2 - Rash METFORMIN 10/28/2020 5 - Intolerance 14 - Other: See Comments PENICILLINS 06/15/2011 2 - Rash ZOMIG (ZOLMITRIPTAN) 06/15/2011 5 - Intolerance Date Reviewed: 07/04/2024 Reviewed by: Teodora Garcia APRN.[employer] - Fully Assessed Reason for Visit: Results [95] Primary Visit Diagnosis:Elevated ferritin [R79.89] Prescriptions as of 08/04/2024 - ROFECOXIB ORAL Take 1 tablet by mouth once daily. VIOXX - vilazodone (VIIBRYD) 10 mg tablet Take 10 mg by mouth once daily. - albuterol HFA (PROVENTIL HFA, VENTOLIN HFA) 90 mcg/actuation inhaler Inhale 2 Puffs as instructed every 6 hours as needed for wheezing/shortness of breath. - Naproxen Sodium 550 mg tablet Take 1 tablet by mouth two times a day as needed (headache). FOR PAIN. TAKE WITH FOOD. - SUMAtriptan (IMITREX) 100 mg tablet Take 1 tablet (100 mg) by mouth as needed for migraine headache (see administration instructions). START AT ONSET OF HEADACHE. MAY REPEAT DOSE AFTER 2 HOURS. - OZEMPIC 0.25 mg or 0.5 mg (2 mg/3 mL) pen INJECT 0.5 mg under the skin once weekly. rotate injection sites - Ascorbic Acid (VITAMIN C) 1,000 mg tablet Take 1,000 mg by mouth once daily. - Cetirizine (ZYRTEC) 10 mg cap Take 1 capsule by mouth as needed (Seasonal). - topiramate (TOPAMAX) 100 mg tablet Take 1 tablet by mouth daily at bedtime. - topiramate (TOPAMAX) 25 mg tablet Take 1 tablet by mouth once daily. In addition to 100 mg tablet to equal 125 mg total per day - FLUoxetine (PROZAC) 20 mg capsule Take [...] instructed every 4 hours as needed. - [place]-3 Fatty Acids 500 mg cap Take 500 mg by mouth once daily. - Magnesium Oxide 500 mg Tab Take 1 tablet by mouth once daily. - famotidine (PEPCID) 40 mg tablet Take 40 mg by mouth twice daily. - Cholecalciferol, Vitamin D3, 50 mcg (2,000 unit) cap Take 1 capsule by mouth once daily. Problem List As Of Date 08/02/2024 Noted Resolved Migraine without aura [G43.009] 12/28/2011 06/08/2016 Migraine without aura and without status migrai*06/08/2016 Restless legs syndrome (RLS) [G25.81] 06/08/2016 Essential tremor [G25.0] 06/08/2016 Obesity, Class III, BMI >= 40 (morbid obesity) *09/14/2016 Obesity, Class II, BMI 35-39.9 [E66.812] 09/27/2017 Encounter Status:Closed by CARLEE ARMENDARIZ on 08/04/24 Normal [facility] .Auto Diffon 07-29-2024 Basophil, Absolute 0.0 10 3/mcL Normal 0.0-0.2 [facility] Comment on above: Performed By: #### L IPID, ANEU, TSH, GFR, CBC, ADIFF, CMP #### [place] [address] [place], [place] [address] Basophils/100 WBC (Bld) 0.3 % Normal 0.0-2.5 [facility] Comment on above: Performed By: #### L IPID, ANEU, TSH, GFR, CBC, ADIFF, CMP #### [place] [address] [place], [place] [address] Eosinophil, Absolute 0.0 10 3/mcL Normal 0.0-0.7 [facility] Comment on above: Performed By: #### L IPID, ANEU, TSH, GFR, CBC, ADIFF, CMP #### [address] [address] Eosinophils/100 WBC (Bld) 0.8 % Normal 0.0-7.[address] [facility] Comment on above: Performed By: #### L IPID, ANEU, TSH, GFR, CBC, ADIFF, CMP #### [address] [address] Lymphocyte, Absolute 1.5 10 3/mcL Normal 0.9-4.3 [facility] Comment on above: Performed By: #### L IPID, ANEU, TSH, GFR, CBC, ADIFF, CMP #### [address] [address] Lymphocytes/100 WBC (Bld) 27.5 % Normal 20.0-40.[address] [facility] Comment on above: Performed By: #### L IPID, ANEU, TSH, GFR, CBC, ADIFF, CMP #### [address] [address] Monocyte, Absolute 0.3 10 3/mcL Normal 0.1-1.4 [facility] Comment on above: Performed By: #### L IPID, ANEU, TSH, GFR, CBC, ADIFF, CMP #### [address] [address] Monocytes/100 WBC (Bld) 6.4 % Normal 2.0-13.0 [facility] Comment on above: Performed By: #### L IPID, ANEU, TSH, GFR, CBC, ADIFF, CMP #### [address] [address] Neutrophils/100 WBC (Bld) 65.0 % Normal 50.0-75.[address] [facility] Comment on above: Performed By: #### L IPID, ANEU, TSH, GFR, CBC, ADIFF, CMP #### [address] [address] .GFRon 07-29-2024 Estimated Glomerular Filtration Rate 61 ml/min/1.73sqm Normal [facility] Comment on above: Result Comment: Stages of Chronic Kidney Disease (CKD) Stage Description eGFR(ml/min/1.73 sq.m.) CKD 1 Normal kidney function or >=90 normal kindney function with possible kidney damage (ex. Proteinuria) CKD 2 Kidney damage with mild loss 60-89 of kidney function CKD 3a Mild to moderate loss of kidney 45-59 function CKD 3b Moderate to severe loss of 30-44 of kindey function CKD 4 Severe loss of kidney function 15-29 CKD 5 Kidney failure <15 Note: (go live 2024) the eGFR calculation was updated to the 2020 CKD-EPI creatinine equation without a race factor to calculate the eGFR results. Performed By: #### L IPID, ANEU, TSH, GFR, CBC, ADIFF, CMP #### [address] [address] .NEUABSon 07-29-2024 Neutrophil, Absolute 3.5 10 3/mcL Normal 2.3-8.1 [facility] Comment on above: Performed By: #### L IPID, ANEU, TSH, GFR, CBC, ADIFF, CMP #### [address] [address] .Urinalysis Microscopic (AO) on 07-29-2024 UA Bacteria Trace Abnormal [facility] Comment on above: Performed By: #### L IPID, ANEU, TSH, GFR, CBC, ADIFF, CMP #### [address] [address] UA RBC 0-5 Abnormal None Seen [facility] Comment on above: Performed By: #### L IPID, ANEU, TSH, GFR, CBC, ADIFF, CMP #### [address] [address] UA Squam Epithelial None Seen Normal None Seen [facility] Comment on above: Performed By: #### L IPID, ANEU, TSH, GFR, CBC, ADIFF, CMP #### [address] [address] UA WBC LOADED Abnormal None Seen [facility] Comment on above: Performed By: #### L IPID, ANEU, TSH, GFR, CBC, ADIFF, CMP #### [address] [address] A1Con 07-29-2024 Glucose [Mass/Vol] 140 mg/dL Normal [facility] Comment on above: Order Comment: [facility] Result Comment: Sara mated Average Glucose calculated by equation ((28.7xA1C)-46.7) Estimated average glucose (eAG) is a calculated value from Hemoglobin A1C and is traffic representative of the average blood glucose level in the last 2-3 month period. Normal range: less than 114 mg/dL Performed By: #### L IPID, ANEU, TSH, GFR, CBC, ADIFF, CMP #### [address] [address] HbA1c (Bld) [Mass fraction] 6.5 % High 4.3-6.[address] [facility] Comment on above: Order Comment: cc re sults to [facility] GI/liver specialty Performed By: #### L IPID, ANEU, TSH, GFR, CBC, ADIFF, CMP #### [address] [address] BMPon 07-29-2024 BUN/Creatinine Ratio 9 ratio Normal 7-27 [facility] Comment on above: Order Comment: cc re sults to [facility] GI/liver specialty Performed By: #### L IPID, ANEU, TSH, GFR, CBC, ADIFF, CMP #### [address] [address] Calcium [Mass/Vol] 9.2 mg/dL Normal 8.4-10.2 [facility] Comment on above: Order Comment: cc re sults to [facility] GI/liver specialty Performed By: #### L IPID, ANEU, TSH, GFR, CBC, ADIFF, CMP #### [address] [address] Chloride [Moles/Vol] 105 mmol/L Normal 98-107 [facility] Comment on above: Order Comment: [facility] Performed By: #### L IPID, ANEU, TSH, GFR, CBC, ADIFF, CMP #### [address] [address] CO2 [Moles/Vol] 26 mmol/L Normal 22-[address] [facility] Comment on above: Order Comment: cc re sults to Carlee [facility] Performed By: #### L IPID, ANEU, TSH, GFR, CBC, ADIFF, CMP #### [address] [address] Creatinine [Mass/Vol] 1.05 mg/dL High 0.55-1.[address] [facility] Comment on above: Order Comment: cc re sults to [facility] GI/liver specialty Result Comment: Test ing performed on Siemens Dimension EXL analyzer using a modified kinetic Evelina technique. Performed By: #### L IPID, ANEU, TSH, GFR, CBC, ADIFF, CMP #### [address] [address] Electrolyte Balance 9.0 mEq/L Normal 4.0-15.0 [facility] Comment on above: Order Comment: [facility] Performed By: #### L IPID, ANEU, TSH, GFR, CBC, ADIFF, CMP #### [address] [address] Glucose [Mass/Vol] 139 mg/dL High 70-105 [facility] Comment on above: Order Comment: cc re sults to [facility] GI/liver specialty Performed By: #### L IPID, ANEU, TSH, GFR, CBC, ADIFF, CMP #### [address] [address] Potassium [Moles/Vol] 3.6 mmol/L Normal 3.5-5.[address] [facility] Comment on above: Order Comment: cc re sults to Carlee Armendariz [facility] GI/liver specialty Performed By: #### L IPID, ANEU, TSH, GFR, CBC, ADIFF, CMP #### [address] [address] Sodium [Moles/Vol] 140 mmol/L Normal 136-145 [facility] Comment on above: Order Comment: cc re sults to Carlee Armendariz [facility] GI/liver specialty Performed By: #### L IPID, ANEU, TSH, GFR, CBC, ADIFF, CMP #### [address] [address] Urea nitrogen [Mass/Vol] 9 mg/dL Normal 7-[address] [facility] Comment on above: Order Comment: cc re sults to Carlee Armendariz [facility] GI/liver specialty Performed By: #### L IPID, ANEU, TSH, GFR, CBC, ADIFF, CMP #### [address] [address] CBCon 07-29-2024 Erythrocyte distribution width (RBC) [Ratio] 12.6 % Normal 11.5-15.[address] [facility] Comment on above: Order Comment: cc re sults to Carlee Armendariz [facility] GI/liver specialty Performed By: #### L IPID, ANEU, TSH, GFR, CBC, ADIFF, CMP #### [address] [address] Hematocrit (Bld) [Volume fraction] 38.2 % Normal 34.0-46.[address] [facility] Comment on above: Order Comment: cc re sults to Carlee Armendariz [facility] GI/liver specialty Performed By: #### L IPID, ANEU, TSH, GFR, CBC, ADIFF, CMP #### [address] [address] Hgb 13.1 G/dL Normal 12.0-16.[address] [facility] Comment on above: Order Comment: [facility] Performed By: #### L IPID, ANEU, TSH, GFR, CBC, ADIFF, CMP #### [place] [address] MCH (RBC) [Entitic mass] 32.6 pg Normal 27.0-33.[address] [facility] Comment on above: Order Comment: cc re sults to [facility] GI/liver specialty Performed By: #### L IPID, ANEU, TSH, GFR, CBC, ADIFF, CMP #### [place] [address] MCHC 34.3 G/dL Normal 32.0-36.[address] [facility] Comment on above: Order Comment: cc re sults to [facility] GI/liver specialty Performed By: #### L IPID, ANEU, TSH, GFR, CBC, ADIFF, CMP #### [place] [address] MCV (RBC) [Entitic vol] 94.9 fL Normal 80.0-99.0 [facility] Comment on above: Order Comment: cc re sults to [facility] GI/liver specialty Performed By: #### L IPID, ANEU, TSH, GFR, CBC, ADIFF, CMP #### [address] [address] Platelet 160 10 3/mcL Normal 150-[address] [facility] Comment on above: Order Comment: cc re sults to [facility] GI/liver specialty Performed By: #### L IPID, ANEU, TSH, GFR, CBC, ADIFF, CMP #### [place] [address] Platelet mean volume (Bld) [Entitic vol] 9.9 fL Normal 6.6-10.[address] [facility] Comment on above: Order Comment: cc re sults to [facility] GI/liver specialty Performed By: #### L IPID, ANEU, TSH, GFR, CBC, ADIFF, CMP #### [address] [address] RBC 4.03 10 6/mcL Low 4.10-5.[address] [facility] Comment on above: Order Comment: [facility] Performed By: #### L IPID, ANEU, TSH, GFR, CBC, ADIFF, CMP #### [address] [address] WBC 5.4 10 3/mcL Normal 4.5-10.[address] [facility] Comment on above: Order Comment: cc re sults to [facility] GI/liver specialty Performed By: #### L IPID, ANEU, TSH, GFR, CBC, ADIFF, CMP #### [address] [address] Abraham 07-29-2024 Ferritin [Mass/Vol] 618.0 ng/mL High 8.0-252.0 [facility] Comment on above: Order Comment: cc re sults to [facility] GI/liver specialty Performed By: #### L IPID, ANEU, TSH, GFR, CBC, ADIFF, CMP #### [address] [address] HFPon 07-29-2024 Bili Indirect 0.6 mg/dL Normal [facility] Comment on above: Order Comment: cc re sults to [facility] GI/liver specialty Performed By: #### L IPID, ANEU, TSH, GFR, CBC, ADIFF, CMP #### [address] [address] Albumin Level 3.6 G/dL Normal 3.5-5.[address] [facility] Comment on above: Order Comment: cc re sults to [facility] GI/liver specialty Performed By: #### L IPID, ANEU, TSH, GFR, CBC, ADIFF, CMP #### [address] [address] Albumin/Globulin [Mass ratio] 0.9 {ratio} Low 1.1-2.[address] [facility] Comment on above: Order Comment: [facility] Performed By: #### L IPID, ANEU, TSH, GFR, CBC, ADIFF, CMP #### [place] [address] ALP [Catalytic activity/Vol] 81 U/L Normal 40-[address] [facility] Comment on above: Order Comment: cc re sults to [facility] GI/liver specialty Performed By: #### L IPID, ANEU, TSH, GFR, CBC, ADIFF, CMP #### [place] [address] ALT [Catalytic activity/Vol] 39 U/L Normal 14-[address] [facility] Comment on above: Order Comment: cc re sults to [facility] GI/liver specialty Performed By: #### L IPID, ANEU, TSH, GFR, CBC, ADIFF, CMP #### [place] [address] AST [Catalytic activity/Vol] 52 U/L High 10-[address] [facility] Comment on above: Order Comment: cc re sults to [facility] GI/liver specialty Performed By: #### L IPID, ANEU, TSH, GFR, CBC, ADIFF, CMP #### [place] [address] Bili Direct 0.2 mg/dL Normal 0.0-0.[address] [facility] Comment on above: Order Comment: [facility] Result Comment: Use of this assay is not recommended for patients undergoing treatment with eltrombopag due to the potential for falsely elevated results. Performed By: #### L IPID, ANEU, TSH, GFR, CBC, ADIFF, CMP #### [place] [address] Bili Total 0.8 mg/dL Normal 0.2-1.[address] [facility] Comment on above: Order Comment: cc re sults to [facility] GI/liver specialty Result Comment: Use of this assay is not recommended for patients undergoing treatment with eltrombopag due to the potential for falsely elevated results. Performed By: #### L IPID, ANEU, TSH, GFR, CBC, ADIFF, CMP #### [place] [id number] [place], [place] [address] Globulin 4.0 G/dL High 1.5-3.[address] [facility] Comment on above: Order Comment: cc re sults to [facility] GI/liver specialty Performed By: #### L IPID, ANEU, TSH, GFR, CBC, ADIFF, CMP #### [address] [address] Total Protein 7.6 G/dL Normal 6.4-8.[address] [facility] Comment on above: Order Comment: cc re sults to [facility] GI/liver specialty Performed By: #### L IPID, ANEU, TSH, GFR, CBC, ADIFF, CMP #### [address] [address] PROon 07-29-2024 PT Coag (PPP) [Time] 13.4 s Normal 9.0-14.4 [facility] Comment on above: Order Comment: cc re sults to [facility] GI/liver specialty Performed By: #### L IPID, ANEU, TSH, GFR, CBC, ADIFF, CMP #### [address] [address] PT International Ratio 1.2 Normal [facility] Comment on above: Order Comment: cc re sults to [facility] GI/liver specialty Result Comment: The [employer] (CHEST, 1992, 102:[id number]) recommended therapeutic range for oral anticoagulant therapy is: LOW RISK: Prophylaxis of venous thrombosis INR: 2.0-3.0 Treatment of pulmonary embolism 2.0-3.0 Prevention of systemic embolism 2.0-3.0 HIGH RISK: Mechanical prosthetic valves 2.5-3.5 Performed By: #### L IPID, ANEU, TSH, GFR, CBC, ADIFF, CMP #### [address] [address] UAon 07-29-2024 Color (U) Yellow Normal [facility] Comment on above: Order Comment: run c ulture Performed By: #### U AMICAO, UA #### [place] [address] Glucose (U) [Mass/Vol] Negative Normal Negative [facility] Comment on above: Order Comment: run c ulture Performed By: #### U AMICAO, UA #### [place] [address] Ketones Ql (U) Negative Normal Negative [facility] Comment on above: Order Comment: run c ulture Performed By: #### U AMICAO, UA #### [place] [address] UA Appear Slightly Cloudy Abnormal Clear [facility] Comment on above: Order Comment: run c ulture Performed By: #### U AMICAO, UA #### [address] [address] UA Blood Trace Abnormal Negative [facility] Comment on above: Order Comment: run c ulture Performed By: #### U AMICAO, UA #### [address] [address] UA Leuk Est Moderate Abnormal Negative [facility] Comment on above: Order Comment: run c ulture Performed By: #### U AMICAO, UA #### [address] [address] UA Nitrite Negative Normal Negative [facility] Comment on above: Order Comment: run c ulture Performed By: #### U AMICAO, UA #### [place] [address] UA pH 6.5 Normal 5.0 - 8.[address] [facility] Comment on above: Order Comment: run c ulture Performed By: #### U AMICAO, UA #### [address] [address] UA Protein Negative Normal Negative [facility] Comment on above: Order Comment: run c ulture Performed By: #### U AMICAO, UA #### [place] [address] UA Spec Grav 1.010 Abnormal 1.015-1.[address] [facility] Comment on above: Order Comment: run c ulture Performed By: #### U AMICAClari UA #### [place] [address] UA Specimen Type Clean Catch Normal [facility] Comment on above: Order Comment: run c ulture Performed By: #### U AMICAO UA #### [place] [address] UA Urobilinogen 0.2 E.U./dL Normal 0.2-1.[address] [facility] Comment on above: Order Comment: run c ulture Performed By: #### U AMICAO, UA #### [place] [address] Urobilinogen (U) [Mass/Vol] Negative Normal Negative [facility] Comment on above: Order Comment: run c ulture Performed By: #### U AMICAO, UA #### [place] [address] Urine Cultureon 07-20-2024 [facility] Copy of report sent to Infection Control Printer [id number] 07/20/24 Karen HDEZ. Urine Culture RESULTS CALLED TO JANETH Davenport 07/20/24 Barbi Gruber. REPORT READ BACK . ESBL Escherichia coli Sabine Count 80,000-100,000 MARKER ESBL producing OrganismA MARKER ESBL producing OrganismA Amikacin Islt SARAHI 2 S Ampicillin Islt SARAHI >=32 Ampicillin+Sulbac Islt SARAHI 4 S Cefepime Islt SARAHI 2 S Eravacycline Islt SARAHI <=0.12 S cefTRIAXone Islt SARAHI >=64 R Ciprofloxacin Islt SARAHI >=4 R B-Lactamase Extended Susc Islt POS Gentamicin Islt SARAHI <=1 S Imipenem Islt SARAHI <=0.25 S levoFLOXacin Islt SARAHI >=8 R Meropenem Islt SARAHI <=0.25 S Nitrofurantoin Islt SARAHI <=16 S Pip+Tazo Islt SARAHI <=4 S Tobramycin Islt SARAHI <=1 S TMP SMX Islt SARAHI >=320 R Normal [facility] Comment on above: Performed By: #### M 100.2200 ####[facility] [id number] [place], [place], [id number] Absolute neutrophil countOrd ered By: Ricky Sheridan on 07-17-2024 Neutrophils (Bld) [#/Vol] 5.9 10*3/uL 2.0-7.7 [facility] Anion gap in Serum or Plasma Ordered By: iRcky Sheridan on 07-17-2024 Anion gap [Moles/Vol] 14 mmol/L 5- [facility] BUN/creatinine ratioOrdered By: Ricky Sheridan on 07-17-2024 Urea nitrogen/Creatinine [Mass ratio] 14.4 mg/mg - [facility] Basophil percentageOrdered B y: Ricky Sheridan on 07-17-2024 Basophils/100 WBC (Bld) 0.1 % 0-1 [facility] Bilirubin Test strip Ql (U)O rdered By: Ricky Sheridan on 07-17-2024 Bilirubin Ql (U) 1 mg/dL High Negative [facility] Comment on above: COLOR OF URINE MAY A FFECT DIPSTICK RESULTS. Bilirubin, totalOrdered By: Ricky Sheridan on 07-17-2024 Bilirubin [Mass/Vol] 1.00 mg/dL 0.00-1.30 [facility] CBC W/Diff, Automatedon 07-08 Absolute Lymph 0.87 X10 3/uL Normal 0.83-4.51 [facility] Comment on above: Performed By: #### L 100.0100, L500.4050 #### [facility] [address] [place], [address] Absolute Neut 5.9 X10 3/uL Normal 2.0-7.7 [facility] Comment on above: Performed By: #### L 100.0100, L500.4050 #### [facility] [address] [place], [address] Basophils/100 WBC (Bld) 0.1 % Normal 0-1 [facility] Comment on above: Performed By: #### L 100.0100, L500.4050 #### [facility] [address] [place], [address] Eosinophils/100 WBC (Bld) 0.0 % Normal 0-5 [facility] Comment on above: Performed By: #### L 100.0100, L500.4050 #### [facility] [address] [place], [address] Erythrocyte distribution width (RBC) [Ratio] 11.9 % Normal 11.6-14.6 [facility] Comment on above: Performed By: #### L 100.0100, L500.4050 #### [facility] [address] [place], [address] Hematocrit (Bld) [Volume fraction] 42.0 % Normal 37-47 [facility] Comment on above: Performed By: #### L 100.0100, L500.4050 #### [facility] [address] [place], [address] Hemoglobin (Bld) [Mass/Vol] 14.4 g/dL Normal 12.0-15.0 [facility] Comment on above: Performed By: #### L 100.0100, L500.4050 #### [facility] [address] [place], [address] IG% 0.300 Normal 0.0-0.9 [facility] Comment on above: Result Comment: IG% - Immature Granulocytes (promyelocytes, myelocytes and metamyelocytes) > 1% indicates that a LEFT SHIFT is Present. Performed By: #### L 100.0100, L500.4050 #### [facility] [address] [place], [address] Lymphocytes/100 WBC (Bld) 12.0 % Low 19-41 [facility] Comment on above: Performed By: #### L 100.0100, L500.4050 #### [facility] [address] [place], [address] MCH (RBC) [Entitic mass] 32.1 pg High 27.0-32.0 [facility] Comment on above: Performed By: #### L 100.0100, L500.4050 #### [facility] [address] [place], [address] MCHC (RBC) [Mass/Vol] 34.3 g/dL Normal 32-36 [facility] Comment on above: Performed By: #### L 100.0100, L500.4050 #### [facility] [address] [place], [address] MCV (RBC) [Entitic vol] 93.8 fL Normal 81-99 [facility] Comment on above: Performed By: #### L 100.0100, L500.4050 #### [facility] [address] [place], [address] Monocytes/100 WBC (Bld) 6.2 % Normal 0-10 [facility] Comment on above: Performed By: #### L 100.0100, L500.4050 #### [facility] [address] [place], [address] Neutrophils/100 WBC (Bld) 81.4 % High 47-70 [facility] Comment on above: Performed By: #### L 100.0100, L500.4050 #### [facility] [address] [place], [address] Nucleated RBC (Bld) [#/Vol] 0 10*3/uL Normal 0-5 [facility] Comment on above: Performed By: #### L 100.0100, L500.4050 #### [facility] [address] [place], [address] Platelet mean volume (Bld) [Entitic vol] 12.8 fL High 6.2-12.0 [facility] Comment on above: Performed By: #### L 100.0100, L500.4050 #### [facility] [address] [place], [address] Platelets (Bld) [#/Vol] 116 10*3/uL Low 150-450 [facility] Comment on above: Performed By: #### L 100.0100, L500.4050 #### [facility] [address] [place], [address] RBC (Bld) [#/Vol] 4.48 10*6/uL Normal 4.2-5.4 [facility] Comment on above: Performed By: #### L 100.0100, L500.4050 #### [facility] [address] [place], [address] RDW SD 41.1 fl Normal 35.1-43.9 [facility] Comment on above: Performed By: #### L 100.0100, L500.4050 #### [facility] [address] [place], [address] WBC (Bld) [#/Vol] 7.2 10*3/uL Normal 4.4-11.0 [facility] Comment on above: Performed By: #### L 100.0100, L500.4050 #### [facility] [address] [place], [address] Carbon dioxide, total [Moles /volume] in Central venous bloodOrdered By: Ricky Sheridan on 07-17-2024 CO2 [Moles/Vol] 19.4 mmol/L Low 21.0-32.0 [facility] Chloride assayOrdered By: Giuliano Sheridan on 07-17-2024 Chloride [Moles/Vol] 101 mmol/L 98-108 [facility] Comprehensive Metabolic Prof ilon 07-17-2024 Albumin [Mass/Vol] 3.9 g/dL Normal 3.5-5.0 [facility] Comment on above: Performed By: #### L 100.0100, L500.4050 #### [facility] [address] [place], [address] Albumin/Globulin [Mass ratio] 1.0 {ratio} Normal 0.9-2.4 [facility] Comment on above: Performed By: #### L 100.0100, L500.4050 #### [facility] [address] [place], [address] ALK PHOS 72 U/L Normal 35-104 [facility] Comment on above: Performed By: #### L 100.0100, L500.4050 #### [facility] [address] [place], [address] ALT [Catalytic activity/Vol] 23 U/L Normal <=34 [facility] Comment on above: Performed By: #### L 100.0100, L500.4050 #### [facility] [address] [place], [address] AST [Catalytic activity/Vol] 30 U/L Normal <=31 [facility] Comment on above: Performed By: #### L 100.0100, L500.4050 #### [facility] [address] [place], [address] Bilirubin [Mass/Vol] 1.00 mg/dL Normal 0.00-1.30 [facility] Comment on above: Performed By: #### L 100.0100, L500.4050 #### [facility] [address] [place], [address] BUN/CRE 14.4 RATIO Normal 10-20 [facility] Comment on above: Performed By: #### L 100.0100, L500.4050 #### [facility] [address] [place], [address] Calcium [Mass/Vol] 9.1 mg/dL Normal 7.6-11.0 [facility] Comment on above: Performed By: #### L 100.0100, L500.4050 #### [facility] [address] [place], [address] Chloride [Moles/Vol] 101 mmol/L Normal 98-108 [facility] Comment on above: Performed By: #### L 100.0100, L500.4050 #### [facility] [address] [place], [address] CO2 [Moles/Vol] 19.4 mmol/L Low 21.0-32.0 [facility] Comment on above: Performed By: #### L 100.0100, L500.4050 #### [facility] [address] [place], [address] Creatinine [Mass/Vol] 1.17 mg/dL Normal 0.70-1.20 [facility] Comment on above: Performed By: #### L 100.0100, L500.4050 #### [facility] [address] [place], [address] ECRCL 66.51 ml/min Normal 50-250 [facility] Comment on above: Performed By: #### L 100.0100, L500.4050 #### [facility] [address] [place], [address] GAP 14 Normal 5-15 [facility] Comment on above: Performed By: #### L 100.0100, L500.4050 #### [facility] [address] [place], [address] GFR/1.73 sq M.predicted among non-blacks MDRD (S/P/Bld) [Vol rate/Area] 54 mL/min/{1.73_m2} Low >60 [facility] Comment on above: Result Comment: mL/m in/1.73m2 CKD-EPI Creatinine Equation (2020) Performed By: #### L 100.0100, L500.4050 #### [facility] [address] [place], [address] Globulin (S) [Mass/Vol] 3.8 g/dL Normal 2.2-4.2 [facility] Comment on above: Performed By: #### L 100.0100, L500.4050 #### [facility] [address] [place], [address] Glucose [Mass/Vol] 164 mg/dL High 70-99 [facility] Comment on above: Performed By: #### L 100.0100, L500.4050 #### [facility] [address] [place], [address] Potassium [Moles/Vol] 3.8 mmol/L Normal 3.3-5.1 [facility] Comment on above: Performed By: #### L 100.0100, L500.4050 #### [facility] [address] [place], [address] Sodium [Moles/Vol] 134 mmol/L Normal 133-145 [facility] Comment on above: Performed By: #### L 100.0100, L500.4050 #### [facility] [address] [place], [address] T PROT 7.7 g/dL Normal 5.9-8.4 [facility] Comment on above: Performed By: #### L 100.0100, L500.4050 #### [facility] [address] [place], [address] Urea nitrogen [Mass/Vol] 17 mg/dL Normal 4-19 [facility] Comment on above: Performed By: #### L 100.0100, L500.4050 #### [facility] [address] [place], [address] Emergency Department Summary on 07-17-2024 Emergency Department Summary [facility] Medical Records Department [address] [place] [address] Emergency Department Summary 07/17/24 MR#: [id number] Acct: [id number] Name: KAUR SUTTON Rep #: [id number] : 1965 59 From: Ricky Mcgovern PCP: Dr. Radha Acuna DO Status:DEP ER Location: ED HPI History of Present Illness Chief Complaint: Complaint Narrative Narrative: Presents increasing fatigue over the last few days. States been sleeping all day. Over a week ago started having urine urgency low back pain. Denies fever or chills. Denies vomiting diarrhea. Decreased p.o. intake with decreased appetite. Decreased urine output. States that some loose stools. She does have history of nonalcoholic cirrhosis is not on lactulose or rifaximin. Denies cough. Denies chest or abdominal pain. 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 [facility] Medical History Hx of migraines History of frequent urinary tract infections Hypodermic needlestick injury of finger of left hand De Quervain's tenosynovitis, right Home Medications ???Medication ???Instructions ???Recorded ???Last Taken ???Type famotidine 40 mg tablet 40 mg PO QHS gerd 05/16/13 0 History multivitamin,tx-iron- minerals 27 1 tab PO DAILY supplement 05/16/13 11/24/19 History mg-0.4 mg tablet omega-3 fatty acids-fish oil 300 1 cap PO DAILY supplement 05/16/13 11/24/19 History mg-1,000 mg capsule pantoprazole 40 mg tablet,delayed 40 mg PO DAILY gerd 04/22/1811/07 History release topiramate 100 mg tablet 100 mg PO QHS taveras 04/22/18 11/23/19 History lisinopril 2.5 mg tablet 2.5 mg PO DAILY bp 11/23/19 History metformin 500 mg tablet,extended 500 mg PO BID dm 11/23/19 11/24/19 History release 24 hr sumatriptan 85 mg-naproxen 500 mg 1 ea PO DAILY PRN PRN Migraine 11/24/19 History tablet Symptoms vilazodone 20 mg tablet 20 mg PO DAILY depression 11/23/19 11/24/19 History cholecalciferol (vitamin D3) 50 2,000 unit PO DAILY supplement 11/24/19 History mcg (2,000 unit) capsule magnesium oxide 400 mg (241.3 mg 400 mg PO QHS supplement 11/24/19 11/23/19 History magnesium) tablet azithromycin 250 mg tablet See Rx Instructions PO .COMPLEX #6 05/25/22 Unknown Rx tabs diazepam 5 mg tablet (Valium) 5 mg PO QHS 05/25/22 Unknown Histo ry fluoxetine 20 mg capsule 20 mg PO DAILY 05/25/22 Unknown Hi story ondansetron 4 mg disintegrating 4 mg PO Q8H PRN PRN Nausea #5 tabs 06/04/24 Unknown Rx tablet levofloxacin 750 mg tablet 750 mg PO DAILY #6 tabs 07/17/24 U nknown Rx Allergy/AdvReac Type Severity Reaction Status Date / Time cefadroxil hydrate (From Allergy Unknown Verified 07/17/24 14:50 Duricef) Penicillins (PCN) Allergy Hives Verified 07/17/24 14:50 zolmitriptan (From Zomig) AdvReac Nausea Verified 07/17/24 14:50 Social History Smoking Status: Current every day smoker tobacco type: cigarettes ROS ROS ED Constitutional Constitutional ED: Reports other Details: Fatigue ; Denies chills, fever(s) or sweats ENT ENT ED: Denies sore throat Cardiovascular Cardiovascular: Denies chest pain, leg edema, palpitations or racing heartbeat Respiratory/Chest Respiratory/Chest: Denies cough, dyspnea or dyspnea on exertion Gastrointestinal Gastrointestinal: Denies abdominal pain, diarrhea, nausea or vomiting Genitourinary Genitourinary ED: Reports other Details: Urine urgency and decreased urine output ; Denies dysuria, hematuria or urinary frequency Musculoskeletal Musculoskeletal: Denies back pain, extremity pain or neck pain Integumentary Denies rash or wounds Neurologic Neurologic: Reports headache(s); Denies paresthesias or weakness EXAM Physical Exam Const Vital Signs: 07/17/24 14:51 07/17/24 16:02 07/17/24 17:00 Temperature 99.3 F H Temperature Source Oral Pulse Rate 86 80 Respiratory Rate 18 19 H Respiratory Effort Normal Respiratory Pattern Normal Blood Pressure 101/73 106/67 Blood Pressure Mean 82 80 Pulse Ox 96 97 Oxygen Delivery Method Room Air Room Air 07/17/24 18:45 Temperature 98.9 F Temperature Source Pulse Rate 85 Respiratory Rate 19 H Respiratory Effort Respiratory Pattern Blood Pressure 115/74 Blood Pressure Mean 87 Pulse Ox 97 Oxygen Delivery Method Positive well nourished and well developed General Appearance ED: well developed and NAD HEENT Reports dry mucous membranes normocephalic and atraumatic Mouth ED: Yes dry mucous membranes Mouth: dry mucous membranes Eyes General Eye ED: Yes normal appearance of both eyes Neck full ROM Neck Narrative: No meningismus Mari (more content not included)... Normal [facility] Eosinophil percentageOrdered By: Ricky Sheridan on 07-17-2024 Eosinophils/100 WBC (Bld) 0.0 % 0-5 [facility] Epithelial cells.squamous LM Ql (Urine sed)Ordered By: Ricky Sheridan on 07-17-2024 Epithelial cells.squamous LM.HPF (Urine sed) [#/Area] 0 /[HPF] 5-10 [facility] Erythrocyte distribution wid th ratioOrdered By: Ricky Sheridan on 07-17-2024 Erythrocyte distribution width (RBC) [Ratio] 11.9 % 11.6-14.6 [facility] Erythrocyte distribution wid th standard deviationOrdered By: Ricky Sheridan on 07-17-2024 Erythrocyte distribution width (RBC) [Entitic vol] 41.1 fL 35.1-43.9 [facility] Estimation of creatinine vi aranceOrdered By: Ricky Sheridan on 07-17-2024 Estimated Creatinine Clearance Calc 66.51 ml/min 50-250 [facility] GFR/1.73 sq M.predicted sridhar g non-blacks MDRD (S/P/Bld) [Vol rate/Area]Ordered By: Ricky Sheridan on 07-17-2024 Estimated GFR (MDRD) Non-Af Amer 54 Low >60 [facility] Comment on above: mL/min/1.73m2 CKD-EP I Creatinine Equation (2020) Glucose Ql (U)Ordered By: Giuliano Sheridan on 07-17-2024 Urine Glucose (UA) Normal mg/dl Normal [facility] Hematocrit Auto (Bld) [Volum e fraction]Ordered By: Ricky Sheridan on 07-17-2024 Hematocrit (Bld) [Volume fraction] 42.0 % 37-47 [facility] Hemoglobin measurementOrdere d By: Ricky Sheridan on 07-17-2024 Hemoglobin (Bld) [Mass/Vol] 14.4 g/dL 12.0-15.0 [facility] Immature granulocytes/100 WB C Auto (Bld)Ordered By: Ricky hSeridan on 07-17-2024 Immature granulocytes/100 WBC (Bld) 0.300 % 0.0-0.9 [facility] Comment on above: IG% - Immature Granu locytes (promyelocytes, myelocytes and metamyelocytes) > 1% indicates that a LEFT SHIFT is Present. Influenza virus A and B and SARS-CoV-2 (COVID-19) and Respiratory syncytial virus RNAOrdered By: Ricky Sheridan on 07-17-2024 SARS-CoV-2 (COVID-19) RNA MANUEL+probe Ql (Unsp spec) [facility] Ketones Test strip Ql (U)Ord ered By: Ricky Sheridan on 07-17-2024 Ketones Ql (U) Negative Negative [facility] Laboratory - Chemistry and C hemistry - challengeOrdered By: Ricky Sheridan on 07-17-2024 AST [Catalytic activity/Vol] 30 U/L <32 [facility] Lymphocytes Auto (Unsp spec) [#/Vol]Ordered By: Ricky Sheridan on 07-17-2024 Lymphocytes (Bld) [#/Vol] 0.87 10*3/uL 0.83-4.51 [facility] Lymphocytes/100 WBC Auto (Un sp spec)Ordered By: Ricky Sheridan on 07-17-2024 Lymphocytes/100 WBC (Bld) 12.0 % Low 19-41 [facility] M100.678on 07-17-2024 M100.678 Pending SARS-CoV-2 (COVID 19) Negative INFLUENZA A Negative INFLUENZA B Negative RSV PCR Negative Normal [facility] Comment on above: Performed By: #### M 100.678 ####[facility] [id number] [place], [address] MCV (mean corpuscular volume ) determinationOrdered By: Ricky Sheridan on 07-17-2024 MCV (RBC) [Entitic vol] 93.8 fL 81-99 [facility] Mean corpuscular hemoglobin (MCH) determinationOrdered By: Ricky Sheridan on 07-17-2024 MCH (RBC) [Entitic mass] 32.1 pg High 27.0-32.0 [facility] Mean corpuscular hemoglobin concentration (MCHC) determinationOrdered By: Ricky Sheridan on 07-17-2024 MCHC (RBC) [Mass/Vol] 34.3 g/dL 32-36 [facility] Mean platelet volume determi nationOrdered By: Ricky Sheridan on 07-17-2024 Platelet mean volume (Bld) [Entitic vol] 12.8 fL High 6.2-12.0 [facility] Microscopic analysis of urin e for red blood cells (RBC)Ordered By: Ricky Sheridan on 07-17-2024 Urine RBC 5-10 SEEN /hpf 0-5 [facility] Monocyte percentageOrdered B y: Ricky Sheridan on 07-17-2024 Monocytes/100 WBC (Bld) 6.2 % 0-10 [facility] Mucus LM Ql (Urine sed)Order ed By: Ricky Sheridan on 07-17-2024 Mucus Ql (Urine sed) 0 SEEN /hpf [facility] Neutrophil percentageOrdered By: Ricky Sheridan on 07-17-2024 Neutrophils/100 WBC (Bld) 81.4 % High 47-70 [facility] Nitrite Test strip Ql (U)Ord ered By: Ricky Sheridan on 07-17-2024 Nitrite Ql (U) Positive High Negative [facility] Nucleated red blood cell per centageOrdered By: Ricky Sheridan on 07-17-2024 Nucleated RBC/100 WBC (Bld) [Ratio] 0 % 0-5 [facility] Platelet countOrdered By: Giuliano patel Fatimah on 07-17-2024 Platelets (Bld) [#/Vol] 116 10*3/uL Low 150-450 [facility] Potassium (Unsp spec) [Mass/ Vol]Ordered By: Ricky Sheridan on 07-17-2024 Potassium [Moles/Vol] 3.8 mmol/L 3.3-5.1 [facility] ,Urineon 07-17-2024 Beta HCG ( test) Ql (U) Negative Normal [facility] Comment on above: Result Comment: Very dilute urine specimens, as indicated by a low specific gravity, may not contain traffic representative levels of hCG. If is still suspected, a first morning urine specimen should be collected 48 hours later and tested. Performed By: #### L 400.7600, L400.0001 #### [facility] [address] [place] [address], [id number] Protein Test strip Ql (U)Ord ered By: Ricky Sheridan on 07-17-2024 Protein Ql (U) 100 mg/dl High Negative [facility] RBC Auto (Bld) [#/Vol]Ordere d By: Ricky Sheridan on 07-17-2024 RBC (Bld) [#/Vol] 4.48 10*6/uL 4.2-5.4 [facility] Serum creatinine measurement (mass/volume)Ordered By: Ricky Sheridan on 07-17-2024 Creatinine [Mass/Vol] 1.17 mg/dL 0.70-1.20 [facility] Serum globulin measurementOr dered By: Ricky Sheridan on 07-17-2024 Globulin (S) [Mass/Vol] 3.8 g/dL 2.2-4.2 [facility] Serum glucose measurement (m ass/volume)Ordered By: Ricky Sheridan on 07-17-2024 Glucose [Mass/Vol] 164 mg/dL High 70-99 [facility] Serum or plasma alanine dubon otransferase (ALT) measurementOrdered By: Ricky Sheridan on 07-17-2024 ALT [Catalytic activity/Vol] 23 U/L <35 [facility] Serum or plasma albumin sirisha urement (mass/volume)Ordered By: Ricky Sheridan on 07-17-2024 Albumin [Mass/Vol] 3.9 g/dL 3.5-5.0 [facility] Serum or plasma albumin/glob ulin mass ratioOrdered By: Ricky Sheridan on 07-17-2024 Albumin/Globulin [Mass ratio] 1.0 {ratio} 0.9-2.4 [facility] Serum or plasma alkaline yaritza sphatase measurementOrdered By: Ricky Sheridan on 07-17-2024 ALP [Catalytic activity/Vol] 72 U/L 35-104 [facility] Serum or plasma calcium sirisha urement (mass/volume)Ordered By: Ricky Sheridan on 07-17-2024 Calcium [Mass/Vol] 9.1 mg/dL 7.6-11.0 [facility] Serum or plasma urea nitroge n measurement (mass/volume)Ordered By: Ricky Sheridan on 07-17-2024 Urea nitrogen [Mass/Vol] 17 mg/dL 4-19 [facility] Sodium levelOrdered By: Ricky Sheridan on 07-17-2024 Sodium [Moles/Vol] 134 mmol/L 133-145 [facility] Total proteinOrdered By: Tano Sheridan on 07-17-2024 Protein [Mass/Vol] 7.7 g/dL 5.9-8.4 [facility] Urinalysis, Completeon 07-17 BACTERIA 2+ /hpf Normal None Seen [facility] Comment on above: Order Comment: CLEAN CATCH Performed By: #### L 400.7600, L400.0001 #### [facility] [address] [place], [address] EPI,SQUAMOUS 0-5 SEEN Normal 5-10 [facility] Comment on above: Order Comment: CLEAN CATCH Performed By: #### L 400.7600, [id number] #### [facility] [address] [place], [address] RBC 5-10 SEEN Normal 0-5 [facility] Comment on above: Order Comment: CLEAN CATCH Performed By: #### L 400.7600, [id number] #### [facility] [address] [place], [address] WBC >100 SEEN Normal 0-5 [facility] Comment on above: Order Comment: CLEAN CATCH Performed By: #### L 400.7600, [id number] #### [facility] [address] [place], [address] Mucus Ql (Urine sed) 0 SEEN Normal [facility] Comment on above: Order Comment: CLEAN CATCH Performed By: #### L 400.7600, [id number] #### [facility] [address] [place], [address] Urine blood detectionOrdered By: Ricky Sheridan on 07-17-2024 Urine Occult Blood 25 /ul High Negative [facility] Urine clarityOrdered By: Tano Sheridan on 07-17-2024 Clarity (U) Cloudy Clear [facility] Urine color determinationOrd ered By: Ricky Sheridan on 07-17-2024 Color (U) Yellow Yellow [facility] Urine leukocyte esterase det ection by dipstickOrdered By: Ricky Sheridan on 07-17-2024 Leukocyte esterase Test strip Ql (U) 500 /ul High Negative [facility] Urine pHOrdered By: Ricky Sheridan on 07-17-2024 pH (U) 6.0 [pH] 5.0 - 8.0 [facility] Urine testOrdered By: Ricky Sheridan on 07-17-2024 HCG ( test) Ql (U) Negative [facility] Comment on above: Very dilute urine sp ecimens, as indicated by a low specificgravity, may not contain traffic representative levels of hCG. If is still suspected, a first morning urinespecimen should be collected 48 hours later and tested. Urine sediment bacteria coun t by microscopy (number/high power field)Ordered By: Ricky Sheridan on 07-17-2024 Bacteria LM.HPF (Urine sed) [#/Area] 2 /[HPF] None Seen [facility] Urine specific gravity measu rementOrdered By: Ricky Sheridan on 07-17-2024 Specific gravity (U) [Rel density] 1.010 1.002-1.030 [facility] Urobilinogen Ql (U)Ordered B y: Ricky Sheridan on 07-17-2024 Urobilinogen (U) [Mass/Vol] 1 mg/dL High Normal [facility] White blood cell (WBC) count Ordered By: Ricky Sheridan on 07-17-2024 WBC (Bld) [#/Vol] 7.2 10*3/uL 4.4-11.0 [facility] White blood cell countOrdere d By: Ricky Sheridan on 07-17-2024 Urine WBC >100 SEEN /hpf 0-5 [facility] CNOVon 07-04-2024 CNOV Office Visit (NRHAME ) KAUR SUTTON ([id number]) 1965 F Date Time Provider Department 07/04/24 3:30 PM TEODORA GARCIA During your visit today, we recorded the following information about you: Pulse Blood pressure Weight 68/minute 108/74 109.1 kg Teodora Garcia APRN.[employer] 07/04/2024 3:51 PM Signed [facility] Follow-up Visit Impression: Chronic migraine without aura, intractable, without status migrainosus (primary encounter diagnosis) Follow-Up Onabotulinum Toxin A (BotoxTM) for Migraine Indication: Chronic Intractable Migraine Treatment #: 2 Referral Expiration: 05/09/2025 Prior to the initiation of the FIRST treatment with Onabotulinum Toxin A, the patient reported the following average headache frequency over the past 3 MONTHS: Number of moderate-severe migraine days/month: 30 (daily) Number of mild migraine days/month: 0 Number of headache free days/month: 0 (0 headache-free hours) Migraine severity: 5/10 After treatment with Onabotulinum Toxin A: Number of moderate-severe migraine days/month: 0 Number of mild migraine days/month: 5 Number of headache free days/month: 25 (600 headache-free hours) Patient reduction in overall migraine days: Yes Patient reduction in moderate-severe migraine days: Yes Patient reduction of headache hours by 100 hours or more: Yes (reduction of 600 hours) Individual has obtained clinical benefit deemed significant by individual or prescriber (Y/N): Yes Patient's quality of life and ability to perform ADLs has improved (Y/N): Yes Side effects: none The patient has been assessed for disorders which could contribute to breathing or swallowing difficulty, and there is no contraindication with PREEMPT Botox. There is no documented allergic reaction/hypersensiti vity to any botulinum toxin and there is no active infection at proposed injection site. HEADACHE SCORES: 11/24/2022 03/02/2024 04/04/2024 Headache Questions ER visits since last office visit: 0 0 0 Hospital stays since last office visit 0 0 0 Limited ADLs in the last month: 0 0 0 Days missed from work or school in the last month: 0 0 0 Days headache pain free in the last month: 23 5 2 Days per month with ALL of the following symptoms - decreased productivity, light sensitivity and nausea: 1 10 3 Initial improvement of headache after botox injection at last visit: Not applicable, I did not have a botox injection at my last visit Not applicable, I did not have a botox injection at my last visit Not applicable, I did not have a botox injection at my last visit PRN medication usage in the last month: 8 25 30 Patient impression of improvement since last visit: No change Minimally worse Much worse 11/24/2022 03/02/2024 04/04/2024 HIT-6 HIT-6 52 (Moderate impact) 57 (Substantial impact) 54 (Moderate impact) 11/24/2022 03/02/2024 04/04/2024 MENDEL - 2/7 SCORES MENDEL-2 Score 2 2 0 11/24/2022 03/02/2024 04/04/2024 Migraine Specific QOL - Higher scores indicate better HRQL Role Function-Restrictive Transformed Score (range: 0-100) 85.71 80 60 Role Function-Preventive Transformed Score (range: 0-100) 100 100 90 Emotional Function Transformed Score (range: 0-100) 86.67 93.33 73.33 04/04/2024 11/24/2022 11/02/2021 PHQ-9 Score 2 3 1 BP 108/74 (BP Site: Left Arm, BP Position: Sitting, BP Cuff Size: Large Adult) Pulse 68 Wt 109.1 kg (240 lb 8.4 oz) LMP 05/19/2011 SpO2 96% BMI 35.52 kg/m? Patient name: Kaur Sutton : 1965 ALLERGIES Allergen Reactions Duricef [Cefadroxil] Rash Lisinopril Cough Lotronex [Alosetron] Rash Metformin Intolerance, Other: See Comments Penicillins Rash Zomig [Zolmitriptan] Intolerance UNIVERSAL PROTOCOL / SAFETY CHECKLIST Procedure: Onabotulinum toxin A for migraine Informed Consent Consent Obtained: Written [place] Protocol A moment to CARE was completed SIGN IN Personnel directly involved with the procedure wore the appropriate PPE Special Equipment: N/A Patient/Surrogate Stated/Verified: Patient name, Date of , Relevant allergies and Intended procedure TIME OUT No relevant labs, photos, and/or imaging studies were applicable for review. Consent documented and matches the intended procedure No correct side/site applicable for marking and visibility. No medications required for procedure. No fire risk assessment and interventions applicable. No implant(s) inserted. SIGN OUT No specimen collected. 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 Normal [facility] US ABD RIGHT UPPER QUADRANTo n 06-26-2024 US ABD RIGHT UPPER QUADRANT * * *Final Report* * * DATE OF EXAM: Jun 26 2024 9:53AM WRU 1032 - US ABD RIGHT UPPER QUADRANT / PROCEDURE REASON: Other cirrhosis of liver (HCC) * * * * Physician Interpretation * * * * EXAMINATION: RIGHT UPPER QUADRANT ULTRASOUND CLINICAL HISTORY: Cirrhosis TECHNIQUE: Sonography of the right upper quadrant was performed. Images were obtained and stored in a permanent archive. MQ: URUQ_2 COMPARISON: Ultrasound of 12/29/2023. RESULT: Pancreas: Normal sonographic appearance. Portions obscured: tail Liver: Echotexture: Coarse and heterogeneous Echogenicity: Diffusely increased echogenicity and increased attenuation of sound is consistent with fatty infiltration. Surface contour: Smooth Lesions: None. Biliary: No intrahepatic biliary duct dilation. CBD: 0.5 cm at the hilum. Gallbladder: Prior cholecystectomy Right and left Kidney: No hydronephrosis. Upper pole left renal cyst of 4.3 cm Ascites: None. The spleen is 12.4 cm in length IMPRESSION: Coarse and heterogeneous appearance of the liver. Fatty infiltration. No focal lesions seen Left renal cyst Otherwise normal sonographic appearance of the right upper quadrant. Normal sonographic appearance of the spleen Visualization is suboptimal due to overlying bowel gas and patient build Device Engineer: [facility] Transcribe Date/Time: Jun 28 2024 8:23A Dictated by : HELEN GILLILAND MD This examination was interpreted and the report reviewed and electronically signed by: HELEN GILLILAND MD on Jun 28 2024 8:26AM EST [id number] Normal [facility] US ABD SPLEEN -NBon 06-26-19 US ABD SPLEEN -NB * * *Final Report* * * DATE OF EXAM: Jun 26 2024 9:53AM U 1232 - US ABD SPLEEN -NB / PROCEDURE REASON: Other cirrhosis of liver (HCC) * * * * Physician Interpretation * * * * EXAMINATION: RIGHT UPPER QUADRANT ULTRASOUND CLINICAL HISTORY: Cirrhosis TECHNIQUE: Sonography of the right upper quadrant was performed. Images were obtained and stored in a permanent archive. MQ: URUQ_2 COMPARISON: Ultrasound of 12/29/2023. RESULT: Pancreas: Normal sonographic appearance. Portions obscured: tail Liver: Echotexture: Coarse and heterogeneous Echogenicity: Diffusely increased echogenicity and increased attenuation of sound is consistent with fatty infiltration. Surface contour: Smooth Lesions: None. Biliary: No intrahepatic biliary duct dilation. CBD: 0.5 cm at the hilum. Gallbladder: Prior cholecystectomy Right and left Kidney: No hydronephrosis. Upper pole left renal cyst of 4.3 cm Ascites: None. The spleen is 12.4 cm in length IMPRESSION: Coarse and heterogeneous appearance of the liver. Fatty infiltration. No focal lesions seen Left renal cyst Otherwise normal sonographic appearance of the right upper quadrant. Normal sonographic appearance of the spleen Visualization is suboptimal due to overlying bowel gas and patient build Device Engineer: [employer] Transcribe Date/Time: Jun 28 2024 8:23A Dictated by : HELEN GILLILAND MD This examination was interpreted and the report reviewed and electronically signed by: HELEN GILLILAND MD on Jun 28 2024 8:26AM EST [id number] N Normal [facility] Bacteria Ur Culton 5 Bacteria identified Cx Nom (U) ORGANISM ID: 1 50,000-<100,000 CFU/ml Lactose negative gram negative bacilli No susceptibility testing done. Call lab within 72 hours to initiate work-up if clinically indicated. ORGANISM ID: 2 50,000-<100,000 CFU/ml Normal urogenital bib Normal [facility] Comment on above: Performed By: #### 6 30-4 ####[facility] LABCLIA [id number] [address] [facility] CNOVon 06-18-2024 CNOV Office Visit (UCWSTR ) KAUR SUTTON ([id number]) 1965 F Date Time Provider Department 06/18/24 3:15 PM GOVIND ADAME [facility] During your visit today, we recorded the following information about you: Temperature Pulse Respiration Blood pressure 97.3 degrees 69/minute 18/minute 122/81 Weight 112 kg Govind Adame APRN.[employer] 06/18/2024 3:32 PM Signed Subjective HPI Nontoxic-appearing 59-year-old female presents urgent care chief complaint possible UTI. Duration of symptoms today. Associated symptoms urinary frequency urgency and dysuria. Presents today for evaluation. History of UTIs this is similar. OTC medications none recently. Denies any vaginal discharge itching or burning. No rashes. No flank pain vomiting abdominal pain. No urological abnormalities. Past medical history prescription medications and allergies reviewed. BP 122/81 Pulse 69 Temp 36.3 ?C (97.3 ?F) Resp 18 Wt 112 kg (246 lb 14.6 oz) LMP 05/19/2011 SpO2 99% BMI 36.46 kg/m? .Patient presents with: Urinary Problem: Frequency, burning x today PAST MEDICAL HISTORY Diagnosis Date Anxiety C. [...] [Alosetron], Metformin, Penicillins, and Zomig [Zolmitriptan] MEDICATIONS vilazodone (VIIBRYD) 10 mg tablet Take 10 mg by mouth once daily. albuterol HFA (PROVENTIL HFA, VENTOLIN HFA) 90 mcg/actuation inhaler Inhale 2 Puffs as instructed every 6 hours as needed for wheezing/shortness of breath. Naproxen Sodium 550 mg tablet Take 1 tablet by mouth two times a day as needed (headache). FOR PAIN. TAKE WITH FOOD. SUMAtriptan (IMITREX) 100 mg tablet Take 1 tablet (100 mg) by mouth as needed for migraine headache (see administration instructions). START AT ONSET OF HEADACHE. MAY REPEAT DOSE AFTER 2 HOURS. OZEMPIC 0.25 mg or 0.5 mg (2 [...] 125 mg total per day FLUoxetine (PROZAC) 20 mg capsule Take 1 capsule by mouth once daily. (Patient not taking: Reported on 04/22/2024) cranberry fruit (CRANBERRY) 450 mg tab Take [...] as instructed every 4 hours as needed. [place]-3 Fatty Acids 500 mg cap Take 500 [...] date: 05/10/2005 Quit date: 05/10/2023 Years since quittin.1 Smokeless tobacco: Never Vaping Use Vaping status: Never Used Substance Use Topics Alcohol (more content not included)... Normal [facility] UA DIP, URINE (POC)on 2024 BILIRUBIN UA (POCT) Negative Negative [facility] CLARITY UA (POCT) Clear [facility] COLOR UA (POCT) Mayra [facility] GLUCOSE UA (POCT) Negative Negative mg/dL [facility] Hemoglobin Ql (U) Large Abnormal Negative [facility] Interpretation and review of laboratory results Abnormal [facility] KETONE UA (POCT) Negative Negative mg/dL [facility] LEUKOCYTES UA (POCT) Moderate Abnormal Negative [facility] (POCT) Negative Negative [facility] PH UA (POCT) 5.5 4.5 - 8.0 [facility] Protein Ql (U) 30 mg/dL Abnormal Negative [facility] SPECIFIC GRAVITY UA (POCT) >=1.030 1.005 - 1.030 [facility] UROBILINOGEN UA (POCT) 0.2 Jennifer l E.U./dL [facility] Location:[address], [place], [place], [address] [place] [address] POINT OF CARE [facility] .Auto Diffon 06-06-2024 Basophil, Absolute 0.0 10 3/mcL Normal 0.0-0.2 [facility] Comment on above: Performed By: #### L IPID, ANEU, TSH, GFR, CBC, ADIFF, CMP #### [address] [address] Basophils/100 WBC (Bld) 0.2 % Normal 0.0-2.5 [facility] Comment on above: Performed By: #### L IPID, ANEU, TSH, GFR, CBC, ADIFF, CMP #### [address] [address] Eosinophil, Absolute 0.6 10 3/mcL Normal 0.0-0.7 [facility] Comment on above: Performed By: #### L IPID, ANEU, TSH, GFR, CBC, ADIFF, CMP #### [address] [address] Eosinophils/100 WBC (Bld) 7.1 % High 0.0-7.[address] [facility] Comment on above: Performed By: #### L IPID, ANEU, TSH, GFR, CBC, ADIFF, CMP #### [address] [address] Lymphocyte, Absolute 2.4 10 3/mcL Normal 0.9-4.3 [facility] Comment on above: Performed By: #### L IPID, ANEU, TSH, GFR, CBC, ADIFF, CMP #### [address] [address] Lymphocytes/100 WBC (Bld) 31.1 % Normal 20.0-40.[address] [facility] Comment on above: Performed By: #### L IPID, ANEU, TSH, GFR, CBC, ADIFF, CMP #### [address] [address] Monocyte, Absolute 0.4 10 3/mcL Normal 0.1-1.4 [facility] Comment on above: Performed By: #### L IPID, ANEU, TSH, GFR, CBC, ADIFF, CMP #### [address] [address] Monocytes/100 WBC (Bld) 5.3 % Normal 2.0-13.0 [facility] Comment on above: Performed By: #### L IPID, ANEU, TSH, GFR, CBC, ADIFF, CMP #### [address] [address] Neutrophils/100 WBC (Bld) 56.3 % Normal 50.0-75.[address] [facility] Comment on above: Performed By: #### L IPID, ANEU, TSH, GFR, CBC, ADIFF, CMP #### [address] [address] .GFRon 06-06-2024 GFR 64 ml/min/1.73sqm Normal [facility] Comment on above: Result Comment: GFR Population [...] 15 mL/min/1.73 square meters Performed By: #### L IPID, ANEU, TSH, GFR, CBC, ADIFF, CMP #### [address] [address] GFR Non- 52 ml/min/1.73sqm Normal [facility] Comment on above: Result Comment: GFR Population [...] 15 mL/min/1.73 square meters Performed By: #### L IPID, ANEU, TSH, GFR, CBC, ADIFF, CMP #### [address] [address] .NEUABSon 06-06-2024 Neutrophil, Absolute 4.4 10 3/mcL Normal 2.3-8.1 [facility] Comment on above: Performed By: #### L IPID, ANEU, TSH, GFR, CBC, ADIFF, CMP #### [address] [address] CBCon 06-06-2024 Erythrocyte distribution width (RBC) [Ratio] 12.3 % Normal 11.5-15.[address] [facility] Comment on above: Performed By: #### L IPID, ANEU, TSH, GFR, CBC, ADIFF, CMP #### [address] [address] Hematocrit (Bld) [Volume fraction] 42.2 % Normal 34.0-46.[address] [facility] Comment on above: Performed By: #### L IPID, ANEU, TSH, GFR, CBC, ADIFF, CMP #### [address] [address] Hgb 14.6 G/dL Normal 12.0-16.[address] [facility] Comment on above: Performed By: #### L IPID, ANEU, TSH, GFR, CBC, ADIFF, CMP #### [address] [address] MCH (RBC) [Entitic mass] 33.5 pg High 27.0-33.[address] [facility] Comment on above: Performed By: #### L IPID, ANEU, TSH, GFR, CBC, ADIFF, CMP #### [place] [address] MCHC 34.7 G/dL Normal 32.0-36.[address] [facility] Comment on above: Performed By: #### L IPID, ANEU, TSH, GFR, CBC, ADIFF, CMP #### [address] [address] MCV (RBC) [Entitic vol] 96.5 fL Normal 80.0-99.0 [facility] Comment on above: Performed By: #### L IPID, ANEU, TSH, GFR, CBC, ADIFF, CMP #### [address] [address] Platelet 146 10 3/mcL Low 150-[address] [facility] Comment on above: Performed By: #### L IPID, ANEU, TSH, GFR, CBC, ADIFF, CMP #### [address] [address] Platelet mean volume (Bld) [Entitic vol] 11.1 fL High 6.6-10.[address] [facility] Comment on above: Performed By: #### L IPID, ANEU, TSH, GFR, CBC, ADIFF, CMP #### [address] [address] RBC 4.37 10 6/mcL Normal 4.10-5.[address] [facility] Comment on above: Performed By: #### L IPID, ANEU, TSH, GFR, CBC, ADIFF, CMP #### [address] [address] WBC 7.8 10 3/mcL Normal 4.5-10.[address] [facility] Comment on above: Performed By: #### L IPID, ANEU, TSH, GFR, CBC, ADIFF, CMP #### [address] [address] CMPon 06-06-2024 Albumin Level 3.8 G/dL Normal 3.5-5.[address] [facility] Comment on above: Performed By: #### L IPID, ANEU, TSH, GFR, CBC, ADIFF, CMP #### [address] [address] Albumin/Globulin [Mass ratio] 1.0 {ratio} Low 1.1-2.[address] [facility] Comment on above: Performed By: #### L IPID, ANEU, TSH, GFR, CBC, ADIFF, CMP #### [address] [address] ALP [Catalytic activity/Vol] 86 U/L Normal 40-[address] [facility] Comment on above: Performed By: #### L IPID, ANEU, TSH, GFR, CBC, ADIFF, CMP #### [address] [address] ALT [Catalytic activity/Vol] 63 U/L High 14-[address] [facility] Comment on above: Performed By: #### L IPID, ANEU, TSH, GFR, CBC, ADIFF, CMP #### [address] [address] AST [Catalytic activity/Vol] 58 U/L High 10-[address] [facility] Comment on above: Performed By: #### L IPID, ANEU, TSH, GFR, CBC, ADIFF, CMP #### [address] [address] Bili Total 0.7 mg/dL Normal 0.2-1.[address] [facility] Comment on above: Result Comment: Use of this assay is not recommended for patients undergoing treatment with eltrombopag due to the potential for falsely elevated results. Performed By: #### L IPID, ANEU, TSH, GFR, CBC, ADIFF, CMP #### [place] [address] BUN/Creatinine Ratio 11 ratio Normal 7-27 [facility] Comment on above: Performed By: #### L IPID, ANEU, TSH, GFR, CBC, ADIFF, CMP #### [address] [address] Calcium [Mass/Vol] 9.1 mg/dL Normal 8.4-10.2 [facility] Comment on above: Performed By: #### L IPID, ANEU, TSH, GFR, CBC, ADIFF, CMP #### [address] [address] Chloride [Moles/Vol] 104 mmol/L Normal 98-107 [facility] Comment on above: Performed By: #### L IPID, ANEU, TSH, GFR, CBC, ADIFF, CMP #### [address] [address] CO2 [Moles/Vol] 25 mmol/L Normal 22-[address] [facility] Comment on above: Performed By: #### L IPID, ANEU, TSH, GFR, CBC, ADIFF, CMP #### [address] [address] Creatinine [Mass/Vol] 1.07 mg/dL High 0.55-1.[address] [facility] Comment on above: Result Comment: Test ing performed on Siemens Dimension EXL analyzer using a modified kinetic Evelina technique. Performed By: #### L IPID, ANEU, TSH, GFR, CBC, ADIFF, CMP #### [address] [address] Electrolyte Balance 12.0 mEq/L Normal 4.0-15.0 [facility] Comment on above: Performed By: #### L IPID, ANEU, TSH, GFR, CBC, ADIFF, CMP #### [address] [address] Globulin 3.9 G/dL Normal [facility] Comment on above: Performed By: #### L IPID, ANEU, TSH, GFR, CBC, ADIFF, CMP #### [address] [address] Glucose [Mass/Vol] 149 mg/dL High 70-105 [facility] Comment on above: Performed By: #### L IPID, ANEU, TSH, GFR, CBC, ADIFF, CMP #### [address] [address] Potassium [Moles/Vol] 3.6 mmol/L Normal 3.5-5.[address] [facility] Comment on above: Performed By: #### L IPID, ANEU, TSH, GFR, CBC, ADIFF, CMP #### [address] [address] Sodium [Moles/Vol] 141 mmol/L Normal 136-145 [facility] Comment on above: Performed By: #### L IPID, ANEU, TSH, GFR, CBC, ADIFF, CMP #### [address] [address] Total Protein 7.7 G/dL Normal 6.4-8.[address] [facility] Comment on above: Performed By: #### L IPID, ANEU, TSH, GFR, CBC, ADIFF, CMP #### [address] [address] Urea nitrogen [Mass/Vol] 12 mg/dL Normal 7-[address] [facility] Comment on above: Performed By: #### L IPID, ANEU, TSH, GFR, CBC, ADIFF, CMP #### [address] [address] LABORATORYOrdered By: SYSTEM SYSTEM on 06-06-2024 Albumin BCP dye [Mass/Vol] 3.8 G/dL Normal 3.5 - 5.0 G/dL AO ADM SS Albumin/Globulin [Mass ratio] 1.0 {ratio} Low 1.1 - 2.5 ratio AO ADM SS ALP [Catalytic activity/Vol] 86 U/L Normal 40 - 135 U/L AO ADM SS ALT With P-5'-P [Catalytic activity/Vol] 63 U/L High 14 - 59 U/L AO ADM SS AST With P-5'-P [Catalytic activity/Vol] 58 U/L High 10 - 40 U/L AO ADM SS Basophils (Bld) [#/Vol] 0.0 103/mcL Normal 0.0 - 0.2 10^3/mcL AO Workflow SS Basophils/100 WBC (Bld) 0.2 % Normal 0.0 - 2.5 % AO Workflow SS Bilirubin [Mass/Vol] 0.7 mg/dL Normal 0.2 - 1 .0 mg/dL AO ADM SS Comment on above: Interpretive Data: U se of this assay is not recommended for patients undergoing treatment with eltrombopag due to the potential for falsely elevated results. Calcium [Mass/Vol] 9.1 mg/dL Normal 8.4 - 10. 2 mg/dL AO ADM SS Chloride [Moles/Vol] 104 mmol/L Normal 98 - 10 7 mmol/L AO ADM SS CO2 [Moles/Vol] 25 mmol/L Normal 22 - 29 mmol/L AO ADM SS Creatinine [Mass/Vol] 1.07 mg/dL High 0.55 - 1.02 mg/dL AO ADM SS Comment on above: Interpretive Data: T esting performed on Siemens Dimension EXL analyzer using a modified kinetic Evelina technique. Electrolyte Balance 12.0 mEq/L Normal 4.0 - 15 .0 mEq/L AO ADM SS Eosinophil, Absolute 0.6 103/mcL Normal 0.0 - 0 .7 10^3/mcL AO Workflow SS Eosinophils/100 WBC (Bld) 7.1 % High 0.0 - 7.0 % AO Workflow SS Erythrocyte distribution width (RBC) [Ratio] 12.3 % Normal 11.5 - 15.5 % AO Workflow SS GFR/1.73 sq M.predicted among blacks MDRD (S/P/Bld) [Vol rate/Area] 64 ml/min/1.73sqm Invalid Interpretation Code AO Chemistry S [...] M.predicted among non-blacks MDRD (S/P/Bld) [Vol rate/Area] 52 ml/min/1.73sqm Invalid Interpretation Code AO Chemistry S [...] Interpretation Code AO ADM SS Glucose [Mass/Vol] 149 mg/dL High 70 - 105 mg/dL AO ADM SS Hematocrit (Bld) [Volume fraction] 42.2 % Normal 34.0 - 46.0 % AO Workflow SS Hemoglobin (Bld) [Mass/Vol] 14.6 G/dL Normal 12.0 - 16.0 G/dL AO Workflow SS Lymphocytes (Bld) [#/Vol] 2.4 103/mcL Normal 0.9 - 4.3 10^3/mcL AO Workflow SS Lymphocytes/100 WBC (Bld) 31.1 % Normal 20.0 - 40.0 % AO Workflow SS MCH (RBC) [Entitic mass] 33.5 pg High 27.0 - 33.0 pg AO Workflow SS MCHC 34.7 G/dL Normal 32.0 - 36.0 G/dL AO Workflow SS MCV (RBC) [Entitic vol] 96.5 fL Normal 80.0 - 99.0 fL AO Workflow SS Monocytes (Bld) [#/Vol] 0.4 103/mcL Normal 0.1 - 1.4 10^3/mcL AO Workflow SS Monocytes/100 WBC (Bld) 5.3 % Normal 2.0 - 13.0 % AO Workflow SS Neutrophils (Bld) [#/Vol] 4.4 103/mcL Normal 2.3 - 8.1 10^3/mcL AO Workflow SS Neutrophils/100 WBC (Bld) 56.3 % Normal 50.0 - 75.0 % AO Workflow SS Platelet mean volume (Bld) [Entitic vol] 11.1 fL High 6.6 - 10.5 fL AO Workflow SS Platelets (Bld) [#/Vol] 146 103/mcL Low 150 - 450 10^3/mcL AO Workflow SS Potassium [Moles/Vol] 3.6 mmol/L Normal 3.5 - 5.1 mmol/L AO ADM SS Protein [Mass/Vol] 7.7 G/dL Normal 6.4 - 8.2 G/dL AO ADM SS RBC (Bld) [#/Vol] 4.37 106/mcL Normal 4.10 - 5.3 0 10^6/mcL AO Workflow SS Sodium [Moles/Vol] 141 mmol/L Normal 136 - 145 mmol/L AO ADM SS TSH Qn 2.63 m[IU]/L Normal 0.36 - 3.74 mcIU/mL AO ADM SS Urea nitrogen [Mass/Vol] 12 mg/dL Normal 7 - 18 mg/dL AO ADM SS Urea nitrogen/Creatinine [Mass ratio] 11 ratio Normal 7 - 27 ratio AO ADM SS WBC (Bld) [#/Vol] 7.8 103/mcL Normal 4.5 - 10.8 10^3/mcL AO Workflow SS LABORATORYOrdered By: Jeanna Jones on 06-06-2024 Cholesterol [Mass/Vol] 121 mg/dL Normal 0 - 200 mg/dL AO ADM SS Comment on above: Interpretive Data: C holesterol Reference Interval: Less than 200 Desirable 200-239 Borderline high risk 240 and above High risk Cholesterol in HDL [Mass/Vol] 32 mg/dL Low 40 - 60 mg/dL AO ADM SS Cholesterol in LDL [Mass/Vol] 70 mg/dL Normal 0 - 130 mg/dL AO ADM SS Triglyceride [Mass/Vol] 97 mg/dL Normal 0 - 150 mg/d L AO ADM SS Comment on above: Interpretive Data: T riglyceride Reference Interval: Less than 150 Normal 150-199 Borderline high risk 200-499 High risk 500 or higher Very high risk LIPIDon 06-06-2024 Cholesterol [Mass/Vol] 121 mg/dL Normal 0-200 [facility] Comment on above: Result Comment: Chol esterol Reference Interval: Less than 200 Desirable 200-239 Borderline high risk 240 and above High risk Performed By: #### L IPID, ANEU, TSH, GFR, CBC, ADIFF, CMP #### [address] [address] Cholesterol in HDL [Mass/Vol] 32 mg/dL Low 40-[address] [facility] Comment on above: Performed By: #### L IPID, ANEU, TSH, GFR, CBC, ADIFF, CMP #### [address] [address] Cholesterol in LDL [Mass/Vol] 70 mg/dL Normal 0-[address] [facility] Comment on above: Performed By: #### L IPID, ANEU, TSH, GFR, CBC, ADIFF, CMP #### [address] [address] Triglyceride [Mass/Vol] 97 mg/dL Normal 0-150 [facility] Comment on above: Result Comment: Trig lyceride Reference Interval: Less than 150 Normal 150-199 Borderline high risk 200-499 High risk 500 or higher Very high risk Performed By: #### L IPID, ANEU, TSH, GFR, CBC, ADIFF, CMP #### [address] [address] TSHon 06-06-2024 TSH Qn 2.63 m[IU]/L Normal 0.36-3.[address] [facility] Comment on above: Performed By: #### L IPID, ANEU, TSH, GFR, CBC, ADIFF, CMP #### Shiv [address] [address] Basic Metabolic Profile (BMP )on 06-04-2024 BUN/CRE 13.2 RATIO Normal 10-20 [facility] Comment on above: Performed By: #### L 500.2500 #### [facility] [address] [place], [address] CA,Total 9.6 mg/dL Normal 8.5-10.1 [facility] Comment on above: Performed By: #### L 500.2500 #### [facility] [address] [place], [address] Chloride [Moles/Vol] 107 mmol/L Normal 98-107 [facility] Comment on above: Performed By: #### L [id number] #### [facility] [address] [place], [address] CO2 [Moles/Vol] 24.0 mmol/L Normal 21.0-32.0 [facility] Comment on above: Performed By: #### L 500.2500 #### [facility] [address] [place], [address] Creatinine [Mass/Vol] 1.14 mg/dL High 0.55-1.02 [facility] Comment on above: Result Comment: The validity of the calculated GFR GFRAA in patients over 70 years has not been determined. Clinical correlation is essential. Performed By: #### L 500.2500 #### [facility] [address] [place], [address] ECRCL 69.54 ml/min Normal [facility] Comment on above: Performed By: #### L 500.2500 #### [facility] [address] [place], [address] EST GFR - AA 63 mL/min Normal >60 [facility] Comment on above: Result Comment: Afri can Kyrgyz GFR Calc Performed By: #### L 500.2500 #### [facility] [address] [place], [address] GAP 6 Normal 5-15 [facility] Comment on above: Performed By: #### L 500.2500 #### [facility] [address] [place], [address] GFR/1.73 sq M.predicted among non-blacks MDRD (S/P/Bld) [Vol rate/Area] 52 mL/min/{1.73_m2} Low >60 [facility] Comment on above: Result Comment: Non- GFR Calc Performed By: #### L 500.2500 #### [facility] [address] [place], [address] Glucose [Mass/Vol] 155 mg/dL High 74-106 [facility] Comment on above: Result Comment: Fast ing Glucose result greater than or equal to 126 mg/dL suggests DIABETES MELLITUS per A.D.A. criteria. Performed By: #### L 500.2500 #### [facility] [address] [place], [address] Potassium [Moles/Vol] 3.3 mmol/L Low 3.5-5.1 [facility] Comment on above: Performed By: #### L 500.2500 #### [facility] [address] [place], [address] Sodium [Moles/Vol] 137 mmol/L Normal 136-145 [facility] Comment on above: Performed By: #### L 500.2500 #### [facility] [address] [place], [address] Urea nitrogen [Mass/Vol] 15 mg/dL Normal 7-18 [facility] Comment on above: Performed By: #### L 500.2500 #### [facility] [address] [place], [address] Bilirubin Test strip Ql (U)O rdered By: Nate Shukla on 06-04-2024 Bilirubin Ql (U) Negative Negative [facility] Blood urea nitrogen (BUN)/cr eatinine ratioOrdered By: Nate Shukla on 06-04-2024 Urea nitrogen/Creatinine [Mass ratio] 13.2 mg/mg 10-20 [facility] Carbon dioxide measurementOr dered By: Nate Shukla on 06-04-2024 CO2 [Moles/Vol] 24.0 mmol/L 21.0-32.0 [facility] Chloride measurementOrdered By: Nate Shukla on 06-04-2024 Chloride [Moles/Vol] 107 mmol/L 98-107 [facility] Emergency Department Summary on 06-04-2024 Emergency Department Summary [facility] Medical Records Department [address] [place] [address] Emergency Department Summary 06/04/24 MR#: [id number] Acct: [id number] Name: KAUR SUTTON Rep #: [id number] : 1965 59 From: Nate Shukla MD PCP: Dr. Radha Acuna, DO Status:REG ER Location: ED HPI History of Present Illness Chief Complaint: Nausea/Vomiting Detail of Chief Complaint: Nausea and vomiting that started Wednesday and complaining of cramping pain. Informant: patient Onset/Context/Timing Onset: Days (Onset Wednesday with nausea vomiting and diarrhea) Context: Sudden Onset Timing: Continuous (Nausea is continuous) and Intermittent Quality: Cramping generalized abdominal pain and generalized bodyaches Location: Generalized Current Severity: Mild Maximum Severity: Moderate Worsened by: Increase symptoms with eating or drinking anything Relieved by: Nothing Associated Symptoms Associated Symptoms: Endorses thirst and dry mouth and reports lightheadedness with standing Narrative Narrative: Patient is a 59-year-old woman. She has history of type 2 diabetes, hypertension, GERD, depression and migraine headaches who presents with nausea vomiting predominantly. She has had diarrhea. She has not noted hematemesis or coffee-ground emesis. She has not noted blood or mucus in her stool. 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 Patient denies fever or chills. Patient denies night sweats. Patient denies headache, visual, ocular auditory symptoms. Patient denies cardiac or respiratory symptoms. Prior similar symptoms: Yes Recent Illness/Hospitalizati on: No PFSH [facility] Medical History Hypodermic needlestick injury of finger of left hand De Quervain's tenosynovitis, right Home Medications ???Medication ???Instructions ???Recorded ???Last Taken ???Type famotidine 40 mg tablet 40 mg PO QHS gerd 05/16/13 11/23/19 History multivitamin,tx-iron- minerals 27 1 tab PO DAILY supplement 05/16/13 11/24/19 History mg-0.4 mg tablet omega-3 fatty acids-fish oil 300 1 cap PO DAILY supplement 05/16/13 11/24/19 History mg-1,000 mg capsule pantoprazole 40 mg tablet,delayed 40 mg PO DAILY gerd 04/22/18 11/24/19 History release topiramate 100 mg tablet 100 mg PO QHS taveras 04/22/18 11/23/19 History lisinopril 2.5 mg tablet 2.5 mg PO DAILY bp 11/23/19 11/24/19 History metformin 500 mg tablet,extended 500 mg PO BID dm 11/23/19 11/24/19 History release 24 hr sumatriptan 85 mg-naproxen 500 mg 1 ea PO DAILY PRN PRN Migraine 11/23/19 11/24/19 History tablet Symptoms vilazodone 20 mg tablet 20 mg PO DAILY depression 11/23/19 11/24/19 History cholecalciferol (vitamin D3) 50 2,000 unit PO DAILY supplement 11/24/19 11/24/19 History mcg (2,000 unit) capsule magnesium oxide 400 mg (241.3 mg 400 mg PO QHS supplement 11/24/19 11/23/19 History magnesium) tablet azithromycin 250 mg tablet See Rx Instructions PO .COMPLEX #6 05/25/22 Unknown Rx tabs diazepam 5 mg tablet (Valium) 5 mg PO QHS 05/25/22 Unknown History fluoxetine 20 mg capsule 20 mg PO DAILY 05/25/22 Unknown History ondansetron 4 mg disintegrating 4 mg PO Q8H PRN PRN Nausea #5 tabs 06/04/24 Unknown Rx tablet Allergy/AdvReac Type Severity Reaction Status Date / Time cefadroxil hydrate (From Allergy Unknown Verified 06/04/24 08:58 Duricef) Penicillins (PCN) Allergy Hives Verified 06/04/24 08:58 zolmitriptan (From Zomig) AdvReac Nausea Verified 06/04/24 08:58 Social History Smoking Status: Current every day smoker tobacco type: cigarettes ROS ROS ED Constitutional Constitutional ED: Reports subjective; Denies chills, fever(s), sweats or weight loss Eyes Eyes: Denies blurry vision or change in vision ENT ENT ED: Denies ear pain or rhinorrhea Cardiovascular Cardiovascular: Reports other Details: Orthostatic lightheadedness ; Denies chest pain, orthopnea, palpitations, paroxysmal nocturnal dyspnea or racing heartbeat Respiratory/Chest Respiratory/Chest: Denies cough, dyspnea, dyspnea on exertion, orthopnea or paroxysmal nocturnal dyspnea Gastrointestinal Gastrointestinal: Reports abdominal pain, diarrhea, nausea and vomiting; Denies constipation or melena Genitourinary Genitourinary ED: Reports other Details: Endorses decreased urine output. Has not noted change in the urine. ; Denies dysuria, hematuria or urinary frequency Musculoskeletal Musculoskeletal: Reports arthralgias and myalgias Integumentary Denies rash Neurologic Neurologic: Reports weakness; Denies headache(s) or paresthesias Hematologic/Lymphatic Hematologic/Lymphatic : Reports systems reviewed and no addt'l complaints, except as documented EXAM Physical Exam Const Vital Signs: (more content not included)... Normal [facility] Estimated glomerular filtrat ion rate (GFR) AmericanOrdered By: Nate Shukla on 06-04-2024 Estimated GFR (MDRD) Amer 63 mL/min >60 [facility] Comment on above: GFR Calc Estimation of creatinine vi aranceOrdered By: Nate Shukla on 06-04-2024 Estimated Creatinine Clearance Calc 69.54 ml/min [facility] Glomerular filtration rate ( GFR) estimationOrdered By: Nate Shukla on 06-04-2024 Estimated GFR (MDRD) Non-Af Amer 52 mL/min Low >60 [facility] Comment on above: Non- GFR Calc Glucose Ql (U)Ordered By: Ricki Shukla on 06-04-2024 Urine Glucose (UA) Normal mg/dl Normal [facility] Glucose measurementOrdered B y: Nate Shukla on 06-04-2024 Glucose [Mass/Vol] 155 mg/dL High 74-106 [facility] Comment on above: Fasting Glucose resu lt greater than or equal to 126 mg/dL suggests DIABETES MELLITUS per A.D.A. criteria. Ketones Test strip Ql (U)Ord ered By: Nate Shukla on 06-04-2024 Ketones Ql (U) Negative Negative [facility] Nitrite Test strip Ql (U)Ord ered By: Nate Shukla on 06-04-2024 Nitrite Ql (U) Negative Negative [facility] Potassium measurementOrdered By: Nate Shukla on 06-04-2024 Potassium [Moles/Vol] 3.3 mmol/L Low 3.5-5.1 [facility] Protein Test strip Ql (U)Ord ered By: Nate Shukla on 06-04-2024 Protein Ql (U) Negative Negative [facility] Serum anion gap measurementO rdered By: Nate Shukla on 06-04-2024 Anion gap [Moles/Vol] 6 mmol/L 5-15 [facility] Serum or plasma calcium sirisha urement (mass/volume)Ordered By: Nate Shukla on 06-04-2024 Calcium [Mass/Vol] 9.6 mg/dL 8.5-10.1 [facility] Serum or plasma creatinine m easurement (mass/volume)Ordered By: Nate Shukla on 06-04-2024 Creatinine [Mass/Vol] 1.14 mg/dL High 0.55-1.02 [facility] Comment on above: The validity of the calculated GFR & GFRAA in patients over 70 years has not been determined. Clinical correlation is essential. Serum or plasma urea nitroge n measurement (mass/volume)Ordered By: Nate Shukla on 06-04-2024 Urea nitrogen [Mass/Vol] 15 mg/dL 7-18 [facility] Sodium levelOrdered By: Nate Shukla on 06-04-2024 Sodium [Moles/Vol] 137 mmol/L 136-145 [facility] Urinalysis, Routine (Dipstic k)on 06-04-2024 BILIRUBIN URINE Negative Normal Negative [facility] Comment on above: Order Comment: CLEAN CATCH Performed By: #### L 400.2010 #### [facility] [address] [place], [address] Clarity (U) Clear Normal Clear [facility] Comment on above: Order Comment: CLEAN CATCH Performed By: #### L 400.2010 #### [facility] [address] [place], [address] Color (U) Yellow Normal Yellow [facility] Comment on above: Order Comment: CLEAN CATCH Performed By: #### L 400.2010 #### [facility] [address] [place], [address] GLUCOSE, UR Normal Normal Normal [facility] Comment on above: Order Comment: CLEAN CATCH Performed By: #### L 400.2010 #### [facility] [address] [place], [address] KETONE UR Negative Normal Negative [facility] Comment on above: Order Comment: CLEAN CATCH Performed By: #### L 400.2010 #### [facility] [address] [place], [address] LEUK ESTERASE Negative Normal Negative [facility] Comment on above: Order Comment: CLEAN CATCH Performed By: #### L 400.2010 #### [facility] [address] [place], [address] Nitrite Ql (U) Negative Normal Negative [facility] Comment on above: Order Comment: CLEAN CATCH Performed By: #### L 400.2010 #### [facility] [address] [place], [address] OCCULT BLOOD-UR Negative Normal Negative [facility] Comment on above: Order Comment: CLEAN CATCH Performed By: #### L 400.2010 #### [facility] [address] [place], [address] pH UR 6.0 Normal 5.0 - 8.0 [facility] Comment on above: Order Comment: CLEAN CATCH Performed By: #### L 400.2010 #### [facility] [address] [place], [place], [id number] PROT DIPSTX Negative Normal Negative [facility] Comment on above: Order Comment: CLEAN CATCH Performed By: #### L 400.2010 #### [facility] [address] [place], [place], [id number] SP.GR. DIPSTX 1.010 Normal 1.002-1.030 [facility] Comment on above: Order Comment: CLEAN CATCH Performed By: #### L 400.2010 #### [facility] [address] [place], [place], [id number] UROBILI Normal Normal Normal [facility] Comment on above: Order Comment: CLEAN CATCH Performed By: #### L 400.2010 #### [facility] [address] [place], [place], [address] Urine blood detectionOrdered By: Nate Vazquez on 06-04-2024 Urine Occult Blood Negative Negative [facility] Urine clarityOrdered By: Nate Vazquez on 06-04-2024 Clarity (U) Clear Clear [facility] Urine color determinationOrd ered By: Nate Shukla on 06-04-2024 Color (U) Yellow Yellow [facility] Urine leukocyte esterase det ection by dipstickOrdered By: Nate Shukla on 06-04-2024 Leukocyte esterase Test strip Ql (U) Negative Negative [facility] Urine pHOrdered By: Nate Elizabeth montague on 06-04-2024 pH (U) 6.0 [pH] 5.0 - 8.0 [facility] Urine specific gravity measu rementOrdered By: Nate Shukla on 06-04-2024 Specific gravity (U) [Rel density] 1.010 1.002-1.030 [facility] Urobilinogen Ql (U)Ordered B y: Nate Shukla on 06-04-2024 Urine Urobilinogen Normal mg/dl Normal [facility] BRIEF OP NOTon 05-22-2024 BRIEF OP NOT HNO ID: [id number] Author: KATALINA PRICE DO Service: Interventional Radiology Author Type: Physician Type: Brief Op Note Filed: 05/22/2024 10:49 Note Text: BRIEF OPERATIVE / PROCEDURE NOTE LOG ID: [id number] SURGERY/PROCEDURE DATE: 05/22/2024 INCISION/PROCEDURE START TIME: 1040 INCISION CLOSE/PROCEDURE END TIME: 1048 SURGEON(S)/PROCEDURAL IST(S) AND SMASH FIXER(S): Surgeons and Role: * Katalina Price DO - Primary No Additional Staff SURGERY/PROCEDURE(S): Liver biopsy ANESTHESIA: Procedural Sedation FINDINGS: Biopsy of left lobe of the liver performed with 3 passes of an 18G core needle. Please refer to full dictated radiology report for further details. ESTIMATED BLOOD LOSS: <5 mls SPECIMENS: Liver cores sent to pathology COMPLICATIONS: None PRE-OP/PRE-PROCEDURE DIAGNOSIS: Hepatic steatosis POST-OP/POST-PROCEDUR E DIAGNOSIS: Same as Preop SIGNATURE: Katalina Price DO PATIENT NAME: Kaur Sutton DATE: May 22, 2024 TIME: 10:48 AM Normal [facility] SURGICAL PATHOLOGYon 025 CASE REPORT Normal [facility] Comment on above: Order Comment: Speci catarina Type: TISSUE SPECIMEN Ordering Facility: [facility] Address: [address] [place] [address] Result Comment: Surg ica Pathology Report Case: [id number] Authorizing Provider: Katalina Price DO Collected: 05/22/2024 10:35 AM Ordering Location: [facility] Received: 05/22/2024 10:59 AM INTERVENTIONAL RADIOLOGY Pathologist: Don Briceño MD Specimen: Liver, Biopsy Performed By: #### S #### [facility] CLIA [id number] 1 [place] [address] [place] CLINICAL HISTORY Liver dysfunction Normal [facility] Comment on above: Order Comment: Speci men Type: TISSUE SPECIMEN Ordering Facility: [facility] Address: [address] [place] [address] Performed By: #### S #### [facility] CLIA [id number] [address] DIAGNOSIS COMMENT Normal [facility] Comment on above: Order Comment: Speci men Type: TISSUE SPECIMEN Ordering Facility: [facility] Address: [address] [place] [id number] Result Comment: The patient has a past history of increased BMI and diabetes and presents for liver biopsy evaluation of elevated ferritin and mildly elevated AST/ALT. Viral hepatitis testing is negative and HFE gene mutation (3 gene panel) performed in 2021 was negative. H&E stained sections show an adequate liver biopsy for interpretation with abnormal architecture showing bands of fibrosis which form nodules of hepatocytes. Fibrous and septal areas show mild chronic inflammation and usual bile duct proliferation. The lobular parenchyma shows moderate macrovesicular steatosis (35-40%). No definite ballooned hepatocytes are appreciated. There are few lobular inflammatory foci. Cholestasis is not present. A trichrome stain highlights cirrhosis. An iron stain shows trace stainable iron deposition within hepatocytes. PAS/diastase shows no intracytoplasmic globules. Overall, the biopsy shows cirrhosis and moderate macrovesicular steatosis. Steatosis is a pattern of injury that can be seen in numerous settings including with drug or toxic injury (including alcohol, medications, supplements, and others), metabolic or nutritional factors (obesity, hyperinsulinemia, dyslipidemia), various infections and inherited conditions. These various etiologies cannot be reliably based on histology alone. Correlation with clinical data including risk factors for fatty liver disease is recommended. The NAFLD activity score for the case is 3 (steatosis = 2, lobular inflammation = 1, ballooned hepatocytes = 0). The case was reviewed by Dr. Harlan Barrera who agrees with the interpretation. Performed By: #### S #### [facility] CLIA [id number] [address] [place] [id number] [facility] FINAL DIAGNOSIS Normal [facility] Comment on above: Order Comment: Speci men Type: TISSUE SPECIMEN Ordering Facility: [facility] Address: [address] [place] [address] Result Comment: Charlette monsalve, biopsy: - Cirrhosis with moderate macrovesicular steatosis (see comment). Performed By: #### S #### [facility] CLIA [id number] [address] [place] [address] FINAL PERFORMING LAB Normal [facility] Comment on above: Order Comment: Speci men Type: TISSUE SPECIMEN Ordering Facility: [facility] Address: [address] [place] [address] Result Comment: Diag nostic interpretation performed at: [facility], [address] [place] [address] CLIA# [id number] Screen Printing Paster: Harlan Barerra MD Performed By: #### S #### [facility] CLIA [id number] [address] GROSS DESCRIPTION Normal [facility] Comment on above: Order Comment: Joselo elmore Type: TISSUE SPECIMEN Ordering Facility: [facility] Address: [address] [place] [address] Result Comment: Charlette monsalve, Biopsy Received in formalin and designated liver biopsy are 4 jeff friable needle cores ranging in size from 0.3 x 0.1 x 0.1 cm to 1.2 x 0.1 x 0.1 cm. The specimen is entirely submitted in cassette A1. KM May 22, 2024 2:08 PM Gross examination performed at [facility], [address] [place] [address] Performed By: #### S #### [facility] CLIA [id number] [address] [facility] US BIOPSY LIVERon 05-22-2024 US BIOPSY LIVER * * *Final Report* * * DATE OF EXAM: May 22 2024 10:49AM [facility] 1073 - US BIOPSY LIVER / PROCEDURE REASON: K76.0, R93.2 * * * * Physician Interpretation * * * * PROCEDURE: ULTRASOUND-GUIDED LIVER BIOPSY Procedural Personnel Attending physician(s): Katalina Price D.O. Fellow physician(s): None Resident physician(s): None Advanced practice provider(s): None Medical Student(s): None Pre-procedure diagnosis: Hepatic steatosis Post-procedure diagnosis: Same Indication: Organ dysfunction Previous biopsy of same target (QCDR): No Additional clinical history: None PROCEDURE SUMMARY: - Percutaneous US-guided coaxial core needle biopsy - Additional procedure(s): None PROCEDURE DETAILS: Pre-procedure Consent: Risks, benefits, treatment options, potential complications and personnel to be involved were discussed (including the risks of radiation exposure, contrast and anesthesia administration, and any equipment needed for the procedure to ensure best possible outcome) with the patient and all questions were answered and consent was obtained prior to procedure. Premedicated for contrast allergy: n/a Transfusion of blood products: No Medication reconciliation: The patient's medications and allergies were reviewed in the electronic medical record and reconciled to the proposed procedure/treatment. Anabel-procedure discussion: The appropriate elements of the pre-procedure discussion, safety check list and sign-out were performed. Time out: A time out was performed immediately prior to procedure start with the nursing and interventional team, correctly identifying the name, date of , procedure, anatomy (including marking of site and side if applicable), patient position, procedure consent form, relevant diagnostic and radiology test results, antibiotic administration if applicable, safety precautions, and procedure-specific equipment needs. Start of procedure: 1040 End of procedure: 1048 Patient position: Supine Preparation: The site was prepared and draped using all elements of maximal sterile barrier technique including sterile gloves, sterile gown, cap, mask, large sterile sheet, hand hygiene and cutaneous antisepsis. Antibiotics: None Antibiotic infusion start time: N/A Prophylactic antibiotic administered: None Additional med: None Additional med: None Image Guidance Sonographic guidance Anesthesia/sedation Level of anesthesia/sedation: No sedation Anesthesia/sedation administered by: Not applicable Total intra-service sedation time (minutes): 0 minutes Local anesthesia: 1 % lidocaine Imaging prior to biopsy The patient was positioned supine. Initial ultrasound was performed. Biopsy target: Left lobe of the liver (random/nontargeted biopsy requested) Other findings: None Biopsy Local anesthesia was administered. Under US guidance, the biopsy needle was advanced to the target and biopsy was performed. Coaxial needle: 17 gauge Core needle biopsy device: Brookstone Core needle size: 18 gauge Number of core specimens: 3 Needle removal The biopsy needle was removed and a sterile dressing was applied. Tract embolization: None Imaging following biopsy Immediate post-biopsy ultrasound was performed. Post-biopsy imaging findings: No significant hemorrhage. Additional Details Additional description of procedure: None Equipment details: None Specimens removed: Biopsy samples as detailed above Estimated blood loss (mL): Less than 10 Standardized report: [id number] Complications There were no immediate complications and no other complications. Conclusion The patient was comfortable and was transferred to the recovery room in stable condition. The procedure was performed by the: attending radiologist, without an surgical services assistant. The attending radiologist performed the following procedural activities: Entire procedure IMPRESSION: Ultrasound-guided biopsy of the liver. Plan: Specimen(s) sent for evaluation. Attestation Signer name: Katalina Price DO I attest that I was present for the entire procedure. I reviewed the stored images and agree with the report as written. Device Engineer: EFRAIN Transcribe Date/Time: May 22 2024 3:48P Dictated by : KATALINA PRICE DO This examination was interpreted and the report reviewed and electronically signed by: KATALINA PRICE DO on May 22 2024 3:49PM EST [id number] Normal [facility] CBC W Auto Differential pane l (Bld)on 05-15-2024 Basophils (Bld) [#/Vol] 0.03 10*3/uL Normal <0.11 [facility] Comment on above: Order Comment: Speci men Type: BLOOD SPECIMENOrdering Facility: [facility] Address: [address] [place] [address] Performed By: #### 5 7021-8 ####[facility] LABCLIA [id number] [place] [address] [place] Basophils/100 WBC (Bld) 0.4 % Normal C [facility] Comment on above: Order Comment: Speci men Type: BLOOD SPECIMENOrdering Facility: [facility] Address: [address] [place] [address] Performed By: #### 5 7021-8 ####[facility] LABCLIA [id number] [place] [address] [place] Differential cell count method Nom (Bld) Auto Normal [facility] Comment on above: Order Comment: Speci men Type: BLOOD SPECIMENOrdering Facility: [facility] Address: [address] [place] [address] Performed By: #### 5 7021-8 ####[facility] LABCLIA [id number] [place] [address] [place] Eosinophils (Bld) [#/Vol] 0.25 10*3/uL Normal <0.46 [facility] Comment on above: Order Comment: Speci men Type: BLOOD SPECIMENOrdering Facility: [facility] Address: [address] [place] [address] Performed By: #### 5 7021-8 ####[facility] LABCLIA [id number] [place] [address] [place] Eosinophils/100 WBC (Bld) 3.3 % Normal [facility] Comment on above: Order Comment: Speci men Type: BLOOD SPECIMENOrdering Facility: [facility] Address: [address] [place] [address] Performed By: #### 5 7021-8 ####[facility] LABIA [id number] [place] [address] [place] Erythrocyte distribution width (RBC) [Ratio] 12.1 % Normal 11.5-15.0 [facility] Comment on above: Order Comment: Speci men Type: BLOOD SPECIMENOrdering Facility: [facility] Address: [address] [place] [address] Performed By: #### 5 7021-8 ####[facility] LABCLIA [id number] [place] [address] [place] Hematocrit (Bld) [Volume fraction] 42.2 % Normal 36.0-46.0 [facility] Comment on above: Order Comment: Speci men Type: BLOOD SPECIMENOrdering Facility: [facility] Address: [address] [place] [address] Performed By: #### 5 7021-8 ####[facility] LABCLIA [id number] [place] [address] [place] Hemoglobin (Bld) [Mass/Vol] 14.2 g/dL Normal 11.5-15.5 [facility] Comment on above: Order Comment: Speci men Type: BLOOD SPECIMENOrdering Facility: [facility] Address: [address] [place] [address] Performed By: #### 5 7021-8 ####[facility] LABCLIA [id number] [place] [address] [place] Immature granulocytes (Bld) [#/Vol] 0.03 10*3/uL Normal <0.10 [facility] Comment on above: Order Comment: Speci men Type: BLOOD SPECIMENOrdering Facility: [facility] Address: [address] [place] [address] Performed By: #### 5 7021-8 ####[facility] LABIA [id number] [place] [address] [place] Immature granulocytes/100 WBC (Bld) 0.4 % Normal [facility] Comment on above: Order Comment: Speci men Type: BLOOD SPECIMENOrdering Facility: [facility] Address: [address] [place] [address] Performed By: #### 5 7021-8 ####[facility] LABIA [id number] [place] [address] [place] Lymphocytes (Bld) [#/Vol] 2.94 10*3/uL Normal 1.00-4.00 [facility] Comment on above: Order Comment: Speci men Type: BLOOD SPECIMENOrdering Facility: [facility] Address: [address] [place] [address] Performed By: #### 5 7021-8 ####[facility] LABIA [id number] [place] [address] [place] Lymphocytes/100 WBC (Bld) 39.0 % Normal [facility] Comment on above: Order Comment: Speci men Type: BLOOD SPECIMENOrdering Facility: [facility] Address: [address] [place] [address] Performed By: #### 5 7021-8 ####[facility] LABIA [id number] [place] [address] [place] MCH (RBC) [Entitic mass] 33.1 pg Normal 26.0-34.0 [facility] Comment on above: Order Comment: Speci men Type: BLOOD SPECIMENOrdering Facility: [facility] Address: [address] [place] [address] Performed By: #### 5 7021-8 ####[facility] LABIA [id number] [place] [address] [place] MCHC (RBC) [Mass/Vol] 33.6 g/dL Normal 30.5-36.0 [facility] Comment on above: Order Comment: Speci men Type: BLOOD SPECIMENOrdering Facility: [facility] Address: [address] [place] [address] Performed By: #### 5 7021-8 ####[facility] LABIA [id number] [place] [address] [place] MCV (RBC) [Entitic vol] 98.4 fL Normal 80.0-100.0 C [facility] Comment on above: Order Comment: Speci men Type: BLOOD SPECIMENOrdering Facility: [facility] Address: [address] [place] [address] Performed By: #### 5 7021-8 ####[facility] LABIA [id number] [place] [address] [place] Monocytes (Bld) [#/Vol] 0.46 10*3/uL Normal <0.87 [facility] Comment on above: Order Comment: Speci men Type: BLOOD SPECIMENOrdering Facility: [facility] Address: [address] [place] [address] Performed By: #### 5 7021-8 ####[facility] LABCLIA [id number] [place] [address] [place] Monocytes/100 WBC (Bld) 6.1 % Normal [facility] Comment on above: Order Comment: Speci men Type: BLOOD SPECIMENOrdering Facility: [facility] Address: [address] [place] [address] Performed By: #### 5 7021-8 ####[facility] LABCLIA [id number] [place] [address] [place] Neutrophils (Bld) [#/Vol] 3.83 10*3/uL Normal 1.45-7.50 [facility] Comment on above: Order Comment: Speci men Type: BLOOD SPECIMENOrdering Facility: [facility] Address: [address] [place] [address] Performed By: #### 5 7021-8 ####[facility] LABCLIA [id number] [place] [address] [place] Neutrophils/100 WBC (Bld) 50.8 % Normal [facility] Comment on above: Order Comment: Speci men Type: BLOOD SPECIMENOrdering Facility: [facility] Address: [address] [place] [address] Performed By: #### 5 7021-8 ####[facility] LABCLIA [id number] [place] [address] [place] Nucleated RBC (Bld) [#/Vol] 10*3/uL Normal <0.01 [facility] Comment on above: Order Comment: Speci men Type: BLOOD SPECIMENOrdering Facility: [facility] Address: [address] [place] [address] Performed By: #### 5 7021-8 ####[facility] [facility] LAB[facility] [id number] [place] [address] [place] Nucleated RBC/100 WBC (Bld) [Ratio] 0.0 /100 WBC Normal [facility] Comment on above: Order Comment: Speci men Type: BLOOD SPECIMENOrdering Facility: [facility] Address: [address] [place] [address] Performed By: #### 5 7021-8 ####[facility] LABCLIA [id number] [place] [address] [place] Platelet mean volume (Bld) [Entitic vol] 12.8 fL High 9.0-12.7 [facility] Comment on above: Order Comment: Speci men Type: BLOOD SPECIMENOrdering Facility: [facility] Address: [address] [place] [address] Performed By: #### 5 7021-8 ####[facility] LABCLIA [id number] [place] [address] [place] Platelets (Bld) [#/Vol] 144 10*3/uL Low 150-400 [facility] Comment on above: Order Comment: Speci men Type: BLOOD SPECIMENOrdering Facility: [facility] Address: [address] [place] [address] Performed By: #### 5 7021-8 ####[facility] LABCLIA [id number] [place] [address] [place] RBC (Bld) [#/Vol] 4.29 10*6/uL Normal 3.90-5.20 [facility] Comment on above: Order Comment: Speci men Type: BLOOD SPECIMENOrdering Facility: [facility] Address: [address] [place] [address] Performed By: #### 5 7021-8 ####[facility] LABCLIA [id number] [place] [address] [place] WBC (Bld) [#/Vol] 7.54 10*3/uL Normal 3.70-11.00 [facility] Comment on above: Order Comment: Speci men Type: BLOOD SPECIMENOrdering Facility: [facility] Address: [address] [place] [address] Performed By: #### 5 7021-8 ####[facility] LABCLIA [id number] [place] [address] [place] PT panel Coag (PPP)on 2024 INR Coag (PPP) [Relative time] 1.1 {INR} Normal 0.9-1.3 [facility] Comment on above: Order Comment: Speci men Type: BLOOD SPECIMENOrdering Facility: [facility] Address: [address] [place] [address] Result Comment: Marlene min K Antagonist (VKA) Therapeutic Range: INR 2 to 3 (Target INR of 2.5) Note: For patients treated with VKA drugs, such as warfarin, the [place] [employer] 2012 Guideline recommends [...] to 3.5 (target INR of 3). Sandie GH, et al. Chest 2012, 141:7S-47S Gabriella RA et al. [facility] 2017, 70: 252-289 Performed By: #### 3 4528-0 ####[facility] LABIA [id number] [place] [id number] [place] PT Coag (PPP) [Time] 11.4 s Normal 9.7-13.0 [facility] Comment on above: Order Comment: Speci men Type: BLOOD SPECIMENOrdering Facility: [facility] Address: [address] [place] [address] Performed By: #### 3 4528-0 ####[facility] KAREN [id number] [facility] [address] [address] [place] Cathy 05-09-2024 CHRISN Telephone (ASCNOR) KAUR SUTTON ([id number]) 1965 F Date Time Provider Department 05/09/24 CARLEE AREMNDARIZ During your visit today, we recorded the following information about you: Jeanette Hernandes 05/09/2024 2:23 PM Signed Fibroscan results in care everywhere Thank you. Janny Grant PA-C 05/09/2024 2:27 PM Signed Acrlee's patient -- Fibroscan scan is showing S3, F4 ( severe fatty liver, advanced fibrosis/cirrhosis). Recommend continuing with liver bx on the to confirm cirrhosis. Pam Marcus MA 05/09/2024 2:35 PM Signed Patient notified of results Allergies As of Date: 05/09/2024 Noted Allergy Reaction DURICEF (CEFADROXIL) 06/15/2011 2 - Rash LISINOPRIL 10/28/2020 3 - Cough LOTRONEX (ALOSETRON) 08/22/2019 2 - Rash METFORMIN 10/28/2020 5 - Intolerance 14 - Other: See Comments PENICILLINS 06/15/2011 2 - Rash ZOMIG (ZOLMITRIPTAN) 06/15/2011 5 - Intolerance Date Reviewed: 04/11/2024 Reviewed by: Teodora Garcia APRN.CUPOLA PATCHER HELPER - Fully Assessed Reason for Visit: Results [95] Prescriptions as of 05/09/2024 - albuterol HFA (PROVENTIL HFA, VENTOLIN HFA) 90 mcg/actuation inhaler Inhale 2 Puffs as instructed every 6 hours as needed for wheezing/shortness of breath. - Naproxen Sodium 550 mg tablet Take 1 tablet by mouth two times a day as needed (headache). FOR PAIN. TAKE WITH FOOD. - SUMAtriptan (IMITREX) 100 mg tablet Take 1 tablet (100 mg) by mouth as needed for migraine headache (see administration instructions). START AT ONSET OF HEADACHE. MAY REPEAT DOSE AFTER 2 HOURS. - OZEMPIC 0.25 mg or 0.5 mg [...] equal 125 mg total per day - FLUoxetine (PROZAC) 20 mg capsule Take [...] instructed every 4 hours as needed. - [place]-3 Fatty Acids 500 mg cap Take 500 mg by mouth once daily. - Magnesium Oxide 500 mg Tab Take 1 tablet by mouth once daily. - famotidine (PEPCID) 40 mg tablet Take 40 mg by mouth twice daily. - Cholecalciferol, Vitamin D3, 50 mcg (2,000 unit) cap Take 1 capsule by mouth once daily. Problem List As Of Date 05/09/2024 Noted Resolved Migraine without aura [G43.009] 12/28/2011 06/08/2016 Migraine without aura and without status migrai*06/08/2016 Restless legs syndrome (RLS) [G25.81] 06/08/2016 Essential tremor [G25.0] 06/08/2016 Obesity, Class III, BMI >= 40 (morbid obesity) *09/14/2016 Obesity, Class II, BMI 35-39.9 [E66.812] 09/27/2017 Encounter Status:Closed by JANNY GRANT on 05/09/24 [facility] 04-28-2024 CNPN Telephone (GSTNOR) KAUR SUTTON ([id number]) 1965 F Date Time Provider Department 04/28/24 CARLEE ARMENDARIZ GSTNOR During your visit today, we recorded the following information about you: Pam Marcus MA 04/28/2024 11:01 AM Signed Patient called in because she saw her Fibroscan results in her [facility] profile that showed F4. Patient is not concerned but her boyfriend is. Advised patient that I will send a message that results are available for review in scanning and CE. Once review Carlee will send a message on next steps and if any further testing is needed. Thank you Carlee Armendariz PA-C 04/30/2024 3:12 PM Signed Addended by: CARLEE ARMENDARIZ on: 04/30/2024 03:12 PM Modules accepted: Orders Allergies As of Date: 04/28/2024 Noted Allergy Reaction DURICEF (CEFADROXIL) 06/15/2011 2 - Rash LISINOPRIL 10/28/2020 3 - Cough LOTRONEX (ALOSETRON) 08/22/2019 2 - Rash METFORMIN 10/28/2020 5 - Intolerance 14 - Other: See Comments PENICILLINS 06/15/2011 2 - Rash ZOMIG (ZOLMITRIPTAN) 06/15/2011 5 - Intolerance Date Reviewed: 04/11/2024 Reviewed by: Teodora Garcia APRN.CUPOLA PATCHER HELPER - Fully Assessed Reason for Visit: Fibroscan [Other] Primary Visit Diagnosis:Hepatic steatosis [K76.0] Other Visit Diagnosis:Abnormal findings on diagnostic imaging of liver [R93.2] Order(s):COMPLETE BLOOD COUNT AND DIFFERENTIAL [SQCBCDIF] Order #: [id number] FUTURE PROTHROMBIN TIME [SQPT] Order #: [id number] FUTURE IMAGING GUIDED BIOPSY LIVER [9273557] Order #: [id number] Prescriptions as of 04/30/2024 - albuterol HFA (PROVENTIL HFA, VENTOLIN HFA) 90 mcg/actuation inhaler Inhale 2 Puffs as instructed every 6 hours as needed for wheezing/shortness of breath. - Naproxen Sodium 550 mg tablet Take 1 tablet by mouth two times a day as needed (headache). FOR PAIN. TAKE WITH FOOD. - SUMAtriptan (IMITREX) 100 mg tablet Take 1 tablet (100 mg) by mouth as needed for migraine headache (see administration instructions). START AT ONSET OF HEADACHE. MAY REPEAT DOSE AFTER 2 HOURS. - OZEMPIC 0.25 mg or 0.5 mg [...] equal 125 mg total per day - FLUoxetine (PROZAC) 20 mg capsule Take [...] instructed every 4 hours as needed. - [place]-3 Fatty Acids 500 mg cap Take 500 mg by mouth once daily. - Magnesium Oxide 500 mg Tab Take 1 tablet by mouth once daily. - famotidine (PEPCID) 40 mg tablet Take 40 mg by mouth twice daily. - Cholecalciferol, Vitamin D3, 50 mcg (2,000 unit) cap Take 1 capsule by mouth once daily. Problem List As Of Date 04/28/2024 Noted Resolved Migraine without aura [G43.009] 12/28/2011 06/08/2016 Migraine without aura and without status migrai*06/08/2016 Restless legs syndrome (RLS) [G25.81] 06/08/2016 Essential tremor [G25.0] 06/08/2016 Obesity, Class III, BMI >= 40 (morbid obesity) *09/14/2016 Obesity, Class II, BMI 35-39.9 [E66.812] 09/27/2017 Encounter Status:Closed by PAM MARCUS on 04/28/24 Normal [facility] Progress Noteon 04-25-2024 Progress Note [facility] [place] Patient: Herman Dietrich : 1965 Height: Ht Readings from Last 1 Encounters: 04/25/24 5' 8 (1.727 m) Weight: Wt Readings from Last 1 Encounters: 04/25/24 241 lb (109 kg) BMI: BMI Readings from Last 1 Encounters: 04/25/24 36.64 kg/m? Procedure: Patient referred by Carlee Armendariz for open-access FibroScan study for diagnosis of Fatty Liver Patient identified x 2 and verified the following: age 18 or older-yes Fasting >3 hours-yes FibroScan study completed using Extra Large probe and 10 consecutive valid measurements obtained. Patient tolerated procedure well. Multiple attempts with scanning, remained with average score between 28-50, same F4 category, unable to get IQR below 31%. CAP score remained constant at 329, did not change, therefore exam ended, did not change the outcome. Results: Median=36.2 kPa IQR/med=31 % JUV=127 dB/m Brissa Elkins RN, 04/25/2024 3:06 PM Diagnosis/Problems: Diagnosis Plan 1. Hepatic steatosis Fibroscan Provider Impression: Normal [facility] CNOVon 04-22-2024 CNOV Office Visit (UCWSTR ) KAUR SUTTON ([id number]) 1965 F Date Time Provider Department 04/22/24 8:30 AM OGVIND ADAME [facility] During your visit today, we recorded the following information about you: Temperature Pulse Respiration Blood pressure 98.2 degrees 71/minute 18/minute 102/64 Weight 110.8 kg Govind Adame, PROMOTION OFFICER.CUPOLA PATCHER HELPER 04/22/2024 8:44 AM Signed Subjective HPI Nontoxic-appearing female presents urgent care chief complaint cough sinus pressure. Duration of symptoms 8 days. Associated symptoms listed above. Presents today for evaluation. Symptoms were improving then worsened again. Exposure to pneumonia family. OTC medications none recently. History of sinus infection. Denies any fever chest pain hemoptysis or pleuritic pain. Past medical history prescription medications allergies reviewed. Risk factors previously smoker. Quit in May of this year. .Patient presents with: Cough: Cough, congestion and sinus drainage x 1 week PAST MEDICAL HISTORY Diagnosis Date Anxiety C. [...] [Alosetron], Metformin, Penicillins, and Zomig [Zolmitriptan] MEDICATIONS Naproxen Sodium 550 mg tablet Take 1 tablet by mouth two times a day as needed (headache). FOR PAIN. TAKE WITH FOOD. SUMAtriptan (IMITREX) 100 mg tablet Take 1 tablet (100 mg) by mouth as needed for migraine headache (see administration instructions). START AT ONSET OF HEADACHE. MAY REPEAT DOSE AFTER 2 HOURS. OZEMPIC 0.25 mg or 0.5 mg (2 [...] as instructed every 4 hours as needed. [place]-3 Fatty Acids 500 mg cap Take 500 mg by mouth once daily. Magnesium Oxide 500 mg Tab Take 1 tablet by mouth once daily. (Patient taking differently: Take 400 mg by mouth once daily.) famotidine (PEPCID) 40 mg tablet Take 40 mg by mouth twice daily. Cholecalciferol, Vitamin D3, 50 mcg (2,000 unit) cap Take 1 capsule by mouth once daily. FLUoxetine (PROZAC) 20 mg capsule Take 1 capsule by mouth once daily. (Patient not taking: Reported on 04/22/2024) FAMILY HISTORY Problem Relation Age of Onset [...] date: 05/10/2005 Quit date: 05/10/2023 Years since quittin.9 Smokeless tobacco: Never Vaping Use Vaping status: Never Used Substance Use Topics Alcohol use: No Drug use: Never BP 102/64 Pulse 71 Temp 36.8 ?C (98.2 ?F) (Tympanic) Resp 18 Wt 110.8 kg (244 lb 4.3 oz) LMP 05/19/2011 SpO2 95% BMI 36.07 kg/m? Review of Systems Constitutional: Negative for chills, fever and malaise/fatigue. HENT: Positive for congestion and sinus pain. Negative fo (more content not included)... Normal [facility] CNOVon 04-11-2024 CNOV Office Visit (NRHAME ) KAUR SUTTON ([id number]) 1965 F Date Time Provider Department 04/11/24 1:30 PM TEODORA GARCIA During your visit today, we recorded the following information about you: Pulse Blood pressure Weight Height 63/minute 125/80 112.8 kg 1.753 m Teodora Garcia APRN.CUPOLA PATCHER HELPER 04/11/2024 1:18 PM Signed AFTER VISIT CARE BOTOX INJECTION While these procedures can be extremely helpful as part of your headache treatment plan, they can irritate the muscles and tissues in your head, neck and shoulders. Proper follow-up care is important to avoid muscle spasms and temporary pain increase within the following 3-5 days after your clinic visit. Here are some tips to help decrease side-effects that may occur and maximize the effectiveness of your pain relief? -HYDRATION Hydration is important to help nourish your muscles and tissues. Drink 60-80 oz of non caffeinated fluid at least for 3 days after your visit. -REST Rest will help avoid further irritation of muscle and tissues. Remember that you need to give your body time to adjust. NO strenuous activity for at least the first 24 hours after your visit. Gentle stretching, yoga, meditation or even swimming is OK and encouraged. -ICE/HEAT Since these procedures irritate muscles, there can be some swelling. Alternating ice and heat every 3-5 times per day may help decrease this, while also optimizing pain relief Use cool gel packs for ice for 10 min. Use a warm moist towel covered with a dry towel on neck and shoulders. Alternate stretching each side of the neck. -STRETCHING Slow, gentle stretching of the neck and shoulders once every hour is helpful to avoid muscle spasms. -TREAT MUSCLE SPASMS If you are already prescribed a muscle relaxer such as baclofen, tizanidine or flexeril, use as directed. If you do not have one, talk to your provider to find out if this would be safe for you to use. Do not rub or massage the area for 48-72 hours. -OTHER No hair dyes or permanents for 24 hours. If you are paying out of pocket for Botox go online to Botox Savings Program and see if you qualify for reimbursement. Return in 3 months for your next Botox Injection Teodora Garcia APRN.CNP 04/11/2024 1:49 PM Signed Headache Center Follow-up Visit Miscellaneous Patient Concerns: Toradol helped somewhat, but migraines remain high frequency/daily. Impression: Chronic migraine without aura, intractable, without status migrainosus (primary encounter diagnosis) New Onabotulinum Toxin A (BotoxTM) for Migraine Indication: Chronic Intractable Migraine Treatment #: 1 Referral Expiration: 09/08/2024 Number of moderate-severe migraine days/month: 30 (daily) Number of mild migraine days/month: 0 Number of headache free days/month: 0 (0 headache-free hours) Migraine severity: 5/10 The patient has been assessed for disorders which could contribute to breathing or swallowing difficulty, and there is no contraindication with PREEMPT Botox. There is no documented allergic reaction/hypersensiti vity to any botulinum toxin and there is no active infection at proposed injection site. HEADACHE SCORES: 11/24/2022 03/02/2024 04/04/2024 Headache Questions ER visits since last office visit: 0 0 0 Hospital stays since last office visit 0 0 0 Limited ADLs in the last month: 0 0 0 Days missed from work or school in the last month: 0 0 0 Days headache pain free in the last month: 23 5 2 Days per month with ALL of the following symptoms - decreased productivity, light sensitivity and nausea: 1 10 3 Initial improvement of headache after botox injection at last visit: Not applicable, I did not have a botox injection at my last visit Not applicable, I did not have a botox injection at my last visit Not applicable, I did not have a botox injection at my last visit PRN medication usage in the last month: 8 25 30 Patient impression of improvement since last visit: No change Minimally worse Much worse 11/24/2022 03/02/2024 04/04/2024 HIT-6 HIT-6 52 (Moderate impact) 57 (Substantial impact) 54 (Moderate impact) 11/24/2022 03/02/2024 04/04/2024 MENDEL - 2/7 SCORES MENDEL-2 Score 2 2 0 11/24/2022 03/02/2024 04/04/2024 Migraine Specific QOL - Higher scores indicate better HRQL Role Function-Restrictive Transformed Score (range: 0-100) 85.71 80 60 Role Function-Preventive Transformed Score (range: 0-100) 100 100 90 Emotional Function Transformed Score (range: 0-100) 86.67 93.33 73.33 04/04/2024 11/24/2022 11/02/2021 PHQ-9 Score 2 3 1 BP 125/80 (BP Site: Left Arm, BP Position: Sitting, BP Cuff Size: Large Adult) Pulse 63 Ht 175.3 cm (5' 9) Wt 112.8 kg (248 lb 10.9 oz) LMP 05/19/2011 SpO2 97% BMI 36.72 kg/m? Patient name: Kaur Sutton : 1965 ALLERGIES Allergen Reactions Duricef [Cefadroxil] Rash Lisinopr (more content not included)... Normal [facility] BONE DENSITY DEXA AXIAL S Verito 03-29-2024 BD BONE DENSITY DEXA AXIAL SKELETON ORIGINAL EXAMINATION: BONE DENSITOMETRY 03/29/2024 2:47 pm TECHNIQUE: A bone density dual x-ray absorptiometry (DEXA) scan was performed of the axial (e.g. hips, spine) and/or appendicular (e.g. radius) skeleton as appropriate. COMPARISON: None. HISTORY: ORDERING SYSTEM PROVIDED HISTORY: Reason for Exam: Osteoporosis Screening FINDINGS: T Score Left Femoral Neck: 0.1 Left Femoral Neck: 0.861 (g/cm2) T Score Left Hip: 0.5 Left Hip: 1.008 (g/cm2) T Score Lumbar Spine: 1.0 Lumbar Spine: 1.155 (g/cmd2) IMPRESSION: Normal bone mineral density by WHO criteria. World Health Organization criteria: (Comparing with young normal sex matched population) - Normal: T-score at or above -1 SD (standard deviation) - Osteopenia: T-score between -1 and -2.5 SD - Osteoporosis: T-score at or below -2.5 SD The NOF recommends that FDA-approved medical therapies be considered in post-menopausal women and men age >/= 50 years with a: * Hip or vertebral fracture, or * T-score of /= 20% for major osteoporotic fractures or * >/= 3% for hip fractures All treatment decisions require clinical judgement and consideration of individual patient factors, including patient preferences, comorbidities, previous drug use, risk factors not captured in the FRAX registered model (e.g., frailty, falls, vitamin D deficiency, increased bone turnover, interval significant decline in bone density) and possible under- or over-estimation of fracture risk by FRAX. Interpreted by: Chet Deshpande DO Preliminary Report By: Chet Deshpande DO Electronically signed By Chet Deshpande DO Dictated Date: 03/29/2024 3:17:50 PM Prelim Date: 03/29/2024 3:18:17 PM Sign Date: 03/29/2024 3:18:17 PM Ordering Provider: RADHA Edwards [facility] MAMMOGRAM SCREENING BILAT ERAL W/TOMOon 03-29-2024 MA MAMMOGRAM SCREENING BILATERAL W/REGAN ORIGINAL FROM: [place] [id number] PROCEDURE FOR: KAUR SUTTON [address] [place] [address] Home: PID#: [id number] Exam#: [id number] : 1965 Age: 59 TO: RADHA ACUNA DO [address] [place], [place] [address] Fax: NO FAX EXAMINATION: SCREENING DIGITAL BILATERAL MAMMOGRAM WITH TOMOSYNTHESIS, 03/29/2024 2:01 pm TECHNIQUE: Screening mammography of the bilateral breasts was performed with tomosynthesis. 2D standard and 3D tomosynthesis combination imaging performed through both breasts in the MLO and CC projection. Computer aided detection was utilized in the interpretation of this exam. COMPARISON: March 06, 2023, November 14, 2021, HISTORY: Breast cancer screening. FINDINGS: BREAST DENSITY: There are scattered areas of fibroglandular density. There is no suspicious mass, architectural distortion or microcalcification. Fibroglandular pattern is stable. IMPRESSION: No mammographic evidence of malignancy. Continued screening with annual mammograms is recommended. Jc Osbornezick risk calculations, generated with the history provided, report this patient's 10 year risk and lifetime risk for developing breast cancer at 5.2% and 13.4%, respectively. Based on this assessment tool, if [...] addition to annual mammographic screening per the [place] [employer]. BIRADS: MAMMOGRAM BI-RADS: 1: Negative RECALL: 1 year screening RECALL TYPE: mammo LETTER SENT: Normal BI-RADS 1 and 2 Interpreted by: Nora Hickman Preliminary Report By: Nora Hickman Electronically signed By Nora Hickman Dictated Date: 03/29/2024 3:11:15 PM Prelim Date: 03/29/2024 3:12:38 PM Sign Date: 03/29/2024 3:12:38 PM Ordering Provider: RADHA ACUNA Pastry Wrapper: HEBER ELIAS RT(R)(M)(CT) letter sent: Normal BI-RADS 1 and 2 Mammogram BI-RADS: 1 Negative [address] [facility] Brain W/WO Contraston 2023 Brain W/WO Contrast [facility] Services [address] [place] [address] Brain W/WO Contrast MR#: [id number] Acct: [id number] Name: KAUR SUTTON Rep #: [id number] : 1965 F 59 From: Darron Mcmullen MD PCP: Dr. Radha Acuna, DO Status: REG CLI Study: Brain W/WO Contrast Date of Exam: 03/06/24 Exam# [id number] Ordering Dr: Caleb Garrison MD [id number] STUDY: MRI BRAIN WITH AND WITHOUT CONTRAST (ATTENTION INTERNAL AUDITORY CANALS - I.A.C.''s) REASON FOR EXAM: Female, 59 years old. Ataxia, left HEARING LOSS TECHNIQUE: Standardized multiplanar fat and water weighted pulse sequences were obtained. 22 mL of IV Clariscan was administered for the contrast portion of the examination. COMPARISON: MRI brain with and without contrast 09/04/2005. FINDINGS: Normal bilateral temporal bones. Normal bilateral internal auditory canals. There is no demonstrated intracanalicular or cisternal vestibular schwannoma (acoustic neuroma). There is no enhancement of the bilateral VIIth or VIIIth cranial nerves. Normal bilateral cochlea, vestibules and semicircular canals. Normal size of the ventricles and extra-axial spaces for the patient''s age. Diffuse subcortical white matter T2 FLAIR hyperintensity foci in the frontal lobes, right more than left are nonspecific. They are most likely chronic white matter ischemic changes. No mass effects and no midline shift. Normal bilateral basal ganglia. Normal thalami. Normal flow voids within the major intracranial circulation suggesting patency by spin echo criteria. Normal venous enhancement. There is no enhancing intra-axial or extra-axial abnormality. There is no extra-axial fluid accumulation. Normal sella turcica, pituitary gland, infundibular stalk, optic chiasm and hypothalamus. Normal tectal plate and pineal gland. Normal midbrain, anil and medulla. Normal cerebellum. Normal basal cisterns. No demonstrated orbital abnormality, within the constraints of a routine brain study. Normal visualized paranasal sinuses. Normal calvarium and skull base. Normal visualized soft tissue structures. Normal visualized upper cervical spine. MRI/Brain W/WO Contrast IMPRESSION: 1. Few small nonenhancing chronic subcortical white ischemic changes in the frontal lobes, right more than left otherwise negative unenhanced and enhanced MRI of the brain and bilateral internal auditory canals (I.A.C''s). 2. Mild increased chronic subcortical white matter ischemic changes in the frontal lobes when compared to 09/04/2005. Electronically Signed: Darron Mcmullen MD at 13:31 EDT , CC: Dr. Caleb Garrison MD; Dr. Radha Acuna DO Device Engineer: Signed Normal [facility] CREATININE FINGERSTICKon CREATININE WB < 1.0 Normal 0.55-1.02 [facility] Comment on above: Performed By: #### L 9100.0200 #### [facility] [address] [place], [place], [id number] EGFR WB > 60.0000 Normal >60 [facility] Comment on above: Performed By: #### L 9100.0200 #### [facility] [address] [place], [place], [address] LABORATORYOrdered By: Yolanda Salinas on 01-24-2024 Albumin DL <= 20 mg/L (U) [Mass/Vol] 406 mcg/dL Invalid Interpretation Code AO ADM SS Albumin/Creatinine DL <= 20 mg/L (U) [Mass ratio] 5 mcg/mg Normal 0 - 30 mcg/mg AO ADM SS Creatinine (U) [Mass/Vol] 88.8 mg/dL Normal 28.0 - 117.0 mg/dL AO ADM SS No Panel Informationon 12-28 IMPRESSION: Findings are suggestive of diffuse liver parenchymal disease or hepatic steatosis. Left renal cyst. Device Engineer: EFRAIN Transcribe Date/Time: Dec 29 2023 2:26P Dictated by : JASON MCGEE MD This examination was interpreted and the report reviewed and electronically signed by: JASON MCGEE MD on Dec 29 2023 2:34PM [facility] DIVISION OF RADIOLOGY No Panel InformationOrdered By: Ccf Provider on 12-29-2023 [facility] US ABD SPLEEN - NBon [id number] * [...] cm in length. DIVISION OF RADIOLOGY Provider, [facility] - 12/29/2023 * * *Final Report* * [...] disease or hepatic steatosis. Left renal cyst. Device Engineer: EFRAIN Transcribe Date/Time: Dec 29 2023 2:26P Dictated by : JASON MCGEE MD This examination was interpreted and the report reviewed and electronically signed by: JASON MCGEE MD on Dec 29 2023 2:34PM EST [facility] Radiology Study observation (narrative) [facility] US Abdomen RUQon 12-29-2023 * * [...] cm in length. DIVISION OF RADIOLOGY Provider, Bell Alisha [facility] - 12/29/2023 * * *Final Report* * [...] disease or hepatic steatosis. Left renal cyst. Device Engineer: EFRAIN Transcribe Date/Time: Dec 29 2023 2:26P Dictated by : JASON MCGEE MD This examination was interpreted and the report reviewed and electronically signed by: JASON MCGEE MD on Dec 29 2023 2:34PM EST [facility] Radiology Study observation (narrative) [facility] ACTIVATED PARTIAL THROMBOPLA STIN TIMEOrdered By: Victoria Sharma on 12-08-2023 aPTT Coag (PPP) [Time] 25.8 s [facility] CBC W Auto Differential pane l (Bld)on 12-08-2023 Basophils (Bld) [#/Vol] [facility] C [facility] Basophils/100 WBC (Bld) 0.4 % C [facility] Differential cell count method Nom (Bld) Auto [facility] Eosinophils (Bld) [#/Vol] 0.25 10*3/uL [facility] Eosinophils/100 WBC (Bld) 4.5 % [facility] Erythrocyte distribution width (RBC) [Ratio] 12.7 % 11.5 - 15.0 % [facility] Hematocrit (Bld) [Volume fraction] 42.3 % 36.0 - 46.0 % [facility] Hemoglobin (Bld) [Mass/Vol] 14.6 g/dL 11.5 - 15.5 g/dL [facility] Immature granulocytes (Bld) [#/Vol] [facility] Immature granulocytes/100 WBC (Bld) 0.2 % [facility] Interpretation and review of laboratory results Abnormal [facility] Lymphocytes (Bld) [#/Vol] 1.87 10*3/uL [facility] Lymphocytes/100 WBC (Bld) 33.7 % [facility] MCH (RBC) [Entitic mass] 32.4 pg 26.0 - 34.0 pg [facility] MCHC (RBC) [Mass/Vol] 34.5 g/dL 30.5 - 36.0 g/dL [facility] MCV (RBC) [Entitic vol] 93.8 fL 80.0 - 100.0 fL [facility] Monocytes (Bld) [#/Vol] 0.30 10*3/uL [facility] Monocytes/100 WBC (Bld) 5.4 % [facility] Neutrophils (Bld) [#/Vol] 3.10 10*3/uL [facility] Neutrophils/100 WBC (Bld) 55.8 % [facility] Nucleated RBC (Bld) [#/Vol] [facility] Nucleated RBC/100 WBC (Bld) [Ratio] 0.0 % /100 WBC [facility] Platelet mean volume (Bld) [Entitic vol] 12.2 fL 9.0 - 12.7 fL [facility] Platelets (Bld) [#/Vol] 138 10*3/uL Low [facility] RBC (Bld) [#/Vol] 4.51 10*6/uL 3.90 - 5.2 0 m/uL [facility] WBC (Bld) [#/Vol] 5.55 10*3/uL [facility] No Panel InformationOrdered By: Victoria Sharma on 12-08-2023 Interpretation and review of laboratory results Normal [facility] PT panel Coag (PPP)on 2023 INR Coag (PPP) [Relative time] 1.1 {INR} 0.9 - 1.3 [facility] Comment on above: Vitamin K Antagonist (VKA) Therapeutic Range: INR 2 to 3 (Target INR of 2.5) Note: For patients treated with VKA drugs, such as warfarin, the [place] [employer] 2012 Guideline recommends [...] 2.5 to 3.5 (target INR of 3). Garfieldyatt GH, et al. Chest 2012, 141:7S-47S Gabriella RA, et al. JACC 2017, 70: 252-289 PT Coag (PPP) [Time] 10.8 s [facility] aPTT Coag (PPP) [Time]Ordere d By: Victoria [...] laboratory APTT reagent in use throughout the [facility]. [facility] .Auto Diffon 10-23-2023 Basophil, Absolute 0.0 10 3/mcL Normal 0.0-0.2 [facility] ([place] Comment on above: Performed By: #### C MP, GFR, LIPID, CBC, ADIFF, ANEU, A1C, FERR, TSH, VIDH #### [address] [address] #### B12 #### [address] [address] Basophils/100 WBC (Bld) 0.5 % Normal 0.0-2.5 [facility] ([place]) Comment on above: Performed By: #### C MP, GFR, LIPID, CBC, ADIFF, ANEU, A1C, FERR, TSH, VIDH #### [place] [address] #### B12 #### [address] [address] Eosinophil, Absolute 0.1 10 3/mcL Normal 0.0-0.4 [facility] ([place]) Comment on above: Performed By: #### C MP, GFR, LIPID, CBC, ADIFF, ANEU, A1C, FERR, TSH, VIDH #### [place] [address] #### B12 #### [address] [address] Eosinophils/100 WBC (Bld) 1.7 % Normal 0.0-7.0 [facility] ([place]) Comment on above: Performed By: #### C MP, GFR, LIPID, CBC, ADIFF, ANEU, A1C, FERR, TSH, VIDH #### [place] [address] #### B12 #### [address] [address] Lymphocyte, Absolute 2.1 10 3/mcL Normal 0.8-3.9 [facility] ([place] Comment on above: Performed By: #### C MP, GFR, LIPID, CBC, ADIFF, ANEU, A1C, FERR, TSH, VIDH #### [place] [address] #### B12 #### [address] [address] Lymphocytes/100 WBC (Bld) 35.2 % Normal 10.0-50.0 [facility] ([place] Comment on above: Performed By: #### C MP, GFR, LIPID, CBC, ADIFF, ANEU, A1C, FERR, TSH, VIDH #### [address] [address] #### B12 #### [address] [address] Monocyte, Absolute 0.4 10 3/mcL Normal 0.2-1.0 [facility] ([place]) Comment on above: Performed By: #### C MP, GFR, LIPID, CBC, ADIFF, ANEU, A1C, FERR, TSH, VIDH #### [address] [address] #### B12 #### [address] [address] Monocytes/100 WBC (Bld) 6.8 % Normal 1.7-13.0 [facility] ([place]) Comment on above: Performed By: #### C MP, GFR, LIPID, CBC, ADIFF, ANEU, A1C, FERR, TSH, VIDH #### [address] [address] #### B12 #### [address] [address] Neutrophils/100 WBC (Bld) 55.8 % Normal 37.0-80.0 [facility] ([place] Comment on above: Performed By: #### C MP, GFR, LIPID, CBC, ADIFF, ANEU, A1C, FERR, TSH, VIDH #### [address] [address] #### B12 #### [address] [address] .GFRon 10-23-2023 GFR 74 ml/min/1.73sqm Normal [facility] ([place]) Comment on above: Result Comment: GFR Population [...] ADIFF, ANEU, A1C, FERR, TSH, VIDH #### [address] [address] #### B12 #### [address] [address] GFR Non- 61 ml/min/1.73sqm Normal [facility] ([place] Comment on above: Result Comment: GFR Population [...] ADIFF, ANEU, A1C, FERR, TSH, VIDH #### [address] [address] #### B12 #### [address] [address] .NEUABSon 10-23-2023 Neutrophil, Absolute 3.3 10 3/mcL Normal 2.9-6.2 [facility] ([place] Comment on above: Performed By: #### C MP, GFR, LIPID, CBC, ADIFF, ANEU, A1C, FERR, TSH, VIDH #### [address] [address] #### B12 #### [address] [address] A1Con 10-23-2023 HbA1c (Bld) [Mass fraction] 6.4 % Normal 4.3-6.4 [facility] ([place] Comment on above: Performed By: #### C MP, GFR, LIPID, CBC, ADIFF, ANEU, A1C, FERR, TSH, VIDH #### [address] [address] #### B12 #### [place] [id number] B12on 10-23-2023 Cobalamin (Vitamin B12) [Mass/Vol] 549 pg/mL Normal 211-911 [facility] ([place] Comment on above: Performed By: #### C MP, GFR, LIPID, CBC, ADIFF, ANEU, A1C, FERR, TSH, VIDH #### [place] [address] #### B12 #### [place] [address] CBCon 10-23-2023 Erythrocyte distribution width (RBC) [Ratio] 13.3 % Normal 11.5-14.5 [facility] ([place] Comment on above: Performed By: #### C MP, GFR, LIPID, CBC, ADIFF, ANEU, A1C, FERR, TSH, VIDH #### [place] [address] #### B12 #### [place] [address] Hematocrit (Bld) [Volume fraction] 41.6 % Normal 37.0-47.0 [facility] ([place] Comment on above: Performed By: #### C MP, GFR, LIPID, CBC, ADIFF, ANEU, A1C, FERR, TSH, VIDH #### [place] [address] #### B12 #### [place] [address] Hgb 14.3 G/dL Normal 12.0-16.0 [facility] ([place] Comment on above: Performed By: #### C MP, GFR, LIPID, CBC, ADIFF, ANEU, A1C, FERR, TSH, VIDH #### [place] [address] #### B12 #### [place] [address] MCH (RBC) [Entitic mass] 32.8 pg High 27.0-31.2 [facility] ([place]) Comment on above: Performed By: #### C MP, GFR, LIPID, CBC, ADIFF, ANEU, A1C, FERR, TSH, VIDH #### [place] [address] #### B12 #### [place] [address] MCHC 34.4 G/dL Normal 33.0-37.0 [facility] ([place] Comment on above: Performed By: #### C MP, GFR, LIPID, CBC, ADIFF, ANEU, A1C, FERR, TSH, VIDH #### [place] [address] #### B12 #### [place] [address] MCV (RBC) [Entitic vol] 95.5 fL High 80.0-94.0 [facility] ([place]) Comment on above: Performed By: #### C MP, GFR, LIPID, CBC, ADIFF, ANEU, A1C, FERR, TSH, VIDH #### [place] [address] #### B12 #### [place] [address] Platelet 118 10 3/mcL Low 130-400 [facility] ([place] Comment on above: Performed By: #### C MP, GFR, LIPID, CBC, ADIFF, ANEU, A1C, FERR, TSH, VIDH #### [place] [address] #### B12 #### [place] [address] Platelet mean volume (Bld) [Entitic vol] 10.1 fL Normal 7.4-10.4 [facility] ([place] Comment on above: Performed By: #### C MP, GFR, LIPID, CBC, ADIFF, ANEU, A1C, FERR, TSH, VIDH #### [place] [address] #### B12 #### [place] [address] RBC 4.36 10 6/mcL Normal 4.20-5.40 [facility] ([place] Comment on above: Performed By: #### C MP, GFR, LIPID, CBC, ADIFF, ANEU, A1C, FERR, TSH, VIDH #### [place] [address] #### B12 #### [place] [address] WBC 6.0 10 3/mcL Normal 4.6-10.8 [facility] ([place] Comment on above: Performed By: #### C MP, GFR, LIPID, CBC, ADIFF, ANEU, A1C, FERR, TSH, VIDH #### [place] [address] #### B12 #### [place] [address] CMPon 10-23-2023 Albumin Level 3.9 G/dL Normal 3.5-5.0 [facility] ([place] Comment on above: Performed By: #### C MP, GFR, LIPID, CBC, ADIFF, ANEU, A1C, FERR, TSH, VIDH #### [place] [address] #### B12 #### [place] [address] Albumin/Globulin [Mass ratio] 1.0 {ratio} Low 1.1-2.5 [facility] ([place] Comment on above: Performed By: #### C MP, GFR, LIPID, CBC, ADIFF, ANEU, A1C, FERR, TSH, VIDH #### [address] [address] #### B12 #### [address] [address] ALP [Catalytic activity/Vol] 75 U/L Normal 40-135 [facility] ([place] Comment on above: Performed By: #### C MP, GFR, LIPID, CBC, ADIFF, ANEU, A1C, FERR, TSH, VIDH #### [address] [address] #### B12 #### [address] [address] ALT [Catalytic activity/Vol] 79 U/L High 14-59 [facility] ([place] Comment on above: Performed By: #### C MP, GFR, LIPID, CBC, ADIFF, ANEU, A1C, FERR, TSH, VIDH #### [place] [address] #### B12 #### [place] [address] AST [Catalytic activity/Vol] 70 U/L High 10-40 [facility] ([place] Comment on above: Performed By: #### C MP, GFR, LIPID, CBC, ADIFF, ANEU, A1C, FERR, TSH, VIDH #### [address] [address] #### B12 #### [address] [address] Bili Total 0.7 mg/dL Normal 0.2-1.0 [facility] ([place] Comment on above: Result Comment: Use of this assay is not recommended for patients undergoing treatment with eltrombopag due to the potential for falsely elevated results. Performed By: #### C MP, GFR, LIPID, CBC, ADIFF, ANEU, A1C, FERR, TSH, VIDH #### [address] [address] #### B12 #### [place] [id number] BUN/Creatinine Ratio 11 ratio Normal 7-27 [facility] ([place] Comment on above: Performed By: #### C MP, GFR, LIPID, CBC, ADIFF, ANEU, A1C, FERR, TSH, VIDH #### [address] [address] #### B12 #### [address] [address] Calcium [Mass/Vol] 8.7 mg/dL Normal 8.4-10.2 [facility] ([place] Comment on above: Performed By: #### C MP, GFR, LIPID, CBC, ADIFF, ANEU, A1C, FERR, TSH, VIDH #### [address] [address] #### B12 #### [address] [address] Chloride [Moles/Vol] 105 mmol/L Normal 98-107 [facility] ([place] Comment on above: Performed By: #### C MP, GFR, LIPID, CBC, ADIFF, ANEU, A1C, FERR, TSH, VIDH #### [address] [address] #### B12 #### [address] [address] CO2 [Moles/Vol] 29 mmol/L Normal 22-29 [facility] ([place] Comment on above: Performed By: #### C MP, GFR, LIPID, CBC, ADIFF, ANEU, A1C, FERR, TSH, VIDH #### [address] [address] #### B12 #### [address] [address] Creatinine [Mass/Vol] 0.94 mg/dL Normal 0.55-1.02 [facility] ([place]) Comment on above: Performed By: #### C MP, GFR, LIPID, CBC, ADIFF, ANEU, A1C, FERR, TSH, VIDH #### [address] [address] #### B12 #### [address] [address] Electrolyte Balance 6.0 mEq/L Normal 4.0-15.0 [facility] ([place]) Comment on above: Performed By: #### C MP, GFR, LIPID, CBC, ADIFF, ANEU, A1C, FERR, TSH, VIDH #### [address] [address] #### B12 #### [address] [address] Globulin 3.9 G/dL Normal [facility] ([place] Comment on above: Performed By: #### C MP, GFR, LIPID, CBC, ADIFF, ANEU, A1C, FERR, TSH, VIDH #### [address] [address] #### B12 #### [address] [address] Glucose [Mass/Vol] 139 mg/dL High 70-105 [facility] ([place]) Comment on above: Performed By: #### C MP, GFR, LIPID, CBC, ADIFF, ANEU, A1C, FERR, TSH, VIDH #### [address] [address] #### B12 #### [address] [address] Potassium [Moles/Vol] 4.2 mmol/L Normal 3.5-5.1 [facility] ([place]) Comment on above: Performed By: #### C MP, GFR, LIPID, CBC, ADIFF, ANEU, A1C, FERR, TSH, VIDH #### [address] [address] #### B12 #### [address] [address] Sodium [Moles/Vol] 140 mmol/L Normal 136-145 [facility] ([place]) Comment on above: Performed By: #### C MP, GFR, LIPID, CBC, ADIFF, ANEU, A1C, FERR, TSH, VIDH #### [place] [address] #### B12 #### [address] [address] Total Protein 7.8 G/dL Normal 6.4-8.2 [facility] ([place]) Comment on above: Performed By: #### C MP, GFR, LIPID, CBC, ADIFF, ANEU, A1C, FERR, TSH, VIDH #### [address] [address] #### B12 #### [address] [address] Urea nitrogen [Mass/Vol] 10 mg/dL Normal 7-18 [facility] ([place] Comment on above: Performed By: #### C MP, GFR, LIPID, CBC, ADIFF, ANEU, A1C, FERR, TSH, VIDH #### [address] [address] #### B12 #### [address] [address] Abraham 10-23-2023 Ferritin [Mass/Vol] 682.0 ng/mL High 8.0-252.0 [facility] ([place]) Comment on above: Performed By: #### C MP, GFR, LIPID, CBC, ADIFF, ANEU, A1C, FERR, TSH, VIDH #### [address] [address] #### B12 #### [address] [address] LABORATORYOrdered By: SYSTEM SYSTEM on 10-23-2023 25-hydroxyvitamin [...] Cholesterol [Mass/Vol] 146 mg/dL Normal 0 - 200 mg/dL AO ADM SS Comment on above: Interpretive Data: C holesterol Reference Interval: Less than 200 Desirable 200-239 Borderline high risk 240 and above High risk Cholesterol in HDL [Mass/Vol] 32 mg/dL Low 40 - 60 mg/dL AO ADM SS Cholesterol in LDL [Mass/Vol] 92 mg/dL Normal 0 - 130 mg/dL AO ADM SS Triglyceride [Mass/Vol] 109 mg/dL Normal 0 - 150 mg/d L AO ADM SS Comment on above: Interpretive Data: T riglyceride Reference Interval: Less than 150 Normal 150-199 Borderline high risk 200-499 High risk 500 or higher Very high risk LIPIDon 10-23-2023 Cholesterol [Mass/Vol] 146 mg/dL Normal 0-200 [facility] ([place] Comment on above: Result Comment: Chol esterol Reference Interval: Less than 200 Desirable 200-239 Borderline high risk 240 and above High risk Performed By: #### C MP, GFR, LIPID, CBC, ADIFF, ANEU, A1C, FERR, TSH, VIDH #### [address] [address] #### B12 #### [address] [address] Cholesterol in HDL [Mass/Vol] 32 mg/dL Low 40-60 [facility] ([place] Comment on above: Performed By: #### C MP, GFR, LIPID, CBC, ADIFF, ANEU, A1C, FERR, TSH, VIDH #### [address] [address] #### B12 #### [address] [address] Cholesterol in LDL [Mass/Vol] 92 mg/dL Normal 0-130 [facility] ([place]) Comment on above: Performed By: #### C MP, GFR, LIPID, CBC, ADIFF, ANEU, A1C, FERR, TSH, VIDH #### [address] [address] #### B12 #### [address] [address] Triglyceride [Mass/Vol] 109 mg/dL Normal 0-150 [facility] ([place]) Comment on above: Result Comment: Trig lyceride Reference Interval: Less than 150 Normal 150-199 Borderline high risk 200-499 High risk 500 or higher Very high risk Performed By: #### C MP, GFR, LIPID, CBC, ADIFF, ANEU, A1C, FERR, TSH, VIDH #### [place] [address] #### B12 #### [address] [address] TSHon 10-23-2023 TSH Qn 2.82 m[IU]/L Normal 0.36-3.74 [facility] ([place]) Comment on above: Performed By: #### C MP, GFR, LIPID, CBC, ADIFF, ANEU, A1C, FERR, TSH, VIDH #### [address] [address] #### B12 #### [place] [address] VIDHon 10-23-2023 Vit. D 25-Hydroxy 75.2 ng/mL Normal [facility] ([place]) Comment on above: Result Comment: Inte rpretive Values Based on Total 25(OH) Vitamin D: Deficient <20 ng/mL Insufficient 20 - <30 ng/mL Sufficient 30-100 ng/mL Performed By: #### C MP, GFR, LIPID, CBC, ADIFF, ANEU, A1C, FERR, TSH, VIDH #### [address] [address] #### B12 #### [address] [address] [place] MAMMOGRAM SCREENING BILAT ERAL W/TOMOon 03-08-2023 [place] MAMMOGRAM SCREENING BILATERAL W/REGAN ORIGINAL FROM: [address] [address] PROCEDURE FOR: KAUR SUTTON [address] [place] [address] Home: PID#: [id number] Exam#: [id number] : 1965 Age: 58 TO: RADHA SHIP[place] [address] Fax: NO FAX EXAMINATION: SCREENING DIGITAL BILATERAL [...] screening with annual mammograms is recommended. Jc Indiahi[employer] risk calculations, generated with the history provided, [...] addition to annual mammographic screening per the [employer] [employer]. BIRADS: MAMMOGRAM BI-RADS: 1: Negative RECALL: 1 year screening RECALL TYPE: mammo LETTER SENT: Normal BI-RADS 1 and 2 Interpreted by: Chet Yusuf MD Preliminary Report By: Chet Yusuf MD Electronically signed By Chet Yusuf MD Dictated Date: 03/08/2023 5:25:22 PM Prelim Date: 03/08/2023 5:26:42 PM Sign Date: 03/08/2023 5:26:42 PM Ordering Provider: RADHA ACUNA Pastry Wrapper: LEONIE DANGELO RT(R)(M)(CT) [employer] letter sent: Normal BI-RADS 1 and 2 Mammogram BI-RADS: 1 Negative Normal [facility] ([place] UA DIP, URINE (POC)on 2022 BILIRUBIN UA (POCT) Small Abnormal Negative [facility] CLARITY UA (POCT) Cloudy [facility] COLOR UA (POCT) Red [facility] GLUCOSE UA (POCT) Negative Negative mg/dL [facility] Hemoglobin Ql (U) Large Abnormal Negative [facility] KETONE UA (POCT) Trace Negative mg/dL [facility] LEUKOCYTES UA (POCT) Large Abnormal Negative [facility] NITRITE UA (POCT) Positive Abnormal Negative [facility] PH UA (POCT) 6.5 4.5 - 8.0 [facility] Protein Ql (U) >=300 Abnormal Negative mg/dL [facility] SPECIFIC GRAVITY UA (POCT) 1.025 1.005 - 1.030 [facility] UROBILINOGEN UA (POCT) 1.0 E.U./dL Jennifer l E.U./dL [facility] UA DIP, URINE (POC)on 2022 BILIRUBIN UA (POCT) Negative Negative [facility] CLARITY UA (POCT) Cloudy [facility] COLOR UA (POCT) Dark yellow [facility] GLUCOSE UA (POCT) Negative Negative mg/dL [facility] HEMOGLOBIN/BLOOD UA (POCT) Large Abnormal Negative [facility] KETONE UA (POCT) Negative Negative mg/dL [facility] LEUKOCYTES UA (POCT) Moderate Abnormal Negative [facility] NITRITE UA (POCT) Negative Negative [facility] PH UA (POCT) 7.0 4.5 - 8.0 [facility] Protein Ql (U) 30 mg/dL Abnormal Negative mg/dL [facility] SPECIFIC GRAVITY UA (POCT) 1.020 1.005 - 1.030 [facility] UROBILINOGEN UA (POCT) 0.2 E.U./dL Jennifer l E.U./dL [facility] LABORATORYOrdered By: SYSTEM SYSTEM on 10-17-2022 25-hydroxyvitamin [...] Invalid Interpretation Code Non-Reactive AH ADM SS HAV IgM IA Ql No [...] Non-Reactive ADM SS HCV Ab IA Ql Non-Reactive [...] clinical conditions. Invalid Interpretation Code Chemistry S Laboratory - Microbiology an d Antimicrobial susceptibilityon 05-25-2022 SARS-CoV-2 (COVID-19) RNA MANUEL+probe Ql (Unsp spec) Not detected [facility] No Panel Informationon 05-25 Influenza Types A,B Rapid (Clinic) Not detected [facility] HIV 1 and HIV-2 antibody ass ay with HIV-1 p24 antigen detectionon 02-25-2022 HIV 1+2 Ab+HIV1 p24 Ag IA Ql Non-Reactive Nonreactive [facility] Work Phone: Laboratory - Chemistry and C hemistry - challengeon 02-25-2022 ALT [Catalytic activity/Vol] 65 U/L 13-56 [facility] Work Phone: No Panel Informationon 02-25 Hepatitis C Antibody Non-Reactive Nonreactive [facility] Work Phone: Comment on above: Non Reactive: < 0.8 Equivocal: >/= 0.8 to < 1.0 Reactive: >/= 1.0The CDC recommends that a reactive/equivocal HCV antibody result be followed up by the HCV Nucleic Acid Amplificationtest (211647) Serum hepatitis B virus surf jackie antibody IgG detectionon 02-25-2022 HBV surface IgG Ql (S) Non-Reactive [facility] Work Phone: Comment on above: Non Reactive: Incons istent with immunity less than <10 mIU/mL Reactive: Consistent with immunity greater than or equal to 10 mIU/mL LABORATORYOrdered By: Kym Banks on 01-30-2022 Albumin [...] strip (U) [Mass/Vol] Negative Invalid Interpretation Code Negativemg/dL AO Auto Urine SS Hematocrit (Bld) [Volume fraction] 42.9 % Invalid Interpretation Code 37.0 - 47.0 % AO Auto Heme SS Hemoglobin (Bld) [Mass/Vol] 14.8 G/dL Invalid Interpretation Code 12.0 - 16.0 G/dL AO Auto Heme SS Hemoglobin Auto test strip (U) [Mass/Vol] Negative (08/16/21 8:37 AM) Invalid Interpretation Code Negative AO Auto Urine SS Ketones Ql (U) Negative Invalid Interpretation Code Negativemg/dL AO Auto Urine SS Lymphocyte, Absolute 2.10 [...] SS UA Protein Negative Invalid Interpretation Code Negativemg/dL AO Auto Urine SS UA Spec Grav 1.020 (08/16/21 8:37 AM) Invalid Interpretation Code 1.015-1.025 AO Auto Urine SS UA Specimen Type Clean Catch (08/16/21 8:37 AM) Invalid Interpretation Code AO Auto Urine SS UA Urobilinogen 0.2 E.U./dL Invalid Interpretation Code 0.2-1.0E.U./d L AO Auto Urine SS Urea nitrogen [Mass/Vol] [...] 10^3/mcL AO Auto Heme SS LABORATORYOrdered By: SYSTEM SYSTEM on 08-16-2021 GFR 89 ml/min/1.73sqm Invalid Interpretation Code AO Chemistry S GFR Non- 73 ml/min/1.73sqm Invalid Interpretation Code AO Chemistry S LABORATORYOrdered By: Katlyn Carlos on 07-07-2021 Albumin DL <= 20 mg/L (U) [Mass/Vol] [address] mcg/dL Invalid Interpretation Code AO ADM SS Albumin/Creatinine DL <= 20 mg/L (U) [Mass ratio] 78 mcg/mg Invalid Interpretation Code 0 - 30 mcg/mg AO ADM SS Creatinine (U) [Mass/Vol] 174.0 mg/dL Invalid Interpretation Code 28.0 - 117.0 mg/dL AO ADM SS LABORATORYOrdered By: Fernnada Guerrero on 07-07-2021 Appearance (U) Slightly Cloudy *ABN* (07/07/21 9:13 [...] strip (U) [Mass/Vol] Negative Invalid Interpretation Code Negativemg/dL AO Auto Urine SS Hemoglobin Auto test strip (U) [Mass/Vol] Moderate *ABN* (07/07/21 9:13 AM) Invalid Interpretation Code Negative AO Auto Urine SS Ketones Ql (U) Negative Invalid Interpretation Code Negativemg/dL AO Auto Urine SS UA Leuk Est Small *ABN* (07/07/21 9:13 AM) Invalid Interpretation Code Negative AO Auto Urine SS UA Nitrite Positive *ABN* (07/07/21 9:13 AM) Invalid Interpretation Code Negative AO Auto Urine SS UA pH 6.0 (07/07/21 9:13 AM) Invalid Interpretation Code 5.0 - 8.0 AO Auto Urine SS UA Protein 30 mg/dL Invalid Interpretation Code Negativemg/dL AO Auto Urine SS UA RBC LOADED [...] UA Urobilinogen 0.2 E.U./dL Invalid Interpretation Code 0.2-1.0E.U./d L AO Auto Urine SS WBC LM.HPF (Urine sed) [#/Area] LOADED /HPF Invalid Interpretation Code None Seen/HPF AO Auto Urine SS No Panel Informationon 07-07 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 Infection control has been notified. 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 No tcdB gene DNA detected. Negative test results may occur from improper collection, handling or storage of specimen, technical error, or number of organisms below the analytical sensitivity of the test. [facility] Work Phone: Comment on above: As with all in vitro diagnostic tests, positive and negative predictive values are highly dependent on prevalence. The [facility] C. difficile PCR Assay performance may vary depending on the prevalence and population tested. COVID PCR, SCREENING CONGREG ATEon 11-02-2019 CORONAVIRUS 2019,PCR NOT DETECTED Normal Not Detected [facility] Comment on above: Result Comment: This assay [...] patient management decisions. Fact sheet for providers: https://www.fda.gov/media/241316/download Fact sheet for patients: https://www.fda.gov/media/803724/download This test has received FDA Emergency Use Authorization (EUA) and has been verified by [facility] ([facility]). This test is only authorized for the duration of time that circumstances exist to justify the authorization of the emergency use of in vitro diagnostic tests for the detection of SARS-CoV-2 virus and/or diagnosis of COVID-19 infection under section 564(b)(1) of the Act, 21 U.S.C. 360bbb-3(b)(1), unless the authorization is terminated or revoked sooner. [facility] ([facility]) is certified under CLIA-88 as qualified to perform high complexity testing. This tests analytical performance characteristics have been determined by [facility]. Testing is performed at [facility] is located at [address] [place] [address] (CLIA License #[id number], CAP #[id number]). Performed By: #### C VCLA #### [facility] [address] [place] [address] COVID PCR, SCREENING CONGREG ATEon 11-01-2019 Lab Specimen Source Nasal, Nasopharyngeal Normal [facility] Comment on above: Performed By: #### C VCLA #### [facility] [address] [place] [address] Vital Signs Date Time Vital Sign Value Performing Clinician Facility 01-22-2025 08:15-0400 Diastolic blood pressure 65 mm[Hg] Samm Geller MD Work Phone: [facility] 01-22-2025 08:15-0400 Heart rate 60 /min Samm Geller MD Work Phone: [facility] 01-22-2025 08:15-0400 Respiratory rate 18 /min Samm Geller MD Work Phone: [facility] 01-22-2025 08:15-0400 SaO2% (BldA) [Mass fraction] 98 % Samm Geller MD Work Phone: [facility] 01-22-2025 08:15-0400 Systolic blood pressure 102 mm[Hg] Samm Geller MD Work Phone: [facility] 01-22-2025 08:09-0400 Body temperature 96.91 [degF] Samm Geller MD Work Phone: [facility] 01-22-2025 07:27-0400 Body height 172.7 cm Samm Geller MD Work Phone: [facility] 01-22-2025 07:27-0400 Body mass index (BMI) [Ratio] 31.78 kg/m2 Samm Geller MD Work Phone: [facility] 01-22-2025 07:27-0400 Body weight 94.8 kg Samm Geller MD Work Phone: [facility] 10-24-2024 15:20-0400 Body height 172.7 cm Teodora Garcia APRN.[employer] Work Phone: [facility] 10-24-2024 15:20-0400 Body mass index (BMI) [Ratio] 35.43 kg/m2 Teodora Garcia APRN.[employer] P[employer]ER HELPER Work Phone: [facility] 10-24-2024 15:20-0400 Body weight 105.7 kg Teodora Garcia APRN.[employer] P[employer]ER HELPER Work Phone: [facility] 10-24-2024 15:20-0400 Diastolic blood pressure 79 mm[Hg] Teodora Garcia APRN.[employer] P[employer]ER HELPER Work Phone: [facility] 10-24-2024 15:20-0400 Heart rate 65 /min Teodora Molinasonny PROMOTION OFFICER.[employer] P[employer]ER HELPER Work Phone: [facility] 10-24-2024 15:20-0400 SaO2% (BldA) [Mass fraction] 97 % Teodora Molinasonny PROMOTION OFFICER.[employer] P[employer]ER HELPER Work Phone: [facility] 10-24-2024 15:20-0400 Systolic blood pressure 114 mm[Hg] Teodora Molinasonny PROMOTION OFFICER.[employer] PATCHER HELPER Work Phone: [facility] 09-18-2024 09:00-0400 Body height 175.3 cm Carlee Kalka PA-C Work Phone: [facility] 09-18-2024 09:00-0400 Body mass index (BMI) [Ratio] 33.82 kg/m2 Carlee Kalka PA-C Work Phone: [facility] 09-18-2024 09:00-0400 Body weight 103.87 kg Carlee Kalka PA-C Work Phone: [facility] 09-18-2024 09:00-0400 Diastolic blood pressure 72 mm[Hg] Carlee Kalka PA-C Work Phone: [facility] 09-18-2024 09:00-0400 Heart rate 69 /min Carlee Kalka PA-C Work Phone: [facility] 09-18-2024 09:00-0400 SaO2% (BldA) [Mass fraction] 95 % Carlee Kalka PA-C Work Phone: [facility] 09-18-2024 09:00-0400 Systolic blood pressure 118 mm[Hg] Carlee Kalka PA-C Work Phone: [facility] 07-17-2024 18:45-0400 Body temperature 98.9 [degF] Dr. Radha Acuna DO Work Phone: [facility] 07-17-2024 18:45-0400 Diastolic blood pressure 74 mm[Hg] Dr. Radha Acuna DO Work Phone: [facility] 07-17-2024 18:45-0400 Heart rate 85 /min Dr. Radha Acuna DO Work Phone: [facility] 07-17-2024 18:45-0400 Respiratory rate 19 /min Dr. Radha Acuna DO Work Phone: [facility] 07-17-2024 18:45-0400 SaO2% (BldA) [Mass fraction] 97 % Dr. Radha Acuna DO Work Phone: [facility] 07-17-2024 18:45-0400 Systolic blood pressure 115 mm[Hg] Dr. Radha Acuna DO Work Phone: [facility] 07-17-2024 14:51-0400 Body height 172.[address] Radha Acuna DO Work Phone: [facility] 07-17-2024 14:51-0400 Body mass index (BMI) [Ratio] 36 kg/m2 Dr. Radha Acuna DO Work Phone: [facility] 07-17-2024 14:51-0400 Body weight 107.[address] Radha Acuna DO Work Phone: [facility] 07-04-2024 15:27-0500 Body mass index (BMI) [Ratio] 35.52 kg/m2 Teodora Garcia APRN.[employer] HEL[employer] Work Phone: [facility] 07-04-2024 15:27-0500 Body weight 109.1 kg Teodora Garcia APRN.[employer] P[employer]ER HELPER Work Phone: [facility] 07-04-2024 15:27-0500 Diastolic blood pressure 74 mm[Hg] Teodora Garcia APRN.[employer] P[employer]ER HELPER Work Phone: [facility] 07-04-2024 15:27-0500 Heart rate 68 /min Teodora Garcia PROMOTION OFFICER.[employer] PATCHER HELPER Work Phone: [facility] 07-04-2024 15:27-0500 SaO2% (BldA) [Mass fraction] 96 % Teodora Garcia PROMOTION OFFICER.[employer] P[employer]ER HELPER Work Phone: [facility] 07-04-2024 15:27-0500 Systolic blood pressure 108 mm[Hg] Teodora Garcia PROMOTION OFFICER.[employer] P[employer]ER HELPER Work Phone: [facility] 06-18-2024 15:20-0500 Body mass index (BMI) [Ratio] 36.46 kg/m2 [facility] PROMOTION OFFICER.[employer] PATCHER HELPER Work Phone: [facility] 06-18-2024 15:20-0500 Body temperature 97.3 [degF] [facility] PROMOTION OFFICER.[employer] P[employer]ER HELPER Work Phone: [facility] 06-18-2024 15:20-0500 Body weight 112 kg [facility] PROMOTION OFFICER.[employer] P[employer]ER HELPER Work Phone: [facility] 06-18-2024 15:20-0500 Diastolic blood pressure 81 mm[Hg] [facility] PROMOTION OFFICER.[employer] P[employer]ER HELPER Work Phone: [facility] 06-18-2024 15:20-0500 Heart rate 69 /min [facility] PROMOTION OFFICER.[employer] P[employer]ER HELPER Work Phone: [facility] 06-18-2024 15:20-0500 Respiratory rate 18 /min [facility] PROMOTION OFFICER.[employer] PATCHER HELPER Work Phone: [facility] 06-18-2024 15:20-0500 SaO2% (BldA) [Mass fraction] 99 % [facility] PROMOTION OFFICER.[employer] PATCHER HELPER Work Phone: [facility] 06-18-2024 15:20-0500 Systolic blood pressure 122 mm[Hg] [facility] PROMOTION OFFICER.[employer] PATCHER HELPER Work Phone: [facility] 06-04-2024 12:44-0500 Body temperature 97.5 [degF] Dr. Radha Acuna DO Work Phone: [facility] 06-04-2024 12:44-0500 Diastolic blood pressure 84 mm[Hg] Dr. Radha Acuna DO Work Phone: [facility] 06-04-2024 12:44-0500 Heart rate 76 /min Dr. Radha Acuna DO Work Phone: [facility] 06-04-2024 12:44-0500 Respiratory rate 15 /min Dr. Radha Acuna DO Work Phone: [facility] 06-04-2024 12:44-0500 SaO2% (BldA) [Mass fraction] 99 % Dr. Radha Acuna DO Work Phone: [facility] 06-04-2024 12:44-0500 Systolic blood pressure 129 mm[Hg] Dr. Radha Acuna DO Work Phone: [facility] 06-04-2024 08:55-0500 Body mass index (BMI) [Ratio] 35.1 kg/m2 Dr. Radha Acuna DO Work Phone: [facility] 06-04-2024 08:55-0500 Body weight 107.[address] Radha Acuna DO Work Phone: [facility] 04-22-2024 08:23-0500 Body mass index (BMI) [Ratio] 36.07 kg/m2 Govind Adame APRN.[employer] P[employer]ER HELPER Work Phone: [facility] 04-22-2024 08:23-0500 Body temperature 98.2 [degF] Govind Adame PROMOTION OFFICER.[employer] PATCHER HELPER Work Phone: [facility] 04-22-2024 08:23-0500 Body weight 110.8 kg Govind Adame APRN.[employer] P[employer]ER HELPER Work Phone: [facility] 04-22-2024 08:23-0500 Diastolic blood pressure 64 mm[Hg] Govind Adame PROMOTION OFFICER.[employer] PATCHER HELPER Work Phone: [facility] 04-22-2024 08:23-0500 Heart rate 71 /min Govind Zaragozajalen PROMOTION OFFICER.C[employer]OLA PATCHER HELPER Work Phone: [facility] 04-22-2024 08:23-0500 Respiratory rate 18 /min Govind Adame PROMOTION OFFICER.[employer] PATCHER HELPER Work Phone: [facility] 04-22-2024 08:23-0500 SaO2% (BldA) [Mass fraction] 95 % Govind Adame PROMOTION OFFICER.[employer] PATCHER HELPER Work Phone: [facility] 04-22-2024 08:23-0500 Systolic blood pressure 102 mm[Hg] Govind Adame PROMOTION OFFICER.[employer] PATCHER HELPER Work Phone: [facility] 04-11-2024 13:10-0500 Body height 175.3 cm Teodora Garcia PROMOTION OFFICER.[employer] PATCHER HELPER Work Phone: [facility] 04-11-2024 13:10-0500 Body mass index (BMI) [Ratio] 36.72 kg/m2 Teodora Garcia PROMOTION OFFICER.[employer] P[employer]ER HELPER Work Phone: [facility] 04-11-2024 13:10-0500 Body weight 112.8 kg Teodora Garcia PROMOTION OFFICER.[employer] P[employer]ER HELPER Work Phone: [facility] 04-11-2024 13:10-0500 Diastolic blood pressure 80 mm[Hg] Teodora Garcia PROMOTION OFFICER.[employer] PATCHER HELPER Work Phone: [facility] 04-11-2024 13:10-0500 Heart rate 63 /min Teodora Garcia PROMOTION OFFICER.[employer] PATCHER HELPER Work Phone: [facility] 04-11-2024 13:10-0500 SaO2% (BldA) [Mass fraction] 97 % Teodora Garcia PROMOTION OFFICER.[employer] PATCHER HELPER Work Phone: [facility] 04-11-2024 13:10-0500 Systolic blood pressure 125 mm[Hg] Teodora Garcia PROMOTION OFFICER.[employer] P[employer]ER HELPER Work Phone: [facility] 03-20-2024 10:22-0500 Body height 174 cm Carlee Kalka PA-C Work Phone: [facility] 03-20-2024 10:22-0500 Body mass index (BMI) [Ratio] 37.31 kg/m2 Carlee Kalka PA-C Work Phone: [facility] 03-20-2024 10:22-0500 Body weight 112.95 kg Carlee Kalka PA-C Work Phone: [facility] 03-20-2024 10:22-0500 Diastolic blood pressure 70 mm[Hg] Carlee Kalka PA-C Work Phone: [facility] 03-20-2024 10:22-0500 Heart rate 63 /min Carlee Kalka PA-C Work Phone: [facility] 03-20-2024 10:22-0500 Systolic blood pressure 124 mm[Hg] Carlee Kalka PA-C Work Phone: [facility] 01-13-2024 19:16-0400 Body mass index (BMI) [Ratio] 38.2 kg/m2 Talya Batres PROMOTION OFFICER.[employer] P[employer]ER HELPER Work Phone: [facility] 01-13-2024 19:16-0400 Body temperature 98.6 [degF] Talya Batres PROMOTION OFFICER.[employer] PATCHER HELPER Work Phone: [facility] 01-13-2024 19:16-0400 Body weight 115 kg Talya Batres PROMOTION OFFICER.[employer] PATCHER HELPER Work Phone: [facility] 01-13-2024 19:16-0400 Diastolic blood pressure 79 mm[Hg] Talya Batres PROMOTION OFFICER.[employer] PATCHER HELPER Work Phone: [facility] 01-13-2024 19:16-0400 Heart rate 64 /min Talya Batres PROMOTION OFFICER.C[employer] PATCHER HELPER Work Phone: [facility] 01-13-2024 19:16-0400 Respiratory rate 20 /min Talya Batres PROMOTION OFFICER.C[employer]OL[employer] PATCHER HELPER Work Phone: [facility] 01-13-2024 19:16-0400 SaO2% (BldA) [Mass fraction] 98 % Talyairon Whitegs PROMOTION OFFICER.C[employer]OLA PATCHER HELPER Work Phone: [facility] 01-13-2024 19:16-0400 Systolic blood pressure 114 mm[Hg] Talya Batres PROMOTION OFFICER.[employer]OL[employer] PATCHER HELPER Work Phone: [facility] 01-10-2024 12:00-0400 Body mass index (BMI) [Ratio] 37.84 kg/m2 Govind Adame PROMOTION OFFICER.[employer] PATCHER HELPER Work Phone: [facility] 01-10-2024 12:00-0400 Body temperature 96.91 [degF] [facility] PROMOTION OFFICER.[employer] PATCHER HELPER Work Phone: [facility] 01-10-2024 12:00-0400 Body weight 113.9 kg [facility] PROMOTION OFFICER.[employer]OL[employer] PATCHER HELPER Work Phone: [facility] 01-10-2024 12:00-0400 Diastolic blood pressure 82 mm[Hg] Govind Adame PROMOTION OFFICER.[employer] PATCHER HELPER Work Phone: [facility] 01-10-2024 12:00-0400 Heart rate 70 /min Govind Deep PROMOTION OFFICER.[employer] PATCHER HELPER Work Phone: [facility] 01-10-2024 12:00-0400 Respiratory rate 16 /min [facility] PROMOTION OFFICER.C[employer]OL[employer] PATCHER HELPER Work Phone: [facility] 01-10-2024 12:00-0400 SaO2% (BldA) [Mass fraction] 96 % Govind Adame PROMOTION OFFICER.[employer] PATCHER HELPER Work Phone: [facility] 01-10-2024 12:00-0400 Systolic blood pressure 130 mm[Hg] Govind [facility] PROMOTION OFFICER.[employer] PATCHER HELPER Work Phone: [facility] 12-22-2023 13:38-0400 Body mass index (BMI) [Ratio] 38.58 kg/m2 Jackie Leung Work Phone: [facility] 12-22-2023 13:38-0400 Body temperature 97.7 [degF] Jackie Leung Work Phone: [facility] 12-22-2023 13:38-0400 Body weight 116.12 kg Jackie Leung Work Phone: [facility] 12-22-2023 13:38-0400 Diastolic blood pressure 80 mm[Hg] Jackie Leung Work Phone: [facility] 12-22-2023 13:38-0400 Heart rate 65 /min Jackie Leung Work Phone: [facility] 12-22-2023 13:38-0400 SaO2% (BldA) [Mass fraction] 97 % Jackie Leung Work Phone: [facility] 12-22-2023 13:38-0400 Systolic blood pressure 117 mm[Hg] Jackie Leung Work Phone: [facility] 12-08-2023 08:56-0400 Body height 173.5 cm Troy Mejia MD Work Phone: [facility] 12-08-2023 08:56-0400 Body mass index (BMI) [Ratio] 38.42 kg/m2 Troy Mejia MD Work Phone: [facility] 12-08-2023 08:56-0400 Body temperature 97.2 [degF] Troy Mejia MD Work Phone: [facility] 12-08-2023 08:56-0400 Body weight 115.67 kg Troy Mejia MD Work Phone: [facility] 12-08-2023 08:56-0400 Diastolic blood pressure 97 mm[Hg] Troy Mejia MD Work Phone: [facility] 12-08-2023 08:56-0400 Heart rate 60 /min Troy Mejia MD Work Phone: [facility] 12-08-2023 08:56-0400 SaO2% (BldA) [Mass fraction] 97 % Troy Mejia MD Work Phone: [facility] 12-08-2023 08:56-0400 Systolic blood pressure 155 mm[Hg] Troy Mejia MD Work Phone: [facility] 12-06-2023 09:02-0400 Body mass index (BMI) [Ratio] 37.82 kg/m2 Govind Adame APRN.[employer] P[employer]ER HELPER Work Phone: [facility] 12-06-2023 09:02-0400 Body temperature 97.81 [degF] Govind Adame PROMOTION OFFICER.[employer] PATCHER HELPER Work Phone: [facility] 12-06-2023 09:02-0400 Body weight 114.5 kg Govind Adame APRN.[employer] P[employer]ER HELPER Work Phone: [facility] 12-06-2023 09:02-0400 Diastolic blood pressure 100 mm[Hg] Govind Adame PROMOTION OFFICER.[employer] PATCHER HELPER Work Phone: [facility] 12-06-2023 09:02-0400 Heart rate 78 /min Govind Adame APRN.[employer] PATCHER HELPER Work Phone: [facility] 12-06-2023 09:02-0400 Respiratory rate 20 /min Govind Adame APRN.[employer] PATCHER HELPER Work Phone: [facility] 12-06-2023 09:02-0400 SaO2% (BldA) [Mass fraction] 98 % Govind Adame PROMOTION OFFICER.[employer] PATCHER HELPER Work Phone: [facility] 12-06-2023 09:02-0400 Systolic blood pressure 144 mm[Hg] Govind Adame PROMOTION OFFICER.[employer] PATCHER HELPER Work Phone: [facility] 01-24-2023 11:32-0400 Body temperature 98.49 [degF] Allyssa Asencio APRN.[employer] PATCHER HELPER Work Phone: [facility] 01-24-2023 11:32-0400 Body weight 112.4 kg Allyssa Asencio APRN.[employer] PATCHER HELPER Work Phone: [facility] 01-24-2023 11:32-0400 Diastolic blood pressure 74 mm[Hg] Allyssa Praisler-Wood PROMOTION OFFICER.C[employer]OLA PATCHER HELPER Work Phone: [facility] 01-24-2023 11:32-0400 Heart rate 60 /min Allyssa Praisler-Wood PROMOTION OFFICER.C[employer]OLA PATCHER HELPER Work Phone: [facility] 01-24-2023 11:32-0400 Respiratory rate 21 /min Allyssa Praisler-Wood PROMOTION OFFICER.C[employer]OLA PATCHER HELPER Work Phone: [facility] 01-24-2023 11:32-0400 SaO2% (BldA) [Mass fraction] 98 % Allyssa Praisler-Wood PROMOTION OFFICER.C[employer]OLA PATCHER HELPER Work Phone: [facility] 01-24-2023 11:32-0400 Systolic blood pressure 120 mm[Hg] Allyssa Praisler-Wood PROMOTION OFFICER.C[employer]OLA PATCHER HELPER Work Phone: [facility] 10-24-2022 11:06-0400 Body temperature 97.3 [degF] Oma Tannhof PROMOTION OFFICER.C[employer]OLA PATCHER HELPER Work Phone: [facility] 10-24-2022 11:06-0400 Body weight 110.95 kg Oma Tannhof PROMOTION OFFICER.C[employer]OLA PATCHER HELPER Work Phone: [facility] 10-24-2022 11:06-0400 Diastolic blood pressure 72 mm[Hg] Oma Tannhof PROMOTION OFFICER.C[employer]OLA PATCHER HELPER Work Phone: [facility] 10-24-2022 11:06-0400 Heart rate 56 /min Oma Tannhof PROMOTION OFFICER.C[employer]OLA PATCHER HELPER Work Phone: [facility] 10-24-2022 11:06-0400 Respiratory rate 18 /min Oma Tannhof PROMOTION OFFICER.C[employer] PATCHER HELPER Work Phone: [facility] 10-24-2022 11:06-0400 SaO2% (BldA) [Mass fraction] 97 % Oma Tannhof PROMOTION OFFICER.[employer] PATCHER HELPER Work Phone: [facility] 10-24-2022 11:06-0400 Systolic blood pressure 122 mm[Hg] Oma Tannhof PROMOTION OFFICER.C[employer]OLA PATCHER HELPER Work Phone: [facility] 10-04-2022 11:19-0400 Body temperature 98.49 [degF] [facility] PROMOTION OFFICER.C[employer]OLA PATCHER HELPER Work Phone: [facility] 10-04-2022 11:19-0400 Body weight 108.32 kg Govind Zaragozajalen PROMOTION OFFICER.C[employer]OLA PATCHER HELPER Work Phone: [facility] 10-04-2022 11:19-0400 Diastolic blood pressure 72 mm[Hg] Govind Zaragozayale [facility] PROMOTION OFFICER.C[employer]OLA PATCHER HELPER Work Phone: [facility] 10-04-2022 11:19-0400 Heart rate 56 /min Govind Zaragozayale [facility] PROMOTION OFFICER.C[employer]OLA PATCHER HELPER Work Phone: [facility] 10-04-2022 11:19-0400 Respiratory rate 16 /min [facility] PROMOTION OFFICER.C[employer]OLA PATCHER HELPER Work Phone: [facility] 10-04-2022 11:19-0400 SaO2% (BldA) [Mass fraction] 97 % Govind Zaragozayale [facility] PROMOTION OFFICER.C[employer]OLA PATCHER HELPER Work Phone: [facility] 10-04-2022 11:19-0400 Systolic blood pressure 128 mm[Hg] Govind Zaragozayale [facility] PROMOTION OFFICER.C[employer]OLA PATCHER HELPER Work Phone: [facility] 08-22-2022 09:01-0400 Body temperature 97.7 [degF] Dr. Radha Acuna Work Phone: [facility] 08-22-2022 09:01-0400 Diastolic blood pressure 80 mm[Hg] Dr. Radha Acuna Work Phone: [facility] 08-22-2022 09:01-0400 Heart rate 56 /min Dr. Radha Acuna Work Phone: [facility] 08-22-2022 09:01-0400 Respiratory rate 14 /min Dr. Radha Acuna Work Phone: [facility] 08-22-2022 09:01-0400 SaO2% (BldA) [Mass fraction] 97 % Dr. Radha Acuna Work Phone: [facility] 08-22-2022 09:01-0400 Systolic blood pressure 134 mm[Hg] Dr. Radha Acuna Work Phone: [facility] 05-25-2022 12:37-0500 Body height 175.[address] Radha Acuna Work Phone: [facility] 05-25-2022 12:37-0500 Body mass index (BMI) [Ratio] 37.8 kg/m2 Dr. Radha Acuna Work Phone: [facility] 05-25-2022 12:37-0500 Body temperature 98 [degF] Dr. Radha Acuna Work Phone: [facility] 05-25-2022 12:37-0500 Body weight 116.[address] Radha Acuna Work Phone: [facility] 05-25-2022 12:37-0500 Diastolic blood pressure 76 mm[Hg] Dr. Radha Acuna Work Phone: [facility] 05-25-2022 12:37-0500 Heart rate 57 /min Dr. Radha Acuna Work Phone: [facility] 05-25-2022 12:37-0500 Respiratory rate 15 /min Dr. Radha Acuna Work Phone: [facility] 05-25-2022 12:37-0500 SaO2% (BldA) [Mass fraction] 98 % Dr. Radha Acuna Work Phone: [facility] 05-25-2022 12:37-0500 Systolic blood pressure 110 mm[Hg] Dr. Radha Acuna Work Phone: [facility] 02-25-2022 15:04-0400 Body temperature 98.1 [degF] Dr. Radha Acuna Work Phone: [facility] Work Phone: 02-25-2022 15:04-0400 Diastolic blood pressure 74 mm[Hg] Dr. Radha Acuna Work Phone: [facility] Work Phone: 02-25-2022 15:04-0400 Heart rate 60 /min Dr. Radha Acuna Work Phone: [facility] Work Phone: 02-25-2022 15:04-0400 Respiratory rate 14 /min Dr. Radha Acuna Work Phone: [facility] Work Phone: 02-25-2022 15:04-0400 SaO2% (BldA) [Mass fraction] 95 % Dr. Radha Acuna Work Phone: [facility] Work Phone: 02-25-2022 15:04-0400 Systolic blood pressure 128 mm[Hg] Dr. Radha Acuna Work Phone: [facility] Work Phone: 08-31-2021 10:02-0400 Body temperature 97.5 [degF] Elo Athy PA-C Work Phone: [facility] 08-31-2021 10:02-0400 Body weight 125.65 kg Elo Athy PA-C Work Phone: [facility] 08-31-2021 10:02-0400 Diastolic blood pressure 78 mm[Hg] Elo Athy PA-C Work Phone: [facility] 08-31-2021 10:02-0400 Heart rate 58 /min Elo Athy PA-C Work Phone: [facility] 08-31-2021 10:02-0400 Respiratory rate 18 /min Elo Athy PA-C Work Phone: [facility] 08-31-2021 10:02-0400 SaO2% (BldA) [Mass fraction] 98 % Elo Athy PA-C Work Phone: [facility] 08-31-2021 10:02-0400 Systolic blood pressure 122 mm[Hg] Elo Athy PA-C Work Phone: [facility] Encounters Encounter Date Encounter Type Care Provider Facility Start: 03-19-2025 End: 03-19-2025 ambulatory CARLEE ASH [facility] Start: 03-19-2025 End: 03-19-2025 Patient encounter procedure CARLEE ASH [facility] Start: 01-30-2025 End: 01-30-2025 ambulatory TEODORA GARCIA Facility:[facility] Start: 01-22-2025 Encounter for other preprocedural examination SAMM GELLER [facility] Start: 01-22-2025 ambulatory SAMM GELLER Facilit y:[facility] Start: 01-22-2025 End: 01-22-2025 Preprocedural examination done Samm Geller MD Work Phone: [facility] Start: 01-22-2025 End: 01-22-2025 Subsequent hospital visit by physician Samm Geller MD Work Phone: [facility] Comment on above: Liver cirrhosis seco ndary to FUENTES (HCC) [K75.81, K74.60] Start: 01-15-2025 End: 01-15-2025 ambulatory RADHA ACUNA DO Facility:[facility] Start: 01-15-2025 End: 01-15-2025 Patient encounter procedure RADHA ACUNA DO [facility] Start: 01-01-2025 End: 01-01-2025 Refill Teodora Garcia PROMOTION OFFICER.CUPOLA PATCHER HELPER Work Phone: Neurology Comment on above: Refill Request Start: 12-25-2024 ambulatory CARLEE ARMENDARIZ Facility: [facility] Start: 12-25-2024 End: 12-25-2024 Subsequent hospital visit by physician [facility] Work Phone: Radiology Comment on above: Liver cirrhosis seco ndary to FUENTES (HCC) [K75.81, K74.60] Start: 11-27-2024 End: 11-30-2024 ambulatory Jackie Leung Work Phone: Hematology/Oncology Comment on above: EGD Start: 11-15-2024 End: 11-17-2024 Refill Sunitha Redmond MD Work Phone: Neurology Comment on above: Refill Request Start: 10-24-2024 End: 10-24-2024 Patient encounter procedure Teodora Garcia PROMOTION OFFICER.CUPOLA PATCHER HELPER Work Phone: Neurology Comment on above: Chronic migraine wit hout aura, intractable, without status migrainosus (Primary Dx) Start: 10-24-2024 End: 10-24-2024 ambulatory TEODORA GARCIA Facility:[facility] Start: 10-15-2024 End: 10-15-2024 ambulatory [facility] Provider Gastro[facility] Start: 10-15-2024 End: 10-15-2024 E-mail encounter from caregiver [facility] Start: 10-14-2024 End: 10-14-2024 ambulatory RADHA ACUNA DO Facility:[facility] Start: 10-14-2024 End: 10-14-2024 Patient encounter procedure RADHA ACUNA DO [facility] Start: 09-25-2024 End: 11-25-2024 Follow-up encounter Carlee Armendariz PA-C Work Phone: [facility] Start: 09-24-2024 End: 09-25-2024 ambulatory Carlee Armendariz PA-C Work Phone: [facility] [place] Comment on above: Lab and test Start: 09-23-2024 End: 09-23-2024 ambulatory CARLEE ARMENDARIZ Facility:[facility] Start: 09-18-2024 End: 09-18-2024 ambulatory RADHA ACUNA DO Facility[facility] Start: 09-18-2024 End: 09-18-2024 Patient encounter procedure RADHA ACUNA DO [facility] Start: 09-18-2024 End: 09-18-2024 Patient encounter procedure Carlee Armendariz PA-C Work Phone: [facility] [place] Comment on above: Liver cirrhosis seco ndary to FUENTES (HCC) (Primary Dx) Start: 09-18-2024 End: 09-18-2024 ambulatory CARLEE ARMENDARIZ Facility:[facility] Start: 08-02-2024 End: 08-04-2024 Telephone encounter Carlee Armendariz PA-C Work Phone: Ambulatory Surgery Comment on above: Results Start: 07-29-2024 End: 07-29-2024 ambulatory RADHA ACUNA DO Facility:[facility] Start: 07-17-2024 End: 07-17-2024 Emergency department patient visit Radha Acuna Facility:[facility] Start: 07-04-2024 End: 07-04-2024 ambulatory TEODORA GARCIA Facility:[facility] Start: 07-04-2024 End: 07-04-2024 Patient encounter procedure Teodora Garcia PROMOTION OFFICERKIRILL Work Phone: Neurology Comment on above: Chronic migraine wit hout aura, intractable, without status migrainosus (Primary Dx) Start: 06-28-2024 End: 08-28-2024 Follow-up encounter Carlee Armendariz PA-C Work Phone: [facility] [place] Start: 06-26-2024 End: 06-26-2024 ambulatory CARLEE ARMENDARIZ Facility:[facility] Start: 06-26-2024 End: 06-26-2024 Subsequent hospital visit by physician [facility] Work Phone: Radiology Comment on above: Other cirrhosis of l iver (HCC) [K74.69] Start: 06-19-2024 End: 06-19-2024 Follow-up encounter Tejal ASH Work Phone: [facility] Start: 06-18-2024 End: 06-18-2024 ambulatory RADHA ACUNA IV Facility:[facility] Start: 06-18-2024 End: 06-18-2024 Office outpatient visit 25 minutes Govind Adame PROMOTION OFFICER.CUPOLA PATCHER HELPER Work Phone: [facility] Comment on above: Urinary urgency (Ryann alesia Dx) Start: 06-06-2024 End: 06-06-2024 ambulatory RADHA KALPANA DO Facility:[facility] Start: 06-06-2024 End: 06-06-2024 Patient encounter procedure RADHA ACUNA DO [facility] Start: 06-04-2024 End: 06-04-2024 ambulatory Carlee De Santiago RN [facility] Comment on above: Nausea & Vomiting; L eg Cramps Start: 06-04-2024 End: 06-04-2024 Emergency department patient visit Radha Kalpana Facility:[facility] Start: 05-25-2024 End: 05-26-2024 ambulatory Carlee Armendariz PA-C Work Phone: [facility] [place] Comment on above: Pain after biopsy Start: 05-22-2024 End: 05-22-2024 ambulatory UNKNOWN PROVIDER Facility:[facility] Start: 05-15-2024 End: 05-15-2024 ambulatory CARLEE ARMENDARIZ Facility:[facility] Start: 05-09-2024 End: 05-09-2024 Telephone encounter Carlee Armendariz PA-C Work Phone: Ambulatory Surgery Comment on above: Results Start: 05-04-2024 End: 05-08-2024 ambulatory Mirna Jack APRN.CUPOLA PATCHER HELPER Work Phone: Neurology Comment on above: Botox Start: 04-28-2024 End: 04-28-2024 Telephone encounter Carlee Armendariz PA-C Work Phone: [facility] [place] Comment on above: Fibroscan Start: 04-25-2024 End: 04-25-2024 ambulatory [facility] Start: 04-22-2024 End: 04-22-2024 ambulatory RADHA ACUNA IV Facility:[facility] Start: 04-22-2024 End: 04-22-2024 Office outpatient visit 25 minutes Govind Adame PROMOTION OFFICER.CUPOLA PATCHER HELPER Work Phone: [facility] Comment on above: Sinobronchitis (Prim marcel Dx) Start: 04-11-2024 End: 04-11-2024 ambulatory TEODORA GARCIA Facility:[facility] Start: 04-11-2024 End: 04-11-2024 Patient encounter procedure Teodora Garcia APRN.CUPOLA PATCHER HELPER Work Phone: Neurology Comment on above: Chronic migraine wit hout aura, intractable, without status migrainosus (Primary Dx) Start: 03-29-2024 End: 03-29-2024 ambulatory RADHA ACUNA DO Facility:[facility] Start: 03-29-2024 End: 03-29-2024 Patient encounter procedure RADHA ACUNA DO [facility] Start: 03-20-2024 End: 03-20-2024 Patient encounter procedure Carlee Armendariz PA-C Work Phone: [facility] [place] Comment on above: Elevated ferritin (P rimary Dx); Hepatic steatosis; Gastroesophageal reflux disease, unspecified whether esophagitis present Start: 03-10-2024 End: 03-10-2024 Telephone encounter Mirna Farooqcarl CUPOLA PATCHER HELPER Work Phone: Neurology Comment on above: Referral Request; Eddie tox Injection Start: 03-08-2024 End: 03-09-2024 ambulatory Mirna Helen SAWYERCUPOLA PATCHER HELPER Work Phone: Neurology Comment on above: Intractable chronic migraine without aura and without status migrainosus (Primary Dx); Essential tremor; Encounter for long-term (current) use of medications MRI results Start: 03-08-2024 End: 03-08-2024 Telemedicine consultation with patient Mirna Jack BRAD Work Phone: Neurology Start: 03-06-2024 End: 03-06-2024 ambulatory Caleb Garrison Facility:[facility] Start: 03-02-2024 ambulatory CHARLIE SMITH Facility: [facility] Start: 01-24-2024 End: 01-28-2024 Outreach Lab RADHA ACUNA DO [facility] Start: 01-24-2024 End: 01-24-2024 Telephone encounter Jackie Leung Work Phone: Hematology/Oncology Start: 01-13-2024 End: 01-13-2024 Patient encounter procedure Talya Batres PROMOTION OFFICER.CUPOLA PATCHER HELPER Work Phone: [facility] Comment on above: Acute otitis media, left (Primary Dx) Start: 01-10-2024 End: 01-10-2024 Office outpatient visit 15 minutes Govind Adame PROMOTION OFFICER.CUPOLA PATCHER HELPER Work Phone: [facility] Comment on above: Otalgia, bilateral ( Primary Dx) Start: 12-29-2023 End: 12-29-2023 Subsequent hospital visit by physician [facility] Work Phone: Radiology Comment on above: Elevated ferritin [R 79.89] Start: 12-22-2023 End: 12-22-2023 ambulatory Jackie Leung Work Phone: Hematology/Oncology Comment on above: Elevated ferritin (P rimary Dx); Thrombocytopenia (HCC) Start: 12-22-2023 End: 12-22-2023 Patient encounter procedure Jackie Leung Work Phone: Hematology/Oncology Start: 12-08-2023 End: 12-08-2023 ambulatory Troy Mejia MD Work Phone: Hematology/Oncology Comment on above: Thrombocytopenia (HC C) (Primary Dx); Elevated ferritin Start: 12-08-2023 End: 12-08-2023 Patient encounter procedure Troy Mejia MD Work Phone: Hematology/Oncology Start: 12-06-2023 End: 12-06-2023 Office outpatient visit 15 minutes Govind Adame PROMOTION OFFICER.CUPOLA PATCHER HELPER Work Phone: [facility] Comment on above: Laceration of left m iddle finger without foreign body without damage to nail, initial encounter (Primary Dx) Start: 11-28-2023 Refnino Valladares Work Phone: Neurology Comment on above: Refill Request Start: 10-23-2023 End: 10-23-2023 ambulatory RADHA ACUNA DO Facility:[facility] Start: 10-23-2023 End: 10-23-2023 Patient encounter procedure RADHA ACUNA DO [facility] Start: 03-06-2023 End: 03-06-2023 ambulatory RADHA ACUNA DO Facility:[facility] Start: 03-06-2023 End: 03-06-2023 Patient encounter procedure RAHDA ACUNA DO [facility] Start: 02-11-2023 ambulatory Sunitha Valladares Work Phone: Neurology Comment on above: Migraine medicine Start: 01-24-2023 End: 01-24-2023 Patient encounter procedure Allyssa Asencio PROMOTION OFFICER.CUPOLA PATCHER HELPER Work Phone: [facility] Comment on above: Hematuria, unspecifi [...] with patient Sunitha Redmond MD Work Phone: [facility] Start: 11-12-2022 Refill Mirna Farooq on PROMOTION OFFICER.CUPOLA PATCHER HELPER Work Phone: Neurology Comment on above: Refill Request Start: 10-24-2022 End: 10-24-2022 Patient encounter procedure Oma Sanchez PROMOTION OFFICER.CUPOLA PATCHER HELPER Work Phone: [facility] Comment on above: Urinary frequency (P rimary Dx) Start: 10-17-2022 End: 10-17-2022 Patient encounter procedure RADHA ACUNA DO [facility] Start: 10-04-2022 End: 10-04-2022 Office outpatient visit 15 minutes Govind Aadme APRN.CUPOLA PATCHER HELPER Work Phone: [facility] Comment on above: URI with cough and c ongestion (Primary Dx) Start: 08-26-2022 End: 08-26-2022 Patient encounter procedure RADHA ACUNA DO [facility] Start: 08-22-2022 End: 08-22-[address] Radha Acuna Work Phone: [facility] Work Phone: Start: 08-22-2022 End: 08-22-[address] Radha Acuna Work Phone: [facility] Start: 08-22-2022 End: 08-22-[address] Radha Acuna Work Phone: [facility] Start: 05-25-2022 End: 05-25-[address] Radha Acuna Work Phone: [facility] Start: 05-06-2022 Telephone encounter Mirna latham APRN.CUPOLA PATCHER HELPER Work Phone: Neurology Comment on above: Insurance Authorizat ion (SUMAtriptan-Naproxen (TREXIMET) Start: 02-25-2022 End: 02-25-[address] Radha Acuna Work Phone: [facility] Work Phone: Start: 02-25-2022 End: 02-25-[address] Radha Acuna Work Phone: [facility] Start: 01-30-2022 End: 01-30-2022 Patient encounter procedure RADHA ACUNA DO [facility] Start: 11-14-2021 End: 11-14-2021 Patient encounter procedure RADHA ACUNA DO [facility] Start: 11-04-2021 End: 11-04-2021 ambulatory Mirna Jack APRN.CUPOLA PATCHER HELPER Work Phone: Neurology Comment on above: Essential tremor (Pr imary Dx); Migraine without aura and without status migrainosus, not intractable Start: 11-04-2021 End: 11-04-2021 Telemedicine consultation with patient Mirna Jack APRN.CUPOLA PATCHER HELPER Work Phone: [facility] Start: 10-23-2021 End: 10-23-[address] TRENT HARGROVE MD [facility] Start: 10-21-2021 End: 10-21-[address] TRENT HARGROVE MD [facility] Start: 10-18-2021 End: 10-18-[address] TRENT HARGROVE MD [facility] Start: 09-20-2021 Refill Comfort agarwal PROMOTION OFFICER.CUPOLA PATCHER HELPER Work Phone: Neurology Comment on above: Refill Request Start: 08-31-2021 End: 08-31-2021 Patient encounter procedure Elo Velarde PA-C Work Phone: [facility] Comment on above: Splinter (Primary Dx ) Start: 08-16-2021 End: 08-16-2021 Patient encounter procedure RADHA ACUNA DO [facility] Start: 07-07-2021 End: 07-11-2021 Outreach Lab RADHA FRANCOISNILO DO [facility] Start: 04-10-2021 End: 04-14-2021 Outreach Lab ZUNILDA ANGEL MD [facility] Start: 02-18-2021 End: 02-18-2021 Patient encounter procedure RADHA ACUNA DO [facility] Procedures Date Procedure Procedure Detail Performing Clinician Start: 01-22-2025 Esophagogastroduodenoscopy transoral diagnostic Carlee Armendariz PA-C Work Phone: Start: 07-17-2024 SARS-CoV-2, Influenza & RSV (PCR) Dr. Sandy Acuna DO Work Phone: Start: 06-18-2024 Urnls dip stick/tablet rgnt auto w/o microscopy Govind Adame PROMOTION OFFICER.CUPOLA PATCHER HELPER Work Phone: Start: 12-29-2023 Us abdominal real time w/image limited Jackie Leung Work Phone: Start: 01-24-2023 Urnls dip stick/tablet rgnt auto w/o microscopy Allyssa Asencio PROMOTION OFFICER.CUPOLA PATCHER HELPER Work Phone: Start: 10-24-2022 Urnls dip stick/tablet rgnt auto w/o microscopy Radha Ocasio PROMOTION OFFICER.CUPOLA PATCHER HELPER Work Phone: Start: 08-22-2022 X-ray of chest posteroanterior view Dr. Radha Acuna Work Phone: Start: 11-02-2021 Adult depression screening assessment Mirna Jack PROMOTION OFFICER.CUPOLA PATCHER HELPER Work Phone: Start: 10-27-2020 Adult depression screening assessment Elo Velarde PA-C Work Phone: Start: 10-08-2013 Vocal cord structure (body structure) RADHA ACUNA DO Start: 03-10-2013 Mammography Elo Velarde PA-C Work Phone: Start: 01-11-2013 Ovarian structure (body structure) VIRGILIO ACUNA DO Comment on above: right Ankle region structu re (body structure) RADHA ACUNA DO Comment on above: right x 2 Cholecystectomy RADHA Montague DO Deviated nasal septum (disorder) RADHA ACUNA DO Dilation and curettage of uterus RADHA ACUNA DO Endometrial ablation RADHA ACUNA DO Hysteroscopy RADHA ACUNA [place] O Knee region structur e (body structure) RADHA ACUNA DO Comment on above: right Repair of musculoten dinous cuff of shoulder RADHA ACUNA DO Comment on above: right Plan of Treatment Date Care Activity Detail Author Start: 11-18-2030 Urine microalbumin profile DTaP,Tdap,Td Vaccine (2 - Td or Tdap) [facility] Start: 09-24-2027 Diabetes Screening Diabetes Screening [facility] Start: 01-16-2027 Diabetes Screening Diabetes Screening [facility] Start: 11-26-2026 Screening for malignant neoplasm of colon [facility] Start: 03-26-2025 End: 03-26-2025 Patient encounter procedure 03/26/2025 10:05 AM EST Office Visit [facility] [address] [place] [address] Carlee Armendariz PA-C [address] [address] 6 month follow up [facility] Comment on above: 6 month follow up Start: 01-30-2025 End: 01-30-2025 Patient encounter procedure 01/30/2025 3:00 PM EDT Office Visit Neurology [address] [address] Teodora Garcia, ADALBERTO.CUPOLA PATCHER HELPER [address] [place] [address] Return in about 3 months (around 01/24/2025) for Botox. Neurology Comment on above: Return in about 3 months (around 01/25/20 25) for Botox. Start: 01-22-2025 End: 01-22-2025 Patient encounter procedure [facility] Comment on above: Liver cirrhosis secondary to FUENTES (HCC) [K75.81, K74.60] Start: 01-08-2025 Influenza vaccination Influenza Vaccine (#1) [facility] Start: 12-19-2024 End: 10-18-2025 US Abdomen RUQ US ABD RIGHT UPPER QUADRANT Radiology Routine Liver cirrhosis secondary to FUENTES (HCC) Expected: 12/19/2024, Expires: 10/18/2025 [facility] Comment on above: Expected: 12/19/2024, Expires: Start: 10-25-2024 Hepatitis A Vaccine (2 of 2 - Risk 2-dose series) Hepatitis A Vaccine (2 of 2 - Risk 2-dose series) [facility] Start: 10-24-2024 End: 10-24-2024 Patient encounter procedure 10/24/2024 4:00 PM EDT Office Visit Neurology [address] [place] [phone] Teodora Garcia, PROMOTION OFFICER.CUPOLA PATCHER HELPER [address] [place] [address] 12 Week Botox Neurology Comment on above: 12 Week Botox Start: 09-18-2024 End: 12-18-2024 Alpha 1 antitrypsin [Mass/volume] in Serum or Plasma [id number] Lab Routine Liver cirrhosis secondary to FUENTES (HCC) Expected: 09/18/2024, Expires: 12/18/2024 [facility] Comment on above: Expected: 09/18/2024, Expires: Start: 09-18-2024 End: 12-18-2024 [id number] [Mass/volume] in Serum or Plasma ALPHA FETOPROTEIN Lab Routine Liver cirrhosis secondary to FUENTES (HCC) Expected: 09/18/2024, Expires: 12/18/2024 [facility] Comment on above: Expected: 09/18/2024, Expires: Start: 09-18-2024 End: 12-18-2024 FAUZIA BY IFA WITH REFLEX FAUZIA BY IFA WITH REFLEX Lab Routine Liver cirrhosis secondary to FUENTES (HCC) Expected: 09/18/2024, Expires: 12/18/2024 [facility] Comment on above: Expected: 09/18/2024, Expires: Start: 09-18-2024 End: 12-18-2024 Ceruloplasmin [Mass/volume] in Serum or Plasma CERULOPLASMIN Lab Routine Liver cirrhosis secondary to FUENTES (HCC) Expected: 09/18/2024, Expires: 12/18/2024 [facility] Comment on above: Expected: 09/18/2024, Expires: Start: 09-18-2024 End: 12-18-2024 Comprehensive metabolic 2000 panel - Serum or Plasma COMPREHENSIVE METABOLIC PANEL Lab Routine Liver cirrhosis secondary to FUENTES (HCC) Expected: 09/18/2024, Expires: 12/18/2024 [facility] Work Phone: Comment on above: Expected: 09/18/2024, Expires: Start: 09-18-2024 End: 12-18-2024 Ferritin [Mass/volume] in Serum or Plasma FERRITIN Lab Routine Liver cirrhosis secondary to FUENTES (HCC) Expected: 09/18/2024, Expires: 12/18/2024 [facility] Comment on above: Expected: 09/18/2024, Expires: Start: 09-18-2024 End: 12-18-2024 Mitochondria Ab [Presence] in Serum by Immunofluorescence MITOCHONDRIAL M2 IGG SERUM Lab Routine Liver cirrhosis secondary to FUENTES (HCC) Expected: 09/18/2024, Expires: 12/18/2024 [facility] Comment on above: Expected: 09/18/2024, Expires: Start: 09-18-2024 End: 12-18-2024 PT panel - Platelet poor plasma by Coagulation assay PROTHROMBIN TIME Lab Routine Liver cirrhosis secondary to FUENTES (HCC) Expected: 09/18/2024, Expires: 12/18/2024 [facility] Comment on above: Expected: 09/18/2024, Expires: Start: 09-18-2024 End: 12-18-2024 Smooth muscle Ab [Presence] in Serum SMOOTH MUSCLE AB SCR Lab Routine Liver cirrhosis secondary to FUENTES (HCC) Expected: 09/18/2024, Expires: 12/18/2024 [facility] Comment on above: Expected: 09/18/2024, Expires: Start: 09-18-2024 End: 09-18-2024 Patient encounter procedure [facility] Comment on above: 6 month follow up office visit, hepatic steatosis,elevated ferritin Start: 07-17-2024 [facility] Start: 07-17-2024 [facility] Start: 07-17-2024 Bacteria identified in Urine by Culture Urine Culture [facility] Start: 07-04-2024 End: 07-04-2024 Patient encounter procedure 07/04/2024 3:30 PM EST Office Visit Neurology [address] [phone] Teodora Garcia APRN.CUPOLA PATCHER HELPER [address] [place] [address] Return in about 12 weeks (around 07/04/2024) for Botox. Neurology Comment on above: Return in about 12 weeks (around 07/04/19) for Botox. Start: 06-26-2024 End: 06-25-[address] [facility] Work Phone: Comment on above: Expected: 06/26/2024, Expires: Start: 06-26-2024 End: 06-26-2024 Patient encounter procedure 06/26/2024 10:00 AM EST Appointment Radiology [address] [place], [place] [phone] Other cirrhosis of liver (HCC) [K74.69] Radiology Comment on above: Other cirrhosis of liver (HCC) [K74.69] Start: 06-04-2024 [facility] Start: 05-22-2024 End: 05-22-2024 Admission to same day surgery center 05/22/2024 11:00 AM EST - 05/22/2024 12:00 PM EST Surgery [facility] [address] [place] [address] Katalina Price, DO [address] [place] [address] PERCUTANEOUS NEEDLE BIOPSY OF LIVER [facility] Comment on above: PERCUTANEOUS NEEDLE BIOPSY OF LIVER Start: 05-22-2024 End: 05-22-2024 Biopsy liver needle percutaneous PERCUTANEOUS NEEDLE BIOPSY OF LIVER Hepatic steatosis 05/22/2024 11:00 AM EST [facility] Start: 05-22-2024 Subsequent hospital visit by physician 05/22/2024 11:00 AM EST [facility] [address] [place] [address] Katalina Price, DO [address] [place] [address] Hepatic steatosis [K76.0] [facility] Comment on above: Hepatic steatosis [K76.0] Start: 03-20-2024 End: 06-19-2024 Chronic hepatitis differentiation between hepatitis B and C virus panel - Serum or Plasma [facility] Comment on above: Expected: 03/20/2024, Expires: Start: 03-20-2024 End: 06-19-2024 Ferritin [Mass/volume] in Serum or Plasma [facility] Work Phone: Comment on above: Expected: 03/20/2024, Expires: Start: 03-20-2024 End: 06-19-2024 Hepatic function 2000 panel - Serum or Plasma [facility] Comment on above: Expected: 03/20/2024, Expires: Start: 03-20-2024 End: 06-19-2024 HEPATITIS A ANTIBODY, IGG [facility] Comment on above: Expected: 03/20/2024, Expires: Start: 03-20-2024 End: 06-19-2024 LIVER FIBROSIS AND ACTIVITY [facility] Comment on above: Expected: 03/20/2024, Expires: Start: 03-20-2024 End: 03-20-2024 Patient encounter procedure 03/20/2024 10:30 AM EST Office Visit [facility] [address] [place] [phone] Carlee Armendariz PA-C [address] [place] [address] Elevated ferritin [R79.89] [facility] Comment on above: Elevated ferritin [R79.89] Start: 03-08-2024 End: 03-08-2024 ambulatory 03/08/2024 8:00 AM EDT [facility] Neurology [address] [place] [address] Mirna Jack APRN.CUPOLA PATCHER HELPER [address] [place] [address] Headaches Neurology Comment on above: Headaches Start: 01-26-2024 End: 01-26-2024 ambulatory 01/26/2024 8:30 AM EDT Visit (SP) Office Hematology/Oncology [address] [place], [place] [phone] Jackie Leung [address] [place] [address] 2 WK OV/LABS 12/12* Hematology/Oncology Comment on above: 2 WK OV/LABS 12/12* Start: 01-09-2024 Covid-19 Vaccine () Covid-19 Vaccine () [facility] Start: 01-09-2024 Covid-19 Vaccine () Covid-19 Vaccine () [facility] [facility] Start: 01-09-2024 Influenza vaccination Influenza Vaccine (#1) [facility] Start: 12-29-2023 End: 12-29-2023 Patient encounter procedure 12/29/2023 8:30 AM EDT Appointment Radiology [address] [place] [id number] Elevated ferritin [R79.89] Radiology Comment on above: Elevated ferritin [R79.89] Start: 12-22-2023 End: 03-22-2024 CBC W Auto Differential panel - Blood COMPLETE BLOOD COUNT AND DIFFERENTIAL Lab STAT Elevated ferritin Thrombocytopenia (HCC) Expected: 12/22/2023, Expires: 03/22/2024 [facility] Comment on above: Expected: 12/22/2023, Expires: Start: 12-22-2023 End: 03-22-2024 Comprehensive metabolic 2000 panel - Serum or Plasma COMPREHENSIVE METABOLIC PANEL Lab Routine Elevated ferritin Thrombocytopenia (HCC) Expected: 12/22/2023, Expires: 03/22/2024 [facility] Comment on above: Expected: 12/22/2023, Expires: Start: 12-22-2023 End: 03-22-2024 Ferritin [Mass/volume] in Serum or Plasma FERRITIN Lab Routine Elevated ferritin Thrombocytopenia (HCC) Expected: 12/22/2023, Expires: 03/22/2024 [facility] Comment on above: Expected: 12/22/2023, Expires: Start: 12-22-2023 End: 12-22-2023 ambulatory 12/22/2023 1:30 PM EDT Visit (SP) Office Hematology/Oncology [address] [place], [place] [phone] Jackie Leung [address] [place] [id number] 2 WK OV/LABS 12/07* Hematology/Oncology Comment on above: 2 WK OV/LABS 12/07* Start: 12-08-2023 End: 03-08-2024 Erythrocyte sedimentation rate [facility] Comment on above: Expected: 12/08/2023, Expires: Start: 12-08-2023 End: 03-08-2024 Ferritin [Mass/volume] in Serum or Plasma [facility] Work Phone: Comment on above: Expected: 12/08/2023, Expires: Start: 12-08-2023 End: 03-08-2024 Iron and Iron binding capacity panel - Serum or Plasma [facility] Comment on above: Expected: 12/08/2023, Expires: 4 Start: 12-08-2023 Screening for malignant neoplasm of colon [facility] Start: 12-08-2023 End: 12-08-2023 ambulatory 12/08/2023 9:00 AM EDT Visit (SP) Office Hematology/Oncology [address] [place] [address] [place] [address] [place] [address] DX Thrombocytopenia low plate;ets bleeding gums. First Available REF Hematology/Oncology Comment on above: DX Thrombocytopenia low plate;ets bleedi ng gums. First Available REF Start: 05-10-2023 Behavioral Health Screening Behavioral Health Screening [facility] Start: 04-08-2023 DIABETES SCREEN DIABETES SCREEN [facility] Start: 04-08-2023 Diabetes Screening Diabetes Screening [facility] Start: 01-08-2023 Covid-19 Vaccine ( season) Covid-19 Vaccine () [facility] Start: 01-08-2023 Influenza vaccination [facility] Start: 11-02-2022 Adult depression screening assessment DEPRESSION SCREENING [facility] Start: 05-10-2022 DEPRESSION ASSESSMENT DEPRESSION ASSESSMENT [facility] Start: 01-08-2022 Influenza vaccination INFLUENZA (#1) [facility] Start: 11-18-2021 Pneumococcal Vaccine: 50+ (2 of 2 - PCV) Pneumococcal Vaccine: 50+ (2 of 2 - PCV) [facility] Start: 10-27-2021 Adult depression screening assessment DEPRESSION SCREENING [facility] Start: 06-23-2021 COVID-19 VACCINE (4 - Booster for Pfizer series) COVID-19 VACCINE (4 - Booster for Pfizer series) [facility] Start: 04-17-2021 COVID-19 VACCINE (4 - Booster for Pfizer series) COVID-19 VACCINE (4 - Booster for Pfizer series) [facility] Start: 10-06-2020 Hemoglobin A1c measurement HbA1C [facility] Start: 08-01-2018 PAP TESTING PAP TESTING [facility] Start: 08-01-2016 Screening for malignant neoplasm of cervix Cervical Cancer Screening [facility] Start: 2015 SHINGRIX VACCINE (1 of 2) SHINGRIX VACCINE (1 of 2) [facility] Start: 03-10-2014 Mammography [facility] Start: 03-10-2014 Screening for malignant neoplasm of breast Mammogram Screening [facility] Start: 2010 COLOGUARD (FIT-DNA) COLOGUARD (FIT-DNA) [facility] Start: 2010 Colonoscopy COLONOSCOPY [facility] Start: 2010 COLORECTAL CANCER SCREENING COLORECTAL CANCER SCREENING [facility] Start: [address] COLONOGRAPHY [facility] Start: 2010 FECAL OCCULT BLOOD FECAL OCCULT BLOOD [facility] Start: 2010 Lipid 1996 panel - Serum or Plasma Lipid Screening [facility] Start: 2010 Lipid panel Lipid Screening [facility] Start: 2010 LIPID SCREEN LIPID SCREEN [facility] Start: 2010 Screening for malignant neoplasm of colon [facility] Start: 2010 SIGMOIDOSCOPY SIGMOIDOSCOPY [facility] Start: 1995 HPV TESTING HPV TESTING [facility] Start: 02-10-1984 Urine microalbumin profile [facility] Start: 1983 Annual PCP Team Chronic Disease Visit Annual PCP Team Chronic Disease Visit [facility] Start: 1983 Anxiety Screening Anxiety Screening [facility] Start: 1983 Depression Screening Depression Screening [facility] Start: 1983 Hepatitis B surface antibody level LDL Cholesterol [facility] Start: 1983 HEPATITIS C SCREENING HEPATITIS C SCREENING [facility] Start: 1983 Hepatitis C screening Hepatitis C Screening [facility] Start: 1983 HIV SCREENING HIV SCREENING [facility] Start: 1983 HIV screening HIV Screening [facility] Start: 1975 Diabetic foot examination Diabetic Foot Exam [facility] Start: 1975 Glaucoma screening Dilated Retinal Exam [facility] Start: 1975 Hepatitis B screening Urine Albumin:Creatinine Ratio [facility] Start: 1965 HEPATITIS B (1 of 3 - 3-dose series) HEPATITIS B (1 of 3 - 3-dose series) [facility] Start: 1965 Hepatitis B Vaccine (1 of 3 - 3-dose series) Hepatitis B Vaccine (1 of 3 - 3-dose series) [facility] Bacteria identified in Urine by Culture URINE CULTURE Microbiology Routine Urinary frequency Ordered: 10/24/2022 [facility] Work Phone: Comment on above: Ordered: 10/24/2022 Bacteria identified in Urine by Culture URINE CULTURE Microbiology Routine Hematuria, unspecified type Ordered: 01/24/2023 [facility] Work Phone: Comment on above: Ordered: 01/24/2023 Bacteria identified in Urine by Culture BACTERIAL CULTURE, URINE Microbiology Routine Urinary urgency 06/18/2024 3:[address] [facility] Work Phone: Calprotectin [Mass/m ass] in Stool CALPROTECTIN,FECAL Lab Routine Diarrhea, unspecified type Ordered: 10/15/2024 [facility] Comment on above: Ordered: 10/15/2024 Clostridioides diffi cile toxin genes [Presence] in Stool by MANUEL with probe detection CLOSTRIDIUM DIFFICILE TOXIN BY PCR Lab Routine Diarrhea, unspecified type Ordered: 10/15/2024 [facility] Work Phone: Comment on above: Ordered: 10/15/2024 End: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 reduction in overall migraine days: Yes Patient reduction in moderate-severe migraine days: Yes Patient reduction of headache hours by 100 hours or more: Yes (reduction of 360 hours) Individual has obtained clinical benefit deemed significant by individual or prescriber (Y/N): Yes Patient's quality of life and ability to perform ADLs has improved (Y/N): Yes Side effects: none The patient has been assessed for disorders which could contribute to breathing or swallowing difficulty, and there is no contraindication with PREEMPT Botox. There is no documented allergic reaction/hypersensitivity to any botulinum toxin and there is no active infection at proposed injection site. HEADACHE SCORES: 03/02/2024 04/04/2024 06/27/2024 Headache Questions ER visits since last office visit: 0 0 0 Hospital stays since last office visit 0 0 0 Limited ADLs in the last month: 0 0 0 Days missed from work or school in the last month: 0 0 0 Days headache pain free in the last month: 5 2 25 Days per month with ALL of the following symptoms - decreased productivity, light sensitivity and nausea: 10 3 0 Initial improvement of headache after botox injection at last visit: Not applicable, I did not have a botox injection at my last visit Not applicable, I did not have a botox injection at my last visit Much improved PRN medication usage in the last month: 25 30 4 Patient impression of improvement since last visit: Minimally worse Much worse Much improved 03/02/2024 04/04/2024 06/27/2024 HIT-6 HIT-6 57 (Substantial impact) 54 (Moderate impact) 50 (Moderate impact) 03/02/2024 04/04/2024 06/27/2024 MENDEL - 2/7 SCORES MENDEL-2 Score 2 0 2 03/02/2024 04/04/2024 06/27/2024 Migraine Specific QOL - Higher scores indicate better HRQL Role Function-Restrictive Transformed Score (range: 0-100) 80 60 94.29 Role Function-Preventive Transformed Score (range: 0-100) 100 90 95 Emotional Function Transformed Score (range: 0-100) 93.33 73.33 100 06/27/2024 04/04/2024 11/24/2022 PHQ-9 Score 2 2 3 BP 114/79 (BP Position: Sitting) Pulse 65 Ht 172.7 cm (5' 8) Wt 105.7 kg (233 lb 0.4 oz) LMP 05/19/2011 SpO2 97% BMI 35.43 kg/m? Patient name: Kaur Sutton : 1965 ALLERGIES Allergen Reactions Duricef [Cefadroxil] Rash Lisinopril Cough Lotronex [Alosetron] Rash Metformin Intolerance, Other: See Comments Penicillins Rash Zomig [Zolmitriptan] Intolerance UNIVERSAL PROTOCOL / SAFETY CHECKLIST Procedure: Onabotulinum toxin A for migraine Informed Consent Consent Obtained: Written [place] Protocol A moment to CARE was completed SIGN IN Personnel directly involved with the procedure wore the appropriate PPE Special Equipment: N/A Patient/Surrogate Stated/Verified: Patient name, Date of , Relevant allergies and Intended procedure TIME OUT No relevant labs, photos, and/or imaging studies were applicable for review. Consent documented and matches the intended procedure No correct side/site applicable for marking and visibility. No medications required for procedure. No fire risk assessment and interventions applicable. No implant(s) inserted. SIGN OUT No specimen collected. Written Consent Obtained: Written LOT #: [id number] Expiration Date: Month: : 2026 Second vial: LOT #: [id number] Expiration Date: Month: Year: 2026 Injection Sites Left (Units) Left (Sites) Right (Units) Right (Sites) TOTAL (Units) Rug Cleaning Supervisor 5 1 5 1 10 Procerus Units: 5 Sites: 1 5 Frontalis 10 2 10 2 20 Temporalis optional follow the pain 20 5 4 1 20 5 4 1 50 Occipitalis optional follow the pain 15 5 3 1 15 5 3 1 40 Cervical PSP 10 2 10 2 20 Trapezius optional follow the pain 15 5 3 1 15 5 3 1 40 Masseter 5 1 5 1 10 Total Units used: 195 Total Units wasted: 5 Patient tolerated procedure well. Prior Therapies Duration of Use Dose Side effect (more content not included)...[facility]06-17-2025 Instructions* Patient Instructions* Teodora Garcia APRN.[facility] - 10/24/2024 3:26 PM EDT AFTER VISIT CARE BOTOX INJECTION While these procedures can be extremely helpful as part of your headache treatment plan, they can irritate the muscles and tissues in your head, neck and shoulders. Proper follow-up care is important to avoid muscle spasms and temporary pain increase within the following 3-5 days after your clinic visit. Here are some tips to help decrease side-effects that may occur and maximize the effectiveness of your pain relief -HYDRATION Hydration is important to help nourish your muscles and tissues. Drink 60-80 oz of non caffeinated fluid at least for 3 days after your visit. -REST Rest will help avoid further irritation of muscle and tissues. Remember that you need to give your body time to adjust. NO strenuous activity for at least the first 24 hours after your visit. Gentle stretching, yoga, meditation or even swimming is OK and encouraged. -ICE/HEAT Since these procedures irritate muscles, there can be some swelling. Alternating ice and heat every3-5 times per day may help decrease this, while also optimizing pain relief Use cool gel packs for ice for 10 min. Use a warm moist towel covered with a dry towel on neck and shoulders. Alternate stretching each side of the neck. -STRETCHING Slow, gentle stretching of the neck and shoulders once every hour is helpful to avoid muscle spasms. -TREAT MUSCLE SPASMS If you are already prescribed a muscle relaxer such as baclofen, tizanidine or flexeril, use as directed. If you do not have one, talk to your provider to find out if this would be safe for you to use. Do not rub or massage the area for 48-72 hours. -OTHER No hair dyes or permanents for 24 hours. If you are paying out of pocket for Botox go online to Botox Savings Program and see if you qualifyfor reimbursement. Return in 3 months for your next Botox Injection [facility] Note. MICRO - Microbiology PROCEDURE: Urine Culture [O1 *1] SOURCE: Urine BODY SITE: COLLECTED DATE/TIME: 10/14/2024 11:02 EDT RECEIVED DATE/TIME: 10/14/2024 16:13 EDT START DATE/TIME: 10/14/2024 16:13 EDT FREE TEXT SOURCE: FINAL REPORTS Final Report [] Verified Date/Time/Personnel: 10/15/2024 14:19 EDT <10,000 cfu/ml. No Significant growth. Sensitivity not indicated. PRELIMINARY REPORTS Preliminary Report [] Verified Date/Time/Personnel: 10/14/2024 16:59 EDT Specimen received in lab. Order Comments O1: Urine Culture (Culture Urine) run culture, recurrent UTI history Performing Locations *1: This test was performed at: [facility], [address] [place] [address], [id number] , [facility]05-12-2025 NoteHNO ID: [id number] Author: CARLEE ARMENDARIZ PA-C Service: ? Author Type: Physician Qa Lead Type: Progress Notes Filed: 09/18/2024 09:40 Note Text: CHIEF COMPLAINT: Patient presents with: Procedure Follow Up: Fibroscan 04/26/24, US 06/26/24, Liver biopsy 05/22/24 HPI Kaur Sutton is a 59 year old female PMHx pos for DM here today for f/u fatty liver, elevated ferritin, GERD. Surg hx positive for hysterectomy, cholecystectomy. On Protonix 40 mg daily, Pepcid 40 mg twice daily for GERD with relief. Liver bx 05/2024 confirmed FUENTES cirrhosis. Patient has been on Ozempic for weight management and has successfully lost 20 pounds since the last visit. She reports that she is tolerating the medication well and denies any side effects. She also denies alcohol consumption, stating that she does not drink at all, not even socially. Patient reports that her bowel movements are influenced by her diet; consuming sugar leads to diarrhea, while a clean, wholesome diet does not cause any issues. She denies any abdominal pain. She is currently taking pantoprazole and Pepcid for reflux, which she reports are working well. She denies any trouble with swallowing. Patient has a history of a benign polyp on her vocal cords, which was removed surgically approximately 12 years ago. She reports that the procedure was very painful and that she did not follow up as recommended due to the discomfort. She denies any current issues with hoarseness or voice changes, although she notes that her voice occasionally goes crazy when she tries to sing. Patient has started the hepatitis A vaccination series and has received the first dose. She is awaiting the second dose. She has informed her primary care physician about her liver biopsy results and her follow-up with the gastroenterology clinic. Patient has a family history of esophageal cancer, with a brother who from the disease. Past Diagnostic Results: - Liver Biopsy: Confirmed FUENTES cirrhosis. - Hepatitis Serology: Immune to hepatitis B; no antibodies for hepatitis A. - Abdominal Ultrasound (June): Stable findings. Cologuard 11/2023 negative HFE 2021 normal Liver bx 05/2024 Component FINAL DIAGNOSIS A. Liver, biopsy: - Cirrhosis with moderate macrovesicular steatosis (see comment). VCTE 04/2024 These test results show: 1). Liver Stiffness Score of 36 kPa is consistent with: Liver Fibrosis Stage F4 cirrhosis 2). Liver Fat Estimation: Patient had median Controlled Attenuation Parameter of 329 decibels/m (dB/m) the CAP Score is consistent with Liver Steatosis Stage S 3- severe steatosis/advanced fatty infiltration over 67% of liver RUQ US 06/2024 IMPRESSION: Coarse and heterogeneous appearance of the liver. Fatty infiltration. No focal lesions seen Left renal cyst Otherwise normal sonographic appearance of the right upper quadrant. Normal sonographic appearance of the spleen Visualization is suboptimal due to overlying bowel gas and patient build OV 03/2024 Kaur Sutton is a 59 year old female with PMHx pos for DM who presents for Elevated Ferritin. Surg hx positive for hysterectomy, cholecystectomy. On Protonix 40 mg daily for GERD. Reports h/o EGD over [address] Garza at [facility] that showed HH. Takes NSAIDs PRN for headaches, sometimes needs to use regularly due to persistent migraines. Recently got approved for migraines. Has lost 30 lbs in the past year, on Ozempic. Denies EtOH, family hx of liver disease, abd pain, N/V, changes in bowel habits, iron supplementation. Current Outpatient Medications Medication Sig ROFECOXIB ORAL Take 1 tablet by mouth once daily. VIOXX vilazodone (VIIBRYD) 10 mg tablet Take 10 mg by mouth once daily. albuterol HFA (PROVENTIL HFA, VENTOLIN HFA) 90 mcg/actuation inhaler Inhale 2 Puffs as instructed every 6 hours as needed for wheezing/shortness of breath. Naproxen Sodium 550 mg tablet Take 1 tablet by mouth two times a day as needed (headache). FOR PAIN. TAKE WITH FOOD. SUMAtriptan (IMITREX) 100 mg tablet Take 1 tablet (100 mg) by mouth as needed for migraine headache (see administration instructions). START AT ONSET OF HEADACHE. MAY REPEAT DOSE AFTER 2 HOURS. OZEMPIC 0.25 mg or 0.5 mg (2 mg/3 mL) pen INJECT 0.5 mg under the skin once weekly. rotate injection sites Ascorbic Acid (VITAMIN C) 1,000 mg tablet Take 1,000 mg by mouth once daily. Cetirizine (ZYRTEC) 10 mg cap Take 1 capsule by mouth as needed (Seasonal). topiramate (TOPAMAX) 100 mg tablet Take 1 tablet by mouth daily at bedtime. topiramate (TOPAMAX) 25 mg tablet Take 1 tablet by mouth once daily. In addition to 100 mg tablet to equal 125 mg total per day FLUoxetine (PROZAC) 20 mg capsule Take 1 capsule by mouth once daily. (Patient not taking: Reported on 07/04/2024) cranberry fruit (CRANBERRY) 450 mg tab Take 1 tablet by mouth once daily. bisoprolol (ZEBETA) 10 mg tablet Take 10 mg by mouth once (more content not included)...[facility]05-12-2025 History of Present illness Narrative* Carlee Armendariz PA-C - 09/18/2024 8:54 AM EDT CHIEF COMPLAINT: Patient presents with: Procedure Follow Up: Fibroscan 04/26/24, US 06/26/24, Liver biopsy 05/22/24 HPI Kaur Sutton is a 59 year old female PMHx pos for DM here today for f/u fatty liver, elevated ferritin, GERD. Surg hx positive for hysterectomy, cholecystectomy. On Protonix 40 mg daily, Pepcid 40 mg twice daily for GERD with relief. Liver bx 05/2024 confirmed FUENTES cirrhosis. Patient has been on Ozempic for weight management and has successfully lost 20 pounds since the last visit. She reports that she is tolerating the medication well and denies any side effects. She also denies alcohol consumption, stating that she does not drink at all, not even socially. Patient reports that her bowel movements are influenced by her diet; consuming sugar leads to diarrhea, while a clean, wholesome diet does not cause any issues. She denies any abdominal pain. She is currently taking pantoprazole and Pepcid for reflux, which she reports are working well. She denies any trouble with swallowing. Patient has a history of a benign polyp on her vocal cords, which was removed surgically approximately 12 years ago. She reports that the procedure was very painful and that she did not follow up as recommended due to the discomfort. She denies any current issues with hoarseness or voice changes, although she notes that her voice occasionally goes crazy when she tries to sing. Patient has started the hepatitis A vaccination series and has received the first dose. She is awaiting the second dose. She has informed her primary care physician about her liver biopsy results andher follow-up with the gastroenterology clinic. Patient has a family history of esophageal cancer, with a brother who from the disease. Past Diagnostic Results: - Liver Biopsy: Confirmed FUENTES cirrhosis. - Hepatitis Serology: Immune to hepatitis B; no antibodies for hepatitis A. - Abdominal Ultrasound (June): Stable findings. Cologuard 11/2023 negative HFE 2021 normal Liver bx 05/2024 Component FINAL DIAGNOSIS A. Liver, biopsy: - Cirrhosis with moderate macrovesicular steatosis (see comment). VCTE 04/2024 These test results show: 1). Liver Stiffness Score of 36 kPa is consistent with: Liver Fibrosis Stage F4 cirrhosis 2). Liver Fat Estimation: Patient had median Controlled Attenuation Parameter of 329 decibels/m (dB/m) the CAP Score is consistent with Liver Steatosis Stage S 3- severe steatosis/advanced fatty infiltration over 67% of liver RUQ US 06/2024 IMPRESSION: Coarse and heterogeneous appearance of the liver. Fatty infiltration. No focal lesions seen Left renal cyst Otherwise normal sonographic appearance of the right upper quadrant. Normal sonographic appearance of the spleen Visualization is suboptimal due to overlying bowel gas and patient build OV 03/2024 Kaur Sutton is a 59 year old female with PMHx pos for DM who presents for Elevated Ferritin. Surghx positive for hysterectomy, cholecystectomy. On Protonix 40 mg daily for GERD. Reports h/o EGD over [address] Garza at [facility] that showed HH. Takes NSAIDs PRN for headaches, sometimes needs to use regularly due to persistent migraines. Recently got approved for migraines. Has lost 30 lbs in the past year, on Ozempic. Denies EtOH, family hx of liver disease, abd pain, N/V, changes in bowel habits, iron supplementation. Current Outpatient Medications Medication Sig ROFECOXIB ORAL Take 1 tablet by mouth once daily. VIOXX vilazodone (VIIBRYD) 10 mg tablet Take 10 mg by mouth once daily. albuterol HFA (PROVENTIL HFA, VENTOLIN HFA) 90 mcg/actuation inhaler Inhale 2 Puffs as instructed every 6 hours as needed for wheezing/shortness of breath. Naproxen Sodium 550 mg tablet Take 1 tablet by mouth two times a day as needed (headache). FOR PAIN. TAKE WITH FOOD. SUMAtriptan (IMITREX) 100 mg tablet Take 1 tablet (100 mg) by mouth as needed for migraine headache(see administration instructions). START AT ONSET OF HEADACHE. MAY REPEAT DOSE AFTER 2 HOURS. OZEMPIC 0.25 mg or 0.5 mg (2 mg/3 mL) pen INJECT 0.5 mg under the skin once weekly. rotate injection sites Ascorbic Acid (VITAMIN C) 1,000 mg tablet Take 1,000 mg by mouth once daily. Cetirizine (ZYRTEC) 10 mg cap Take 1 capsule by mouth as needed (Seasonal). topiramate (TOPAMAX) 100 mg tablet Take 1 tablet by mouth daily at bedtime. topiramate (TOPAMAX) 25 mg tablet Take 1 tablet by mouth once daily. In addition to 100 mg tablet to equal 125 mg total per day FLUoxetine (PROZAC) 20 mg capsule Take 1 capsule by mouth once daily. (Patient not taking: Reportedon 07/04/2024) cranberry fruit (CRANBERRY) 450 mg tab Take [...] as instructed every 4 hours as needed. (Patient not taking: Reported on 07/04/2024) [place]-3 Fatty Acids 500 mg cap Take 500 mg by mouth once daily. Magnesium Oxide 500 mg Tab Take 1 tablet by mouth once daily. famotidine (PEPCID) 40 mg tablet Take 40 mg by mouth twice daily. Cholecalciferol, Vitamin D3, 50 mcg (2,000 unit) cap Take 1 capsule by mouth once daily. No current facility-administered medications for this visit. ALLERGIES Allergen Reactions Duricef [Cefadroxil] Rash Lisinopril Cough Lotronex [Alosetron] Rash Metformin Intolerance, Other: See Comments Penicillins Rash Zomig [Zolmitriptan] Intolerance Social History Tobacco Use Smoking status: Former Current packs/day: 0.00 Average packs/day: 1 pack/day for 18.0 years (18.0 ttl pk-yrs) Types: Cigarettes Start date: 05/10/2005 Quit date: 05/10/2023 Years since quittin.3 Smokeless tobacco: Never Vaping Use Vaping status: Never Used Substance Use Topics Alcohol use: No Drug use: Never PAST MEDICAL HISTORY Diagnosis Date Anxiety C. [...] disease Maternal Grandfather Cancer Paternal Grandmother uterine REVIEW OF SYSTEMS Review of Systems All other systems reviewed and are negative. PHYSICAL EXAM BP 118/72 Pulse 69 Ht 175.3 cm (5' 9) Wt 103.9 kg (229 lb) LMP 05/19/2011 SpO2 95% BMI33.82 kg/m Physical Exam Constitutional: General: She is not in acute distress. Appearance: Normal appearance. She is obese. She is not ill-appearing, toxic- appearing or diaphoretic. HENT: Head: Normocephalic and atraumatic. Nose: Nose normal. Eyes: General: No scleral icterus. Right eye: No discharge. Left eye: No discharge. Extraocular Movements: Extraocular movements intact. Conjunctiva/sclera: Conjunctivae normal. Pupils: Pupils are equal, round, and reactive to light. Cardiovascular: Rate and Rhythm: Normal rate and regular rhythm. Pulses: Normal pulses. Heart sounds: Normal heart sounds. No murmur heard. No friction rub. No gallop. Pulmonary: Effort: No respiratory distress. Breath sounds: Normal breath sounds. No stridor. No wheezing, rhonchi or rales. Chest: Chest wall: No tenderness. Abdominal: General: Abdomen is flat. Bowel sounds are normal. There is no distension. Palpations: Abdomen is soft. There is no mass. Tenderness: There is no abdominal tenderness. There is no right CVA tenderness, left CVA tenderness, guarding or rebound. Hernia: No hernia is present. Musculoskeletal: General: Normal range of motion. Cervical back: Normal range of motion and neck supple. Skin: General: Skin is warm and dry. Neurological: General: No focal deficit present. Mental Status: She is alert and oriented to person, place, and time. Psychiatric: Mood and Affect: Mood normal. Behavior: Behavior normal. 1. Liver cirrhosis secondary to FUENTES (HCC) (K75.81) Biopsy confirmed FUENTES cirrhosis. Patient is currently in a compensated state. Recent ultrasound stable. Patient has lost 20 pounds since the last visit and is tolerating Ozempic prescribed by PCP well. No alcohol consumption reported. Hepatitis B immunity confirmed, but no antibodies for Hepatitis A. - Provided edu handout regarding cirrhosis and discussed with pt in detail. - Ordered additional labs to rule out underlying autoimmune conditions and recheck ferritin levels. - Continue weight loss efforts to reduce stress on the liver. - Complete Hepatitis A vaccination series; patient has received the first dose. Immune to Hep B - Repeat next US 12/2024 - Ordered an upper endoscopy to screen for esophageal varices; procedure to be done at [facility]. - Follow-up appointment in March; monitor for any interval changes. Recording using [employer] software for draft documentation of the visit was discussed with the patient/authorized traffic representative; all questions welcomed and answered. Patient/authorized traffic representative agreed to proceed I spent a total of 22 minutes on the date of the service which included preparing to see the patient, [id number] patient care, completing clinical documentation, obtaining and/or reviewing separately obtained history, performing a medically appropriate examination, counseling and educating the pat ient/family/caregiver, ordering medications, tests, or procedures, communicating with other HCPs (not separately reported), independently interpreting results (not separately reported), communicatingresults to the patient/family/caregiver, and care coordination (not separately reported). Carlee Armendariz PA-C September 18, 2024 9:38 AM documented in [facility]Day[facility] Telephone encounter Note * Telephone Encounter - Jeanette Hernandes - 08/02/2024 2:56 PM EDT Labs are scanned into epic [facility]03-26-2025 Miscellaneous Notes* Telephone Encounter - Jeanette Hernandes - 08/02/2024 2:56 PM EDT Labs are scanned into epic documented in this encounterDay[facility]03-[facility]-2025 Note. MICRO - Microbiology PROCEDURE: Urine Culture [O1 *1] SOURCE: Urine, Clean Catch BODY SITE: COLLECTED DATE/TIME: 07/29/2024 08:47 EDT RECEIVED DATE/TIME: 07/29/2024 16:22 EDT START DATE/TIME: 07/29/2024 16:22 EDT FREE TEXT SOURCE: FINAL REPORTS Final Report [] Verified Date/Time/Personnel: 07/31/2024 07:20 EDT 10,000 - 50,000 cfu/ml Mixed growth consistent with normal urogenital bib. PRELIMINARY REPORTS Preliminary Report [] Verified Date/Time/Personnel: 07/30/2024 09:03 EDT No growth to date Preliminary Report [] Verified Date/Time/Personnel: 07/29/2024 16:59 EDT Specimen received in lab. Order Comments O1: Urine Culture run culture Performing Locations *1: This test was performed at: [facility], [address] [place] [place] [address], [id number] , [facility]02-25-2025 History of Present illness Narrative* Teodora Garcia APRN.CUPOLA PATCHER HELPER - 07/04/2024 3:30 PM EST Images from the original note were not included. Headache Center Follow-up Visit Impression: Chronic migraine without aura, intractable, without status migrainosus (primary encounter diagnosis) Follow-Up Onabotulinum Toxin A (BotoxTM) for Migraine Indication: Chronic Intractable Migraine Treatment #: 2 Referral Expiration: 05/09/2025 Prior to the initiation of the FIRST treatment with Onabotulinum Toxin A, the patient reported the following average headache frequency over the past 3 MONTHS: Number of moderate-severe migraine days/month: 30 (daily) Number of mild migraine days/month: 0 Number of headache free days/month: 0 (0 headache-free hours) Migraine severity: 5/10 After treatment with Onabotulinum Toxin A: Number of moderate-severe migraine days/month: 0 Number of mild migraine days/month: 5 Number of headache free days/month: 25 (600 headache-free hours) Patient reduction in overall migraine days: Yes Patient reduction in moderate-severe migraine days: Yes Patient reduction of headache hours by 100 hours or more: Yes (reduction of 600 hours) Individual has obtained clinical benefit deemed significant by individual or prescriber (Y/N): Yes Patient's quality of life and ability to perform ADLs has improved (Y/N): Yes Side effects: none The patient has been assessed for disorders which could contribute to breathing or swallowing difficulty, and there is no contraindication with PREEMPT Botox. There is no documented allergic reaction/hypersensitivity to any botulinum toxin and there is no active infection at proposed injection site. HEADACHE SCORES: 11/24/2022 03/02/2024 04/04/2024 Headache Questions ER visits since last office visit: 0 0 0 Hospital stays since last office visit 0 0 0 Limited ADLs in the last month: 0 0 0 Days missed from work or school in the last month: 0 0 0 Days headache pain free in the last month: 23 5 2 Days per month with ALL of the following symptoms - decreased productivity, light sensitivity and nausea: 1 10 3 Initial improvement of headache after botox injection at last visit: Not applicable, I did not havea botox injection at my last visit Not applicable, I did not have a botox injection at my last visit Not applicable, I did not have a botox injection at my last visit PRN medication usage in the last month: 8 25 30 Patient impression of improvement since last visit: No change Minimally worse Much worse 11/24/2022 03/02/2024 04/04/2024 HIT-6 HIT-6 52 (Moderate impact) 57 (Substantial impact) 54 (Moderate impact) 11/24/2022 03/02/2024 04/04/2024 MENDEL - 2/7 SCORES MENDEL-2 Score 2 2 0 11/24/2022 03/02/2024 04/04/2024 Migraine Specific QOL - Higher scores indicate better HRQL Role Function-Restrictive Transformed Score (range: 0-100) 85.71 80 60 Role Function-Preventive Transformed Score (range: 0-100) 100 100 90 Emotional Function Transformed Score (range: 0-100) 86.67 93.33 73.33 04/04/2024 11/24/2022 11/02/2021 PHQ-9 Score 2 3 1 BP 108/74 (BP Site: Left Arm, BP Position: Sitting, BP Cuff Size: Large Adult) Pulse 68 Wt 109.1 kg (240 lb 8.4 oz) LMP 05/19/2011 SpO2 96% BMI 35.52 kg/m Patient name: Kaur Sutton : 1965 ALLERGIES Allergen Reactions Duricef [Cefadroxil] Rash Lisinopril Cough Lotronex [Alosetron] Rash Metformin Intolerance, Other: See Comments Penicillins Rash Zomig [Zolmitriptan] Intolerance UNIVERSAL PROTOCOL / SAFETY CHECKLIST Procedure: Onabotulinum toxin A for migraine Informed Consent Consent Obtained: Written [place] Protocol A moment to CARE was completed SIGN IN Personnel directly involved with the procedure wore the appropriate PPE Special Equipment: N/A Patient/Surrogate Stated/Verified: Patient name, Date of , Relevant allergies and Intended procedure TIME OUT No relevant labs, photos, and/or imaging studies were applicable for review. Consent documented and matches the intended procedure No correct side/site applicable for marking and visibility. No medications required for procedure. No fire risk assessment and interventions applicable. No implant(s) inserted. SIGN OUT No specimen collected. Written Consent Obtained: Written LOT #: [id number] Expiration Date: Month: Year: 2026 Second vial: LOT #: [id number] Expiration Date: Month: Year: 2026 Injection Sites Left (Units) Left (Sites) Right (Units) Right (Sites) TOTAL (Units) Rug Cleaning Supervisor 5 1 5 1 10 Procerus Units: 5 Sites: 1 5 Frontalis 10 2 10 2 20 Temporalis optional follow the pain 20 5 4 1 20 5 4 1 50 Occipitalis optional follow the pain 15 5 3 1 15 5 3 1 40 Cervical PSP 10 2 10 2 20 Trapezius optional follow the pain 15 5 3 1 15 5 3 1 40 Masseter 5 1 5 1 10 Total Units used: 195 Total Units wasted: 5 Patient tolerated procedure well. Prior Therapies Duration of Use Dose Side effect Anti-Convulsant Topiramate (Topamax, Trokendi XL, Qudexy) Anti-Depressant and Antipsychotic Doxepin (Sinequan) Fluoxetine (Prozac) Anti-Migraine Almotriptan malate (Axert) Naratriptan (Amerge) Sumatriptan (Imitrex, Sumavel) Sumatriptan/naproxen sodium (Treximet) Blood Pressure Lisinopril (Zestril) Verapamil (Verelan, Calan, Isoptin) Supplements CoQ10 Magnesium Teodora Garcia APRN.CHRIS documented in this encounterDay[facility]02-25-2025 Instructions* Patient Instructions* Teodora Garcia APRN.CNP - 07/04/2024 3:30 PM EST AFTER VISIT CARE BOTOX INJECTION While these procedures can be extremely helpful as part of your headache treatment plan, they can irritate the muscles and tissues in your head, neck and shoulders. Proper follow-up care is important to avoid muscle spasms and temporary pain increase within the following 3-5 days after your clinic visit. Here are some tips to help decrease side-effects that may occur and maximize the effectiveness of your pain relief -HYDRATION Hydration is important to help nourish your muscles and tissues. Drink 60-80 oz of non caffeinated fluid at least for 3 days after your visit. -REST Rest will help avoid further irritation of muscle and tissues. Remember that you need to give your body time to adjust. NO strenuous activity for at least the first 24 hours after your visit. Gentle stretching, yoga, meditation or even swimming is OK and encouraged. -ICE/HEAT Since these procedures irritate muscles, there can be some swelling. Alternating ice and heat every3-5 times per day may help decrease this, while also optimizing pain relief Use cool gel packs for ice for 10 min. Use a warm moist towel covered with a dry towel on neck and shoulders. Alternate stretching each side of the neck. -STRETCHING Slow, gentle stretching of the neck and shoulders once every hour is helpful to avoid muscle spasms. -TREAT MUSCLE SPASMS If you are already prescribed a muscle relaxer such as baclofen, tizanidine or flexeril, use as directed. If you do not have one, talk to your provider to find out if this would be safe for you to use. Do not rub or massage the area for 48-72 hours. -OTHER No hair dyes or permanents for 24 hours. If you are paying out of pocket for Botox go online to Botox Savings Program and see if you qualifyfor reimbursement. Return in 3 months for your next Botox Injection documented in this encounterDay[facility]02-25-2025 NoteHNO ID: [id number] Author: TEODORA GARCIA APRN.CUPOLA PATCHER HELPER Service: ? Author Type: Nurse Practitioner Type: Progress Notes Filed: 07/04/2024 15:51 Note Text: Headache Center Follow-up Visit Impression: Chronic migraine without aura, intractable, without status migrainosus (primary encounter diagnosis) Follow-Up Onabotulinum Toxin A (BotoxTM) for Migraine Indication: Chronic Intractable Migraine Treatment #: 2 Referral Expiration: 05/09/2025 Prior to the initiation of the FIRST treatment with Onabotulinum Toxin A, the patient reported the following average headache frequency over the past 3 MONTHS: Number of moderate-severe migraine days/month: 30 (daily) Number of mild migraine days/month: 0 Number of headache free days/month: 0 (0 headache-free hours) Migraine severity: 5/10 After treatment with Onabotulinum Toxin A: Number of moderate-severe migraine days/month: 0 Number of mild migraine days/month: 5 Number of headache free days/month: 25 (600 headache-free hours) Patient reduction in overall migraine days: Yes Patient reduction in moderate-severe migraine days: Yes Patient reduction of headache hours by 100 hours or more: Yes (reduction of 600 hours) Individual has obtained clinical benefit deemed significant by individual or prescriber (Y/N): Yes Patient's quality of life and ability to perform ADLs has improved (Y/N): Yes Side effects: none The patient has been assessed for disorders which could contribute to breathing or swallowing difficulty, and there is no contraindication with PREEMPT Botox. There is no documented allergic reaction/hypersensitivity to any botulinum toxin and there is no active infection at proposed injection site. HEADACHE SCORES: 11/24/2022 03/02/2024 04/04/2024 Headache Questions ER visits since last office visit: 0 0 0 Hospital stays since last office visit 0 0 0 Limited ADLs in the last month: 0 0 0 Days missed from work or school in the last month: 0 0 0 Days headache pain free in the last month: 23 5 2 Days per month with ALL of the following symptoms - decreased productivity, light sensitivity and nausea: 1 10 3 Initial improvement of headache after botox injection at last visit: Not applicable, I did not have a botox injection at my last visit Not applicable, I did not have a botox injection at my last visit Not applicable, I did not have a botox injection at my last visit PRN medication usage in the last month: 8 25 30 Patient impression of improvement since last visit: No change Minimally worse Much worse 11/24/2022 03/02/2024 04/04/2024 HIT-6 HIT-6 52 (Moderate impact) 57 (Substantial impact) 54 (Moderate impact) 11/24/2022 03/02/2024 04/04/2024 MENDEL - 2/7 SCORES MENDEL-2 Score 2 2 0 11/24/2022 03/02/2024 04/04/2024 Migraine Specific QOL - Higher scores indicate better HRQL Role Function-Restrictive Transformed Score (range: 0-100) 85.71 80 60 Role Function-Preventive Transformed Score (range: 0-100) 100 100 90 Emotional Function Transformed Score (range: 0-100) 86.67 93.33 73.33 04/04/2024 11/24/2022 11/02/2021 PHQ-9 Score 2 3 1 BP 108/74 (BP Site: Left Arm, BP Position: Sitting, BP Cuff Size: Large Adult) Pulse 68 Wt 109.1 kg (240 lb 8.4 oz) LMP 05/19/2011 SpO2 96% BMI 35.52 kg/m? Patient name: Kaur Sutton : 1965 ALLERGIES Allergen Reactions Duricef [Cefadroxil] Rash Lisinopril Cough Lotronex [Alosetron] Rash Metformin Intolerance, Other: See Comments Penicillins Rash Zomig [Zolmitriptan] Intolerance UNIVERSAL PROTOCOL / SAFETY CHECKLIST Procedure: Onabotulinum toxin A for migraine Informed Consent Consent Obtained: Written [place] Protocol A moment to CARE was completed SIGN IN Personnel directly involved with the procedure wore the appropriate PPE Special Equipment: N/A Patient/Surrogate Stated/Verified: Patient name, Date of , Relevant allergies and Intended procedure TIME OUT No relevant labs, photos, and/or imaging studies were applicable for review. Consent documented and matches the intended procedure No correct side/site applicable for marking and visibility. No medications required for procedure. No fire risk assessment and interventions applicable. No implant(s) inserted. SIGN OUT No specimen collected. Written Consent Obtained: Written LOT #: [id number] Expiration Date: Month: Year: 2026 Second vial: LOT #: [id number] Expiration Date: Month: Year: 2026 Injection Sites Left (Units) Left (Sites) Right (Units) Right (Sites) TOTAL (Units) Rug Cleaning Supervisor 5 1 5 1 10 Procerus Units: 5 Sites: 1 5 Frontalis 10 2 10 2 20 Temporalis optional follow the pain 20 5 4 1 20 5 4 1 50 Occipitalis optional follow the pain 15 5 3 1 15 5 3 1 40 Cervical PSP 10 2 10 2 20 Trapezius optional follow the pain 15 5 3 1 15 5 3 1 40 Masseter 5 1 5 1 10 Total Units used: 195 Total Units wasted: 5 Patient man (more content not included)...[facility]02-17-2025 History of Present illness Narrative* Talya Avalos RDMS - 06/26/2024 10:00 AM EST Radiology Service Progress Note PATIENT NAME: Kaur Sutton DATE OF SERVICE: June 26, 2024 TIME: 2:50 PM PATIENT IDENTITY VERIFICATION COMPLETED USING TWO (2) IDENTIFIERS: Name and Date of confirmedby patient verbally. FALL SCREENING: Has the patient had 2 falls in the last year or 1 fall with injury or currently using an Ambulatory Assistive Device (Walker, Cane, Wheelchair, Crutches, etc.)? No PATIENT GENDER DATA: Assigned female at . status: : No status:NO. PATIENT RELEVANT IMPLANT DATA REVIEWED: Not Applicable PATIENT PRESENTS WITH AN IMPLANTABLE OR ATTACHED UI APPLICATION DEVELOPER: No RADIOLOGY DEPARTMENT: Ultrasound PERIPHERAL IV DATA: Not applicable SIGNED BY: Talya Avalos RDMS [place]son June 26, 2024 2:50 PM documented in this encounterDay[facility]02-17-2025 NoteHNO ID: [id number] Author: TALYA AVALOS RDMS Service: ? Author Type: Special Inspector Type: Progress Notes Filed: 06/26/2024 14:50 Note Text: Radiology Service Progress Note PATIENT NAME: Kaur Sutton DATE OF SERVICE: June 26, 2024 TIME: 2:50 PM PATIENT IDENTITY VERIFICATION COMPLETED USING TWO (2) IDENTIFIERS: Name and Date of confirmed by patient verbally. FALL SCREENING: Has the patient had 2 falls in the last year or 1 fall with injury or currently using an Ambulatory Assistive Device (Walker, Cane, Wheelchair, Crutches, etc.)? No PATIENT GENDER DATA: Assigned female at . status: : No status: NO. PATIENT RELEVANT IMPLANT DATA REVIEWED: Not Applicable PATIENT PRESENTS WITH AN IMPLANTABLE OR ATTACHED UI APPLICATION DEVELOPER: No RADIOLOGY DEPARTMENT: Ultrasound PERIPHERAL IV DATA: Not applicable SIGNED BY: Talya Avalos RDMS [place] June 26, 2024 2:50 [facility]02-10-2025 Telephone encounter Note* Telephone Encounter - Rupal Olvera RN - 06/19/2024 1:26 PM EST Pt called in checking on her culture results as she saw them in her MyChart. Pt states she doesn't think she is on the right antibiotic for what showed up in her cultur. Noted provider's result note information and that information given to pt and she verbalizes understanding to follow up with her PCP. [facility]02-10-[facility] Miscellaneous Notes* Telephone Encounter - Rupal Olvera RN - 06/19/2024 1:26 PM EST Pt called in checking on her culture results as she saw them in her MyChart. Pt states she doesn't think she is on the right antibiotic for what showed up in her cultur. Noted provider's result note information and that information given to pt and she verbalizes understanding to follow up with her PCP. * Telephone Encounter - Tejal Valencia PA - 06/19/2024 12:35 PM EST Please contact patient and let her know urine culture did not reveal any clear evidence of UTI. Sheneeds close follow-up with PCP to ensure resolution of blood in the urine. Continue antibiotic if symptoms are improving. documented in this encounterDay[facility]02-10-2025 Telephone encounter Note * Telephone Encounter - Tejal Valencia PA - 06/19/2024 12:35 PM EST Please contact patient and let her know urine culture did not reveal any clear evidence of UTI. Sheneeds close follow-up with PCP to ensure resolution of blood in the urine. Continue antibiotic if symptoms are improving. [facility] Work Phone: [phone]) 387-793502-09-2025 NoteHNO ID: [id number] Author: GOVIND ADAME APRN.CUPOLA PATCHER HELPER Service: ? Author Type: Nurse Practitioner Type: Progress Notes Filed: 06/18/2024 15:32 Note Text: Subjective HPI Nontoxic-appearing 59-year-old female presents urgent care chief complaint possible UTI. Duration of symptoms today. Associated symptoms urinary frequency urgency and dysuria. Presents today for evaluation. History of UTIs this is similar. OTC medications none recently. Denies any vaginal discharge itching or burning. No rashes. No flank pain vomiting abdominal pain. No urological abnormalities. Past medical history prescription medications and allergies reviewed. BP 122/81 Pulse 69 Temp 36.3 ?C (97.3 ?F) Resp 18 Wt 112 kg (246 lb 14.6 oz) LMP 05/19/2011 SpO2 99% BMI 36.46 kg/m? .Patient presents with: Urinary Problem: Frequency, burning x today PAST MEDICAL HISTORY Diagnosis Date Anxiety C. [...] [Alosetron], Metformin, Penicillins, and Zomig [Zolmitriptan] MEDICATIONS vilazodone (VIIBRYD) 10 mg tablet Take 10 mg by mouth once daily. albuterol HFA (PROVENTIL HFA, VENTOLIN HFA) 90 mcg/actuation inhaler Inhale 2 Puffs as instructed every 6 hours as needed for wheezing/shortness of breath. Naproxen Sodium 550 mg tablet Take 1 tablet by mouth two times a day as needed (headache). FOR PAIN. TAKE WITH FOOD. SUMAtriptan (IMITREX) 100 mg tablet Take 1 tablet (100 mg) by mouth as needed for migraine headache (see administration instructions). START AT ONSET OF HEADACHE. MAY REPEAT DOSE AFTER 2 HOURS. OZEMPIC 0.25 mg or 0.5 mg (2 [...] 125 mg total per day FLUoxetine (PROZAC) 20 mg capsule Take 1 capsule by mouth once daily. (Patient not taking: Reported on 04/22/2024) cranberry fruit (CRANBERRY) 450 mg tab Take [...] as instructed every 4 hours as needed. [place]-3 Fatty Acids 500 mg cap Take 500 [...] date: 05/10/2005 Quit date: 05/10/2023 Years since quittin.1 Smokeless tobacco: Never Vaping Use Vaping status: Never Used Substance Use Topics Alcohol use: No Drug use: Never Review of Systems Constitutional: Negative for chills, fever and malaise/fatigue. Cardiovascular: Negative for chest pain. Gastrointestinal: Negative for abdominal pain, constipation, diarrhea, nausea and vomiting. Genitourinary: Positive for dysuria, f (more content not included)...[facility]2025 History of Present illness Narrative* Govind Adame, ADALBERTO.[employer] - 06/18/2024 3:20 PM EST Subjective HPI Nontoxic-appearing 59-year-old female presents urgent care chief complaint possible UTI. Duration of symptoms today. Associated symptoms urinary frequency urgency and dysuria. Presents today for evaluation. History of UTIs this is similar. OTC medications none recently. Denies any vaginal dischargeitching or burning. No rashes. No flank pain vomiting abdominal pain. No urological abnormalities. Past medical history prescription medications and allergies reviewed. BP 122/81 Pulse 69 Temp 36.3 C (97.3 F) Resp 18 Wt 112 kg (246 lb 14.6 oz) LMP 05/19/2011 SpO2 99% BMI 36.46 kg/m .Patient presents with: Urinary Problem: Frequency, burning x today PAST MEDICAL HISTORY Diagnosis Date Anxiety C. [...] [Cefadroxil], Lisinopril, Lotronex [Alosetron], Metformin, Penicillins, and Zomig[Zolmitriptan] MEDICATIONS vilazodone (VIIBRYD) 10 mg tablet Take 10 mg by mouth once daily. albuterol HFA (PROVENTIL HFA, VENTOLIN HFA) 90 mcg/actuation inhaler Inhale 2 Puffs as instructed every 6 hours as needed for wheezing/shortness of breath. Naproxen Sodium 550 mg tablet Take 1 tablet by mouth two times a day as needed (headache). FOR PAIN. TAKE WITH FOOD. SUMAtriptan (IMITREX) 100 mg tablet Take 1 tablet (100 mg) by mouth as needed for migraine headache(see administration instructions). START AT ONSET OF HEADACHE. MAY REPEAT DOSE AFTER 2 HOURS. OZEMPIC 0.25 mg or 0.5 mg (2 [...] 125 mg total per day FLUoxetine (PROZAC) 20 mg capsule Take 1 capsule by mouth once daily. (Patient not taking: Reportedon 04/22/2024) cranberry fruit (CRANBERRY) 450 mg tab Take [...] as instructed every 4 hours as needed. [place]-3 Fatty Acids 500 mg cap Take 500 mg by mouth once daily. Magnesium Oxide 500 mg Tab Take 1 tablet by mouth once daily. (Patient taking differently: Take 400mg by mouth once daily.) famotidine (PEPCID) 40 [...] date: 05/10/2005 Quit date: 05/10/2023 Years since quittin.1 Smokeless tobacco: Never Vaping Use Vaping status: Never Used Substance Use Topics Alcohol use: No Drug use: Never Review of Systems Constitutional: Negative for chills, fever and malaise/fatigue. Cardiovascular: Negative for chest pain. Gastrointestinal: Negative for abdominal pain, constipation, diarrhea, nausea and vomiting. Genitourinary: Positive for dysuria, frequency and urgency. Negative for flank pain and hematuria. Musculoskeletal: Negative for myalgias. Objective Physical Exam Vitals and nursing note reviewed. Constitutional: General: She is not in acute distress. Appearance: She is not diaphoretic. HENT: Head: Jaw: No trismus. Right Ear: Hearing normal. No decreased hearing noted. No drainage, swelling or tenderness. Tympanic membrane is not perforated, erythematous or bulging. Left Ear: Hearing normal. No decreased hearing noted. No drainage, swelling or tenderness. Tympanicmembrane is not perforated, erythematous or bulging. Mouth/Throat: Pharynx: Uvula midline. No uvula swelling. Tonsils: No tonsillar abscesses. Cardiovascular: Rate and Rhythm: Normal rate and regular rhythm. Pulses: Normal pulses. Pulmonary: Effort: Pulmonary effort is normal. No respiratory distress. Breath sounds: Normal breath sounds. Chest: Chest wall: No tenderness. Abdominal: General: Bowel sounds are normal. There is no distension. Palpations: Abdomen is soft. Abdomen is not rigid. Tenderness: There is no abdominal tenderness. There is no right CVA tenderness, left CVA tenderness, guarding or rebound. Negative signs include Jones's sign and McBurney's sign. Musculoskeletal: General: No tenderness. Lymphadenopathy: Head: Right side of head: No submental, submandibular, tonsillar, preauricular, posterior auricular or occipital adenopathy. Left side of head: No submental, submandibular, tonsillar, preauricular, posterior auricular or occipital adenopathy. Cervical: Right cervical: No superficial or posterior cervical adenopathy. Left cervical: No superficial or posterior cervical adenopathy. Skin: General: Skin is warm and dry. Findings: No rash. Neurological: Mental Status: She is alert and oriented to person, place, and time. ASSESSMENT/PLAN: 1. Urinary urgency - ICD9: 788.63, ICD10: R39.15 - UA DIP, URINE (POC) - BACTERIAL CULTURE, URINE Urine positive for leukocytes blood protein. Treat for acute cystitis. Placed on Macrobid. Treat according to urine culture results. Red flags ER evaluation discussed. Patient was educated on supportive therapies. Patient [...] of care. This note was generated using [facility] software. It may contain errors in wording, punctuation, or spelling. Govind Adame APRN.CHRIS documented [facility] Telephone encounter Note * Telephone Encounter - Carlee De Santiago RN - 06/04/2024 8:16 AM EST Reason for Call: Vomiting and diarrhea that started on Wednesday06/02/24. Severe muscle cramps that have progressively worsened since Wednesday. Pt inquiring if she can get IV fluids anywhere that is not the hospital? Outcome: Go to ER now (or PCP triage). Advised patient to go to the ER now. Pt verbalizes understanding and is agreeable to this recommendation at this time. Reason for Disposition High-risk adult (e.g., diabetes mellitus, brain tumor, V-P shunt, hernia) Answer Assessment - Initial Assessment Questions 1. VOMITING SEVERITY: Twice in the last 24 hours 2. ONSET: Wednesday06/02/24 3. FLUIDS: Less than 1 bottle of water in the last 24 hours and cereal this morning (first solid food since Wednesday) 4. ABDOMEN PAIN: Denies 5. DIARRHEA: Yes, multiple times in the last 24 hours. Unable to provide a number of episodes. 6. CONTACTS: Boyfriend had loose stools 7. CAUSE: Possibly the flu and an electrolyte imbalance causing her leg cramping 8. HYDRATION STATUS: Small amount of light yellow urine right before call 9. OTHER SYMPTOMS: Bilateral leg cramping-entire leg-starts in groin and goes all the way down. No injury. Started Wednesday night. Progressively worse. Tried drinking pickle juice but hard to keep down. 10. : NA Had a liver biopsy on 05/22/24 Has had constant burping Hx of Type 2 Diabetes Protocols used: [id number] [facility]01-26-2025 Miscellaneous Notes* Telephone Encounter - Carlee De Santiago RN - 06/04/2024 8:16 AM EST Reason for Call: Vomiting and diarrhea that started on Wednesday06/02/24. Severe muscle cramps that have progressively worsened since Wednesday. Pt inquiring if she can get IV fluids anywhere that is not the hospital? Outcome: Go to ER now (or PCP triage). Advised patient to go to the ER now. Pt verbalizes understanding and is agreeable to this recommendation at this time. Reason for Disposition High-risk adult (e.g., diabetes mellitus, brain tumor, V-P shunt, hernia) Answer Assessment - Initial Assessment Questions 1. VOMITING SEVERITY: Twice in the last 24 hours 2. ONSET: Wednesday06/02/24 3. FLUIDS: Less than 1 bottle of water in the last 24 hours and cereal this morning (first solid food since Wednesday) 4. ABDOMEN PAIN: Denies 5. DIARRHEA: Yes, multiple times in the last 24 hours. Unable to provide a number of episodes. 6. CONTACTS: Boyfriend had loose stools 7. CAUSE: Possibly the flu and an electrolyte imbalance causing her leg cramping 8. HYDRATION STATUS: Small amount of light yellow urine right before call 9. OTHER SYMPTOMS: Bilateral leg cramping-entire leg-starts in groin and goes all the way down. No injury. Started Wednesday night. Progressively worse. Tried drinking pickle juice but hard to keep down. 10. : NA Had a liver biopsy on 05/22/24 Has had constant burping Hx of Type 2 Diabetes Protocols used: [id number] documented in this encounterDay[facility]01-17-2025 Note* Addendum Note - Carlee Armendariz PA-C - 05/26/2024 11:32 AM ESTAddended by: CARLEE ARMENDARIZ on: 05/26/2024 11:32 AM Modules accepted: Orders [facility]01-17-2025 Miscellaneous Notes* Addendum Note - Carlee Armendariz PA-C - 05/26/2024 11:32 AM ESTAddended by: CARLEE ARMENDARIZ on: 05/26/2024 11:32 AM Modules accepted: Orders * Telephone Encounter - Carlee Armendariz PA-C - 05/26/2024 11:20 AM EST Called pt to discuss biopsy results. Recommended repeat US next month, order placed and scheduling number provided. Received 1st Hep A vaccine with PCP. States PCP has repeat labs ordered for her 07/2024 to recheck iron levels. She will mychart me once she has these completed. Advised to avoid all EtOH consumption. Since starting botox for migraines she has been able to avoid NSAID use. She is going to continue to work on weight loss, on Ozempic per PCP. Carlee Armendariz PA-C documented in this encounterDay[facility]01-17-2025 Telephone encounter Note * Telephone Encounter - Carlee Armendariz PA-C - 05/26/2024 11:20 AM EST Called pt to discuss biopsy results. Recommended repeat US next month, order placed and scheduling number provided. Received 1st Hep A vaccine with PCP. States PCP has repeat labs ordered for her 07/2024 to recheck iron levels. She will mychart me once she has these completed. Advised to avoid all EtOH consumption. Since starting botox for migraines she has been able to avoid NSAID use. She is going to continue to work on weight loss, on Ozempic per PCP. Carlee Armendariz PA-C [facility]12-31-2024 Telephone encounter Note* Telephone Encounter - Pam Marcus MA - 05/09/2024 2:35 PM EST Patient notified of results [facility]12-31-2024 Miscellaneous Notes* Telephone Encounter - Pam Marcus MA - 05/09/2024 2:35 PM EST Patient notified of results * Telephone Encounter - Janny Grant PA-C - 05/09/2024 2:26 PM EST Carlee's patient -- Fibroscan scan is showing S3, F4 ( severe fatty liver, advanced fibrosis/cirrhosis). Recommend continuing with liver bx on the to confirm cirrhosis. * Telephone Encounter - Jeanette Hernandes - 05/09/2024 2:22 PM EST Fibroscan results in care everywhere Thank you. documented in this encounterDay[facility] Center12-31-2024 Telephone encounter Note * Telephone Encounter - Janny Grant PA-C - 05/09/2024 2:26 PM EST Carlee's patient -- Fibroscan scan is showing S3, F4 ( severe fatty liver, advanced fibrosis/cirrhosis). Recommend continuing with liver bx on the to confirm cirrhosis. [facility] Work Phone: [phone] Telephone encounter Note* Telephone Encounter - Jeanette Hernandes - 05/09/2024 2:22 PM EST Fibroscan results in care everywhere Thank you. [facility]12-20-2024 Telephone encounter Note* Telephone Encounter - Pam Marcus MA - 04/28/2024 10:58 AM EST Patient called in because she saw her Fibroscan results in her [facility] profile that showed F4. Patient is not concerned but her boyfriend is. Advised patient that I will send a message that results areavailable for review in scanning and CE. Once review Carlee will send a message on next steps and if any further testing is needed. Thank you [facility]12-20-2024 Miscellaneous Notes* Telephone Encounter - Pam Marcus MA - 04/28/2024 10:58 AM EST Patient called in because she saw her Fibroscan results in her [facility] profile that showed F4. Patient is not concerned but her boyfriend is. Advised patient that I will send a message that results areavailable for review in scanning and CE. Once review Carlee will send a message on next steps and if any further testing is needed. Thank you documented in this encounterDayton [facility] Center12-14-2024 NoteHNO ID: [id number] Author: GOVIND ADAME APRN.[employer] Service: ? Author Type: Nurse Practitioner Type: Progress Notes Filed: 04/22/2024 08:44 Note Text: Subjective HPI Nontoxic-appearing female presents urgent care chief complaint cough sinus pressure. Duration of symptoms 8 days. Associated symptoms listed above. Presents today for evaluation. Symptoms were improving then worsened again. Exposure to pneumonia family. OTC medications none recently. History of sinus infection. Denies any fever chest pain hemoptysis or pleuritic pain. Past medical history prescription medications allergies reviewed. Risk factors previously smoker. Quit in May of this year. .Patient presents with: Cough: Cough, congestion and sinus drainage x 1 week PAST MEDICAL HISTORY Diagnosis Date Anxiety C. [...] [Alosetron], Metformin, Penicillins, and Zomig [Zolmitriptan] MEDICATIONS Naproxen Sodium 550 mg tablet Take 1 tablet by mouth two times a day as needed (headache). FOR PAIN. TAKE WITH FOOD. SUMAtriptan (IMITREX) 100 mg tablet Take 1 tablet (100 mg) by mouth as needed for migraine headache (see administration instructions). START AT ONSET OF HEADACHE. MAY REPEAT DOSE AFTER 2 HOURS. OZEMPIC 0.25 mg or 0.5 mg (2 [...] as instructed every 4 hours as needed. [place]-3 Fatty Acids 500 mg cap Take 500 mg by mouth once daily. Magnesium Oxide 500 mg Tab Take 1 tablet by mouth once daily. (Patient taking differently: Take 400 mg by mouth once daily.) famotidine (PEPCID) 40 mg tablet Take 40 mg by mouth twice daily. Cholecalciferol, Vitamin D3, 50 mcg (2,000 unit) cap Take 1 capsule by mouth once daily. FLUoxetine (PROZAC) 20 mg capsule Take 1 capsule by mouth once daily. (Patient not taking: Reported on 04/22/2024) FAMILY HISTORY Problem Relation Age of Onset [...] date: 05/10/2005 Quit date: 05/10/2023 Years since quittin.9 Smokeless tobacco: Never Vaping Use Vaping status: Never Used Substance Use Topics Alcohol use: No Drug use: Never BP 102/64 Pulse 71 Temp 36.8 ?C (98.2 ?F) (Tympanic) Resp 18 Wt 110.8 kg (244 lb 4.3 oz) LMP 05/19/2011 SpO2 95% BMI 36.07 kg/m? Review of Systems Constitutional: Negative for chills, fever and malaise/fatigue. HENT: Positive for congestion and sinus pain. Negative for ear discharge, ear pain and sore throat. Eyes: Negative for blurred vision, pain, discharge and redness. Respiratory: Positive for cough. Negative for hemoptysis, sputum production, shortness of breath, wheezing and stridor. Cardiovascular: Negative for chest pain. Gastrointestinal: (more content not included)...[facility] 04-22-2024 History of Present illness Narrative* Govind Adame, ADALBERTO.[facility] - 04/22/2024 8:40 AM EST Subjective HPI Nontoxic-appearing female presents urgent care chief complaint cough sinus pressure. Duration of symptoms 8 days. Associated symptoms listed above. Presents today for evaluation. Symptoms were improving then worsened again. Exposure to pneumonia family. OTC medications none recently. History of sinus infection. Denies any fever chest pain hemoptysis or pleuritic pain. Past medical history prescription medications allergies reviewed. Risk factors previously smoker. Quit in May of this year. .Patient presents with: Cough: Cough, congestion and sinus drainage x 1 week PAST MEDICAL HISTORY Diagnosis Date Anxiety C. [...] [Cefadroxil], Lisinopril, Lotronex [Alosetron], Metformin, Penicillins, and Zomig[Zolmitriptan] MEDICATIONS Naproxen Sodium 550 mg tablet Take 1 tablet by mouth two times a day as needed (headache). FOR PAIN. TAKE WITH FOOD. SUMAtriptan (IMITREX) 100 mg tablet Take 1 tablet (100 mg) by mouth as needed for migraine headache(see administration instructions). START AT ONSET OF HEADACHE. MAY REPEAT DOSE AFTER 2 HOURS. OZEMPIC 0.25 mg or 0.5 mg (2 [...] as instructed every 4 hours as needed. [place]-3 Fatty Acids 500 mg cap Take 500 mg by mouth once daily. Magnesium Oxide 500 mg Tab Take 1 tablet by mouth once daily. (Patient taking differently: Take 400mg by mouth once daily.) famotidine (PEPCID) 40 mg tablet Take 40 mg by mouth twice daily. Cholecalciferol, Vitamin D3, 50 mcg (2,000 unit) cap Take 1 capsule by mouth once daily. FLUoxetine (PROZAC) 20 mg capsule Take 1 capsule by mouth once daily. (Patient not taking: Reportedon 04/22/2024) FAMILY HISTORY Problem Relation Age of Onset [...] date: 05/10/2005 Quit date: 05/10/2023 Years since quittin.9 Smokeless tobacco: Never Vaping Use Vaping status: Never Used Substance Use Topics Alcohol use: No Drug use: Never BP 102/64 Pulse 71 Temp 36.8 C (98.2 F) (Tympanic) Resp 18 Wt 110.8 kg (244 lb 4.3 oz) LMP 05/19/2011 SpO2 95% BMI 36.07 kg/m Review of Systems Constitutional: Negative for chills, fever and malaise/fatigue. HENT: Positive for congestion and sinus pain. Negative for ear discharge, ear pain and sore throat. Eyes: Negative for [...] trismus, tenderness, swelling or pain on movement. Nose: Congestion present. Right Sinus: Maxillary sinus tenderness present. Left Sinus: Maxillary sinus tenderness present. Mouth/Throat: Mouth: Mucous membranes are moist. [...] muscle usage or respiratory distress. Breath sounds: No stridor. Wheezing present. No rhonchi or rales. Abdominal: General: There is [...] to person, place, and time. ASSESSMENT/PLAN: 1. Sinobronchitis - ICD9: 473.9, 490, ICD10: J32.9, J40 Diagnosis sinobronchitis. Placed on doxycycline and albuterol. Patient was educated on supportive therapies. Patient will follow up with primary care provider 48 hours reevaluation. patient was instructed to immediately proceed to emergency room for any new, worsening, or symptoms lasting longer than anticipated. The patient's clinical presentation is otherwise unremarkable at this time. Based onexam and clinical finding, the patient is stable for discharge. Plan of care was discussed with patient. Patient verbalizes understanding and agrees to plan of care. This note was generated using [facility] software. It may contain errors in wording, punctuation, or spelling. Govind Adame APRN.CHRIS documented in this encounterDay[facility]12-03-2024 History of Present illness Narrative* Teodora Garcia APRN.CHRIS - 04/11/2024 1:30 PM EST Images from the original note were not included. Headache Center Follow-up Visit Miscellaneous Patient Concerns: Toradol helped somewhat, but migraines remain high frequency/daily. Impression: Chronic migraine without aura, intractable, without status migrainosus (primary encounter diagnosis) New Onabotulinum Toxin A (BotoxTM) for Migraine Indication: Chronic Intractable Migraine Treatment #: 1 Referral Expiration: 09/08/2024 Number of moderate-severe migraine days/month: 30 (daily) Number of mild migraine days/month: 0 Number of headache free days/month: 0 (0 headache-free hours) Migraine severity: 5/10 The patient has been assessed for disorders which could contribute to breathing or swallowing difficulty, and there is no contraindication with PREEMPT Botox. There is no documented allergic reaction/hypersensitivity to any botulinum toxin and there is no active infection at proposed injection site. HEADACHE SCORES: 11/24/2022 03/02/2024 04/04/2024 Headache Questions ER visits since last office visit: 0 0 0 Hospital stays since last office visit 0 0 0 Limited ADLs in the last month: 0 0 0 Days missed from work or school in the last month: 0 0 0 Days headache pain free in the last month: 23 5 2 Days per month with ALL of the following symptoms - decreased productivity, light sensitivity and nausea: 1 10 3 Initial improvement of headache after botox injection at last visit: Not applicable, I did not havea botox injection at my last visit Not applicable, I did not have a botox injection at my last visit Not applicable, I did not have a botox injection at my last visit PRN medication usage in the last month: 8 25 30 Patient impression of improvement since last visit: No change Minimally worse Much worse 11/24/2022 03/02/2024 04/04/2024 HIT-6 HIT-6 52 (Moderate impact) 57 (Substantial impact) 54 (Moderate impact) 11/24/2022 03/02/2024 04/04/2024 MENDEL - 2/7 SCORES MENDEL-2 Score 2 2 0 11/24/2022 03/02/2024 04/04/2024 Migraine Specific QOL - Higher scores indicate better HRQL Role Function-Restrictive Transformed Score (range: 0-100) 85.71 80 60 Role Function-Preventive Transformed Score (range: 0-100) 100 100 90 Emotional Function Transformed Score (range: 0-100) 86.67 93.33 73.33 04/04/2024 11/24/2022 11/02/2021 PHQ-9 Score 2 3 1 BP 125/80 (BP Site: Left Arm, BP Position: Sitting, BP Cuff Size: Large Adult) Pulse 63 Ht 175.3 cm (5' 9) Wt 112.8 kg (248 lb 10.9 oz) LMP 05/19/2011 SpO2 97% BMI 36.72 kg/m Patient name: Kaur Sutton : 1965 ALLERGIES Allergen Reactions Duricef [Cefadroxil] Rash Lisinopril Cough Lotronex [Alosetron] Rash Metformin Intolerance, Other: See Comments Penicillins Rash Zomig [Zolmitriptan] Intolerance UNIVERSAL PROTOCOL / SAFETY CHECKLIST Procedure: Onabotulinum toxin A for migraine Informed Consent Consent Obtained: Written [place] Protocol A moment to CARE was completed SIGN IN Personnel directly involved with the procedure wore the appropriate PPE Special Equipment: N/A Patient/Surrogate Stated/Verified: Patient name, Date of , Relevant allergies and Intended procedure TIME OUT Intended patient and procedure match the source document(s) Consent documented and matches the intended procedure No relevant labs, photos, and/or imaging studies were applicable for review. No correct side/site applicable for marking and visibility. No medications required for procedure. No fire risk assessment and interventions applicable. No implant(s) inserted. SIGN OUT No specimen collected. No instruments, equipment or retained foreign bodies applicable. Post-procedure follow-up management communicated and Plan of Care Visit completed when applicable Written Consent Obtained: Written LOT #: [id number] Expiration Date: Month: Year: 2026 Second vial: LOT #: [id number] Expiration Date: Month: Year: 2026 Injection Sites Left (Units) Left (Sites) Right (Units) Right (Sites) TOTAL (Units) Rug Cleaning Supervisor 5 1 5 1 10 Procerus Units: 5 Sites: 1 5 Frontalis 10 2 10 2 20 Temporalis optional follow the pain 20 5 4 1 20 5 4 1 50 Occipitalis optional follow the pain 15 5 3 1 15 5 3 1 40 Cervical PSP 10 2 10 2 20 Trapezius optional follow the pain 15 5 3 1 15 5 3 1 40 Masseter 5 1 5 1 10 Total Units used: 195 Total Units wasted: 5 Patient tolerated procedure well. Prior Therapies Duration of Use Dose Side effect Anti-Convulsant Topiramate (Topamax, Trokendi XL, Qudexy) Anti-Depressant and Antipsychotic Doxepin (Sinequan) Fluoxetine (Prozac) Anti-Migraine Almotriptan malate (Axert) Naratriptan (Amerge) Sumatriptan (Imitrex, Sumavel) Sumatriptan/naproxen sodium (Treximet) Blood Pressure Lisinopril (Zestril) Verapamil (Verelan, Calan, Isoptin) Supplements CoQ10 Magnesium Teodora Garcia APRN.[employer] HEL[employer] documented in this encounterDayton [facility] Center12-03-2024 NoteHNO ID: [id number] Author: TEODORA GARCIA APRN.[employer] HELPER Service: ? Author Type: Nurse Practitioner Type: Progress Notes Filed: 04/11/2024 13:49 Note Text: Headache Center Follow-up Visit Miscellaneous Patient Concerns: Toradol helped somewhat, but migraines remain high frequency/daily. Impression: Chronic migraine without aura, intractable, without status migrainosus (primary encounter diagnosis) New Onabotulinum Toxin A (BotoxTM) for Migraine Indication: Chronic Intractable Migraine Treatment #: 1 Referral Expiration: 09/08/2024 Number of moderate-severe migraine days/month: 30 (daily) Number of mild migraine days/month: 0 Number of headache free days/month: 0 (0 headache-free hours) Migraine severity: 5/10 The patient has been assessed for disorders which could contribute to breathing or swallowing difficulty, and there is no contraindication with PREEMPT Botox. There is no documented allergic reaction/hypersensitivity to any botulinum toxin and there is no active infection at proposed injection site. HEADACHE SCORES: 11/24/2022 03/02/2024 04/04/2024 Headache Questions ER visits since last office visit: 0 0 0 Hospital stays since last office visit 0 0 0 Limited ADLs in the last month: 0 0 0 Days missed from work or school in the last month: 0 0 0 Days headache pain free in the last month: 23 5 2 Days per month with ALL of the following symptoms - decreased productivity, light sensitivity and nausea: 1 10 3 Initial improvement of headache after botox injection at last visit: Not applicable, I did not have a botox injection at my last visit Not applicable, I did not have a botox injection at my last visit Not applicable, I did not have a botox injection at my last visit PRN medication usage in the last month: 8 30 Patient impression of improvement since last visit: No change Minimally worse Much worse 11/24/2022 03/02/2024 04/04/2024 HIT-6 HIT-6 52 (Moderate impact) 57 (Substantial impact) 54 (Moderate impact) 11/24/2022 03/02/2024 04/04/2024 MENDEL - 2/7 SCORES MENDEL-2 Score 2 2 0 11/24/2022 03/02/2024 04/04/2024 Migraine Specific QOL - Higher scores indicate better HRQL Role Function-Restrictive Transformed Score (range: 0-100) 85.71 80 60 Role Function-Preventive Transformed Score (range: 0-100) 100 100 90 Emotional Function Transformed Score (range: 0-100) 86.67 93.33 73.33 04/04/2024 11/24/2022 11/02/2021 PHQ-9 Score 2 3 1 BP 125/80 (BP Site: Left Arm, BP Position: Sitting, BP Cuff Size: Large Adult) Pulse 63 Ht 175.3 cm (5' 9) Wt 112.8 kg (248 lb 10.9 oz) LMP 05/19/2011 SpO2 97% BMI 36.72 kg/m? Patient name: Kaur Sutton : 1965 ALLERGIES Allergen Reactions Duricef [Cefadroxil] Rash Lisinopril Cough Lotronex [Alosetron] Rash Metformin Intolerance, Other: See Comments Penicillins Rash Zomig [Zolmitriptan] Intolerance UNIVERSAL PROTOCOL / SAFETY CHECKLIST Procedure: Onabotulinum toxin A for migraine Informed Consent Consent Obtained: Written [place] Protocol A moment to CARE was completed SIGN IN Personnel directly involved with the procedure wore the appropriate PPE Special Equipment: N/A Patient/Surrogate Stated/Verified: Patient name, Date of , Relevant allergies and Intended procedure TIME OUT Intended patient and procedure match the source document(s) Consent documented and matches the intended procedure No relevant labs, photos, and/or imaging studies were applicable for review. No correct side/site applicable for marking and visibility. No medications required for procedure. No fire risk assessment and interventions applicable. No implant(s) inserted. SIGN OUT No specimen collected. No instruments, equipment or retained foreign bodies applicable. Post-procedure follow-up management communicated and Plan of Care Visit completed when applicable Written Consent Obtained: Written LOT #: [id number] Expiration Date: Month: Year: 2026 Second vial: LOT #: [id number] Expiration Date: Month: Year: 2026 Injection Sites Left (Units) Left (Sites) Right (Units) Right (Sites) TOTAL (Units) Rug Cleaning Supervisor 5 1 5 1 10 Procerus Units: 5 Sites: 1 5 Frontalis 10 2 10 2 20 Temporalis optional follow the pain 20 5 4 1 20 5 4 1 50 Occipitalis optional follow the pain 15 5 3 1 15 5 3 1 40 Cervical PSP 10 2 10 2 20 Trapezius optional follow the pain 15 5 3 1 15 5 3 1 40 Masseter 5 1 5 1 10 Total Units used: 195 Total Units wasted: 5 Patient tolerated procedure well. Prior Therapies Duration of Use Dose Side effect Anti-Convulsant Topiramate (Topamax, Trokendi XL, Qudexy) Anti-Depressant and Antipsychotic Doxepin (Sinequan) Fluoxetine (Prozac) Anti-Migraine Almotriptan malate (Axert) Naratriptan (Amerge) Sumatriptan (Imitrex, Sumavel) Sumatriptan/naproxen sodium (Treximet) Blood Pressure Lisinopril (Zestril) Verapamil (Verelan, Santosh (more content not included)...[facility] 04-11-2024 Instructions* Patient Instructions* Teodora Garcia APRN.[facility] - 04/11/2024 1:18 PM EST AFTER VISIT CARE BOTOX INJECTION While these procedures can be extremely helpful as part of your headache treatment plan, they can irritate the muscles and tissues in your head, neck and shoulders. Proper follow-up care is important to avoid muscle spasms and temporary pain increase within the following 3-5 days after your clinic visit. Here are some tips to help decrease side-effects that may occur and maximize the effectiveness of your pain relief -HYDRATION Hydration is important to help nourish your muscles and tissues. Drink 60-80 oz of non caffeinated fluid at least for 3 days after your visit. -REST Rest will help avoid further irritation of muscle and tissues. Remember that you need to give your body time to adjust. NO strenuous activity for at least the first 24 hours after your visit. Gentle stretching, yoga, meditation or even swimming is OK and encouraged. -ICE/HEAT Since these procedures irritate muscles, there can be some swelling. Alternating ice and heat every3-5 times per day may help decrease this, while also optimizing pain relief Use cool gel packs for ice for 10 min. Use a warm moist towel covered with a dry towel on neck and shoulders. Alternate stretching each side of the neck. -STRETCHING Slow, gentle stretching of the neck and shoulders once every hour is helpful to avoid muscle spasms. -TREAT MUSCLE SPASMS If you are already prescribed a muscle relaxer such as baclofen, tizanidine or flexeril, use as directed. If you do not have one, talk to your provider to find out if this would be safe for you to use. Do not rub or massage the area for 48-72 hours. -OTHER No hair dyes or permanents for 24 hours. If you are paying out of pocket for Botox go online to Botox Savings Program and see if you qualifyfor reimbursement. Return in 3 months for your next Botox Injection documented [facility] Note ORIGINAL EXAMINATION: BONE DENSITOMETRY 03/29/2024 2:47 pm TECHNIQUE: A bone density dual x-ray absorptiometry (DEXA) scan was performed of the axial (e.g. hips, spine) and/or appendicular (e.g. radius) skeleton as appropriate. COMPARISON: None. HISTORY: ORDERING SYSTEM PROVIDED HISTORY: Reason for Exam: Osteoporosis Screening FINDINGS: T Score Left Femoral Neck: 0.1 Left Femoral Neck: 0.861 (g/cm2) T Score Left Hip: 0.5 Left Hip: 1.008 (g/cm2) T Score Lumbar Spine: 1.0 Lumbar Spine: 1.155 (g/cmd2) IMPRESSION: Normal bone mineral density by WHO criteria. World Health Organization criteria: (Comparing with young normal sex matched population) - Normal: T-score at or above -1 SD (standard deviation) - Osteopenia: T-score between -1 and -2.5 SD - Osteoporosis: T-score at or below -2.5 SD The NOF recommends that FDA-approved medical therapies be considered in post-menopausal women and men age >/= 50 years with a: * Hip or vertebral fracture, or * T-score of /= 20% for major osteoporotic fractures or * >/= 3% for hip fractures All treatment decisions require clinical judgement and consideration of individual patient factors, including patient preferences, comorbidities, previous drug use, risk factors not captured in the FRAX registered model (e.g., frailty, falls, vitamin D deficiency, increased bone turnover, interval significant decline in bone density) and possible under- or over-estimation of fracture risk by FRAX. Interpreted by: Chet Deshpande DO Preliminary Report By: Chet Deshpande DO Electronically signed By Chet Deshpande DO Dictated Date: 03/29/2024 3:17:50 PM Prelim Date: 03/29/2024 3:18:17 PM Sign Date: 03/29/2024 3:18:17 PM [facility]ing [facility] Note ORIGINAL FROM: [place] [id number] PROCEDURE FOR: KAUR SUTTON [address] [place] [address] Home: PID#: [id number] Exam#: [id number] : 1965 Age: 59 TO: RADHA ACUNA DO [address] [place] [address] Fax: NO FAX EXAMINATION: SCREENING DIGITAL BILATERAL MAMMOGRAM WITH TOMOSYNTHESIS, 03/29/2024 2:01 pm TECHNIQUE: Screening mammography of the bilateral breasts was performed with tomosynthesis. 2D standard and 3D tomosynthesis combination imaging performed through both breasts in the MLO and CC projection. Computer aided detection was utilized in the interpretation of this exam. COMPARISON: March 06, 2023, November 14, 2021, HISTORY: Breast cancer screening. FINDINGS: BREAST DENSITY: There are scattered areas of fibroglandular density. There is no suspicious mass, architectural distortion or microcalcification. Fibroglandular pattern is stable. IMPRESSION: No mammographic evidence of malignancy. Continued screening with annual mammograms is recommended. Jc Roe risk calculations, generated with the history provided, report this patient's 10 year risk and lifetime risk for developing breast cancer at 5.2% and 13.4%, respectively. Based on this assessment tool, if [...] addition to annual mammographic screening per the [place] [employer]. BIRADS: MAMMOGRAM BI-RADS: 1: Negative RECALL: 1 year screening RECALL TYPE: mammo LETTER SENT: Normal BI-RADS 1 and 2 Interpreted by: Nora Hickman Preliminary Report By: Nora Hickman Electronically signed By Nora Hickman Dictated Date: 03/29/2024 3:11:15 PM Prelim Date: 03/29/2024 3:12:38 PM Sign Date: 03/29/2024 3:12:38 PM Ordering Provider: RADHA ACUNA Pastry Wrapper: HEBER ELIAS RT(R)(M)(CT) letter sent: Normal BI-RADS 1 and 2 Mammogram BI-RADS: 1 [facility]11-11-2024 Instructions* Patient Instructions* Carlee Armendariz PA-C - 03/20/2024 10:48 AM EST What is fatty liver disease? Fatty liver disease (steatosis) is a common problem caused by the build-up of certain fats in the liver. The liver normally contains a small amount of fat. However, if more than 5 to 15% of the livers weight consists of fat, fatty liver disease is present. What are the symptoms of fatty liver disease? People with fatty liver disease usually do not have any symptoms. If symptoms appear, they may include: A feeling of fullness in the middle or upper right side of the abdomen Abdominal pain Loss of appetite or weight loss Nausea Weakness Jaundice (yellowing of the skin and the whites of the eyes) Swelling of the abdomen and legs (edema) Mental confusion Extreme fatigue or tiredness What are the forms of fatty liver disease? There are two main forms of fatty liver disease. Non-alcoholic fatty liver--Fat build-up in the liver that is not linked to drinking alcohol. Alcoholic fatty liver--Fat build-up in the liver due to drinking large amounts of alcohol (two or more drinks per day.) What are the effects of fatty liver disease? In most cases, fatty liver disease does not cause any serious problems or prevent the liver from functioning normally. However, it may lead to liver damage under certain circumstances. Non-alcoholic steatohepatitis (FUENTES) is the most severe condition resulting from non-alcoholic fatty liver disease. FUENTES is more likely to occur in people who are overweight or obese, or who have diabetes. Fatty liver affects up to 25% of people in the [place] and is one of the country s main causes of cirrhosis of the liver. What are the risk factors for fatty liver disease? There are many risk factors for non-alcoholic fatty liver disease. A risk factor makes a person more likely to have a condition or disease. Some risk factors for fatty liver are: Being obese or overweight Having type 2 diabetes or insulin resistance Having metabolic syndrome--A combination of excess body weight, insulin resistance, high blood pressure, and high triglyceride levels. Some genetic metabolic conditions or prescription medications (amiodarone, diltiazem, steroids, andtamoxifen) also may increase the risk of non-alcoholic fatty liver disease. If you are taking one of these medications, your doctor might substitute another drug for it. How is fatty liver disease diagnosed? Blood tests may be done to check for elevated levels of certain liver enzymes. An ultrasound or computed tomography (CT) scan of the liver may be done to check for abnormalities and confirm the diagnosis of fatty liver disease. A liver biopsy (tissue sample) may be needed if your doctor suspects that you have severe liver disease. How is fatty liver disease treated? There is no single treatment for fatty liver disease. In most cases, no treatment is required. If it is needed, treatment will depend on the underlying cause. Your doctor may recommend that you go on a diet, since losing weight can reduce the amount of fat in the liver. Even losing 1 or 2 pounds per week might help. Your doctor or cost and sales record supervisor can give youadvice on healthy weight loss techniques. Drugs that regulate blood sugar levels can be helpful in treating fatty liver in diabetic patients.Also, vitamin E has been shown to be effective in some cases and is currently being studied. How can fatty liver disease be prevented? Maintain a healthy weight. If you are overweight or obese, lose weight gradually. Eat a balanced diet. Avoid foods that are high in cholesterol. Vegetables, fruits, and low-fat foods may help lower cholesterol and triglyceride levels. Exercise regularly. Limit your alcohol consumption or do not drink. Take medications as prescribed. Your doctor may prescribe statins to lower triglyceride levels or anti-diabetic drugs if you are diabetic or insulin-resistant. documented [facility] this [facility] History of Present illness Narrative* Carlee Armendariz PA-C - 03/20/2024 10:19 AM EST CHIEF COMPLAINT: Patient presents with: Elevated Ferritin HPI: Kaur Sutton is a 59 year old female with PMHx pos for DM who presents for Elevated Ferritin. Surghx positive for hysterectomy, cholecystectomy. On Protonix 40 mg daily for GERD. Reports h/o EGD over [address] Garza at [facility] that showed HH. Takes NSAIDs PRN for headaches, sometimes needs to use regularly due to persistent migraines. Recently got approved for migraines. Has lost 30 lbs in the past year, on Ozempic. Denies EtOH, family hx of liver disease, abd pain, N/V, changes in bowel habits, iron supplementation. Cologuard 11/2023 negative HFE 2021 normal RUQ US 12/2023 IMPRESSION: Findings are suggestive of diffuse liver parenchymal disease or hepatic steatosis. Left renal cyst. Latest Ref Rng 12/08/2023 01/17/2024 WBC 3.70 - 11.00 k/uL 5.55 6.17 RBC 3.90 - 5.20 m/uL 4.51 4.16 Hemoglobin 11.5 - 15.5 g/dL 14.6 13.7 Hematocrit 36.0 - 46.0 % 42.3 39.3 MCV 80.0 - 100.0 fL 93.8 94.5 MCH 26.0 - 34.0 pg 32.4 32.9 MCHC 30.5 - 36.0 g/dL 34.5 34.9 RDW-CV 11.5 - 15.0 % 12.7 12.1 Platelet Count 150 - 400 k/uL 138 (L) 153 MPV 9.0 - 12.7 fL 12.2 12.1 Neut% % 55.8 63.1 Abs Neut (ANC) 1.45 - 7.50 k/uL 3.10 3.89 Lymph% % 33.7 29.3 Abs Lymph 1.00 - 4.00 k/uL 1.87 1.81 [place]% % 5.4 6.0 Abs [place] <0.87 k/uL 0.30 0.37 Eosin% % 4.5 1.1 Abs Eosin <0.46 k/uL 0.25 0.07 Baso% % 0.4 0.3 Abs Baso <0.11 k/uL <0.03 <0.03 Immature Gran % % 0.2 0.2 IMMATURE GRANS (ABS) <0.10 k/uL <0.03 <0.03 NRBC /100 WBC 0.0 0.0 Absolute nRBC <0.01 k/uL <0.01 <0.01 DTYPE Auto Auto Protein, Total 6.3 - 8.0 g/dL 7.5 Albumin 3.9 - 4.9 g/dL 4.3 Calcium 8.5 - 10.2 mg/dL 9.4 Bilirubin, Total 0.2 - 1.3 mg/dL 0.5 Alkaline Phosphatase 34 - 123 U/L 81 AST 13 - 35 U/L 59 (H) ALT 7 - 38 U/L 43 (H) Glucose 74 - 99 mg/dL 157 (H) BUN 7 - 21 mg/dL 13 Creatinine 0.58 - 0.96 mg/dL 0.85 Sodium 136 - 144 mmol/L 138 Potassium 3.7 - 5.1 mmol/L 4.2 Chloride 98 - 107 mmol/L 106 CO2 22 - 30 mmol/L 22 Anion Gap 8 - 15 mmol/L 10 eGFR >=60 mL/min/1.73m 80 Iron 41 - 186 ug/dL 96 TIBC 232 - 386 ug/dL 362 Transferrin Saturation 15.0 - 57.0 % 26.5 PT Sec <13.1 sec 10.8 PT INR 0.9 - 1.3 1.1 Ferritin 14.7 - 205.1 ng/mL 768.0 (H) 711.0 (H) WSR 0 - 20 mm/hr 15 APTT 23.0 - 32.4 sec 25.8 Record Review: [facility] / Outside records reviewed. PAST MEDICAL HISTORY Diagnosis Date Anxiety C. [...] septum repair. ROTATOR CUFF REPAIR x2, right Allergies: ALLERGIES Allergen Reactions Duricef [Cefadroxil] Rash Lisinopril Cough Lotronex [Alosetron] Rash Metformin Intolerance, Other: See Comments Penicillins Rash Zomig [Zolmitriptan] Intolerance Medications: Naproxen Sodium 550 mg tablet Take 1 tablet by mouth two times a day as needed (headache). FOR PAIN. TAKE WITH FOOD. SUMAtriptan (IMITREX) 100 mg tablet Take 1 tablet (100 mg) by mouth as needed for migraine headache(see administration instructions). START AT ONSET OF HEADACHE. MAY REPEAT DOSE AFTER 2 HOURS. OZEMPIC 0.25 mg or 0.5 mg (2 [...] 125 mg total per day FLUoxetine (PROZAC) 20 mg capsule Take 1 [...] as instructed every 4 hours as needed. [place]-3 Fatty Acids 500 mg cap Take 500 mg by mouth once daily. Magnesium Oxide 500 mg Tab Take 1 tablet by mouth once daily. (Patient taking differently: Take 400mg by mouth once daily.) famotidine (PEPCID) 40 [...] disease Maternal Grandfather Cancer Paternal Grandmother uterine Employer And Job Title: No employer specified ([employer]) Years Of Education Completed: 14 years Marital Status: to Mauricio with 1 child Social History Tobacco Use Smoking status: Former Current packs/day: 0.00 Average packs/day: 1 pack/day for 18.0 years (18.0 ttl pk-yrs) Types: Cigarettes Start date: 05/10/2005 Quit date: 05/10/2023 Years since quittin.8 Smokeless tobacco: Never Vaping Use Vaping status: Never Used Substance Use Topics Alcohol use: No Drug use: Never Review of Systems: Review of Systems HENT: Positive for hearing loss. All other systems reviewed and are negative. Are you taking any blood thinners? No Physical Examination: BP 124/70 Pulse 63 Ht 174 cm (5' 8.5) Wt 112.9 kg (249 lb) LMP 05/19/2011 BMI 37.31 kg/m Physical Exam Constitutional: General: She is not in acute distress. Appearance: Normal appearance. She is normal weight. She is not ill-appearing, toxic-appearing or diaphoretic. HENT: Head: Normocephalic and atraumatic. Nose: Nose normal. Eyes: General: No scleral icterus. Right eye: No discharge. Left eye: No discharge. Extraocular Movements: Extraocular movements intact. Conjunctiva/sclera: Conjunctivae normal. Pupils: Pupils are equal, round, and reactive to light. Cardiovascular: Rate and Rhythm: Normal rate and regular rhythm. Pulses: Normal pulses. Heart sounds: Normal heart sounds. No murmur heard. No friction rub. No gallop. Pulmonary: Effort: No respiratory distress. Breath sounds: Normal breath sounds. No stridor. No wheezing, rhonchi or rales. Chest: Chest wall: No tenderness. Abdominal: General: Abdomen is flat. Bowel sounds are normal. There is no distension. Palpations: Abdomen is soft. There is no mass. Tenderness: There is no abdominal tenderness. There is no right CVA tenderness, left CVA tenderness, guarding or rebound. Hernia: No hernia is present. Musculoskeletal: General: Normal range of motion. Cervical back: Normal range of motion and neck supple. Skin: General: Skin is warm and dry. Neurological: General: No focal deficit present. Mental Status: She is alert and oriented to person, place, and time. Psychiatric: Mood and Affect: Mood normal. Behavior: Behavior normal. Assessment/Plan (R79.89) Elevated ferritin (primary encounter diagnosis) (K76.0) Hepatic steatosis (K21.9) Gastroesophageal reflux disease, unspecified whether esophagitis present 1. Elevated ferritin - FERRITIN; Future - LIVER FIBROSIS AND ACTIVITY; Future - HEPATITIS A ANTIBODY, IGG; Future - HEPATITIS B SURFACE ANTIBODY; Future - HEPATIC FUNCTION PNL; Future - On Ozempic per PCP - Will check follow up labs, VCTE - Discussed NAFLD in detail and risk for cirrhosis. Provided edu handout 2. Hepatic steatosis - FERRITIN; Future - LIVER FIBROSIS AND ACTIVITY; Future - DDI VIBRATION CONTROLLED TRANSIENT ELASTOGRAPHY (VCTE) - HEP REMOTE PANEL BL; Future - HEPATITIS A ANTIBODY, IGG; Future - HEPATITIS B SURFACE ANTIBODY; Future - HEPATIC FUNCTION PNL; Future 3. Gastroesophageal reflux disease, unspecified whether esophagitis present - Doing well with Protonix 40 mg daily Follow up in office 6 months/PRN. I spent a total of 20 minutes on the date of the service which included preparing to see the patient, [id number] patient care, completing clinical documentation, obtaining and/or reviewing separately obtained history, performing a medically appropriate examination, counseling and educating the pat ient/family/caregiver, ordering medications, tests, or procedures, communicating with other HCPs (not separately reported), independently interpreting results (not separately reported), communicatingresults to the patient/family/caregiver, and care coordination (not separately reported). Carlee Armendariz PA-C March 20, 2024 10:51 AM documented in this encounterDay[facility]11-[facility]-2024 Telephone encounter Note * Telephone Encounter - Era Hinojosa RN - 03/10/2024 9:13 AM EDT Botox referral sent to pharmacy. Era Hinojosa RN [facility] Miscellaneous Notes* Telephone Encounter - Era Hinojosa RN - 03/10/2024 9:13 AM EDT Botox referral sent to pharmacy. Era Hinojosa RN documented in this encounterDay[facility]10-31-2024 Telephone encounter Note * Telephone Encounter - Yanni Nixon - 03/09/2024 9:29 AM EDT Patient last seen on 03/08/24. [facility] Miscellaneous Notes* Telephone Encounter - Yanni Nixon - 03/09/2024 9:29 AM EDT Patient last seen on 03/08/24. documented in this encounterDay[facility]10-30-20[facility] History of Present illness Narrative* Mirna aJck APRN.[employer] - 03/08/2024 8:00 AM EDT Images from the original note were not included. [facility] - Virtual Visit Last Visit: 11/26/2022, Sunitha Redmond MD Accompanied by: Self This visit was conducted as a virtual visit, with patient's permission, via zoom. It required patient-provider interaction for the medical decision making as documented below. Patient stated name and Patient location: [place] I have communicated my name and active licensure. The patient's identity and physical location wereverified at the time of this visit. Either the patient or their legal traffic representative has been informed of the risks and benefits of -- and alternatives to -- treatment through a remote evaluation andconsents to proceed with the evaluation remotely. Primary Problem List: ACTIVE PROBLEM LIST Migraine Without Aura and Without Status Migrainosus, Not Intractable Restless Legs Syndrome (Rls) Essential Tremor Obesity, Class III, BMI >= 40 (morbid obesity) E66.01 Obesity, Class II, Bmi 35-39.9 Chief Complaint: Headache Impression and Plan from last visit: Kaur Sutton is a 57 year old woman with a history of anxiety, insomnia, GERD, IBS, fatty liver, essential tremor and migraines following up today virtually for her migraines. Good control with Topamax and Treximet. Essential tremor - mild at this time- somewhat helped with Topamax. Lots of stress in life Plan: Continue Topamax and Treximet- refills Continue weight loss and exercise Interval Headache Hx: Presents today to discuss headaches. She has had an increase in headaches and does not know why - possibly stress. Her ENT ordered an MRI and had completed Wednesday for asymmetric hearing loss to rule out malignancy. She does not have results back, not available in care everywhere. Waking up with headaches daily behind her left eye. Will improve with medication, but can recur. She thinks that stress may be causing more headaches since she is concerned something is wrong. Has seen eye doctor multiple times this year and no concerns with her eyes. She's had more back pain and does not know if this is related. She plans to try to buy new pillows. She did start ozempic a few months ago. Taking for diabetes. She is currently taking sumatriptan and naproxen together everyday for at least 1 month. She is not sure if topamax is helping for headaches and tremors. Has had a sleep study in the past. Diagnosed with RLS. She does grind her teeth to the point that she has broken teeth. She has a significant amount of stress. Insurance is changing in May - sumatriptan and naproxen does not work as well as treximet. Headache 1 Onset: - age 26 Location: left and retro-orbital Quality/Description: pressure Associated Symptoms: Photophobia: no Phonophobia: no Nausea: yes - can when headaches recur Vomiting: no Other symptoms: neck pain (denies autonomic features) Number of migraine headache days/month: 30 Migraine Severity: 5/10. Number of NON-migraine headache days/month: 0 Total Number of headache days/month: 30 Number of headache free days/month: 0 Duration of headaches with treatment: Duration of attacks with treatment: hours but may recur. Current preventive treatment: Topamax 125 mg, Magnesium, Prozac Current abortive treatment: sumatriptan + naproxen Triggers: weather changes and stress (blood sugar changes) Relieving factors: medication Most common time of day for headache to begin: upon awakening Days missed from work or school in the last month: 0 days Headache status since the last visit: worse Issues and questions to be addressed: - patient update and yearly follow up Medications tried: Prior Therapies Duration of Use Dose Reason for Discontinuation Anti-Convulsant Topiramate (Topamax, Trokendi XL, Qudexy) Anti-Depressant and Antipsychotic Doxepin (Sinequan) Fluoxetine (Prozac) Anti-Migraine Almotriptan malate (Axert) Naratriptan (Amerge) Sumatriptan (Imitrex, Sumavel) Sumatriptan/naproxen sodium (Treximet) Blood Pressure Lisinopril (Zestril) Verapamil (Verelan, Calan, Isoptin) Supplements CoQ10 Magnesium ALLERGIES Allergen Reactions Duricef [Cefadroxil] Rash Lisinopril Cough Lotronex [Alosetron] Rash Metformin Intolerance, Other: See Comments Penicillins Rash Zomig [Zolmitriptan] Intolerance HEADACHE SCORES: 11/02/2021 11/24/2022 03/02/2024 Headache Questions ER visits since last office visit: 0 0 0 Hospital stays since last office visit 0 0 0 Limited ADLs in the last month: 0 0 0 Days missed from work or school in the last month: 0 0 0 Days headache pain free in the last month: 20 23 5 Days per month with ALL of the following symptoms - decreased productivity, light sensitivity and nausea: 5 1 10 Initial improvement of headache after botox injection at last visit: Not applicable, I did not havea botox injection at my last visit Not applicable, I did not have a botox injection at my last visit Not applicable, I did not have a botox injection at my last visit PRN medication usage in the last month: 10 8 25 Patient impression of improvement since last visit: No change No change Minimally worse 11/02/2021 11/24/2022 03/02/2024 HIT-6 HIT-6 51 (Moderate impact) 52 (Moderate impact) 57 (Substantial impact) 11/02/2021 11/24/2022 03/02/2024 MENDEL - 2/7 SCORES MENDEL-2 Score 2 2 2 11/02/2021 11/24/2022 03/02/2024 Migraine Specific QOL - Higher scores indicate better HRQL Role Function-Restrictive Transformed Score (range: 0-100) 85.71 85.71 80 Role Function-Preventive Transformed Score (range: 0-100) 100 100 100 Emotional Function Transformed Score (range: 0-100) 93.33 86.67 93.33 11/24/2022 11/02/2021 10/27/2020 PHQ-9 Score 3 1 4 REVIEW OF SYSTEMS: Review of system : unchanged from the previous visit (sleep patterns, mood, energy, appetite, stress, exercising). Examination: Vital Signs: [facility] 05/19/2011 General: well appearing, in no acute distress, alert Pain Behaviors: no pain behaviors observed Neurological: Mental Status: Alert and oriented to person, place and time. Affect is normal. Speech is clear, coherent, and relevant. Short and continuous churn buttermaker memory, cognition and general fund of knowledge are good. Attention span and concentration are excellent. HEENT: Head is normocephalic and features were symmetric. IMPRESSION: Kaur Sutton is a 59 year old year old female, with a history of anxiety, insomnia, GERD, IBS, fatty liver, essential tremor and migraines following up virtually today for migraines. Her migraines have been worse. She is waiting on the results from her MRI that was ordered by ENT - not available in care everywhere. Has a significant amount of stress. Headaches are now daily in the morning, will respond to medication but return later in the day. I do suspect she is starting into MOH given her frequency of medication, but headaches were increasing prior to starting medication. Will start Botoxfor chronic migraine and administer follow the pain protocol to masseter muscles. Will also break her current headache cycle. We will get a precert for Onabotulinum Toxin A using the PREEMPT protocol. This patient meets FDA criteria for Chronic Migraine without aura, with mention of intractable migraine, so stated, without mention of status migrainosus. The migraine lasts for greater than 4 hours and has been chronic for more than three months. Onabotulinum Toxin A is FDA approved for chronic migraine. Her headaches are associated with nausea for three or more months. Patient will not use in conjunction with CGRP preventive medications. Medication overuse, alternatediagnosis, confounding psychiatric or social stresses have been ruled out as the cause of headaches. Severity: moderate to severe Quality: throbbing Migraine days a month: 30 Headache days a month: 0 Total Headache days a month: 30 Headache free days a month: 0 The following preventative medications have been tried for at least three months without benefit ordiscontinued due to side effects: Anti-Convulsant Topiramate (Topamax, Trokendi XL, Qudexy) Anti-Depressant and Antipsychotic Doxepin (Sinequan) Fluoxetine (Prozac) Blood Pressure Lisinopril (Zestril) Verapamil (Verelan, Calan, Isoptin) Supplements CoQ10 Magnesium The following abortive medications have been tried but require high frequency use which can lead toMedication Overuse Headache: Anti-Migraine Almotriptan malate (Axert) Naratriptan (Amerge) Sumatriptan (Imitrex, Sumavel) Sumatriptan/naproxen sodium (Treximet) The patient has been assessed for disorders which could contribute to breathing or swallowing difficulty, and there is no contraindication with PREEMPT Botox. There is no documented allergic reaction/hypersensitivity to any botulinum toxin and there is no active infection at proposed injection site PLAN: ASSESSMENT/PLAN: 1. Intractable chronic migraine without aura and without status migrainosus - ICD9: 346.71, ICD10: G43.719 (primary diagnosis) - will send for treximet in May when she has new insurance - will apply for PREEMPT Botox - patient to notify us when MRI is back so we can review - NAPROXEN SODIUM 550 MG TABLET - as needed - SUMATRIPTAN 100 MG TABLET - as needed - KETOROLAC 10 MG TABLET tID x 5 days 2. Essential tremor - ICD9: 333.1, ICD10: G25.0 3. Encounter for long-term (current) use of medications - ICD9: V58.69, ICD10: Z79.899 Headache education was done. Discussed lifestyle modification [...] given. RESEARCH: None at this time Follow-up: PRN, for BOTOX Level of service: Est level 4 (30-39 min). Time spent 30 min on the day of service, which included preparing to see the patient, [id number] patient care, completing clinical documentation, obtaining and/or reviewing separately obtained history, performing a medically appropriate examination, counseling and educating the patient/family/caregiver, and ordering medications, tests, or procedures. The patient has my contact information and my chart sign up information. Mirna Jack APRN.CHRIS documented in this encounterDay[facility] Telephone encounter Note * Telephone Encounter - Yaritza Mcpherson - 01/24/2024 3:46 PM EDT Patient has been scheduled with Hepatology at [facility] for 03/20/24, she confirmed this date, time and location Yaritza Josue [facility]09-16-[facility]24 Miscellaneous Notes* Telephone Encounter - Yaritza Mcpherson - 01/24/2024 3:46 PM EDT Patient has been scheduled with Hepatology at [facility] for 03/20/24, she confirmed this date, time and location Yaritza Layton Pss * Telephone Encounter - Jackie Leung - 01/24/2024 3:13 PM EDT Called patient to review recent labs / US. Pt neg for hemachromatosis gene mutation. Labs stable. Ferritin remains elevated at [address] Glaser. He is recommending hepatology consult. PSR: Referral placed for hepatology, elevated ferritin. Neg hemochromatosis gene mutation. OK to cancel OV with me on Wednesday. All questions answered at this time. Follow up as needed. Jackie Leung APRN.CUPOLA PATCHER HELPER documented in this encounterDayton [facility] Center09-16-2024 Telephone encounter Note * Telephone Encounter - Jackie Lenug - 01/24/2024 3:13 PM EDT Called patient to review recent labs / US. Pt neg for hemachromatosis gene mutation. Labs stable. Ferritin remains elevated at [address] Glaser. He is recommending hepatology consult. PSR: Referral placed for hepatology, elevated ferritin. Neg hemochromatosis gene mutation. OK to cancel OV with me on Wednesday. All questions answered at this time. Follow up as needed. Jackie Leung APRN.CUPOLA PATCHER HELPER [facility]09-[facility] History of Present illness Narrative* Ivonne Arredondo APRN.CNP - 01/13/2024 7:34 PM EDT CC: Patient presents with: Ear Pain: Pain [...] [Cefadroxil], Lisinopril, Lotronex [Alosetron], Metformin, Penicillins, and Zomig[Zolmitriptan] MEDICATIONS OZEMPIC 0.25 mg or 0.5 mg [...] mg) by mouth as needed for migraine headache(see administration instructions). START AT ONSET OF HEADACHE. [...] as instructed every 4 hours as needed. [place]-3 Fatty Acids 500 mg cap Take 500 mg by mouth once daily. Magnesium Oxide 500 mg Tab Take 1 tablet by mouth once daily. (Patient taking differently: Take 400mg by mouth once daily.) famotidine (PEPCID) 40 [...] symptoms occur. Patient agreeable to treatment plan. Ivonne Arredondo APRN.CHRIS documented in this encounterDayton [facility] Center09-02-2024 History of Present illness Narrative* Govind Adame APRN.CNP - 01/10/2024 12:04 PM EDT Subjective HPI Nontoxic-appearing female presents urgent care chief complaint bilateral ear pressure. Duration of symptoms ongoing for the past week. Was seen by PCP placed on azithromycin for otitis left ear. Finished last antibiotic today. Presents today for evaluation. No ear trauma otorrhea. No loss of hearing. Denies any fever body aches chills productive cough chest pain shortness of breath pleuritic painhemoptysis nausea vomiting abdominal pain change in bowel [...] [Cefadroxil], Lisinopril, Lotronex [Alosetron], Metformin, Penicillins, and Zomig[Zolmitriptan] MEDICATIONS Ascorbic Acid (VITAMIN C) 1,000 mg [...] mg) by mouth as needed for migraine headache(see administration instructions). START AT ONSET OF HEADACHE. [...] as instructed every 4 hours as needed. [place]-3 Fatty Acids 500 mg cap Take 500 mg by mouth once daily. Magnesium Oxide 500 mg Tab Take 1 tablet by mouth once daily. (Patient taking differently: Take 400mg by mouth once daily.) famotidine (PEPCID) 40 [...] on exam and clinical finding, the patient isstable for discharge. Plan of care was discussed with patient. Patient verbalizes understanding andagrees to plan of care. This note was generated using [facility] software. It may contain errors in wording, punctuation, or spelling. 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 Zamora since 2021. Noedema. Denies rashes or skin changes. PAST MEDICAL [...] mg) by mouth as needed for migraine headache(see administration instructions). START AT ONSET OF HEADACHE. [...] as instructed every 4 hours as needed. [place]-3 Fatty Acids 500 mg cap Take 500 mg by mouth once daily. Magnesium Oxide 500 mg Tab Take 1 tablet by mouth once daily. (Patient taking differently: Take 400mg by mouth once daily.) famotidine (PEPCID) 40 [...] Elevated ferritin, continuing to rise Per Dr. Mejia: suspect both relate to fatty liver - Repeat US Liver, ordered today - discussed may obtain MRI pending US results RTC with US results with repeat CMP, CBC, ferritin in about 1 month Jackie Leung APRN.CUPOLA PATCHER HELPER I spent a total of 30 minutes on the date of the service which included preparing to see the patient, [id number] patient care, completing clinical documentation, and performing [...] evaluation of this patient. documented in this encounterDayton [facility] Medical Center07-31-2024 History of Present illness Narrative* Troy Mejia MD - 12/08/2023 9:06 AM EDT HISTORY OF PRESENT ILLNESS: Kaur Sutton is [...] ferritin. Dx with fatty liver with Dr Hragrove. Hemochromatosis gene mutation assay in 2021 was [...] mg) by mouth as needed for migraine headache(see administration instructions). START AT ONSET OF HEADACHE. [...] as instructed every 4 hours as needed. [place]-3 Fatty Acids 500 mg cap Take 500 mg by mouth once daily. Magnesium Oxide 500 mg Tab Take 1 tablet by mouth once daily. (Patient taking differently: Take 400mg by mouth once daily.) famotidine (PEPCID) 40 [...] which included preparing to see the patient, [id number] patient care, completing clinical documentation, obtaining and/or reviewing separately obtained history, counseling and educating the patient/family/caregiver, ordering medications, dolores ts, or procedures, communicating with other HCPs (not separately reported), independently interpreting results (not separately reported), and communicating results to the patient/family/caregiver. Electronically Signed: Troy Mejia MD December 08, 2023 9:06 AM documented in this encounterDayton Va Medical Center07-29-2024 History of Present illness Narrative* Govind Adame, ADALBERTO.CUPOLA PATCHER HELPER - 12/06/2023 9:06 AM EDT Images from the original note were not [...] [Cefadroxil], Lisinopril, Lotronex [Alosetron], Metformin, Penicillins, and Zomig[Zolmitriptan] MEDICATIONS topiramate (TOPAMAX) 100 mg tablet Take [...] mg) by mouth as needed for migraine headache(see administration instructions). START AT ONSET OF HEADACHE. [...] as instructed every 4 hours as needed. [place]-3 Fatty Acids 500 mg cap Take 500 [...] of care. This note was generated using [employer] [facility] software. It may contain errors in wording, punctuation, or spelling. Govind Adame APRN.CHRIS documented in this encounterDayton Va Medical Center07-22-2024 Telephone encounter Note * Telephone Encounter - Yanni Nixon - 11/29/2023 2:54 PM EDT Physician: Nyla Call from patient requesting refill. Please E-Scribe Last office visit 11/26/22 with [place] virtual Next office visit Not scheduled. Requested Prescriptions Pending Prescriptions Disp Refills topiramate (TOPAMAX) 100 mg tablet 30 tablet 11 Sig: Take 1 tablet by mouth daily at bedtime. topiramate (TOPAMAX) 25 mg tablet 30 tablet 11 Sig: Take 1 tablet by mouth once daily. In addition to 100 mg tablet to equal 125 mg total per day Pharmacy Name: [facility] Yanni Nixon [facility]07-22-[facility] Miscellaneous Notes* Telephone Encounter - Yanni Nixon - 11/29/2023 2:54 PM EDT Physician: Nyla Call from patient requesting refill. Please E-Scribe Last office visit 11/26/22 with [place] virtual Next office visit Not scheduled. Requested Prescriptions Pending Prescriptions Disp Refills topiramate (TOPAMAX) 100 mg tablet 30 tablet 11 Sig: Take 1 tablet by mouth daily at bedtime. topiramate (TOPAMAX) 25 mg tablet 30 tablet 11 Sig: Take 1 tablet by mouth once daily. In addition to 100 mg tablet to equal 125 mg total per day Pharmacy Name: [facility] Yanni Nixon documented in this encounterDayton Va Medical Center10-06-2023 Miscellaneous Notes* Telephone Encounter - Yanni Nixon - 02/12/2023 10:08 AM EDT Patient last seen on 11/26/22. documented in this encounterDayton [facility] Medical Center09-17-2023 Instructions* Patient Instructions* Allyssa Asencio APRN.CUPOLA PATCHER HELPER - 01/24/2023 11:47 AM EDT ASSESSMENT/PLAN: 1. [...] Discussed expected course of illness Allyssa Asencio APRN.[facility] CARE PATIENT INFO BLADDER INFECTION OVERVIEW Bladder infections are one of the most common infections, causing symptoms of burning with urination and needing to urinate frequently. A bladder infection is a type of urinary tract infection (UTI).Bladder infections are more common is women than men. Most women have an uncomplicated bladder infection that is easily treated with a short course of antibiotics. In men, bladder infections may alsoaffect the prostate gland, and a longer course [...] symptoms of a bladder infection, but can occurin people with a kidney infection (pyelonephritis). If [...] treatment is usually given for at least 7days. Your symptoms should begin to resolve within [...] UTIs. A similar medication is available without aprescription (eg, Uristat). Both medications change the color of the urine (usually blue or orange)and can interfere with laboratory testing. You should not take these medications for more than 48 hours due to the risk of side effects. These medications do not treat the infection and must be takenalong with an antibiotic. Some providers recommend drinking [...] -- Some adults, especially women, develop bladder infectionsfrequently. In this case, it is important to [...] actually have an infection. documented in this encounterDayton [facility] Medical Center09-17-2023 History of Present illness Narrative* Allyssa Asencio APRN.CHRIS - 01/24/2023 11:36 AM EDT Subjective Hematuria Irritative symptoms include frequency. Irritative symptoms do not include urgency. Pertinent negatives include no abdominal pain, chills, dysuria, fever, flank pain, nausea or vomiting. Kaur Sutton is a 57 year old female who presents with concern for UTI. She has blood in her urinetoday. She denies dysuria or fever or chills. [...] [Cefadroxil], Lisinopril, Lotronex [Alosetron], Metformin, Penicillins, and Zomig[Zolmitriptan] MEDICATIONS FLUoxetine (PROZAC) 20 mg capsule Take [...] as instructed every 4 hours as needed. [place]-3 Fatty Acids 500 mg cap Take 500 [...] is no right CVA tenderness, left CVA tendernessor guarding. Skin: General: Skin is warm and [...] Discussed expected course of illness Allyssa Asencio APRN.CUPOLA PATCHER HELPER documented in this encounterDayton Va Medical Center07-20-2023 History of Present illness Narrative* Sunitha [place] MD - 11/26/2022 1:00 PM EDT [facility] Virtual Visit Follow up Encounter Chief Complaint: [...] for a week. Daughter graduated as as social work lecturer and doing well in [place] Father this Spring- cancer HEADACHE SCORES: Headache [...] last visit: Not applicable, I did not havea botox injection at my last visit Not [...] spontaneous and fluent without dysarthria. Short and intermediate memory, cognition and general fund of knowledgeare good. Attention span and concentration are excellent. [...] licensure. The patient's identity and physical location wereverified at the time of this visit. Either the patient or their legal traffic representative has been informed of the risks and benefits of -- and alternatives to -- treatment through a remote evaluation andconsents to proceed with the evaluation remotely. I [...] care outlined. Sunitha Redmond MD Headache [facility] November 26, 2022 documented in this encounterDayton Va Medical Center07-06-2023 Miscellaneous Notes* Telephone Encounter - Laure Goodson PA-C - 11/12/2022 12:42 PM EDT The following approved medication requests have been [...] LAURE GOODSON PA-C Covering provider for Teresa Pavanmaryuricarl PEREZ * Telephone Encounter - Carele Espitia - 11/12/2022 8:10 AM EDT Physician: Helen Call from patient requesting refill. Please E-Scribe Last office visit 11/04/21 with Helen MOLINA Next office visit 11/26/22 with Nyla MOLINA Requested Prescriptions Pending Prescriptions Disp Refills topiramate (TOPAMAX) 100 mg tablet 90 tablet 3 Sig: Take 1 tablet by mouth daily at bedtime. topiramate (TOPAMAX) 25 mg tablet 30 tablet 0 Sig: Take 1 tablet by mouth once daily. In addition to 100 mg tablet to equal 125 mg total per day [facility] documented in this encounterDayton [facility] Medical Center06-17-2023 Instructions* Patient Instructions* Oma Sanchez APRN.CNP - 10/24/2022 11:23 AM EDT Urine will be sent off for culture Start Macrobid, take with food. Stay well hydrated May use Azo as needed Red flag symptoms seek care Follow up pending culture results or sooner as needed. documented in this encounterDayton Va Medical Center06-17-2023 History of Present illness Narrative* Oma Sanchez APRN.CNP - 10/24/2022 11:18 AM EDT This is a 57 year old female [...] Urine smells foul. No abnormal vaginal discharge orconcerns for STD. No flank pain. PAST MEDICAL [...] [Cefadroxil], Lisinopril, Lotronex [Alosetron], Metformin, Penicillins, and Zomig[Zolmitriptan] MEDICATIONS Current Outpatient Medications Medication Sig topiramate [...] as instructed every 4 hours as needed. [place]-3 Fatty Acids 500 mg cap Take 500 [...] discussed and patient voices understanding. Oma Sanchez APRN.CNP This note was partially generated using [facility] voice recognition system. Note was reviewed for accuracy. There may be minor misspellings or grammar miscues with [employer] [facility] voice recognition. documented in this encounterDayton Va Medical Center05-28-2023 History of Present illness Narrative* Govind Adame APRN.CNP - 10/04/2022 11:25 AM EDT Subjective HPI Nontoxic-appearing female presents to urgent care with chief complaint of upper respiratory tract like infection. Duration of symptoms 4 days. Associated symptoms sore throat, nasal congestion, nasaldischarge and nonproductive cough. Patient denies the use of any [id number] medications or home remedies for symptom management. [...] [Cefadroxil], Lisinopril, Lotronex [Alosetron], Metformin, Penicillins, and Zomig[Zolmitriptan] MEDICATIONS FLUoxetine (PROZAC) 10 mg capsule Take [...] migraine). Up to 3 times a day. [place]-3 Fatty Acids (FISH OIL) 500 mg cap [...] of care. This note was generated using [employer] [facility] software. It may contain errors in wording, punctuation, or spelling. Govind Adame APRN.CHRIS documented in this encounterDayton Va Medical Center01-09-2023 Miscellaneous Notes* Telephone Encounter - Carolynn Lucas Pss - 05/18/2022 4:03 PM EST Images from the original note were not included. Rec'd approval via fax. Effective 05/14/2022-05/14/2023 Auth #: Approval scanned to chart via [employer] Recall letter added. * Telephone Encounter - Carlee Suarez RN - 05/14/2022 3:57 PM EST PA submitted and approved. Carlee Suarez RN SUHA SUTTON George: [id number] - PA help? Call us at Outcome Approvedtoday Your PA request has been approved. Additional information will be provided in the approval communication. (Message [id number]) Drug TREXIMET 85-500MG Tablets Form [employer] Medicare Electronic PA Form (2016 [facility] * Telephone Encounter - Carolynn Lucas Pss - 05/06/2022 2:16 PM EST Images from the original note were not included. Prior Authorization Requested Received notification via [employer] from patient Prior authorization for SUMAtriptan-Naproxen (TREXIMET) 85-500 mg per tablet from [employer]. Request forwarded to [address] inbox for review and completion. E-PA available Benefits plan: [facility] [facility] documented in this encounterDayton Va Medical Center06-28-2022 Instructions* Patient Instructions* Mirna Jack APRN.CNP - 11/04/2021 5:00 PM EDT Increase topamax: 25 mg in AM and 100 mg in PM documented in this encounterDayton Va Medical Center06-28-2022 History of Present illness Narrative* Mirna Jack APRN.CNP - 11/04/2021 4:00 PM EDT Headache Center - Virtual Visit Last Visit: 10/28/2020, Mirna Jack APRN.CNP Accompanied by: Self During this COVID-19 pandemic, patient's headache clinic evaluation was scheduled as a virtual visit using the following platform Zoom Kaur Ethel Milton was identified by name and and consented [...] back pain and cervicogenic factors relating to migraine.Future considerations include diclofenac or physical therapy. She [...] recheck in December. 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 Has fatty liver disease. Saw PCP and [...] last visit: Not applicable, I did not havea botox injection at my last visit Not [...] 10/27/2020 11/02/2021 MENDEL-2 Score 0 2 2 MENDEL-7 Score - - - [...] Exercising: yes (physical job) Examination: Vital Signs: THREE [facility] 05/19/2011 General: well appearing, in no acute distress, alert Pain Behaviors: no pain behaviors observed Neurological: Mental Status: Alert and oriented to person, place and time. Affect is normal. Speech is clear, coherent, and relevant. Short and intermediate memory, cognition and general fund of knowledge [...] medication she has tried. She notes that hertremor has been worse - so we will [...] None at this time Follow-up: 1 year, PRN, by melissa in 4 - 6 weeks with update Level of service: Est level 3 (20-29 min). Time spent 25 min on the day of service, which included preparing to see the patient, [id number] patient care, completing clinical documentation, obtaining and/or reviewing separately obtained history, performing a medically appropriate examination, counseling and educating the patient/family/caregiver and ordering medications, tests, or procedures. Medical Decision Making The patient has my contact information and my chart sign up information. I performed this clinical encounter by utilizing a real time telehealth video connection between mylocation and the patient's location. The patient's location [...] comorbidities. Mirna Jack APRN.CNP [facility] Miscellaneous Notes* Telephone Encounter - Mirna Jack APRN.CNP - 09/22/2021 8:48 AM EDT The following approved medication requests have been transmitted electronically. Signed Prescriptions Disp Refills topiramate (TOPAMAX) 100 mg tablet 90 tablet 0 Sig: Take 1 tablet by mouth daily at bedtime. JACE: No Authorizing Provider: MIRNA JACK APRN.CNP * Telephone Encounter - Isabel Rowe - 09/22/2021 8:30 AM EDT Physician: Helen Call from patient requesting refill. Please E-Scribe Last OV: 10/28/20 with Helen Future OV: 11/04/21 with Helen Pending Prescriptions Disp Refills TOPIRAMATE 100 MG TABLET 90 tablet 3 Sig: Take 1 tablet by mouth daily at bedtime. JACE: No [facility]: [facility] Miscellaneous Notes* Telephone Encounter - Mirna Jack APRN.CNP - 09/22/2021 8:47 AM EDT The following approved medication requests have been transmitted electronically. Signed Prescriptions Disp Refills SUMAtriptan-Naproxen (TREXIMET) 85-500 mg per tablet 9 tablet 0 Sig: Take 1 tablet by mouth as needed for migraine headache (see administration instructions). JACE: No Authorizing Provider: MIRNA JACK APRN.CNP * Telephone Encounter - Isabel Rowe - 09/22/2021 8:31 AM EDT Physician: Helen Call from patient requesting refill. Please E-Scribe Last OV: 10/28/20 with Helen Future OV: 11/04/21 with Helen Pending Prescriptions Disp Refills SUMATRIPTAN 85 MG-NAPROXEN 500 MG TABLET 9 tablet 5 Sig: Take 1 tablet by mouth as needed for migraine headache (see administration instructions). JACE: No [facility]: [facility] documented [facility] History of Present illness Narrative* Elo Velarde PA-C - 08/31/2021 10:19 AM EDT This note was created using [employer]. Subjective Kaur Sutton is a 56 year [...] 4 hours as needed. 1 Inhaler 0 [place]-3 Fatty Acids (FISH OIL) 500 mg cap [...] HOURS WITH A MAXIMUM DOSE OF 200 MGPER DAY NEEDED FOR HEADACHE (Patient not taking: Reported on 08/31/2021 ) 27 tablet 3 methocarbamol (ROBAXIN-750) 750 mg tablet Take 1 tablet by mouth as needed (for back pain and migraine). Up to 3 times a day. (Patient not taking: Reported on 08/31/2021 ) 30 tablet 2 Naproxen Sodium (ANAPROX DS) 550 mg tablet Take 1 tablet by mouth twice daily as needed (headache).(Patient not taking: Reported on 08/31/2021 ) 90 [...] Discussed red flags including signs of infection thatshe would need to be seen again. Otherwise follow-up as needed with PCP. Elo Velarde PA-C documented in this encounterDay[facility] Evaluation + Plan note Future Appointments Appointment Date:10/23/2021 11:30:00 AM Scheduled Provider: Location:[facility] Appointment Type:US Abdomen Limited Appointment Date:10/28/2021 10:00:00 AM Scheduled Provider:RADHA ACUNA DO Location:[facility] Appointment Type:PC Office Procedure OMT Appointment Date:01/01/2022 04:00:00 PM Scheduled Provider:RADHA ACUNA DO Location:[facility] Appointment Type:PC OV Future Scheduled Tests Radiology* US Abdomen Limited 10/23/21 * XR Spine Lumbar W/Obliques 4 Views 02/18/21 [facility] 06-21-2020 Evaluation + Plan note Future Appointments Appointment Date:10/23/2021 11:30:00 AM Scheduled Provider: Location:[facility] Appointment Type:US Abdomen Limited Appointment Date:10/28/2021 10:00:00 AM Scheduled Provider:RADHA ACUNA DO Location:[facility] Appointment Type:PC Office Procedure OMT Appointment Date:01/01/2022 04:00:00 PM Scheduled Provider:RADHA ACUNA DO Location:[facility] Appointment Type:PC OV Diagnostic Tests Pending * Hemochromatosis 10/21/21 Future Scheduled Tests Radiology* US Abdomen Limited 10/23/21 * XR Spine Lumbar W/Obliques 4 Views 02/18/21 [facility] 08-20-2012 History of Past illness Narrative* Problem Noted Date Resolved Date Migraine without aura 12/28/2011 06/08/2016 documented as of this encounter (statuses as of 08/31/2021) [address]20-2012 History of Past illness Narrative* Problem Noted Date Resolved Date Migraine without aura 12/28/2011 06/08/2016 documented as of this encounter (statuses as of 09/22/2021) [address]20-2012 History of Past illness Narrative* Problem Noted Date Resolved Date Migraine without aura 12/28/2011 06/08/2016 documented as of this encounter (statuses as of 09/22/2021) [facility] Narrative* Problem Noted Date Resolved Date Migraine without aura 12/28/2011 06/08/2016 documented as of this encounter (statuses as of 11/04/2021) [facility] Narrative* Problem Noted Date Resolved Date Migraine without aura 12/28/2011 06/08/2016 documented as of this encounter (statuses as of 05/19/2022) [address]20-2012 History of Past illness Narrative* Problem Noted Date Resolved Date Migraine without aura 12/28/2011 06/08/2016 documented as of this encounter (statuses as of 10/04/2022) [address]20-2012 History of Past illness Narrative* Problem Noted Date Resolved Date Migraine without aura 12/28/2011 06/08/2016 documented as of this encounter (statuses as of 10/24/2022) [address]20-2012 History of Past illness Narrative* Problem Noted Date Resolved Date Migraine without aura 12/28/2011 06/08/2016 documented as of this encounter (statuses as of 11/12/2022) [address]20-2012 History of Past illness Narrative* Problem Noted Date Diagnosed Date Resolved Date Migraine without aura 12/28/20112016 documented as of this encounter (statuses as of 11/26/2022) [address]20-2012 History of Past illness Narrative* Problem Noted Date Diagnosed Date Resolved Date Migraine without aura 12/28/20112016 documented as of this encounter (statuses as of 01/06/2023) [address]20-2012 History of Past illness Narrative* Problem Noted Date Diagnosed Date Resolved Date Migraine without aura 12/28/20112016 documented as of this encounter (statuses as of 01/24/2023) [address]20-2012 History of Past illness Narrative* Problem Noted Date Diagnosed Date Resolved Date Migraine without aura 12/28/20112016 documented as of this encounter (statuses as of 02/13/2023) [facility] Future Appointments Appointment Date:04/01/2021 04:00:00 PM Scheduled Provider:RADHA ACUNA DO Location:[facility] Appointment Type:PC Office Procedure OMT Appointment Date:07/02/2021 03:30:00 PM Scheduled Provider:RADHA ACUNA DO Location:[facility] Appointment Type:PC OV Future Scheduled Tests Radiology* XR Spine Lumbar W/Obliques 4 Views 02/18/21 [facility] Evaluation + Plan note Future Appointments Appointment Date:05/13/2021 03:30:00 PM Scheduled Provider:RADHA ACUNA DO Location:[facility] Appointment Type:PC Office Procedure OMT Appointment Date:07/02/2021 03:30:00 PM Scheduled Provider:RADHA ACUNA DO Location:[facility] Appointment Type:PC OV Future Scheduled Tests Radiology* XR Spine Lumbar W/Obliques 4 Views 02/18/21 [facility] Evaluation + Plan note Future Appointments Appointment Date:07/15/2021 04:00:00 PM Scheduled Provider:RADHA ACUNA DO Location:[facility] Appointment Type:PC Office Procedure OMT Appointment Date:01/01/2022 04:00:00 PM Scheduled Provider:RADHA ACUNA DO Location:[facility] Appointment Type:PC OV Future Scheduled Tests Laboratory* Urinalysis 07/11/21 * Thyroid Stimulating Hormone 07/02/21 * Urine Culture 07/11/21 * Complete Blood Count 07/02/21 * Lipid Profile 07/02/21 * Complete Metabolic Panel 07/02/21 Radiology* XR Spine Lumbar W/Obliques 4 Views 02/18/21 [facility] evaluation + Plan note Future Appointments Appointment Date:09/25/2021 04:00:00 PM Scheduled Provider:RADHA ACUNA DO Location:[facility] Appointment Type:PC Office Procedure OMT Appointment Date:01/01/2022 04:00:00 PM Scheduled Provider:RADHA ACUNA DO Location:[facility] Appointment Type:PC OV Diagnostic Tests Pending * Vitamin B12 Level 08/16/21 * Folate Level 08/16/21 * Ferritin 08/16/21 * Urine Culture 08/16/21 Future Scheduled Tests Radiology* XR Spine Lumbar W/Obliques 4 Views 02/18/21 [facility] evaluation + Plan note Future Appointments Appointment Date:10/28/2021 10:00:00 AM Scheduled Provider:RADHA ACUNA DO Location:[facility] Appointment Type:PC Office Procedure OMT Appointment Date:01/01/2022 04:00:00 PM Scheduled Provider:RADHA ACUNA DO Location:[facility] Appointment Type:PC OV Future Scheduled Tests Radiology* XR Spine Lumbar W/Obliques 4 Views 02/18/21 [facility] Evaluation + Plan note Future Appointments Appointment Date:11/17/2021 03:30:00 PM Scheduled Provider:RADHA ACUNA DO Location:[facility] Appointment Type:PC Office Procedure OMT Appointment Date:01/01/2022 04:00:00 PM Scheduled Provider:RADHA ACUNA DO Location:[facility] Appointment Type:PC OV Future Scheduled Tests Radiology* XR Spine Lumbar W/Obliques 4 Views 02/18/21 [facility] Evaluation + Plan note Future Appointments Appointment Date:02/11/2022 02:00:00 PM Scheduled Provider:RADHA ACUNA DO Location:[facility] Appointment Type:PC OV Future Scheduled Tests Radiology* XR Spine Lumbar W/Obliques 4 Views 02/18/21 [facility] Evaluation + Plan note Future Appointments Appointment Date:10/16/2022 11:00:00 AM Scheduled Provider:RADHA ACUNA DO Location:[facility] Appointment Type:PC OV Future Scheduled Tests Laboratory* HIV 1/2 Ab 07/10/22 * HIV 1/2 Ab 05/18/22 [facility] Evaluation + Plan note Future Appointments Appointment Date:01/15/2023 10:30:00 AM Scheduled Provider:RADHA ACUNA DO Location:[facility] Appointment Type:PC Wellness Annual Future Scheduled Tests Laboratory* HIV 1/2 Ab 07/10/22 * HIV 1/2 Ab 05/18/22 [facility] Evaluation + Plan note Future Appointments Appointment Date:04/27/2023 08:30:00 AM Scheduled Provider:RADHA ACUNA DO Location:[facility] Appointment Type:PC OV Future Scheduled Tests Laboratory* HIV 1/2 Ab 07/10/22 * HIV 1/2 Ab 05/18/22 [facility] Evaluation + Plan note Future Appointments Appointment Date:10/29/2023 02:00:00 PM Scheduled Provider:RADHA ACUNA DO Location:[facility] Appointment Type:PC OV Appointment Date:01/24/2024 01:30:00 PM Scheduled Provider:RADHA ACUNA DO Location:[facility] Appointment Type:PC Wellness Annual Future Scheduled Tests Laboratory* Albumin/Creatinine Ratio, Random Urine 09/01/23 [facility] Evaluation + Plan note Future Appointments Appointment Date:04/26/2024 03:00:00 PM Scheduled Provider:RADHA ACUNA DO Location:[facility] Appointment Type:PC OV Future Scheduled Tests Laboratory* Thyroid Stimulating Hormone 04/24/24 * A1C Hemoglobin 04/24/24 * Complete Blood Count 04/24/24 * Lipid Profile 04/24/24 * Albumin/Creatinine Ratio, Random Urine 09/01/23 * Vitamin D Level 04/24/24 * Complete Metabolic Panel 04/24/24 Radiology* MA Mammo Screening Bilateral w/ Regan 03/06/24 * BD Bone Density DEXA Axial Skeleton 03/06/24 [facility] Evaluation + Plan note Future Appointments Appointment Date:04/26/2024 03:00:00 PM Scheduled Provider:RADHA ACUNA DO Location:[facility] Appointment Type:PC OV Future Scheduled Tests Laboratory* Thyroid Stimulating Hormone 04/24/24 * A1C Hemoglobin 04/24/24 * Complete Blood Count 04/24/24 * Lipid Profile 04/24/24 * Albumin/Creatinine Ratio, Random Urine 09/01/23 * Vitamin D Level 04/24/24 * Complete Metabolic Panel 04/24/24 [facility] Evaluation + Plan note Future Appointments Appointment Date:06/09/2024 03:00:00 PM Scheduled Provider:RADHA ACUNA DO Location:[facility] Appointment Type:PC OV Appointment Date:07/31/2024 01:30:00 PM Scheduled Provider:RADHA ACUNA DO Location:[facility] Appointment Type:PC OV Future Scheduled Tests Laboratory* Albumin/Creatinine Ratio, Random Urine 04/26/24 [facility] Evaluation + Plan note Future Appointments Appointment Date:09/25/2024 03:30:00 PM Scheduled Provider:RADHA ACUNA DO Location:[facility] Appointment Type:PC OV Future Scheduled Tests Laboratory* Urinalysis w/ C&S if Indicated 07/31/24 * Urine Culture 07/31/24 * Albumin/Creatinine Ratio, Random Urine 04/26/24 [facility] Evaluation + Plan note Future Appointments Appointment Date:12/25/2024 03:30:00 PM Scheduled Provider:RADHA ACUNA DO Location:[facility] Appointment Type:PC OV Future Scheduled Tests Laboratory* Ferritin 09/25/24 * Urinalysis w/ C&S if Indicated 07/31/24 * Thyroid Stimulating Hormone 09/25/24 * Vitamin B12 Level 09/25/24 * Urine Culture 07/31/24 * A1C Hemoglobin 09/25/24 * Complete Blood Count 09/25/24 * Lipid Profile 09/25/24 * Albumin/Creatinine Ratio, Random Urine 04/26/24 * Albumin/Creatinine Ratio, Random Urine 09/25/24 * Vitamin D Level 09/25/24 * Complete Metabolic Panel 09/25/24 Radiology* XR Spine Lumbar AP/LAT 09/25/24 [facility] Evaluation + Plan note Future Appointments Appointment Date:01/17/2025 09:30:00 AM Scheduled Provider:RADHA ACUNA DO Location:[facility] Appointment Type:PC Office Procedure Joint Injection Appointment Date:03/28/2025 09:30:00 AM Scheduled Provider:RADHA ACUNA DO Location:[facility] Appointment Type:PC OV Future Scheduled Tests Laboratory* Ferritin 09/25/24 * Urinalysis w/ C&S if Indicated 07/31/24 * Thyroid Stimulating Hormone 09/25/24 * Vitamin B12 Level 09/25/24 * Urine Culture 07/31/24 * A1C Hemoglobin 09/25/24 * Complete Blood Count 09/25/24 * Lipid Profile 09/25/24 * Albumin/Creatinine Ratio, Random Urine 04/26/24 * Albumin/Creatinine Ratio, Random Urine 09/25/24 * Vitamin D Level 09/25/24 * Complete Metabolic Panel 09/25/24 Radiology* XR Spine Lumbar AP/LAT 09/25/24 [facility] Evaluation + Plan note Future Appointments Appointment Date:03/28/2025 09:30:00 AM Scheduled Provider:RADHA ACUNA DO Location:[facility] Appointment Type: OV Future Scheduled Tests Laboratory* Urinalysis w/ C&S if Indicated 07/31/24 * Urine Culture 07/31/24 * Complete Blood Count 09/25/24 * Albumin/Creatinine Ratio, Random Urine 04/26/24 * Complete Metabolic Panel 09/25/24 Radiology* XR Spine Lumbar AP/LAT 09/25/24 [facility] Evaluation note* Diagnosis Splinter- Primary Other, multiple, and unspecified sites, superficial foreign body (splinter), without major open wound and without mention of infection [facility] Diagnosis Migraine without aura and without status migrainosus, not intractable Migraine without aura, without mention of intractable migraine without mention of status migrainosus Cervicogenic headache Headache [facility]* Diagnosis Essential tremor- Primary Essential and other specified forms of tremor Migraine without aura and without status migrainosus, not intractable Migraine without aura, without mention of intractable migraine without mention of status migrainosus [facility]* Diagnosis Onset Date Resolution Status Hypodermic needlestick injury of finger of left hand [facility] Work Phone: Evaluation note* Diagnosis Onset Date Resolution Status Acute bronchitis acute Contact with or suspected ex posure to other viral communicable disease acute Contusion of rib on left side acute [facility] Work Phone: Evaluation note* Diagnosis URI with cough and congestion- Primary [facility]* Diagnosis Urinary frequency- Primary [facility]* Diagnosis Migraine without aura and without status migrainosus, not intractable- Primary Migraine without aura, without mention of intractable migraine without mention of status migrainosus Essential tremor Essential and other specified forms of tremor [facility]* Diagnosis Hematuria, unspecified type- Primary [facility]* Diagnosis Laceration of left middle finger without foreign body without damage to nail, initial encounter- Primary [facility]* Diagnosis Thrombocytopenia (HCC)- Primary Thrombocytopenia, unspecified Elevated ferritin Other abnormal blood chemistry [facility]* Diagnosis Elevated ferritin- Primary Other abnormal blood chemistry Thrombocytopenia (HCC) Thrombocytopenia, unspecified [facility] this encounter [facility]* Diagnosis Elevated ferritin Other abnormal blood chemistry [facility] this [facility]* Diagnosis Otalgia, bilateral- Primary [facility] this [facility]* Diagnosis Acute otitis media, left- Primary Unspecified otitis media [facility] Diagnosis Elevated ferritin- Primary Other abnormal blood chemistry Thrombocytopenia (HCC) Thrombocytopenia, unspecified [facility] this [facility]* Diagnosis Intractable chronic migraine without aura and without status migrainosus- Primary Chronic migraine without aura, with intractable migraine, so stated, without mention of status migrainosus Essential tremor Essential and other specified forms of tremor Encounter for long-term (current) use of medications Encounter for long-term (current) use of other medications [facility] this [facility]* Diagnosis Elevated ferritin- Primary Other abnormal blood chemistry Hepatic steatosis Other chronic nonalcoholic liver disease Gastroesophageal reflux disease, unspecified whether esophagitis present [facility]* Diagnosis Chronic migraine without aura, intractable, without status migrainosus- Primary [facility]* Diagnosis Sinobronchitis- Primary Unspecified sinusitis (chronic) [facility]* Diagnosis Other cirrhosis of liver (HCC)- Primary [facility]* Diagnosis Urinary urgency- Primary Urgency of urination documented [facility] this encounter [facility]* Diagnosis Other cirrhosis of liver (HCC) [facility]* Diagnosis Chronic migraine without aura, intractable, without status migrainosus- Primary [facility]* Diagnosis Elevated ferritin- Primary Other abnormal blood chemistry [facility] noteNo assessment information availableWNationwide Children's [facility] Work Phone: Evaluation note* Diagnosis Liver cirrhosis secondary to FUENTES (HCC)- Primary Other chronic nonalcoholic liver disease documented in this encounter [facility] note* Diagnosis Diarrhea, unspecified type- Primary documented in this encounter [facility] note* Diagnosis Chronic migraine without aura, intractable, without status migrainosus- Primary documented in this encounter [facility] note* Diagnosis Liver cirrhosis secondary to FUENTES (HCC) Other chronic nonalcoholic liver disease documented in this encounter [facility] note* Diagnosis Intractable chronic migraine without aura and without status migrainosus Chronic migraine without aura, with intractable migraine, so stated, without mention of status migrainosus documented in this encounter [facility] note* Diagnosis Pre-op examination- Primary Preoperative examination, unspecified Liver cirrhosis secondary to FUENTES (HCC) Other chronic nonalcoholic liver disease Pre-op examination Preoperative examination, unspecified Type 2 diabetes mellitus without complication, unspecified whether continuous churn buttermaker insulin use (HCC) Gastroesophageal reflux disease, unspecified whether esophagitis present Tobacco user Tobacco use disorder Thrombocytopenia Thrombocytopenia, unspecified Primary hypertension Unspecified essential hypertension Atherosclerosis of aorta Atherosclerosis of aorta Diabetes mellitus (HCC) Type II or unspecified type diabetes mellitus without mention of complication, not stated as uncontrolled GERD (gastroesophageal reflux disease) Esophageal reflux Hypertension Unspecified essential hypertension Thrombocytopenia Thrombocytopenia, unspecified Tobacco user Tobacco use disorder * Assessment & Plan Note - Mirna Walsh APRN.CNP - 01/22/2025 7:32 AM EDT Associated Problem(s): Atherosclerosis of aorta Lovastatin- continue as prescribed. Patient states that she had a recent CT scan in [place] last week that showed calcifications. HerPCP increased her statin at that time and recommended follow up with cardiology. Denies any CP, sob, palpitations, syncope, or near syncopal episodes. * Assessment & Plan Note - Mirna Walsh APRN.CNP - 01/22/2025 7:31 AM EDT Associated Problem(s): Diabetes mellitus (HCC) Ozempic- last dose taken 01/12/25- continue as prescribed. A1C 6.5 07/29/24 * Assessment & Plan Note - Mirna Walsh APRN.CNP - 01/22/2025 7:28 AM EDT Associated Problem(s): GERD (gastroesophageal reflux disease) Pantoprazole and Famotidine- continue per proceduralist. EGD today. * Assessment & Plan Note - Mirna Walsh APRN.CNP - 01/22/2025 7:28 AM EDT Associated Problem(s): Hypertension Bisoprolol- continue as prescribed. * Assessment & Plan Note - Mirna Walsh APRN.CNP - 01/22/2025 7:27 AM EDT Associated Problem(s): Thrombocytopenia Platelet Count Date Value Ref Range Status 05/15/2024 144 (L) 150 - 400 k/uL Final * Assessment & Plan Note - Mirna Walsh APRN.CNP - 01/22/2025 7:27 AM EDT Associated Problem(s): Tobacco user Recently quit smoking cigarettes. 18.1 pack years. Encouraged continued smoking cessation. * Assessment & Plan Note - Mirna Walsh APRN.CNP - 01/22/2025 7:12 AM EDT Associated Problem(s): Pre-op examination see note for medical conditions which may affect anabel-operative course that were addressed at today's visit. documented in this encounter [facility] Narrative No data available for this section [facility] Discharge instructions No data available for this section [facility] Discharge instructions Additional Instructions Urine with infection. White count normal 7.2. Creatinine normal at 1.17. Urine culture sent. Status post Levaquin IV. Finish her Levaquin next dose tomorrow. Continue oral fluids for hydration. Use your home Zofran or Phenergan as needed.[facility] Work Phone: Note* Hailey Franklin R: PERFORM Event Display: Lab - General Scan Authored Date: [facility] Progress note No data available for this section [facility] Reason for referral (narrative)* Diagnostic Procedure Only (Routine) - Authorized Specialty Diagnoses / Procedures Referred By Contac t Referred To Contact [facility] Diagnoses Elevated ferritin Procedures US ABD RIGHT UPPER QUADRANT US ABDOMINAL REAL TIME W/IMAGE [place] [address] [place] [address] Referral ID Status Reason Start Date Expiration Date Visits Requested Visits Authorized [id number] Authorized Auto-Generat ed Referral 12/22/2023 01/20/2025 1 1 [facility] for referral (narrative)* Diagnostic Procedure Only (Routine) - Closed Specialty Diagnoses / Procedures Referred By Contac t Referred To Contact [facility] Diagnoses Elevated ferritin Procedures US ABD RIGHT UPPER QUADRANT US ABDOMINAL REAL TIME W/IMAGE LIMITED Jackie Leung [address] [place] [address] [place] [address] Referral ID Status Reason Start Date Expiration Date V isits Requested Visits Authorized [id number] Closed Auto-Generate d Referral 12/22/2023 01/20/2025 1 1 [facility] for referral (narrative)* Outpatient Procedure (Routine) - New Request Specialty Diagnoses / Procedures Referred By Contac t Referred To Contact [facility] Diagnoses Hepatic steatosis Procedures DDI VIBRATION CONTROLLED TRANSIENT ELASTOGRAPHY (VCTE) LIVER ELASTOGRAPHY W/O IMAG W/I&R Carlee Armendariz PA-C [address] [place] [address] [facility] [address] [place] [id number] Referral ID Status Reason Start Date Expiration Date Visits Requested Visits Authorized [id number] New Request Auto-Generat ed Referral 03/20/2025 1 1 [facility] for referral (narrative)* Diagnostic Procedure Only (Routine) - Authorized Specialty Diagnoses / Procedures Referred By Contac t Referred To Contact [facility] Diagnoses Other cirrhosis of liver (HCC) Procedures US ABD RIGHT UPPER QUADRANT US ABDOMINAL REAL TIME W/IMAGE LIMITED Carlee Armendariz PA-C [address] [place] [address] [place] [address] Referral ID Status Reason Start Date Expiration Date Visits Requested Visits Authorized [id number] Authorized Auto-Generat ed Referral 06/26/2024 06/25/2025 1 1 [facility] for referral (narrative)No reason for referral information [facility] Work Phone: Reason for visit Narrative* Diagnostic Procedure Only (Routine) - Closed Specialty Diagnoses / Procedures Referred By Contac t Referred To Contact [facility] Diagnoses Elevated ferritin Procedures US ABD RIGHT UPPER QUADRANT US ABDOMINAL REAL TIME W/IMAGE LIMITED Jackie Leung [address] [place] [address] [place] [address] Referral ID Status Reason Start Date Expiration Date V isits Requested Visits Authorized [id number] Closed Auto-Generate d Referral 12/22/2023 01/20/2025 1 1 [facility] for visit Narrative* Diagnostic Procedure Only (Routine) - Closed Specialty Diagnoses / Procedures Referred By Contac t Referred To Contact [facility] Diagnoses Liver cirrhosis secondary to FUENTES (HCC) Procedures US ABD RIGHT UPPER QUADRANT US ABDOMINAL REAL TIME W/IMAGE LIMITED Carlee Armendariz PA-C [address] [place] [address] Phone: tel: fax: [place] [address] Referral ID Status Reason Start Date Expiration Date V isits Requested Visits Authorized [id number] Closed Auto-Generate d Referral 12/19/2024 10/18/2025 1 1 [facility] for visit Narrative* Outpatient Procedure (Routine) - Closed Specialty Diagnoses / Procedures Referred By Contac t Referred To Contact [facility] Diagnoses Liver cirrhosis secondary to FUENTES (HCC) Procedures EGD DIAGNOSTIC ESOPHAGOGASTRODUODENOS COPY TRANSORAL DIAGNOSTIC Carlee Armendariz PA-C [address] [place] [address] Phone: tel: fax: [facility] [address] [place] [address] Referral ID Status Reason Start Date Expiration Date V isits Requested Visits Authorized [id number] Closed Auto-Generate d Referral 01/09/2025 05/09/2025 1 1 [facility] Summary Purpose Family History No Family History Records Found No data available for this section No data available for this section No Family History Records Found No data available for this section No Family History Records Found No data available for this section No Family History Records Found No data available for this section No Family History Records Found No data available for this section No data available for this section No data available for this section No data available for this section No Family History Records FoundNo Family History Records Found No data available for this section No data available for this section No Family History Records Found Advance Directives No Advanced Directives Records Found Advance Directive Response Recorded Date/ Time Advance Directives No December 02 2:21pm Living Will No December 02, 2020 2:21pm Power of Anthropology Lecturer No December 02 2:21pm Advance Directive Response Recorded Date/ Time Living Will No June 04 10:51am Power of Anthropology Lecturer No June 04, 2024 10:51am Living Will No July 17, 2024 4:02pm Power of Anthropology Lecturer No July 17 4:02pm Advance Directives No December 02 2:21pm Reason for Referral Specialty Diagnoses / Procedures Referred By Contac t Referred To Contact Diagnoses Elevated ferritin Thrombocytopenia (HCC) Procedures CONSULT TO HEPATOLOGY OFFICE/OUTPATIENT NEW HIGH MDM 60 MINUTES Jackie Leung [address] [place] [address] Referral ID Status Reason Start Date Expiration Date Visits Requested Visits Authorized [id number] Authorized PCP Requested Referral 01/24/2024 01/23/2025 1 1 Specialty Diagnoses / Procedures Referred By Contac t Referred To Contact Diagnoses Migraine without aura and without status migrainosus, not intractable Essential tremor Procedures PROVIDER ORDERED FOLLOW UP OFFICE/OUTPATIENT NEW HIGH MDM 60-74 MINUTES Mirna Jack APRN.[employer] [address] [place] [address] Referral ID Status Reason Start Date Expiration Date Visits Requested Visits Authorized [id number] Pending Review PCP Requested Referral 08/06/2022 11/04/2022 1 1 Chief Complaint and Reason for Visit Chief Complaint POST ACCIDENT DRUG S CREEN/JAG FINGER STICK/[place] EORDER Reason for Visit Hypodermic needlesti ck injury of finger of left hand Chief Complaint COUGH/POST NASAL DRI P OBWC/LEFT BACK/RIB INJURY/JAG HEALTH POST ACCIDENT/NON DOT/DRUG/BAT/[place] EORDER Reason for Visit Acute bronchitis Contact with or suspected exposure to other viral communicable disease Contusion of rib on left side Chief Complaint Admit Date N/V June 04, 2024 8 :54am gu complaint July 17, 2024 2:4 7pm Additional Source Comments INFORMATION SOURCE (unrecogn ized section and content) DATE CREATED AUTHOR 11/28/2019 [facility] DATE CREATED AUTHOR AUTHOR'S ORGANIZ ATION 10/24/2023 [facility] ([place]) DATE CREATED AUTHOR AUTHOR'S ORGANIZ ATION 03/04/2024 [facility] DATE CREATED AUTHOR AUTHOR'S ORGANIZ ATION 04/29/2024 [facility] DATE CREATED AUTHOR AUTHOR'S ORGANIZ ATION 07/29/2024 [facility] DATE CREATED AUTHOR AUTHOR'S ORGANIZ ATION 01/25/2025 [facility] DATE CREATED AUTHOR AUTHOR'S ORGANIZ ATION 03/21/[address] [facility] DATE CREATED AUTHOR AUTHOR'S ORGANIZ ATION 03/22/2025 [facility] Care Team (unrecognized sect ion and content) Communications Administrator Relationship Specialty Start Date End Date Julien Skinner DO PCP - General Genetics 12/15/10 Communications Administrator Relationship Specialty Start Date End Date Julien Skinner, PCP - General Genetics 12/15/10 Communications Administrator Relationship Specialty Start Date End Date Julien Skinner, PCP - General Genetics 12/15/10 Communications Administrator Relationship Specialty Start Date End Date Julien Skinner, PCP - General Genetics 12/15/10 Communications Administrator Relationship Specialty Start Date End Date Julien Skinner, PCP - General Genetics 12/15/10 Team Status: Active Member Role Status Dates Dr. Julien Skinner , DO Family Provider Active Dr. Radha Acuna , DO Primary Care Provider Active Team Status: Inactive Member Role Status Dates Dr. Radha Acuna , DO Primary Care Provider, Oral salcedo Provider Active Galen ASH, PA Attending Provider Active Team Status: Inactive Member Role Status Dates Dr. Radha Acuna , DO Primary Care Provider, Referrin g Provider Active Jade ASH PA Attending Provider Active Team Status: Inactive Member Role Status Dates Dr. Radha Acuna DO Primary Care Provider Active Jade ASH, PA Attending Provider, Referr ing Provider Active Communications Administrator Relationship Specialty Start Date End Date Julien Skinner, DO PCP - General Genetics 12/15/10 Communications Administrator Relationship Specialty Start Date End Date Julien Skinner, DO PCP - General Genetics 12/15/10 Communications Administrator Relationship Specialty Start Date End Date Julien Skinner, DO PCP - General Genetics 12/15/10 Communications Administrator Relationship Specialty Start Date End Date Julien Skinner DO PCP - General Genetics 12/15/10 Communications Administrator Relationship Specialty Start Date End Date Julien Skinner, DO PCP - General Genetics 12/15/10 Communications Administrator Relationship Specialty Start Date End Date Radha Acuna IV, DO [address] [place] [address] PCP - General Family Medicine 08/07/23 Communications Administrator Relationship Specialty Start Date End Date Radha Acuna IV, DO [address] [place] [address] PCP - General Family Medicine 08/07/23 Communications Administrator Relationship Specialty Start Date End Date Radha Acuna IV, DO [address] [place] [address] PCP - General Family Medicine 08/07/23 Communications Administrator Relationship Specialty Start Date End Date aRdha Acuna IV, DO [address] [place] [address] PCP - General Family Medicine 08/07/23 Communications Administrator Relationship Specialty Start Date End Date Radha Acuna IV, DO [address] [place] [address] PCP - General Family Medicine 08/07/23 Communications Administrator Relationship Specialty Start Date End Date Radha Acuna IV, DO [address] [place] [address] PCP - General Family Medicine 08/07/23 Communications Administrator Relationship Specialty Start Date End Date Radha Acuna IV, DO [address] [place] [address] PCP - General Family Medicine 08/07/23 Communications Administrator Relationship Specialty Start Date End Date Radha Acuna IV, DO [address] [place] [address] PCP - General Family Medicine 08/07/23 Communications Administrator Relationship Specialty Start Date End Date Radha Acuna IV, DO [address] [place] [address] PCP - General Family Medicine 08/07/23 Communications Administrator Relationship Specialty Start Date End Date Radha Acuna IV, DO [address] [place] [address] PCP - General Family Medicine 08/07/23 Communications Administrator Relationship Specialty Start Date End Date Radha Acuna IV, DO [address] [place] [address] PCP - General Family Medicine 08/07/23 Communications Administrator Relationship Specialty Start Date End Date Radha Acuna IV, DO [address] [place] [address] PCP - General Family Medicine 08/07/23 Communications Administrator Relationship Specialty Start Date End Date Radha Acuna IV, DO [facility] [place] [address] PCP - General Family Medicine 08/07/23 Team Status: Active Member Role Status Dates Dr. Radha Acuna DO Primary Care Provider Active Team Status: Inactive Member Role Status Dates Dr. Radha Acuna DO Primary Care Provider Active Start: June 04, 2024 End: June 04, 2024 Dr. Nate Shukla MD Attending Provider Active Sta rt: June 04, 2024 End: June 04, 2024 Dr. Nate Shukla MD Emergency Provider Active Sta rt: June 04, 2024 End: June 04, 2024 Team Status: Inactive Member Role Status Dates Dr. Radha Acuna DO Primary Care Provider Active Start: July 17, 2024 End: July 17, 2024 Dr. Ricky Sheridan DO Emergency Provider Active Start : July 17, 2024 End: July 17, 2024 Communications Administrator Relationship Specialty Start Date End Date Radha Acuna IV, DO [address] [place] [address] PCP - General Family Medicine 08/07/23 Communications Administrator Relationship Specialty Start Date End Date Radha Acuna IV, DO [address] [place] [address] PCP - General Family Medicine 08/07/23 Communications Administrator Relationship Specialty Start Date End Date Radha Acuna IV, DO [address] [place] [address] PCP - General Family Medicine 08/07/23 Communications Administrator Relationship Specialty Start Date End Date Radha Acuna IV, DO [address] [place] [address] PCP - General Family Medicine 08/07/23 Source Comments (unrecognize d section and content) In the event this informatio n is protected by the Federal Confidentiality of Alcohol and Drug Abuse Patient Records regulations: The Federal rules restrict any use of the information to criminally investigate or prosecute any alcohol or drug abuse patient.[facility] the event this information is protected by the Federal Confidentiality of Alcohol and Drug Abuse Patient Records regulations: The Federal rules restrict any use of the information to criminally investigate or prosecute any alcohol or drug abuse patient.[facility] the event this information is protected by the Federal Confidentiality of Alcohol and Drug Abuse Patient Records regulations: The Federal rules restrict any use of the information to criminally investigate or prosecute any alcohol or drug abuse patient.[facility] the event this information is protected by the Federal Confidentiality of Alcohol and Drug Abuse Patient Records regulations: The Federal rules restrict any use of the information to criminally investigate or prosecute any alcohol or drug abuse patient.[facility] the event this information is protected by the Federal Confidentiality of Alcohol and Drug Abuse Patient Records regulations: The Federal rules restrict any use of the information to criminally investigate or prosecute any alcohol or drug abuse patient.[facility] the event this information is protected by the Federal Confidentiality of Alcohol and Drug Abuse Patient Records regulations: The Federal rules restrict any use of the information to criminally investigate or prosecute any alcohol or drug abuse patient.[facility] the event this information is protected by the Federal Confidentiality of Alcohol and Drug Abuse Patient Records regulations: The Federal rules restrict any use of the information to criminally investigate or prosecute any alcohol or drug abuse patient.[facility] the event this information is protected by the Federal Confidentiality of Alcohol and Drug Abuse Patient Records regulations: The Federal rules restrict any use of the information to criminally investigate or prosecute any alcohol or drug abuse patient.[facility] the event this information is protected by the Federal Confidentiality of Alcohol and Drug Abuse Patient Records regulations: The Federal rules restrict any use of the information to criminally investigate or prosecute any alcohol or drug abuse patient.[facility] the event this information is protected by the Federal Confidentiality of Alcohol and Drug Abuse Patient Records regulations: The Federal rules restrict any use of the information to criminally investigate or prosecute any alcohol or drug abuse patient.[facility] the event this information is protected by the Federal Confidentiality of Alcohol and Drug Abuse Patient Records regulations: The Federal rules restrict any use of the information to criminally investigate or prosecute any alcohol or drug abuse patient.[facility] the event this information is protected by the Federal Confidentiality of Alcohol and Drug Abuse Patient Records regulations: The Federal rules restrict any use of the information to criminally investigate or prosecute any alcohol or drug abuse patient.[facility] the event this information is protected by the Federal Confidentiality of Alcohol and Drug Abuse Patient Records regulations: The Federal rules restrict any use of the information to criminally investigate or prosecute any alcohol or drug abuse patient.[facility] Center[facility] the event this information is protected by the Federal Confidentiality of Alcohol and Drug Abuse Patient Records regulations: The Federal rules restrict any use of the information to criminally investigate or prosecute any alcohol or drug abuse patient.[facility] Center[facility] the event this information is protected by the Federal Confidentiality of Alcohol and Drug Abuse Patient Records regulations: The Federal rules restrict any use of the information to criminally investigate or prosecute any alcohol or drug abuse patient.[facility] CenterIn the event this information is protected by the Federal Confidentiality of Alcohol and Drug Abuse Patient Records regulations: The Federal rules restrict any use of the information to criminally investigate or prosecute any alcohol or drug abuse patient.[facility] CenterIn the event this information is protected by the Federal Confidentiality of Alcohol and Drug Abuse Patient Records regulations: The Federal rules restrict any use of the information to criminally investigate or prosecute any alcohol or drug abuse patient.[facility] CenterIn the event this information is protected by the Federal Confidentiality of Alcohol and Drug Abuse Patient Records regulations: The Federal rules restrict any use of the information to criminally investigate or prosecute any alcohol or drug abuse patient.[facility] CenterIn the event this information is protected by the Federal Confidentiality of Alcohol and Drug Abuse Patient Records regulations: The Federal rules restrict any use of the information to criminally investigate or prosecute any alcohol or drug abuse patient.[facility] CenterIn the event this information is protected by the Federal Confidentiality of Alcohol and Drug Abuse Patient Records regulations: The Federal rules restrict any use of the information to criminally investigate or prosecute any alcohol or drug abuse patient.[facility] CenterIn the event this information is protected by the Federal Confidentiality of Alcohol and Drug Abuse Patient Records regulations: The Federal rules restrict any use of the information to criminally investigate or prosecute any alcohol or drug abuse patient.[facility] CenterIn the event this information is protected by the Federal Confidentiality of Alcohol and Drug Abuse Patient Records regulations: The Federal rules restrict any use of the information to criminally investigate or prosecute any alcohol or drug abuse patient.[facility] CenterIn the event this information is protected by the Federal Confidentiality of Alcohol and Drug Abuse Patient Records regulations: The Federal rules restrict any use of the information to criminally investigate or prosecute any alcohol or drug abuse patient.[facility] CenterIn the event this information is protected by the Federal Confidentiality of Alcohol and Drug Abuse Patient Records regulations: The Federal rules restrict any use of the information to criminally investigate or prosecute any alcohol or drug abuse patient.[facility] CenterIn the event this information is protected by the Federal Confidentiality of Alcohol and Drug Abuse Patient Records regulations: The Federal rules restrict any use of the information to criminally investigate or prosecute any alcohol or drug abuse patient.[facility] CenterIn the event this information is protected by the Federal Confidentiality of Alcohol and Drug Abuse Patient Records regulations: The Federal rules restrict any use of the information to criminally investigate or prosecute any alcohol or drug abuse patient.[facility] CenterIn the event this information is protected by the Federal Confidentiality of Alcohol and Drug Abuse Patient Records regulations: The Federal rules restrict any use of the information to criminally investigate or prosecute any alcohol or drug abuse patient.[facility] CenterIn the event this information is protected by the Federal Confidentiality of Alcohol and Drug Abuse Patient Records regulations: The Federal rules restrict any use of the information to criminally investigate or prosecute any alcohol or drug abuse patient.[facility] CenterIn the event this information is protected by the Federal Confidentiality of Alcohol and Drug Abuse Patient Records regulations: The Federal rules restrict any use of the information to criminally investigate or prosecute any alcohol or drug abuse patient.[facility] CenterIn the event this information is protected by the Federal Confidentiality of Alcohol and Drug Abuse Patient Records regulations: The Federal rules restrict any use of the information to criminally investigate or prosecute any alcohol or drug abuse patient.[facility] CenterIn the event this information is protected by the Federal Confidentiality of Alcohol and Drug Abuse Patient Records regulations: The Federal rules restrict any use of the information to criminally investigate or prosecute any alcohol or drug abuse patient.[facility] CenterIn the event this information is protected by the Federal Confidentiality of Alcohol and Drug Abuse Patient Records regulations: The Federal rules restrict any use of the information to criminally investigate or prosecute any alcohol or drug abuse patient.[facility] CenterIn the event this information is protected by the Federal Confidentiality of Alcohol and Drug Abuse Patient Records regulations: The Federal rules restrict any use of the information to criminally investigate or prosecute any alcohol or drug abuse patient.[facility] CenterIn the event this information is protected by the Federal Confidentiality of Alcohol and Drug Abuse Patient Records regulations: The Federal rules restrict any use of the information to criminally investigate or prosecute any alcohol or drug abuse patient.[facility] CenterIn the event this information is protected by the Federal Confidentiality of Alcohol and Drug Abuse Patient Records regulations: The Federal rules restrict any use of the information to criminally investigate or prosecute any alcohol or drug abuse patient.[facility] Center[facility] the event this information is protected by the Federal Confidentiality of Alcohol and Drug Abuse Patient Records regulations: The Federal rules restrict any use of the information to criminally investigate or prosecute any alcohol or drug abuse patient.[facility] CenterIn the event this information is protected by the Federal Confidentiality of Alcohol and Drug Abuse Patient Records regulations: The Federal rules restrict any use of the information to criminally investigate or prosecute any alcohol or drug abuse patient.[facility] CenterIn the event this information is protected by the Federal Confidentiality of Alcohol and Drug Abuse Patient Records regulations: The Federal rules restrict any use of the information to criminally investigate or prosecute any alcohol or drug abuse patient.[facility] CenterIn the event this information is protected by the Federal Confidentiality of Alcohol and Drug Abuse Patient Records regulations: The Federal rules restrict any use of the information to criminally investigate or prosecute any alcohol or drug abuse patient.[facility] CenterIn the event this information is protected by the Federal Confidentiality of Alcohol and Drug Abuse Patient Records regulations: The Federal rules restrict any use of the information to criminally investigate or prosecute any alcohol or drug abuse patient.[facility] CenterIn the event this information is protected by the Federal Confidentiality of Alcohol and Drug Abuse Patient Records regulations: The Federal rules restrict any use of the information to criminally investigate or prosecute any alcohol or drug abuse patient.[facility] CenterIn the event this information is protected by the Federal Confidentiality of Alcohol and Drug Abuse Patient Records regulations: The Federal rules restrict any use of the information to criminally investigate or prosecute any alcohol or drug abuse patient.[facility] CenterIn the event this information is protected by the Federal Confidentiality of Alcohol and Drug Abuse Patient Records regulations: The Federal rules restrict any use of the information to criminally investigate or prosecute any alcohol or drug abuse patient.[facility] CenterIn the event this information is protected by the Federal Confidentiality of Alcohol and Drug Abuse Patient Records regulations: The Federal rules restrict any use of the information to criminally investigate or prosecute any alcohol or drug abuse patient.[facility] CenterIn the event this information is protected by the Federal Confidentiality of Alcohol and Drug Abuse Patient Records regulations: The Federal rules restrict any use of the information to criminally investigate or prosecute any alcohol or drug abuse patient.[facility] CenterIn the event this information is protected by the Federal Confidentiality of Alcohol and Drug Abuse Patient Records regulations: The Federal rules restrict any use of the information to criminally investigate or prosecute any alcohol or drug abuse patient.[facility] CenterIn the event this information is protected by the Federal Confidentiality of Alcohol and Drug Abuse Patient Records regulations: The Federal rules restrict any use of the information to criminally investigate or prosecute any alcohol or drug abuse patient.[facility] Reason for Visit (unrecogniz ed section and [...] ear muffled hearing, dizziness, x 1.5 weeks Reason Comments Follow Up Reason Comments Referral Request Botox Injection Reason Comments Elevated Ferritin Specialty Diagnoses / Procedures Referred By Contac t Referred To Contact Diagnoses Elevated ferritin Thrombocytopenia (HCC) Procedures CONSULT TO HEPATOLOGY OFFICE/OUTPATIENT NEW HIGH MDM 60 MINUTES Jackie Leung [address] [place] [address] Referral ID Status Reason Start Date Expiration Date V isits Requested Visits Authorized [id number] Closed PCP Requested Referral 01/24/2024 01/23/2025 1 1 Reason Comments Botox Injection Specialty Diagnoses / Procedures Referred By Contac t Referred To Contact HEADACHE Diagnoses Chronic migraine without aura, intractable, without status migrainosus Initial botox. Botox 200 units every 12 weeks for 1 year through [facility] buy and bill Preempt protocol [id number] Procedure -08938 chemodervate facial/trigem/cerv musc migraine Procedures BOTULINUM TOXIN A PER 1 UNIT CHEMODERVATE FACIAL/TRIGEM/CERV MUSC MIGRAINE Fromaryurion, Mirna, PROMOTION OFFICER.[employer] HEL[employer] [address] [place] [address] Neur Headache Main [address] [place] [address] Referral ID Status Reason Start Date Expiration Date V isits Requested Visits Authorized [id number] Authorized 03/12/2024 09/08/2024 99 99 Reason Comments Cough Cough, congestion an d sinus drainage x 1 week Reason Comments Fibroscan Reason Comments Results Reason Comments Nausea & Vomiting Leg Cramps Reason Comments Urinary Problem Frequency, burning x today Reason Onset Date Comments Results 06/19/2024 Reason Comments Radiology US Specialty Diagnoses / Procedures Referred By Contac t Referred To Contact [facility] Diagnoses Other cirrhosis of liver (HCC) Procedures US ABD RIGHT UPPER QUADRANT US ABDOMINAL REAL TIME W/IMAGE LIMITED Carlee Armendariz PA-C [address] [place] [address] Phone: tel: fax: [place] [id number] Referral ID Status Reason Start Date Expiration Date V isits Requested Visits Authorized [id number] Closed Auto-Generate d Referral 06/26/2024 06/25/2025 1 1 Specialty Diagnoses / Procedures Referred By Contac t Referred To Contact HEADACHE Diagnoses Chronic migraine without aura, intractable, without status migrainosus Initial botox. Botox 200 units every 12 weeks for 1 year through [facility] caroline and bill Preempt protocol [id number] Procedure -20334 chemodervate facial/trigem/cerv musc migraine Procedures BOTULINUM TOXIN A PER 1 UNIT CHEMODERVATE FACIAL/TRIGEM/CERV MUSC MIGRAINE Helen, Mirna, PROMOTION OFFICER.[employer] PATCHER HELPER [address] [place] [address] Phone: tel: Neurology [address] [place] [address] Phone: tel: fax: Referral ID Status Reason Start Date Expiration Date V isits Requested Visits Authorized [id number] Authorized 06/03/2024 05/09/2025 1 99 Reason Comments Procedure Follow Up Fibroscan 04/26/24, US 06/26/24, Liver biopsy 05/22/24 Reason Comments Established Patient 12 week botox Botox Injection Specialty Diagnoses / Procedures Referred By Sha swanson Referred To Contact HEADACHE Diagnoses Chronic migraine without aura, intractable, without status migrainosus Initial botox. Botox 200 units every 12 weeks for 1 year through [facility] buy and bill Preempt protocol [id number] Procedure -03221 chemodervate facial/trigem/cerv musc migraine Procedures BOTULINUM TOXIN A PER 1 UNIT CHEMODERVATE FACIAL/TRIGEM/CERV MUSC MIGRAINE Mirna Jack, ADALBERTO.[employer] PATCHER HELPER [address] [place] [address] Phone: tel: Neurology [address] [place] [phone] Phone: tel: fax: Reason Onset Date Comments Refill Request 11/15/2024 Reason Onset Date Comments Refill Request 01/01/2025 Care Team (unrecognized sect ion and content) Care Team Personnel Name: RADHA ACUNA DO Position: P4 Physician - Primary Care Med Service: Active Provider Member Role: Primary Care Physician Address: Address: [address] [place] [address] Care Team Related Persons Name: SHAYNE LOYA Care Team Personnel Name: RADHA ACUNA DO Position: P4 Physician - Primary Care Med Service: Active Provider Member Role: Primary Care Physician Address: Address: [address] [place] [address] Care Team Related Persons Name: SHAYNE LOYA Goals (unrecognized section and content) Goals may be documented in a n alternate section FOR RECORDS PERTAINING TO PATIENTS WHO ARE [...] BE BASED ON THE PRIMARY CLINICAL RECORDS. [facility]. provides no warranty or guarantee of the accuracy or completeness of information in this document.
--- NOTE | 2025-04-26 13:16 | STRESSREP_ITS ---
Stress Test Report Exercise myocardial perfusion stress test. Date Test Performed: 04/26/2025 60-year-old lady with a history of atherosclerosis. Stress protocol: Resting EKG demonstrates normal sinus rhythm with a rate of 60 bpm resting blood pressure is 112/72 mmHg. The patient exercised according to the regular Elie protocol for a total duration of 7 minutes and 21 seconds attaining a maximum heart rate of 130 bpm which was 81% of maximum predicted heart rate; the maximum workload was 10.1 metabolic equivalents. At rest there were no ST or T wave jermaine nges noted to suggest ischemia and at peak exercise upsloping ST changes only were noted which did not meet the criteria for ischemia. No clinical angina was noted the test was terminated due to the target heart rate being achieved/fatigue. The peak blood pressure was 174/72 mmHg. Rate-pressure product was 21 900. Myocardial perfusion protocol. 11.8 mCi of technetium 99m sestamibi was injected at rest. The patient exercised according to regular Elie protocol for total duration of 7 minutes and 21 sec and at peak exercise 35.1 mCi of technetium 99m sestamibi was injected stress images were obtained stress and rest images were reconstructed in comparing the short axis vertical long and horizontal long axis. Gated images were also obtained. Perfusion SPECT analysis: Review of the stress images demonstrate normal uptake of tracer noted in all areas of the myocardium. The resting images similarly demonstrate normal uptake of tracer noted in all areas of the myocardium. No areas of reversibility are noted to suggest ischemia no previous infarct was noted. Gated SPECT analysis: The gated ejection fraction is 69% Conclusion: Normal exercise myocardial perfusion stress test at a high workload.
== END | disposition home or self-care (01) ==
LOC: CVS 06:05
PROVIDERS: PCP Student in an Organized Health Care Education/Training Program; Referring Provider Internal Medicine Cardiovascular Disease; Visit Provider Internal Medicine Cardiovascular Disease
DX: I25.10 Atherosclerotic heart disease of native coronary artery without angina pectoris (principal)
CPT/HCPCS: 78452; 93017; 93306; A9500